=== PATIENT | male | born 1950 | race Caucasian/White ===

== ENCOUNTER 2024-07-02 22:24 | Outpatient (CLI) | payer OTHER, MEDICARE, SELFPAY ==
--- OUTSIDE RECORDS SUMMARY | 2024-07-17 00:36 | XMS_ITS | Encounter Summary ---
Author Organization [facility] Address [address] [place] [address] Care Team Providers Care Possum Trapper Name Role Phone Elsewhere, Pcp Primary Care Provider Unavailabl e Encounter Details Date Type Department Care Team (Late st Contact Info) Description 07/10/2024 Orders Only Department of Otorhinolaryngology in [place], [place] [address] [address] Kate Perez P.A.-C. [address] [address] Social History Tobacco Use Types Packs/Day Years Used Date Smoking Tobacco: Never Smokeless Tobacco: Never Alcohol Use Standard Drinks/Week Comments Not Currently 0 (1 standard drink = 0.6 oz pur e alcohol) [facility] Utilities Answer Date Recorded In the past 12 months has [facility] [employer], gas, oil, or water [employer] threatened to shut off services in your home? Yes 06/18/2024 Humiliation, Afraid, Rape, and Kick questionnair e Answer Date Recorded Within the last year, have y ou been afraid of your partner or ex-partner? No 05/29/2022 Within the last year, have y ou been humiliated or emotionally abused in other ways by your partner or ex-partner? No Within the last year, have y ou been kicked, hit, slapped, or otherwise physically hurt by your partner or ex-partner? No 05/29/2022 Within the last year, have y ou been raped or forced to have any kind of sexual activity by your partner or ex-partner? No 05/29/2022 Social Connection and Isolation Panel [NHANES] A nswer Date Recorded Frequency of Communication w ith Friends and Family Not on file 05/29/2022 How often do you get togethe r with friends or relatives? Patient declined 05/29/2022 How often do you attend chur or confucianism services? 1 to 4 times per year 05/29/2022 Do you belong to any clubs o r organizations such as protestant groups, unions, fraternal or athletic groups, or school groups? No 05/29/2022 How often do you attend meet ings of the clubs or organizations you belong to? Never 05/29/2022 Are you , , di vorced, , never , or living with a partner? 05/29/2022 AUDIT-C Answer Date Recorded Q1: How often do you have a drink containing alcohol? Monthly or less 05/29/2022 Q2: How many drinks containi ng alcohol do you have on a typical day when you are drinking? Patient does not drink Q3: How often do you have si x or more drinks on one occasion? Never 05/29/2022 Overall Financial Resource Strain (CARDIA) Answe r Date Recorded How hard is it for you to pa y for the very basics like food, housing, medical care, and heating? Somewhat hard 05/29/2022 PHQ-2 Answer Date Recorded PHQ-2 Score 2 05/31/2022 [facility] - Occupational Stress Questionnaire Answer Date Recorded Do you feel stress - tense, restless, nervous, or anxious, or unable to sleep at night because your mind is troubled all the time - these days? Only a little 05/29/2022 Exercise Vital Sign Answer Date Recorde d On average, how many days pe r week do you engage in moderate to strenuous exercise (like a brisk walk)? 3 days 06/18/2024 On average, how many minutes do you engage in exercise at this level? 30 min 06/18/2024 Hunger Vital Sign Answer Date Recorded Within the past 12 months, y ou worried that your food would run out before you got the money to buy more. Never true 06/18/20 24 Within the past 12 months, t he food you bought just didn't last and you didn't have money to get more. Never true 06/18/2024 PRAPARE - Transportation Answer Date Re corded In the past 12 months, has l ack of transportation kept you from medical appointments or from getting medications? No 06/2024 In the past 12 months, has l ack of transportation kept you from meetings, work, or from getting things needed for daily living? No 06/18/2024 Nutrition Answer Date Recorded On average, how many serving s of fruits and vegetables do you eat per day (serving size is equal to 1 cup or approximately the size of a tennis ball)? 0-2 06/18/2024 Dental Answer Date Recorded Dental: Regular Dentist Yes 05/29/20 Employment Answer Date Recorded Employment status Retired 06/18/2024 Housing Stability Answer Date Recorded What is your living situation today? I have a [facility] place to live 06/18/2024 Education Answer Date Recorded What is the highest level of school you have completed or the highest degree you have received? 12th grade 05/05/2021 Sex and Gender Information Value Date Recorded Sex Assigned at Male 08/24/2022 5:56 PM CDT Gender Identity Male 05/05/2021 8:16 PM CDT Sexual Orientation Straight 05/05/2021 8: 16 PM CDT documented as of this encounter Miscellaneous Notes * Addendum Note - Vesna Norris, L.P.N. - 07/10/2024 10:39 AM CDTAddended by: VESNA NORRIS on: 07/10/2024 01:39 PM Modules accepted: Orders documented in this encounter Plan of Treatment Not on file documented as of this encounter Visit Diagnoses Not on filedocumented in this encounter Care Teams Possum Trapper Relationship Specialty Start Date End Date Elsewhere, Pcp PCP - General Internal Medicine 05/28/22 documented as of this encounter
--- OUTSIDE RECORDS SUMMARY | 2024-07-17 00:36 | XMS_ITS | Referral Summary ---
Author Organization [facility] Address [address] [place] [address] Care Team Providers Care Boilers And Pressure Vessels Inspector Name Role Phone Elsewhere, Pcp Primary Care Provider Unavailabl e Source Comments Patient records contain information from all sites at [facility]. For routine questions regarding patient records, call [phone] during business hours, M-F 8:00 AM - 5:00 PM Central Time. Record requests for emergency care only can be directed to [phone] at any time.[facility] Encounters Date Type Department Care Team Description 07/10/2024 Orders Only Department of Otorhinolaryngology in [place], [place] [address] [place] [address] Kate Perez, P.A.-C. 06/22/2024 9:00 AM CDT Office Visit Department of Otorhinolaryngology in [place], [place] [address] [place] [phone] Kate Perez, P.A.-C. Deviation Nasal Septal (Primary Dx); Hypertrophy Nasal Turbinate; Obstruction Nasal from Last 3 Months Allergies Active Allergy Reactions Criticality Noted Date Comments Amoxicillin-Pot Clavulanate Palpitations 2019 Empagliflozin GI intolerance 11/20/2019 Losartan Itching,Diarrhea 11/18/2009 Metformin Nausea Only 06/14/2016 Metronidazole Other (see comments) 05/31/2022 Nitroimidazoles Itching 02/24/2004 Omeprazole Nausea Only 09/12/2011 Tetracycline Rash 02/24/2004 Medications Medication Sig Dispensed Refills Start Date End Date Status aspirin 81 mg tablet Take 81 mg by mouth daily. 0 Active candesartan (ATACAND) 1 mg tablet Take 32 mg by mouth daily. 0 Active ergocalciferol, vitamin D2, 50 mcg (2,000 unit) capsule Take 1,000 Int'l Units by mouth daily. 0 Active insulin glargine U-300 conc (TOUJEO MAX SOLOSTAR) 300 unit/mL (3 mL) insulin pen injection Inject 50 Units under the skin at bedtime. 0 Active Lactobacillus acidophilus 0.5 mg (100 million cell) tablet TAKE 2 TABLETS BY MOUTH EVERY DAY 0 Active psyllium husk, bulk, 100 % powder Take by mouth. 0 Active multivitamin-mine rals (ICAPS PLUS) tablet Take 1 tablet by mouth. 8 Active mupirocin (BACTROBAN) 2 % ointment Instill a pea-sized amount into each sinus irrigation and perform sinus irrigations twice daily. 0 Active miscellaneous medical supply [facility] As directed. bd auto sheild duo 0.30mm x5mm 30gx 01/24 0 Active linaCLOtide (LINZESS) 72 mcg capsule TAKE ONE CAPSULE BY MOUTH EVERY DAY FOR IBS 1 Active lancets Dispense item covered by pt ins. true metrix - Test 4 times/day. 9 Active lancets 33 gauge misc 0 Active isosorbide mononitrate (IMDUR) 30 mg 24 hr tablet TAKE ONE TABLET BY MOUTH EVERY DAY FOR CHEST PAIN 1 Active insulin aspart U-100 (NovoLOG FlexPen) 100 unit/mL (3 mL) injection INJECT 7 UNITS UNDER THE SKIN THREE TIMES A DAY TO DECREASE BLOOD SUGAR- INJECT IMMEDIATELY BEFORE MEALS 2 Active eucalyptus-pepper mint oil nasal solution Apply 2 drops to each nare twice daily. 0 Active emollient combination no.115 (Vanicream Moisturizing) lotion APPLY A THIN LAYER TO DRY SKIN EVERY DAY TO MOISTURIZE -IDEALLY APPLY WITHIN 3 MINUTES AFTER BATH OR SHOWER 0 Active clopidogreL (PLAVIX) 75 mg tablet TAKE ONE TABLET BY MOUTH EVERY DAY TO PREVENT BLOOD CLOTS 5 Active cholecalciferol (VITAMIN D3) 25 mcg (1,000 Unit) capsule Take 1,000 Units by mouth. 0 Active blood-glucose meter [facility] Dispense glucose meter, test strips and lancets covered by the patient insurance. true metrix - Test 4 times/day. 9 Active blood-glucose meter kit USE DIRECTED 0 Active blood sugar diagnostic (True Metrix Glucose Test Strip) strips TEST BLOOD SUGAR FOUR TIMES DAILY 0 Active blood glucose control high,low solution Use as directed 9 Active atorvastatin (LIPITOR) 80 mg tablet TAKE ONE-HALF TABLET BY MOUTH EVERY EVENING FOR CHOLESTEROL 0 Active alprostadiL (MUSE) 500 mcg transurethral suppository INSERT 1 SUPPOSITORY INTRAURETHRAL NEEDED FOR ERECTILE DYSFUNCTION -MAXIMUM USE OF 3 TIMES PER WEEK WITH AT LEAST 24 HOURS BETWEEN EACH USE 0 Active alcohol swabs pads, medicated USE DIRECTED 0 Active insulin regular 1 Unit/mL injection Insulin (regular) 10 units/10ml SLIDING SCALE 0 Active simethicone (MYLICON,GAS-X) 125 mg capsule Take 80 mg by mouth 4 (four) times a day as needed. 0 Active needle, disp, 30 gauge 30 gauge x 1/2 needle Extra fine.Use as directed test 4 times a day 8 Active nitroglycerin (NITROSTAT) 0.[address] 0.4 mg under the tongue. 5 Active pantoprazole (PROTONIX) 40 mg EC tablet TAKE ONE TABLET BY MOUTH EVERY DAY ONE-HALF HOUR BEFORE EATING TO DECREASE STOMACH ACID 0 Active pen needle, diabetic 29 gauge x 1/2 needle USE DIRECTED 4 TIMES DAILY 9 Active pen needle,diabetic dual safty 30 gauge x /16 needle Use with insulin once daily. 0 Active UNABLE TO FIND Arm sleeves 1 Active hydroCHLOROthiazi de (HYDRODIURIL) 25 mg tablet Take 1 tablet by mouth 3 (three) times a week. 1 Active diclofenac sodium (VOLTAREN) 1 % gel APPLY 4 GRAMS TO LEFT KNEE FOUR TIMES A DAY NEEDED FOR PAIN RELIEF -USE DOSE CARD IN BOX TO MEASURE DOSE -MAXIMUM OF 32 GRAMS PER DAY FROM ALL SITES APPLIED*FOR PAIN RELIEF 1 Active UNABLE TO FIND TAKE ONE HEAPING TABLESPOONFUL BY MOUTH EVERY DAY FOR REGULAR BOWEL MOVEMENTS -MIX IN 8 OUNCES OF JUICE OR WATER 1 Active metoprolol tartrate (LOPRESSOR) 25 mg tablet Take 12.5 mg by mouth as needed. 1 Active triamcinolone (KENALOG) 0.1 % cream Apply topically. 1 Active traZODone (DESYREL) 50 mg tablet Take 1 tablet by mouth at bedtime as needed. 2 Active sodium chloride-sodium bicarbonate (NEILMED SINUS RINSE) nasal rinse Administer into nostril(s). 1 Active semaglutide (OZEMPIC) 1 mg/dose (4 mg/3 mL) injection INJECT 1MG UNDER THE SKIN EVERY WEEK FOR DIABETES -INJECT ON THE SAME DAY EACH WEEK -REFRIGERATE 1 Active acetaminophen (TYLENOL 8 HR) 650 mg ER tablet Take 650 mg by mouth every 8 (eight) hours as needed. 2 Active camphor-eucalyptu s oiL-menthoL 4.7-1.2-2.6 % ointment Apply topically. 2 Active psyllium seed (PSYLLIUM ORAL) Take 1 tsp by mouth at bedtime as needed. 3 Active camphor-menthoL 11-11 % ointment Apply topically. 2 Active ugaldl-ijqmazcv-h mylase 3,000-9,500-15,[address] capsule Take 1 capsule by mouth daily. 2 Active loperamide (IMODIUM A-D) 2 mg tablet Take 4mg by mouth with 1st loose stool, then 2mg with each subsequent loose stool. Max 16 mg in 24 hrs 2 Active albuterol 90 mcg/actuation inhaler Inhale 1-2 puffs every 4 (four) hours as needed. 3 Active cyclobenzaprine (FLEXERIL) 10 mg tablet Take 1/2 tab twice daily as needed for pain 3 Active dicyclomine (BENTYL) 10 mg capsule Take 10 mg by mouth. 3 Active FreeStyle Javier 2 [place] misc 3 Active FreeStyle Javier 2 Sensor kit 3 Active insulin glargine-yfgn (SEMGLEE) 100 unit/mL (3 mL) injection Inject 55 Units under the skin at bedtime. 3 Active sodium chloride (OCEAN) 0.65 % nasal spray Administer into nostril(s). 3 Active atorvastatin (LIPITOR) 40 mg tablet 40 mg. 2 Active clindamycin (CLEOCIN) 150 mg capsule Take 1 capsule (150 mg total) by mouth every 6 (six) hours. 40 capsule 3 Active NaCl 0.9 % irrigation Irrigate with as directed. 4 Active ostfy-r-ohoevmxoh dase 400 unit tablet Take 1 tablet by mouth 2 (two) times a day. 2 Active apple cider vinegar 600 mg capsule Take by mouth. 4 Active hpld-sudsx-YVT-gy j-ynagpuu-rdj 100 mg-100 mcg- 100 mg-100 mg capsule Take by mouth. 3 Active diclofenac sodium (Voltaren) 1 % gel Apply topically. 4 Active famotidine (Pepcid) 20 mg tablet Take 40 mg by mouth. 4 Active hydrocortisone 1 % cream Apply to ear as needed for itching and irritation 4 Active insulin aspart U-100 (NovoLOG U-100 Insulin aspart) 100 unit/mL vial Inject under the skin. 4 Active doxycycline monohydrate (Monodox) 100 mg capsule Take 1 capsule (100 mg total) by mouth 2 (two) times a day before morning and evening meals for 10 days. 20 capsule 4 07/20/20 24 Active doxycycline monohydrate (Monodox) 100 mg capsule Take 1 capsule (100 mg total) by mouth 2 (two) times a day before morning and evening meals for 10 days. 20 capsule 4 07/10/20 24 Discontinued Active Problems Problem Noted Date Diagnosed Date Pain Generalized Abdominal 05/31/2022 Discomfort Abdominal 05/31/2022 Other Depression Recurrent 05/31/2022 Apnea Sleep Obstructive 05/31/2022 Depression Major Recurrent Mild 12/29/2021 Dysfunction Erectile 12/29/2021 Adjustment Disorder With Depressed Mood 12/29/19 22 Degeneration Disc Cervical 10/10/2021 Mixed Irritable Bowel Syndrome 05/11/2021 Pacemaker Cardiac Status Post 03/14/2021 Congestive Heart Failure 02/10/2021 Overview (05/31/2022): Feb 14, 2022 Entered By: JESSIE MCKINLEY Comment: Diastolic Dysfunction. 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 Hypercholesterolemia 09/26/2012 Gastroesophageal Reflux Disease NOS 09/26/2012 Hypertension 09/26/2012 Immunizations Name Administration Dates Next Due DTaP, Unspecified 05/25/2013 H1N1 All Forms 01/09/2010 Influenza TIV (IM) 09/11/2015,11/06/2012, 012 Influenza, Quadrivalent, Adj uvanted, Preservative Free 08/18/2021 Influenza, Seasonal, Injectable 09/11/2015,11/06,10/08/2012 Influenza, Unspecified 08/18/2021,2012,07/26/2011,2010,09/11/2010,08/11/2010,08/29/2009,1 PCV13 08/25/2018,03/24/2018 PPSV23 09/27/2020,03/20/2010 Pneumococcal, Unspecified 03/20/2010 Td (Adult), adsorbed 07/12/2010 Td, (Adult) Unspecified 07/12/2010 Tdap 05/25/2013 influenza trivalent vaccine (6 months and older)(PF) 09/08/2015 Social History Tobacco Use Types Packs/Day Years Used Date Smoking Tobacco: Never Smokeless Tobacco: Never Tobacco Cessation:Counseling Given: Not Answered Alcohol Use Standard Drinks/Week Comments Not Currently 0 (1 standard drink = 0.6 oz pur e alcohol) [facility] Utilities Answer Date Recorded In the past 12 months has e [employer], gas, oil, or water [employer] threatened to shut off services in your [...] 05/29/2022 How often do you attend chur ch or pentecostal services? 1 to 4 times per year 05/29/2022 Do you belong to any clubs o r organizations such as jewish groups, unions, fraternal or athletic groups, or [...] Answer Date Recorded PHQ-2 Score 2 05/31/2022 [facility] - Occupational Stress [...] your living situation today? I have a [facility] place to live 06/18/2024 Education Answer Date Recorded What is the highest level of school you have completed or the highest degree you have received? 12th grade 05/05/2021 Sex and Gender Information Value Date Recorded Sex Assigned at Male 08/24/2022 5:56 PM CDT Gender Identity Male 05/05/2021 8:16 PM CDT Sexual Orientation Straight 05/05/2021 8: 16 PM CDT Last Filed Vital Signs Vital Sign Reading Time Taken Comments Blood Pressure 136/76 05/31/2022 2:42 PM CDT Pulse 82 05/31/2022 2:42 PM CDT Temperature 35.9 ??C (96.7 ??F) 05/31/2022 2:42 PM CD T Respiratory Rate 20 05/31/2022 2:42 PM CDT Oxygen Saturation - - Inhaled Oxygen Concentration - - Weight 123 kg (270 lb 11.6 oz) 05/31/2022 2:42 P M CDT Height 177.8 cm (5' 10) 05/31/2022 2:42 PM CDT Body Mass Index 38.84 05/31/2022 2:42 PM CDT Plan of Treatment Not on file Medical Devices Implanted Type Area Grain Farmer Device Identifier Shelf Expiration Date Model / Serial / Lot Stent Contour 7 X 26 - Albright [id number] Implanted:Qty: 1 on 06/11/1997 Ureteral Stent [employer] Description:Device Manufactu rer - [employer]. Device Status Text - [id number]. Procedures Procedure Name Priority Date/Time Associated Diagnosis Comments OUTSIDE CT NEURO Routine 07/02/2024 9:55 AM CDT HXZZORDERS Routine 05/07/2012 10:39 AM CDT from Last 3 Months or Most Recently Relevant to Health Maintenance Results * CT Sinus WO-Outside CT Neuro (07/02/2024 9:55 AM CDT) Narrative IIMS - 07/03/2024 8:11 AM CDT This order has been created and auto-finalized to support the import of outside images. If available, original interpretation can be found on the Media Tab in Chart Review, in Document Viewer, as an image in QREADS or as an Addendum. If a re-interpretation or overread is required please follow defined workflow.?? Provider Not In System IMG CT PROCEDURES IIMS NA * HXZZORDERS (05/07/2012 10:39 AM CDT) HXHep C Ab-[place] Negative Negative POWERCHART Comment: Vqkane-bf-pbzneg ratio is <1.00. Test Performed by: [address] [id number] Drafter Civil: Romel Anaya III, M.D. Blood 05/07/2012 10:3 9 AM CDT Otto Gaston M.D. LAB HISTORICAL ORDER S POWERCHART from Last 3 Months or Most Recently Relevant to Health Maintenance Care Teams Boilers And Pressure Vessels Inspector Relationship Specialty Start Date End Date Elsewhere, Pcp PCP - General Internal Medicine 05/28/22
--- OUTSIDE RECORDS SUMMARY | 2024-07-17 00:36 | XMS_ITS ---
Author Organization [facility] Address [address] [place] [address] Care Team Providers Care Specimen Boss Name Role Phone Unavailable Unavailable Unavailable Surgery Details Not on file Complications Check Surgery Details section. Procedure Estimated Blood Loss Check Surgery Details section. Procedure Findings Check Surgery Details section. Procedure Specimens Taken Check Surgery Details section.
--- OUTSIDE RECORDS SUMMARY | 2024-07-17 00:36 | XMS_ITS | Encounter Summary ---
Author Organization [facility] Address [address] [place] [address] Care Team Providers Care Chemical Tank Worker Name Role Phone Elsewhere, Pcp Primary Care Provider Unavailabl e Reason for Visit * Reason Comments Nasal Congestion * Outpatient (Routine) - Closed Specialty Diagnoses / Procedures Referred By Contladan t Referred To Contact Otorhinolaryngology Kate Perez, P.A.-CBelén [address] [address] [facility] Region Referral ID Status Reason Start Date Expiration Date Visits Re quested Visits Authorized [id number] Closed 08/13/2023 08/12/2026 1 1 Encounter Details Date Type Department Care Team (Latest Contact Info) Description 06/22/2024 9:00 AM CDT Office Visit Department of Otorhinolaryngology in [place], [place] [address] [facility] [place] [phone] Kate Perez P.A.-C. [address] [place] [address] Deviation Nasal Septal (Primary Dx); Hypertrophy Nasal Turbinate; Obstruction Nasal Social History Tobacco Use Types Packs/Day Years Used Date Smoking Tobacco: Never Smokeless Tobacco: Never Alcohol Use Standard Drinks/Week Comments Not Currently 0 (1 standard drink = 0.6 oz pur e alcohol) [facility] Utilities Answer Date Recorded In the past 12 months has [facility] [employer], gas, oil, or water [employer] threatened to shut off services in your [...] often do you attend chur ch or scientology services? 1 to 4 times per year 05/29/2022 Do you belong to any clubs o r organizations such as anabaptist groups, unions, fraternal or athletic groups, or [...] Answer Date Recorded PHQ-2 Score 2 05/31/2022 [facility] Occupat ional Health - Occupational [...] your living situation today? I have a [facility] place to live 06/18/2024 Education Answer Date Recorded What is the highest level of school you have completed or the highest degree you have received? 12th grade 05/05/2021 Sex and Gender Information Value Date Recorded Sex Assigned at Male 08/24/2022 5:56 PM CDT Gender Identity Male 05/05/2021 8:16 PM CDT Sexual Orientation Straight 05/05/2021 8: 16 PM CDT documented as of this encounter Progress Notes * Kate Perez P.A.-C. - 06/22/2024 9:00 AM CDT SUBJECTIVE CHIEF COMPLAINT/REASON FOR VISIT Continued nasal obstruction, congestion, facial pressure HISTORY OF PRESENT ILLNESS Julius Gregory presents to the clinic today in follow up. Patient is known to me, in the past wehad discussed proceeding with nasal septoplasty and turbinate reduction due to nasal obstruction aswell as sense of chronic nasal congestion and drainage. [facility] statuspost balloon septoplasty and balloon maxillary antrostomies at outside facility in October 30, 2020. He has been scheduled in the last 2 and half years for endoscopic sinus surgery in 2021 but this was canceled due to insurance coverage. He was then planning on nasal septoplasty and turbinate reduction last fall but this was canceled due to acute illness. He utilizes NeilMed rinsing and Ponaris r egularly, this improves his nasal congestion but only for a few hours. He has a vague pressure behind and above his eyes that is always there, this waxes and wanes. Last sinus CT in July 31, 2023 showed fairly clear sinuses, no obstructive disease. The following portions of the patient's history were reviewed: allergies, current medications, problem list, family history, medical history, social history and surgical history OBJECTIVE PHYSICAL EXAMINATION External nasal exam reveals decreased tip support. Colum[place] to the left, caudal deformity to left,slight septal deviation to the right in area 2 and 3. His septal deviation is nonobstructive. He isbilateral inferior turbinate hypertrophy noted left greater than right. No polyps and no active drainage. Oral cavity is without lesions. Neck is without adenopathy. ASSESSMENT / PLAN #1 Deviation Nasal Septal #2 Hypertrophy Nasal Turbinate #3 Obstruction Nasal We discussed involved anatomy and findings. I am not convinced the any type of endoscopic sinus surgery would benefit him and improve his facial/frontal pressure. Would recommend an updated CT to further evaluate the sinuses. If sinuses are clear I would recommend continued symptomatic treatments. While we could proceed with septoplasty and turbinate reduction to slightly improve his nasal airwayI think it would only offer him minimal improvement and the risks of surgery would not outweigh thebenefits. If he ever did want to consider nasal septoplasty we would want improved diabetic controlprior to this elective surgery. He is comfortable with this plan and will be awaiting a phone call a [facility] CT is completed in [place]. Kate Perez P.A.-C. documented in this encounter Plan of Treatment Not on file documented as of this encounter Visit Diagnoses Diagnosis Deviation Nasal Septal- Primary Hypertrophy Nasal Turbinate Obstruction Nasal documented in this encounter Care Teams Chemical Tank Worker Relationship Specialty Start Date End Date Elsewhere, Pcp PCP - General Internal Medicine 05/28/22 documented as of this encounter
--- OUTSIDE RECORDS SUMMARY | 2024-07-17 00:36 | XMS_ITS | Clinical Summary ---
Author Organization [facility] Address [address] [place] [address] Care Team Providers Care Oracle Soa Consultant Name Role Phone Elsewhere, Pcp Primary Care Provider Unavailabl e Source Comments Patient records contain information from all sites at [facility]. For routine questions regarding patient records, call [phone] during business hours, M-F 8:00 AM - 5:00 PM Central Time. Record requests for emergency care only can be directed to [phone] at any time.[facility] Allergies Active Allergy Reactions Criticality Noted Date Comments Amoxicillin-Pot Clavulanate Palpitations 2019 Empagliflozin GI intolerance 11/20/2019 Losartan Itching,Diarrhea 11/18/2009 Metformin Nausea Only 06/14/2016 Metronidazole Other (see comments) 05/31/2022 Nitroimidazoles Itching 02/24/2004 Omeprazole Nausea Only 09/12/2011 Tetracycline Rash 02/24/2004 Medications Medication Sig Dispensed Refills Start Date End Date Status aspirin [address] tablet Take 81 mg by mouth daily. [...] twice daily. 0 Active miscellaneous medical supply [facility] As directed. bd auto sheild duo 0.30mm x5mm 30gx 01/24 0 Active linaCLOtide (LINZESS) 72 mcg capsule TAKE ONE CAPSULE BY MOUTH EVERY DAY FOR IBS 1 Active lancets Dispense item covered by pt ins. true metrix - Test 4 times/day. 9 Active lancets 33 gauge [facility] 0 Active isosorbide mononitrate (IMDUR) 30 mg [...] Units by mouth. 0 Active blood-glucose meter [facility] Dispense glucose meter, test strips and lancets [...] pen needle,diabetic dual safty 30 gauge x 3/16 needle Use with insulin once daily. 0 [...] 11-11 % ointment Apply topically. 2 Active kwdsen-obfjopqn-p mylase 3,000-9,500-15,[address] capsule [...] by mouth. 3 Active FreeStyle Javier 2 [place] misc 3 Active FreeStyle Javier 2 Sensor [...] irrigation Irrigate with as directed. 4 Active dgiyb-p-xnpfsaxbp dase 400 unit tablet Take 1 tablet by mouth 2 (two) times a day. 2 Active apple cider vinegar 600 mg capsule Take by mouth. 4 Active vwjv-bfxfk-PWJ-gy k-ngbzdhh-fkx 100 mg-100 mcg- 100 mg-100 mg capsule [...] Gastroesophageal Reflux Disease NOS 09/26/2012 Hypertension 09/26/2012 Encounters Date Type Department Care Team Description 07/10/2024 Orders Only Department of Otorhinolaryngology in [place], [place] [address] [place] [address] Kate Perez, P.A.-C. 06/22/2024 9:00 AM CDT Office Visit Department of Otorhinolaryngology in [place], [place] [address] [place] [id number] Kate Perez, P.A.-C. Deviation Nasal Septal (Primary Dx); Hypertrophy Nasal Turbinate; Obstruction Nasal from Last 3 Months Immunizations Name Administration Dates Next Due DTaP, [...] drink = 0.6 oz pur e alcohol) [facility] Utilities Answer Date Recorded In the past 12 months has e [employer], gas, oil, or water [employer] threatened to shut off services in your [...] often do you attend chur ch or mormon services? 1 to 4 times per year 05/29/2022 Do you belong to any clubs o r organizations such as sabianism groups, unions, fraternal or athletic groups, or [...] Answer Date Recorded PHQ-2 Score 2 05/31/2022 [facility] - Occupational [...] your living situation today? I have a [facility] place to live 06/18/2024 Education Answer [...] 05/31/2022 2:42 PM CDT Plan of Treatment Health Maintenance Due Date Last Done Comments CT Colonography 1950 Cologuard 1950 Depression Monitoring (PHQ-9) 1950 Diabetic Office Visit with F oot Exam 1950 FIT 1950 Office Visit for Blood Press ure Check / Re-check 1950 Urine Albumin 1950 Zoster Vaccines (1 of 2) 2002 Hepatitis B Vaccines (1 of 3 - Risk 3-dose series) 2012 DTaP,Tdap,and Td Vaccines (3 - Td or Tdap) 05/25/2023 05/25/2013, 05/25/2013, 07/12/2010, Additional history exists Fall Risk Screen (Annual) 11/11/2023 COVID-19 Vaccine (1 - 2022-2 4 season) 2024 Influenza Vaccine (#1) 2024 , 08/18/2021, 09/11/2015, Additional history exists Hemoglobin A1C 09/30/2024 06/30/2024, 05/0 07/2024, 09/09/2023, Additional history exists Dilated Eye Exam 02/11/2025 02/12/2024, 05/2023, 07/27/2022 Creatinine Level (Kidney Fun ction Test) 07/02/2025 07/02/2024, 06/30/2024, 05/31/2024, Additional history exists Potassium Level 07/02/2025 07/02/2024, 06/12, 05/31/2024, Additional history exists Sodium Level 07/02/2025 07/02/2024, 06/12, 05/31/2024, Additional history exists Lipid (Cholesterol) Screening 06/30/2029, 03/19/2024, 09/09/2023, Additional history exists Colonoscopy 06/08/2030 06/08/2020 Colorectal Cancer Screening 06/08/2030 Hepatitis C Screening Completed 05/07/2012 Pneumococcal vaccine (65+ years) Completed 09/27/2020, 08/25/2018, 03/24/2018, Additional history exists Medical Devices Implanted Type Area Chemist Intern Device Identifier Shelf Expiration Date Model / Serial / Lot Stent Contour 7 X 26 - Albright [id number] Implanted:Qty: 1 on 06/11/1997 Ureteral Stent Collax Description:Device Manufactu rer - Collax. Device Status Text - [id number]. Procedures Procedure [...] HXZZORDERS (05/07/2012 10:39 AM CDT) HXHep C Ab-Hubbard Negative Negative POWERCHART Comment: Dtoleb-ni-plckkk ratio is <1.00. Test Performed by: [facility] [address] Benefits Administrator: Romel Anaya III, M.D. Blood 05/07/2012 10:3 9 AM CDT Otto Gaston M.D. LAB HISTORICAL ORDER S POWERCHART from Last 3 Months or Most Recently Relevant to Health Maintenance Care Teams Oracle Soa Consultant Relationship Specialty Start Date End Date Elsewhere, Pcp PCP - General Internal Medicine 05/28/22
--- OUTSIDE RECORDS SUMMARY | 2024-07-17 00:37 | XMS_ITS | Encounter Summary ---
Author Name [facility] [place] [facility] [place] Address [address] [place] [address] Care Team Providers Care Supervisor Cutting And Boning Name Role Phone LILIAMBRITTANIE LYNN Primary Care Provider Unavail able Insurance Providers: All historical and current Section Date Range: From patient's date of to the date document was created. This section includes the names of all active insurance providers for the patient. Insurance Provider Type of Coverage Plan Name Start of Policy Coverage End of Policy Coverage Group Number Member ID Insurance Provider's Telephone Number Policy Lu's Name Patient's Relationship to Policy Lu AARP [facility] ([facility]) MEDICARE ADVANTAGE MCR ([facility]) Nov 11, 2020 [id number] [phone] SHAYYMAURICE Y PATIENT [facility] ([facility]) MEDICARE ADVANTAGE MCR ([facility]) Nov 11, 2017 [id number] SHAYY,MAURICE Y PATIENT [facility] ([facility]) MEDICARE ADVANTAGE MCR ([facility]) Nov 11, 2020 [id number] [phone] SHAYY,MAURICE Y PATIENT Selected Encounter This section includes the information on record at [place] for the Encounter. Date/Time Encounter Type Encounter Description Reason Provider Source Aug 05, 2023 10:07 PM Outpatient Encounter ADMIN PAT ACTIVTIES (MASNONCT) BHARATCELIAVincent DAMON Encounter Template Text not used by [place] Plan of Treatment: Future Appointments (+ 6 months) and Future Tests (+/- 45 days) The Plan of Treatment section includes future care activities for the [facility] [place] [facility] This section includes future appointments and future orders which are active, pending or scheduled. Future Appointments This section includes appointments that were scheduled to occur 6 months from the date of the Encounter, up to a maximum of 20 appointments. The data comes from all [place] treatment facilities. Appointment Date/Time Appointment Type Appointme nt Facility Name Aug 09, 2023 02:00 PM AMB[facility]ORY [facility]INE [facility] Aug 12, 2023 07:00 AM AMBULATORY - NONE [facility] Aug 12, 2023 02:30 PM AMBULATORY - SURGERY [facility] Aug 13, 2023 07:00 AM AMBULATORY - NONE [facility] Sep 04, 2023 10:30 AM [facility] NONE [facility] Sep 09, 2023 02:15 PM [facility] - [facility] Sep 09, 2023 02:16 PM AMBULATORY - PS[facility]CHIATRY [facility] Sep 11, 2023 01:30 PM [facility]ORY - NONE [facility] Sep 16, 2023 11:15 AM AMBUL[facility]ORY - [facility]RY [facility] Sep 17, 2023 08:30 AM [facility]RY [facility] Oct 02, 2023 09:15 AM [facility]ORY [facility] NONE [facility] Oct 11, 2023 09:00 AM [facility]ICINE [facility] Oct 15, 2023 09:30 AM [facility] Oct 17, 2023 09:30 AM AMBULATORY - REHAB [facility]ICIN [facility] Oct 21, 2023 12:15 PM AM[facility]ORY - [facility]ICINE [facility] Nov 01, 2023 11:15 AM [facility] Nov 01, 2023 11:40 AM AMB[facility]ORY - [facility]ICINE [facility] Nov 13, 2023 10:30 AM [facility]ORY - NONE [facility] Nov 18, 2023 11:00 AM AMBULATORY - PSYCHIATRY [facility] Nov 26, 2023 09:30 AM AMBULATORY - PS[facility]CHIATRY [facility] Lab Results: +/- 30 days of the encounter This section includes the Chemistry and Hematology Lab Results on record with [place] for the patient. Radiology Reports and Pathology Reports are provided separately, in subsequent sections. Lab Results This section contains the Chemistry/Hematology Results that were resulted 30 days before or 30 daysafter the date of the Encounter. Date/Time Source Result Type Result - Unit Interpretation Reference Range Comment Aug 09, 2023 02:26 PM [facility] URIC ACID Specimen Type: PLASMA No comment entered. Ordering Provider: SUGEY DURÁN Report Released Date/Time: May 27, 2023 05:07 PM Reporting Lab: [facility] [id number] Performing Lab: [facility] [id number] URIC ACID 5.9 mg/dL 3.5-7.2 Aug 09, 2023 02:26 PM [facility] SED RATE Specimen Type: BLOOD No comment entered. Ordering Provider: SUGEY DURÁN Report Released Date/Time: May 27, 2023 05:07 PM Reporting Lab: [facility] [id number] Performing Lab: [facility] [id number] SED RATE 46 mm/h H 5-15 Aug 09, 2023 02:26 PM [facility] C-REACTIVE PROTEIN Specimen Type: PLASMA No comment entered. Ordering Provider: SUGEY DURÁN Report Released Date/Time: May 27, 2023 05:07 PM Reporting Lab: [facility] [id number] Performing Lab: [facility] [phone] C-REACTIVE PROTEIN <0.30 mg/L <5.00 Aug 09, 2023 02:26 PM [facility] HEMOGLOBIN A1C Specimen Type: BLOOD Comment: Values obtained from A1C measurements can vary. For typical A1C assays, a reported value of 7.0 could actually be between 6.7 and 7.3 if measured by a reference method. A reported value of 9.0 could actually be between 8.7 and 9.3. Ref: http://www.ng sp.org/CAPdat a.asp Ordering Provider: LUNA BANKS Report Released Date/Time: Jun 17, 2023 04:21 PM Reporting Lab: [facility] [phone] Performing Lab: [facility] [id number] HEMOGLOBIN A1C 8.4 H 4.0-6.0 Aug 09, 2023 02:26 PM [facility] LIPID PANEL,NON-FASTING Specimen Type: PLASMA No comment entered. Ordering Provider: LUNA BANKS Report Released Date/Time: Jun 17, 2023 04:21 PM Reporting Lab: [facility] [phone] Performing Lab: [facility] [phone] CHOLESTEROL 148 mg/dL <199 .HDL 42 mg/dL >40 LDL CALCULATION 73 mg/dL <99 VLDL CALCULATION 33 mg/dL H <29 NON HDL CHOLESTEROL 106 mg/dL <129 TRIG(NON FASTING) 166 mg/dL H <149 Aug 09, 2023 02:26 PM [facility] COMPREHENSIVE METABOLIC PANEL+MG Specimen Type: PLASMA No comment entered. Ordering Provider: SUGEY DURÁN Report Released Date/Time: Aug 09, 2023 02:07 PM Reporting Lab: [facility] [phone] Performing Lab: [facility] [phone] CREATININE 0.7 mg/dL 0.7-1.2 UREA NITROGEN 12 mg/dL 8-26 GLUCOSE 181 mg/dL H 70-100 SODIUM 129 mmol/L L 136-145 POTASSIUM 4.0 mmol/L 3.5-5.1 CHLORIDE 94 mmol/L L 98-107 CO2 25 mmol/L 22-29 CALCIUM 9.1 mg/dL 8.4-10.2 PROTEIN,TOTAL 7.9 g/dL 6.0-8.3 ALBUMIN 4.2 g/dL 3.5-5.2 BILIRUBIN, TOTAL 0.5 mg/dL 0.2-1.2 MAGNESIUM 2.2 mg/dL 1.6-2.6 ANION GAP 10 mmol/L 5-15 ALKALINE PHOSPHATASE 88 U/L 40-150 ALT/SGPT 19 U/L <55 AST/SGOT 16 U/L <34 .CREAT EGFR(CKD-EPI) >90 >60 Social History: Smoking Status (Most current) and Tobacco Use (All prior to encounter date) This section includes the most current, and the historical, smoking and tobacco- related health factors from the [place] facility where the Encounter took place. Current Smoking Status This section includes the most current smoking, or tobacco-related health factor, from the [place] facility where the Encounter took place. Date/Time Current Smoking Status Comment Facil ity March 23, 2019 08:54 AM [place]-TOBACCO QUIT 15 YRS OR MORE [facility] Tobacco Use History This section includes a history of the smoking, or tobacco-related health factors, that were collected on or before the date of the Encounter. The data comes from the [place] facility where the Encounter took place. Date/Time Smoking Status/Tobacco Use Comment F acility March 23, 2019 08:54 AM [place]-TOBACCO QUIT 15 YRS OR MORE [facility] Mar 04, 2018 09:41 AM LIFETIME NON-TOBACCO USER [facility] Jun 17, 2017 01:07 PM LIFETIME NON-TOBACCO USER [facility] Apr 23, 2016 09:50 AM FORMER TOBACCO USER 7Y OR GREATE R [facility] Mar 06, 2016 11:12 AM INPT NO TOBACCO USE IN LAST 30 D AYS [facility] Jul 15, 2015 08:58 AM LIFETIME NON-TOBACCO USER [facility] Feb 11, 2013 10:04 AM LIFETIME NON-TOBACCO USER [facility] Nov 27, 2006 03:44 PM FORMER TOBACCO USER 7Y OR GREATE R [facility] Advance Directives: All historical and current Section Date Range: From patient's date of to the date document was created. This section includes ALL of a patient's completed or amended [place] Advance and Rescinded Directives. The entries below indicate that a directive exists for the patient, but an actual copy is not included with this document. The data comes from all [facility]. Date Advance Directives Provider Source Mar 04, 2016 CLINICAL WARNING PALMA NUNEZ [facility] Apr 25, 2010 ADVANCE DIRECTIVE RADHA STEVENSON [facility] March 21, 2005 CLINICAL WARNING KYLEE ANNI [facility] Apr 28, 2004 CLINICAL WARNING MAGI CHAUDHRY [facility] Apr 28, 2004 CLINICAL WARNING [facility] Radiology Reports: +/- 30 days of the encounter Radiology Reports For cases when an order for radiology services may have been completed prior to the date of the Encounter, the report list includes the Radiology Reports that were completed up to 30 days before dateof the Encounter. For cases when an order for radiology services may have been completed after the date of the Encounter, the report list also includes the Radiology Reports that were completed up to30 days after date of the Encounter. The data comes from all [place] treatment facilities. Date/Time Radiology Report Provider Source Jul 09, 2023 10:04 AM HIP RIGHT 2 VIEWS W/PELVIS: SELAM LUCAS [id number] -1950 M Exm Date: JUL 09, 2023@10:04 Req Phys: BRITTANIE DURÁN Loc: [facility] PACT TELEPHONE [place] RN ( Img Loc: [facility] Service: Unknown (Case [id number] COMPLETE) HIP RIGHT 2 VIEWS W/PELVIS (RAD Detailed) CPT:34188 Proc Modifiers : RIGHT, STANDING RIGHT Reason for Study: Right hip pain Clinical History: IS NOT under investigation for COVID-19 or is COVID-19 negative Hip pain x 1 month Responsible provider name and phone number to notify for critical findings if other than user placing the order and pager listed below: User placing orders pager: Brittanie Durán LAST CREATININE 0.8 (03/12/23) Report Status: Verified Date Reported: JUL 09, 2023 Date Verified: JUL 09, 2023 Dairy Farm Manager E-Sig:/ES/ROULA SALDANA MD Report: EXAM: HIP RIGHT 2 VIEWS W/PELVIS 07/09/2023 REASON FOR STUDY: Right hip pain COMPARISON: 11/17/2015 Impression: Right femoral head is well-seated within the acetabulum. There is degenerative bony ridging of the superior lateral right acetabulum. Mild joint space narrowing at this area of bony hypertrophy. Similar appearance of the left hip joint. There is no fracture. No evidence for avascular necrosis of the femoral heads. There is enthesopathy of the right greater and lesser trochanters. Small chronic ossification superior to the right greater trochanter. Degenerative sclerosis with osseous bridging of the superior bilateral sacroiliac joints. Degenerative disc changes throughout the lumbar spine. Primary Interpreting Staff: ROULA SALDANA MD, RADIOLOGIST (Dairy Farm Manager) /ROULA TAL[facility]ERT [facility] Jul 09, 2023 10:04 AM WRIST RIGHT 3 VIEW S OR MORE: SELAM LUCAS [id number] -1950 M Exm Date: JUL 09, 2023@10:04 Req Phys: BRITTANIE DURÁN Pat Loc: [facility] PACT TELEPHONE [place] RN ( Img Loc: [facility] Service: Unknown (Case [id number] COMPLETE) WRIST RIGHT 3 VIEWS OR MORE (RAD Detailed) CPT:84736 Proc Modifiers : RIGHT Reason for Study: Right wrist pain Clinical History: IS NOT under investigation for COVID-19 or is COVID-19 negative Right wrist pain x months Responsible provider name and phone number to notify for critical findings if other than user placing the order and pager listed below: User placing orders pager: LAST CREATININE 0.8 (03/12/23) Report Status: Verified Date Reported: JUL 09, 2023 Date Verified: JUL 09, 2023 Dairy Farm Manager E-Sig:/MIGDALIA/ABDULLAHI EUBANKS MD Report: EXAMINATION: WRIST RIGHT 3 VIEWS OR MORE 07/09/2023 10:04 AM INDICATION: Right wrist pain Impression: Advanced degenerative narrowing along the radial scaphoid joint space which has progressed since 12/13/2021. Possible dorsal tilting of the lunate on the lateral view and increased scapholunate angle which suggests DISI. Mild/moderate degenerative narrowing of the 1st CMC joint. Mild degenerative changes along the STT joints. Tiny ossification projected along the posterior aspect of the wrist seen on the lateral view which could represent an old triquetral fracture/injury. Vascular calcification. Primary Interpreting Staff: ABDULLAHI EUBANKS MD, RADIOLOGIST (Dairy Farm Manager) /ABDULLAHI [facility] Encounter Notes: All associated encounter notes This section contains the clinical notes associated to the Encounter. Date/Time Encounter Note(s) Provider Source Aug 07, 2023 08:08 AM ADDENDUM: LOCAL TITLE: Addendum STANDARD TITLE: ADDENDUM DATE OF NOTE: AUG 07, 2023@08:08:10 ENTRY DATE: AUG 07, 2023@08:08:11 AUTHOR: CELIA KENNY COSIGNER: URGENCY: STATUS: COMPLETED was seen in an outside ED on: 08/04/23 [place] Diagnosis: Abdominal cramping Medical records uploaded to [facility] Please review for any additional follow up needed /cali Kenny RN CEM MSN underground truck operator Rn Acute Care Signed: 08/07/2023 08:08 Receipt Acknowledged By: 08/09/2023 17:52 /migdalia/ BRITTANIE DURÁN,KEYANNA RADIOLOGY ASSISTANT [facility] 08/07/2023 15:59 /migdalia/ Colleen Walker [facility] PACT RN --- Original Document --- 08/04/23 [facility] SELF PRESENTING CARE COORD PLAN NOTE: Emergency Notification Intake Date Presenting to the Facility: Jul Method of Contact: Notified from [employer] worklist Notification ID: [id number] [facility] Referral #: [facility] Name: Hospital: [facility] Address: [address] [place] [address] City: [place] State: [place] Zip Code: [address] Phone : [facility] Point of Contact: Name: [facility] Chief complaint: ABDOMINAL PAIN, DIARRHEA - R10.9 Primary Diagnosis: Disposition Discharged Date of discharge: Jul Discharge to home /migdalia/ MANNY GOYAL SHIP FASTENER Signed: 08/05/2023 22:11 Receipt Acknowledged By: 08/06/2023 15:33 /migdalia/ Celia Kenny RN CEM MSN underground truck operator Rn Acute Care 08/06/2023 ADDENDUM STATUS: COMPLETED Records currently unavailable in [facility], this designer writer will update this EOC and upload records to [facility] when available. /cali Kenny RN CEM MSN underground truck operator Rn Acute Care Signed: 08/06/2023 15:35 08/07/2023 ADDENDUM STATUS: COMPLETED RTC placed for telephone appt for ED f/u w/designer writer. /migdalia/ Colleen Walker [facility] PACT RN Signed: 08/07/2023 16:00 CELIA KENNY [facility] Aug 04, 2023 10:07 PM NONVA NOTE: LOCAL TITLE: [facility] SELF PRESENTING CARE COORD PLAN STANDARD TITLE: NONVA NOTE DATE OF NOTE: AUG 04, 2023@22:07 ENTRY DATE: AUG 05, 2023@22:07:43 AUTHOR: MANNY GOYAL EXP COSIGNER: URGENCY: STATUS: COMPLETED [facility] SELF PRESENTING CARE COORD PLAN NOTE Has ADDENDA Emergency Notification Intake Date Presenting to the Facility: Jul Method of Contact: Notified from [employer] worklist Notification ID: [id number] [facility] Referral #: [facility] Name: Hospital: [facility] Address: [address] [place] [address] City: [place] State: [place] Zip Code: [address] Phone : [facility] Point of Contact: Name: DEPT Chief complaint: ABDOMINAL PAIN, DIARRHEA - R10.9 Primary Diagnosis: Disposition Discharged Date of discharge: Jul Discharge to home /migdalia/ MANNY GOYAL SHIP FASTENER Signed: 08/05/2023 22:11 Receipt Acknowledged By: 08/06/2023 15:33 /migdalia/ Celia Kenny RN CEM MSN underground truck operator Rn Acute Care 08/06/2023 ADDENDUM STATUS: COMPLETED Records currently unavailable in [facility], this designer writer will update this EOC and upload records to [facility] when available. /cali Kenny RN CEM MSN underground truck operator Rn Acute Care Signed: 08/06/2023 15:35 08/07/2023 ADDENDUM STATUS: COMPLETED [place] was seen in an outside ED on: 08/04/23 [place] Diagnosis: Abdominal cramping Medical records uploaded to [facility] Please review for any additional follow up needed /cali NEALA MSN underground truck operator Rn Acute Care Signed: 08/07/2023 08:08 Receipt Acknowledged By: * AWAITING SIGNATURE * BRITTANIE DURÁN 08/07/2023 15:59 /migdalia/ Colleen Walker [facility] PACT RN 08/07/2023 ADDENDUM STATUS: COMPLETED RTC placed for telephone appt for ED f/u w/designer writer. /cali Walker [facility] PACT RN Signed: 08/07/2023 16:00 MANNY GOYAL [facility]
--- OUTSIDE RECORDS SUMMARY | 2024-07-17 00:37 | XMS_ITS | Clinical Summary ---
Author Organization [facility] Address [place], [place] [address] Care Team Providers Care Audio Visual Engineer Name Role Phone Linette Leone HEAVY LINE TECHNICIAN Primary Care Provider [facility] Unavailable Unavailable Brittanie Durán NP Unavailable [phone] [place] [place] Unavailable Alyssa Sellers RN Unavailable [phone] Corie Nolen RN Unavailable [phone] Allergies Active Allergy Reactions Criticality Noted Date Comments Amoxicillin-Pot Clavulanate Palpitations 02/08/2020 Empagliflozin Dizziness 11/20/2019 Nitroimidazoles 01/06/2009 Losartan Diarrhea 11/18/2009 Losartan Potassium *Unknown - Pt Doesn't Remember 10/24/2010 Metformin Nausea Only 06/14/2016 Omeprazole Nausea Only 09/12/2011 Semaglutide Diarrhea Medium 06/09/2024 Tetracycline *Unknown 01/06/2009 Patient doesn't remember what the reaction was. He has tolerated doxycyline in the past Medications Medication Sig Dispensed Refills Start Date End Date Status clopidogrel (PLAVIX) 75 mg tabletIndications:N STEMI (non-ST elevated myocardial infarction) (HC) Take 1 tablet by mouth every morning. 90 tablet 3 11/01/20 15 Active multivitamins with minerals tablet Take 1 Tablet by mouth once daily. 12/01/19 18 Active BD INSULIN PEN NEEDLE UF 29 gauge x 1/2 USE DIRECTED 4 TIMES DAILY 99 04/28/20 19 Active Blood Glucose Control High&Low solnIndications:Typ e 2 diabetes mellitus with diabetic neuropathy, with long-term current use of insulin (HC) Use as directed 3 Bottle 3 07/23/20 19 Active Blood-Glucose Meter (ACCU-CHEK JIA PLUS METER)Indications:T ype 2 diabetes mellitus with diabetic neuropathy, with long-term current use of insulin (HC) Dispense glucose meter, test strips and lancets covered by the patient insurance. true metrix - Test 4 times/day. 1 Device 07/23/20 19 Active lancets (ACCU-CHEK SOFTCLIX LANCETS)Indications :Type 2 diabetes mellitus with diabetic neuropathy, with long-term current use of insulin (HC) Dispense item covered by pt ins. true metrix - Test 4 times/day. 400 Each 3 07/23/20 19 Active isosorbide mononitrate (IMDUR) 30 mg extended release tablet 24 Hour Take 30 mg by mouth once daily. Active B-D SINGLE USE SWABS REGULARIndications: Type 2 diabetes mellitus with diabetic neuropathy, with long-term current use of insulin (HC) USE DIRECTED 300 Each 3 10/03/20 20 Active aspirin (Aspir-81) 81 mg enteric coated tablet Take 1 Tablet (81 mg) by mouth once daily with a meal. 0 03/14/20 21 Active atorvastatin (LIPITOR) 80 mg tablet Take 80 mg by mouth once daily with evening meal. 09/08/20 20 Active triamcinolone (ARISTOCORT; KENALOG) 0.1 % creamIndications:De rmatitis Apply topically to affected area(s) 2 times daily. 80 g 08/08/20 21 Active durable medical equipment (DME)Indications:St rain of right deltoid muscle, initial encounter,Strain of right biceps, initial encounter Arm compression sleeve. 1 Each 08/18/20 21 Active hydroCHLOROthiazide (HCTZ) 25 mg tabletIndications:H TN (hypertension) Take 1 tablet by mouth three times a week (sat,sat,saturday) . 45 tablet. 09/21/20 21 Active traZODone (DESYREL) 50 mg tablet Take 1 Tablet by mouth at bedtime. 11/23/19 22 Active leg brace miscIndications:Alejandrina janessa osteoarthritis of right knee As directed. 1 Each 03/29/20 22 Active hqvrh-q-bizmyxbgeqh se (Beano) 300 unit TbDiIndications:Irr itable bowel syndrome, unspecified type Take 1 tab twice daily. 60 Tablet 04/10/20 Active nitroglycerin (NITROSTAT) 0.4 mg sublingual tabletIndications:N STEMI (non-ST elevated myocardial infarction) (HC) Place 1 Tablet (0.4 mg) under the tongue every 5 minutes if needed for Chest Pain (first choice for chest pain). 25 tablet. 08/07/20 Active acetaminophen SR (Tylenol Arthritis Pain) 650 mg Extended-Release tabletIndications:M idline low back pain, unspecified chronicity, unspecified whether sciatica present Take 1 Tablet (650 mg) by mouth every 8 hours if needed (pain). Max acetaminophen dose: 4000mg in 24 hrs. 60 Tablet 1 08/07/20 Active loperamide (IMODIUM) 2 mg tabletIndications:D iarrhea, unspecified type Take 4mg by mouth with 1st loose stool, then 2mg with each subsequent loose stool. Max 16 mg in 24 hrs 12 Tablet 09/22/20 Active insulin aspart, U-100, (NovoLOG Flexpen U-100 Insulin) 100 unit/mL (3 mL) penIndications:Type 2 diabetes mellitus with diabetic nephropathy, with long-term current use of insulin (HC) Sliding scale with meals 150-200 4 units, 201-250 6 units, 251-300 8 units, 301-350 10 units. 10 Each 5 09/27/20 22 Active fzghqz-sejybnrm-has lase (Creon) 3,000-9,500- 15,000 unit cpDRIndications:Ewing creatic insufficiency Take 1 capsule daily. 90 Capsule 1 10/05/20 22 Active durable medical equipment (DME)Indications:Pr imary osteoarthritis of both knees Knee pillow 1 Each 11/02/20 22 Active medication order composer Take 1 Capsule by mouth once daily. FISH OIL 1000MG (500MG DHA/EPA) CAP,ORAL 11/06/20 22 Active cyclobenzaprine (FLEXERIL) 10 mg tabletIndications:H ip pain, right Take 1/2 tab twice daily as needed for pain 30 Tablet 12/14/19 23 Active candesartan (ATACAND) 32 mg tabletIndications:H TN (hypertension) TAKE 1 TABLET(32 MG) BY MOUTH EVERY DAY AT BEDTIME Strength: 32 mg 90 Tablet 3 12/14/19 23 Active dicyclomine (BENTYL) 10 mg capsuleIndications: Abdominal cramping Take 1 Capsule (10 mg) by mouth four times daily before meals and at bedtime. 20 Capsule 08/04/20 Active albuterol HFA (PRO-AIR; VENTOLIN; PROVENTIL) 90 mcg/actuation inhalerIndications: Bronchitis,Acute non-recurrent pansinusitis Inhale 1-2 Puffs by mouth every 4 hours if needed for Wheezing. 1 Each 08/26/20 Active Lactobacillus acidophilus 0.5 mg (100 million cell) tab Take 2 Tablets by mouth once daily. 08/27/20 Active dilTIAZem CR (TIAZAC; TAZTIA XT) 120 mg capsuleIndications: Palpitations Take 1 Capsule (120 mg) by mouth once daily. 90 Capsule 3 09/12/20 Active metoprolol tartrate (LOPRESSOR) 25 mg tabletIndications:P alpitations Take 0.5 Tablets (12.5 mg) by mouth two times daily. 90 Tablet 3 09/12/20 Active Floq Javier 3 [place] for continuous blood glucose monitor (CGM)Indications:Ty pe 2 diabetes mellitus with diabetic nephropathy, with long-term current use of insulin (HC) To be used to read blood sugars follow college administrator directions. 1 Each 01/08/20 24 Active hydrocortisone 1 % creamIndications:Ot algia of both ears Apply to ear as needed for itching and irritation 30 g 01/27/20 24 Active famotidine (PEPCID) 40 mg tabletIndications:I rritable bowel syndrome with both constipation and diarrhea,Gastroesop hageal reflux disease with esophagitis without hemorrhage Take 1 Tablet (40 mg) by mouth at bedtime. 90 Tablet 3 02/06/20 24 Active durable medical equipment (DME)Indications:Jaci mbar disc disease Back brace 1 Each 05/05/20 24 Active psyllium powdIndications:Irr itable bowel syndrome, unspecified type Mix 1 tsp in liquid then take by mouth once daily if needed for Constipation. 849 g 2 05/21/20 24 Active diclofenac topical (VOLTAREN) 1 % gelIndications:Prim riccardo osteoarthritis involving multiple joints APPLY 4 GRAMS TO LEFT KNEE FOUR TIMES A DAY NEEDED FOR PAIN RELIEF -USE DOSE CARD IN BOX TO MEASURE DOSE -MAXIMUM OF 32GM PER DAY 100 g 5 06/01/20 24 Active insulin glargine, U-100, (LANTUS) 100 unit/mL injectionIndication s:type 2 diabetes mellitus Inject 66 units subcutaneous before bedtime. 80 mL 06/09/20 24 Active Walker - 4 wheelsIndications:P rimary osteoarthritis of both knees,Primary osteoarthritis of right hip For home use. Length of need: 99 with seat. 1 Each 06/09/20 24 Active FreeStyle Javier 3 Sensor for continuous blood glucose monitor (CGM)Indications:Ty pe 2 diabetes mellitus with diabetic nephropathy, with long-term current use of insulin (HC) To be used to read blood sugars, follow college administrator directions. 6 Each 3 06/15/20 24 Active medication order composerIndications :Type 2 diabetes mellitus with diabetic nephropathy, with long-term current use of insulin (HC) APPLE CIDER VINEGAR CAP/TAB takes 3 times per week 06/29/20 24 Active medication order composerIndications :Type 2 diabetes mellitus with diabetic nephropathy, with long-term current use of insulin (HC) PONARIS SOLN,NASAL 06/29/20 24 Active loperamide (IMODIUM) 2 mg capsuleIndications: Diarrhea, unspecified type Take 2 capsules (4mg) orally with 1st loose stool, then 1 capsule (2mg) with other loose stools. Max 16 mg in 24 hrs. 40 Capsule 07/12/20 24 Active apixaban (Eliquis) 5 mg tabletIndications:A trial flutter, unspecified type (HC) Take 1 Tablet (5 mg) by mouth two times daily. 180 Tablet 3 07/14/20 24 Active FreeStyle Javier 3 [place] for continuous blood glucose monitor (CGM)Indications:Ty pe 2 diabetes mellitus with diabetic nephropathy, with long-term current use of insulin (HC) To be used to read blood sugars follow college administrator directions. 1 Each 01/02/20 24 024 Discontinued(Du plicate therapy (E-cancel not sent)) rivaroxaban (Xarelto) 10 mg tabletIndications:p revention of thromboembolism in paroxysmal atrial fib Take 1 Tablet (10 mg) by mouth once daily with evening meal. 30 Tablet 07/03/20 24 024 Discontinued rivaroxaban (Xarelto) 10 mg tabletIndications:p revention of thromboembolism in paroxysmal atrial fib Take 2 Tablets (20 mg) by mouth once daily with evening meal. 30 Tablet 07/03/20 24 024 Discontinued(*M edication adjustment) rivaroxaban (Xarelto) 20 mg tabletIndications:p revention of thromboembolism in paroxysmal atrial fib Take 1 Tablet (20 mg) by mouth once daily with evening meal. 30 Tablet 07/03/20 24 024 Discontinued(*M ed complete/Regime n complete/Level of care change) apixaban (Eliquis) 5 mg tabletIndications:A trial flutter, unspecified type (HC) Take 1 Tablet (5 mg) by mouth two times daily. 60 Tablet 07/03/20 24 024 Discontinued(Re order (E-cancel not sent)) apixaban (Eliquis) 5 mg tabletIndications:A trial flutter, unspecified type (HC) Take 1 Tablet (5 mg) by mouth two times daily. 180 Tablet 3 07/10/20 24 024 Discontinued(Re order (E-cancel not sent)) Active Problems Patient Care Coordination No te Formatting of this note migh t be different from the original. [facility] [place] 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 Problem Noted Date Diagnosed Date Chronic obstructive pulmonar y disease, unspecified COPD type 04/23/2024 Unspecified hearing loss, unspecified ear 2023 Depression, major, single episode, moderate 08/13 Irritable bowel syndrome 11/29/2022 Pancreatic insufficiency 11/29/2022 Parkinson's disease 11/16/2022 Primary erectile dysfunction 12/29/2021 Insomnia 12/29/2021 Cervical pain 12/29/2021 Adjustment disorder with depressed mood 12/29/19 Major depressive disorder, recurrent, mild 12/29 Coronary artery disease invo lving bois forte coronary artery of bo[place]te heart with angina pectoris 12/29/2021 Degenerative disc disease, cervical 10/10/2021 Anxiety 09/23/2021 History of COVID-19 09/04/2021 Irritable bowel syndrome wit h both constipation and diarrhea 05/11/2021 S/P placement of cardiac pacemaker 03/14/2021 Palpitation 03/14/2021 Sinus bradycardia 03/09/2021 Overview: - sinus bradycardia limiting medical therapy - status post PPM 03/08/2021 Anxiety neurosis 02/16/2021 Atrial flutter 02/16/2021 Depressive disorder 02/16/2021 Overview: Aug 31, 2013 Entered By: MARCIO FALL Comment: versus schizoaffective disorder Dyspepsia 02/16/2021 History of renal calculi 02/16/2021 Overview: Sep 08, 2013 Entered By: MARCIO FALL Comment: PCP with yearly renal USOct 2012 Entered By: MARCIO FALL Comment: left mid ureteral narrowing, mild pelvicaliectasis Impulse control disorder 02/16/2021 Internal carotid artery occlusion 02/16/2021 Osteoarthritis of knee 02/16/2021 Overview: Dec 18, 2011 Entered By: EMILIA THOMPSON Comment: left sided medial compartment, right sided patellofemoral Congestive heart failure 02/10/2021 Carotid artery disease 02/10/2021 ALMA (obstructive sleep apnea) 01/19/2021 Paroxysmal atrial fibrillation 01/19/2021 Symptomatic PVCs 08/30/2020 Tubular adenoma of colon 06/08/2020 Overview: follow up colonoscopy in 3 years due to the size Arthritis of left knee 10/22/2018 Left knee pain 10/22/2018 Cerebral vascular disease 03/04/2017 Sensorineural hearing loss (SNHL), bilateral 03/2017 Flatulence symptom 02/05/2017 Exertional headache 02/05/2017 ALMA 2009, AHI 8 12/20/2016 Type 2 diabetes mellitus wit h diabetic nephropathy, with long-term current use of insulin 11/12/2016 Left ventricular diastolic dysfunction, NYHA cla ss 1 09/20/2016 Abnormality of left ventricle of heart 6 Coronary artery disease invo lving bois forte coronary artery of bo[place]te heart 04/28/2016 H/O colonoscopy 10/28/2015 Overview: Due in 5 years polyps NSTEMI (non-ST elevated myocardial infarction) 1 12/25/2014 Lateral epicondylitis of left elbow 09/15/2015 Osteoarthritis of both knees 09/14/2013 Hypercholesterolemia 09/26/2012 HTN (hypertension) 09/26/2012 GERD (gastroesophageal reflux disease) 2 Polyp of colon Resolved Problems Problem Noted Date Diagnosed Date Resolved Date Chronic alcoholism in remission 02/16/2021 05/11/2021 H/O major depression 06/03/2018 023 Paroxysmal SVT (supraventricular tachycardia) 02/06/20 17 02/08/2020 Unstable angina 12/21/2016 12/29/2021 Chronic diastolic CHF (conge stive heart failure) 12/20/2016 02/08/2020 Controlled type 2 diabetes m ellitus without complication, without long-term current use of insulin 11/06/2016 11/12/2016 Chest pain 04/28/2016 12/29/2021 Morbid obesity 03/21/2016 02/08/2020 Paroxysmal atrial tachycardi a (HC) s/p ablation March 2016 03/21/2016 02/08/2020 Overview: S/P atrial tachycardia ablation on 04/02/2016 DM (diabetes mellitus) 02/17/200911/06 Angina pectoris 02/08/2020 Encounters Date Type Department Care Team Description 07/15/2024 Telephone [facility] [address] [place] [address] Jayant Thornton MD Concerns (Reschedule CLIVE/DCCV) 07/14/2024 Refill [facility] [address] [place] [address] Jayant Thornton MD Refill Request 07/14/[address] [phone] Linette Leone NP Refill Request (Freestyle Javier 2 Sensor) 07/14/2024 Telephone [facility] [address] [place] [address] Jayant Thornton MD Ed F/u 07/12/2024 9:45 AM CDT - 07/12/2024 11:10 AM CDT Emergency [address] [address] Ricardo Arreguin MD Diarrhea, unspecified type (Primary Dx); Acute cough Discharge Disposition: Home Self Care 07/12/2024 Travel 07/10/2024 Nurse Triage [facility] [address] [phone] Shaneka Warren, RASHEED Follow Up 07/09/[address] [address] Linette Leone NP Medication Management (apixaban (Eliquis) 5 mg tablet) 07/06/2024 Telephone [facility] [address] [phone] Mirela Falk I, RASHEED Device Check 07/04/2024 Nurse Triage [facility] [address] [phone] Shaneka Warren, RASHEED HR 110 (I Triage (HR 110)) 07/03/2024 Telephone [facility] [address] [facility] [address] [place] [phone] Yodit Salmeron RN 07/03/2024 Medical Messaging [address] [phone] Linette Leone NP Test results 07/03/2024 Telephone [facility] [address] [phone] Jayant Thornton MD Atrial Fibrillation 07/02/2024 10:59 PM CDT - 07/03/2024 2:10 AM CDT Emergency [facility] [address] [place] [address] Indira Mir MD Palpitations (Primary Dx); Persistent atrial fibrillation (HC) Discharge Disposition: Home Self Care 07/02/2024 9:40 AM CDT - 07/02/2024 10:58 PM CDT Hospital Encounter [facility] [address] [place] [address] Kate Perez PA Nasal obstruction; Chronic sinusitis, unspecified location 07/02/2024 Travel 06/30/2024 1:00 PM CDT Orders Only [address] [address] [facility] 06/29/2024 10:30 AM CDT Patient Outreach [address] [address] Focused Care Management 06/29/2024 9:30 AM CDT Telemedicine [address] [phone] Linette Leone NP Diabetes (3 month Follow up); Telehealth 06/29/2024 Travel 06/09/2024 10:30 AM CDT Patient Outreach [address] [address] Focused Care Management (Depression, major, single episode, moderate/Type 2 diabetes mellitus with diabetic nephropathy, with long-term current use of insulin ) 06/09/2024 9:30 AM CDT Telemedicine [address] [address] Linette Leone NP Telehealth; Hospital F/U (ED 05/31/2024 -diarrhea) 06/09/2024 Travel 06/04/2024 11:40 AM CDT Orders Only [address] [phone] [facility] 06/04/2024 Travel 06/01/[address] [address] Linette Leone NP Medication Management (semaglutide (OZEMPIC) 2 mg/1.5 mL (0.25mg or 0.5mg doses) pen ) 05/31/2024 8:28 AM CDT - 05/31/2024 9:47 AM CDT Emergency [facility] [address] [place] [address] Nury Don MD Irritable bowel syndrome, unspecified type (Primary Dx); Elevated lipase Discharge Disposition: Home Self Care 05/31/2024 Travel 05/25/2024 9:30 AM CDT Patient Outreach [address] [phone] Focused Care Management (Chronic low back pain /Anxiety) 05/25/[address] [address] Linette Leone NP Refill Request 05/25/2024 Travel 05/21/[address] [address] Linette Leone NP Appointment 05/19/[address] [address] Linette Leone NP Medication Management (semaglutide (OZEMPIC)) 05/13/[address] [address] Linette Leone NP Form 05/05/2024 10:00 AM CDT Patient Outreach [address] [address] Focused Care Management (Depression, major, single episode, moderate (HC) 04/23/2024 /Type 2 diabetes mellitus with diabetic nephropathy, with long-term current use of insulin () 05/05/[address] [phone] Linette Leone NP Medication Management (Back brace and Open Arms form) 05/05/2024 Travel 04/23/2024 10:00 AM CDT Phone Office Visit [address] [address] Focused Care Management (Anxiety/Major depressive disorder, recurrent, mild) 04/23/2024 8:50 AM CDT Telemedicine [address] [phone] Linette Leone NP Follow Up (Lab results) 04/23/2024 Patient Outreach [address] [address] Corie Nolen RN Focused Care Management (Anxiety /Type 2 diabetes) 04/23/2024 Travel 04/22/2024 Travel from Last 3 Months Immunizations Name Administration Dates Next Due Influenza A (H1N1), Inactivated 01/09/2010 Influenza Virus, Unspecified 07/21/2013, 07/26/2011,11/11/2010,2009,08/11/2010,08/29/2009,09/01/2008 Influenza, IIV3 (Age >=3 years) 09/11/2015,11/06,10/08/2012 Influenza, Inactivated AIIV4 (Age 65+ Years) Preserv Free 08/18/2021 Pneumococcal Poly,23-Valent (Pneumovax) 09/27/2020,03/20/2010 Pneumococcal conj 13-Valent (Prevnar 13) 08/25/2018,03/24/2018 Td (Age >=7 Years) 07/12/2010 Tdap, Unspecified 05/25/2013 Family History Medical History Relation Name Comments Diabetes Sister Relation Name Status Comments Father Mother Sister Social History Tobacco Use Types Packs/Day Years Used Date Smoking Tobacco: Never Passive Smoke Exposure: Never Smokeless Tobacco: Never Tobacco Cessation:Counseling Given: Not Answered Alcohol Use Standard Drinks/Week Comments Yes 0 (1 standard drink = 0.6 oz pur e alcohol) very rarely PHQ-2 Answer Date Recorded PHQ-2 TOTAL SCORE 0 09/09/2023 Social Connections Answer Date Recorded Frequency of Communication with Friends and Fami ly Not on file 04/11/2023 Financial Resource Strain Answer Date R ecorded Difficulty of Paying Living Expenses 3 04/03/2022 Difficulty of Paying Living Expenses Not on file 04/03/2022 Food Insecurity Answer Date Recorded Worried About Running Out of Food in the Last Ye ar 1 03/05/2022 Transportation Needs Answer Date Record ed Lack of Transportation (Medical) 1 03/05/2022 Housing Stability Answer Date Recorded Unable to Pay for Housing in the Last Year 1 03/05/2022 Sex and Gender Information Value Date Recorded Sex Assigned at Not on file Gender Identity Not on file Sexual Orientation Not on file Obstetrics History Last Filed Vital Signs Vital Sign Reading Time Taken Comments Blood Pressure 133/70 07/12/2024 11:06 AM CDT Pulse 76 07/12/2024 11:06 AM CDT Temperature 36.6 ??C (97.8 ??F) 07/12/2024 9:51 AM CD T Respiratory Rate 18 07/12/2024 9:51 AM CDT Oxygen Saturation 94% 07/12/2024 9:51 AM CDT Inhaled Oxygen Concentration - - Weight 123.4 kg (272 lb) 07/12/2024 9:58 AM CDT Height 177.8 cm (5' 10) 07/12/2024 9:58 AM CDT Body Mass Index 39.03 07/12/2024 9:58 AM CDT Plan of Treatment Upcoming Encounters Date Type Department Care Team (Latest Contact Info) Description 07/17/2024 11:30 AM CDT Telemedicine [address] [phone] Linette Leone NP [address] [place] [address] 07/20/2024 11:00 AM CDT Patient Outreach [address] [address] 07/27/2024 12:45 PM CDT Appointment [facility] [address] [place] [address] 07/27/2024 1:00 PM CDT Appointment [facility] [address] [place] [address] 08/03/2024 9:30 AM CDT Office Visit [facility] [address] [place] [address] Linette Leone NP [address] [place] [address] 08/19/2024 9:45 AM CDT Hospital Encounter [facility] [address] [place] [address] Meño Clinton MD [address] [place] [address] 08/19/2024 9:45 AM CDT Anesthesia Event [facility] [address] [place] [address] Janny Norris CRNA [address] [place] [address] 08/19/2024 9:45 AM CDT - 08/19/2024 10:35 AM CDT Surgery [facility] [address] [place] [address] Meño Clinton MD [address] [place] [address] COLONOSCOPY 08/20/2024 Cardiac Device Check [facility] [phone] 08/24/2024 11:10 AM CDT Office Visit [address] [phone] Linette Leone NP [address] [place] [address] 09/10/2024 9:20 AM CDT Office Visit [address] [phone] Linette Leone, HEAVY LINE TECHNICIAN [address] [facility] [place] [address] Scheduled Procedures Name Priority Associated Diagnoses Date/Ti me COLONOSCOPY Screen for colon cancer 08/19/2024 9:45 AM CDT Health Maintenance Due Date Last Done Comments Zoster (shingles) series for age 50+ (1 of 2) 2002 Tetanus booster 05/25/2023 05/25/2013, 07/12/2010 Colonoscopy through age 75 06/08/202306/08, 03/15/2015, 02/10/2012 (Completed outside of [facility]) COVID-19 vaccine series (2022- season) 2024 Influenza for age 65+ 07/12/2024 08/18/2021 , 09/11/2015, 07/21/2013, Additional history exists Medicare Wellness for age 65+ 09/09/2024, 09/03/2022, 09/27/2020, Additional history exists Depression screening for age 12+ 09/12/2024 09/12/2023, 09/12/2023, 09/09/2023, Additional history exists BMI (ht and wt on same day) for age 18+ 01/26/2025 01/27/2024, 11/21/2023, 09/09/2023, Additional history exists Lipids for age 45-75 06/30/2029 06/30/2024, 03/19/2024, 09/09/2023, Additional history exists Tdap Completed 05/25/2013 Fecal testing non-DNA (FIT,FOBT,iFOBT) for age 45-75 Discontinued 06/08/2020, 06/07/2020 Hepatitis C screening for ag e 18-79 Completed 07/26/2020 Pneumococcal series for age 65+ Completed 09/27/2020, 08/25/2018, 03/24/2018, Additional history exists Procedures Procedure Name Priority Date/Time Associated Diagnosis Comments EXTRA TUBE BLUE Today 07/12/2024 10:21 AM CDT MAGNESIUM STAT 07/12/2024 10:21 AM CDT BASIC METABOLIC PANEL STAT 07/12/2024 10:21 AM CDT CBC W PLT NO DIFF STAT 07/12/2024 10: 21 AM CDT COVID-19 MOLECULAR Today 07/12/2024 10 :07 AM CDT INFLUENZA A/B PCR STAT 07/12/2024 10: 07 AM CDT CBC WITH AUTO DIFFERENTIAL STAT 07/02/2024 11:44 PM CDT HEPATIC FUNCTION PANEL STAT 07/02/2024 11:44 PM CDT TROPONIN T (HS) ONE TIME STAT 07/02/2024 11:44 PM CDT BASIC METABOLIC PANEL STAT 07/02/2024 11:44 PM CDT CBC WITH AUTO DIFFERENTIAL STAT 07/02/2024 11:44 PM CDT EKG 12 LEAD STAT 07/02/2024 11:[address] SINUS WO Routine 07/02/2024 9:52 AM CDT Nasal obstruction Chronic sinusitis, unspecified location LIPID PANEL W REFLEX MEASURED LDL Routine 06/30/2024 12:36 PM CDT Type 2 diabetes mellitus with diabetic nephropathy, with long-term current use of insulin (HC) COMP METABOLIC PANEL Routine 06/30/2024 12:36 PM CDT Type 2 diabetes mellitus with diabetic nephropathy, with long-term current use of insulin (HC) HEMOGLOBIN A1C Routine 06/30/2024 12:36 PM CDT Type 2 diabetes mellitus with diabetic nephropathy, with long-term current use of insulin (HC) LIPASE Routine 06/30/2024 12:36 PM CDT Elevated lipase HEPATIC FUNCTION PANEL Routine 06/30/2024 12:36 PM CDT Elevated lipase H PYLORI ANTIGEN,STOOL Routine 06/04/2024 7:45 AM CDT Stomach ache LIPASE STAT 05/31/2024 9:02 AM CDT HEPATIC FUNCTION PANEL STAT 05/31/2024 9:02 AM CDT BASIC METABOLIC PANEL STAT 05/31/2024 9:02 AM CDT CBC W PLT NO DIFF STAT 05/31/2024 9:0 2 AM CDT ANTI HCV Routine 07/26/2020 10:50 AM CDT Encounter for hepatitis C screening test for low risk patient COLONOSCOPY 06/08/2020 10:10 AM CDT OCCULT BLOOD IFOBT STOOL Today 06/07/2020 5:36 PM CDT from Last 3 Months or Most Recently Relevant to Health Maintenance Results * EXTRA TUBE BLUE (07/12/2024 10:21 AM CDT) Blood BLOOD SPECIMEN / Unknown Extra Tube / Unknown 07/12/2024 10:21 AM CDT 07/12/2024 10:32 AM CDT Doctor Unknown LABORATORY Performing Organization Address [facility]/State/[facility] Co de Phone Number [facility] [address] [place] [address] * CBC W PLT NO DIFF (07/12/2024 10:21 AM CDT) Only the most recent of2 resultswithin the time period is included. WHITE BLOOD COUNT 8.8 4.5 - 11.0 thou/cu mm 07/12/2024 10:33 AM CDT [facility] RED BLOOD COUNT 4.45 4.30 - 5.90 mil/cu mm 07/12/2024 10:33 AM CDT [facility] HEMOGLOBIN 13.8 13.5 - 17.5 g/dL 07/12/2024 10:33 AM [facility] HEMATOCRIT 40.6 37.0 - 53.0 % 07/12/2024 10:33 AM [facility] MCV 91 80 - 100 fL 07/12/2024 10:33 AM [facility] MCH 31.0 26.0 - 34.0 pg 07/12/2024 10:33 AM [facility] MCHC 34.0 32.0 - 36.0 g/dL 07/12/2024 10:33 AM [facility] RDW 12.6 11.5 - 15.5 % 07/12/2024 10:33 AM [facility] PLATELET COUNT 381 140 - 440 thou/cu mm 07/12/2024 10:33 AM [facility] MPV 9.0 6.5 - 11.0 fL 07/12/2024 10:33 AM [facility] Blood BLOOD SPECIMEN / Unknown Venipuncture / Unknown 07/12/2024 10:21 AM CDT 07/12/2024 10:30 AM CDT Ricardo Arreguin MD HEMATOL OGY [facility] [address] [place] [address] * MAGNESIUM (07/12/2024 10:21 AM CDT) MAGNESIUM 2.0 1.6 - 2.4 mg/dL 07/12/2024 10:49 AM T [facility] Blood BLOOD SPECIMEN / Unknown Venipuncture / Unknown 07/12/2024 10:21 AM CDT 07/12/2024 10:30 AM CDT Ricardo Arreguin MD LOCKER OPERATOR RY [facility] [address] [place] [address] * (ABNORMAL) BASIC METABOLIC PANEL (07/12/2024 10:21 AM T) Only the most recent of3 resultswithin the time period is included. SODIUM 130(L) 136 - 145 mmol/L 07/12/2024 10:49 AM [facility] POTASSIUM 4.8 3.5 - 5.1 mmol/L 07/12/2024 10:49 AM [facility] CHLORIDE 96(L) 98 - 107 mmol/L 07/12/2024 10:49 AM [facility] CO2,TOTAL 24 22 - 29 mmol/L 07/12/2024 10:49 AM [facility] ANION GAP 10 5 - 18 07/12/2024 10:49 AM [facility] GLUCOSE 303(H) 70 - 99 mg/dL 07/12/2024 10:49 AM [facility] CALCIUM 9.0 8.8 - 10.2 mg/dL 07/12/2024 10:49 AM [facility] BUN 15 8 - 23 mg/dL 07/12/2024 10:49 AM [facility] CREATININE 0.84 0.70 - 1.20 mg/dL 07/12/2024 10:49 AM [facility] BUN/CREAT RATIO 18 10 - 20 4 10:49 AM [facility] eGFR >90 >90 mL/min/1.7 3m2 07/12/2024 10:49 AM [facility] Comment:As of 2022, eG FR is calculated by the CKD-EPI creatinine equation without race adjustment. ??eGFR can be influenced by muscle mass, exercise, and diet. ??The reported eGFR is an estimation only and is only applicable if the renal function is stable. Blood BLOOD SPECIMEN / Unknown Venipuncture / Unknown 07/12/2024 10:21 AM CDT 07/12/2024 10:30 AM T Ricardo Arreguin MD LOCKER OPERATOR RY [facility] [address] [place] [address] * COVID-19 MOLECULAR (07/12/2024 10:07 AM CDT) Pathologist [facility] COVID 19 [place] MOLECULAR Not detected Not detected 07/12/2024 10:33 AM CDT [facility] TESTING LABORATORY [facility] 07/12/2024 10:33 AM CDT [facility] Comment:Specimen submitted t o [facility] for testing. Other SPECIMEN FROM NASOPHARYNGEAL STRUCTURE / Unknown Non-Blood / Unknown 07/12/2024 10:07 AM CDT 07/12/2024 10:12 AM CDT Ricardo Arreguin MD [facility] [address] [place] [address] * INFLUENZA A/B PCR (07/12/2024 10:07 AM CDT) [facility] INFLUENZA A PCR NOT Detected 07/12/2024 10:33 AM CDT [facility] INFLUENZA B PCR NOT Detected 07/12/2024 10:33 AM CDT [facility] Other SPECIMEN FROM NASOPHARYNGEAL STRUCTURE / Unknown Non-Blood / Unknown 07/12/2024 10:07 AM CDT 07/12/2024 10:12 AM CDT Ricardo Arreguin MD [facility] [address] [place] [address] * (ABNORMAL) TROPONIN T ONE TIME (07/02/2024 11:44 PM CDT) [facility] TROPONIN T HS 17(H) 6-15 ng/L ng/L 07/03/2024 12:10 AM CDT [facility] Blood BLOOD SPECIMEN / Unknown Venipuncture / Unknown 07/02/2024 11:44 PM CDT 07/02/2024 11:48 PM CDT [facility] LABORATORY - 07/03/2024 12:10 AM CDT hs-cTnT (Elecsys Troponin T Gen 5) concentration (s) above the sex-specific 99th percentile (16 ng/L or greater for males or 11 ng/L or greater for females) are indicative of myocardial injury. If initial hs-cTnT <=100 ng/L at presentation, a 0h/2h ABSOLUTE (ng/L) delta change (rising or falling) of >=10 ng/L suggests a significant change, whereas a 0h/2h delta change <=3 ng/L suggests no significant change. If initial hs-cTnT >100 ng/L at presentation, a 0h/2h/ RELATIVE (percent, %) delta change of 20% is suggested to distinguish patients with acute vs. chronic myocardial injury. There are multiple etiologies that can cause hs-cTnT increases above the 99th percentile (myocardial injury) other than acute myocardial infarction. Clinical context and careful clinical evaluation are critical for diagnosis and risk-stratification. The diagnosis of acute myocardial infarction requires a rising and/or falling pattern in hs-cTnT concentrations with at least one value above the sex-specific 99th percentile PLUS at least one of the following clinical criteria: ischemic symptoms, new or presumed new significant ST-T wave changes or new LBBB, development of pathological Q waves, imaging evidence of new loss of viable myocardium or new regional wall motion abnormality, or identification of intracoronary atherothrombosis or an acute angiographic culprit on coronary angiography. In appropriate low-risk patients with a non-ischemic electrocardiogram without active chest pain with a symptom onset >3-hours without recurrence, a single initial hs-cTnT<6 ng/L identifies patient with a very low risk in emergency department patient population. Indira Mir MD CHEMISTRY [facility] [address] [place] [address] * CBC WITH AUTO DIFFERENTIAL (07/02/2024 11:44 PM CDT) WHITE BLOOD COUNT 8.9 4.5 - 11.0 thou/cu mm 07/02/2024 11:52 PM [facility] RED BLOOD COUNT 4.42 4.30 - 5.90 mil/cu mm 07/02/2024 11:52 PM [facility] HEMOGLOBIN 13.8 13.5 - 17.5 g/dL 07/02/2024 11:52 PM [facility] HEMATOCRIT 40.2 37.0 - 53.0 % 07/02/2024 11:52 PM [facility] MCV 91 80 - 100 fL 07/02/2024 11:52 PM [facility] MCH 31.2 26.0 - 34.0 pg 07/02/2024 11:52 PM [facility] MCHC 34.3 32.0 - 36.0 g/dL 07/02/2024 11:52 PM [facility] RDW 12.5 11.5 - 15.5 % 07/02/2024 11:52 PM [facility] PLATELET COUNT 343 140 - 440 thou/cu mm 07/02/2024 11:52 PM [facility] MPV 8.9 6.5 - 11.0 fL 07/02/2024 11:52 PM [facility] % NEUT 70.3 % 07/02/2024 11:52 PM [facility] % LYMPH 21.4 % 07/02/2024 11:52 PM [facility] % MONO 7.1 % 07/02/2024 11:52 PM [facility] % EOS 0.6 % 07/02/2024 11:52 PM [facility] % BASO 0.6 % 07/02/2024 11:52 PM [facility] ABSOLUTE NEUTROPHILS 6.3 1.7 - 7.0 thou/cu mm 07/02/2024 11:52 PM [facility] ABSOLUTE LYMPHOCYTES 1.9 0.9 - 2.9 thou/cu mm 07/02/2024 11:52 PM [facility] ABSOLUTE MONOCYTES 0.6 <0.9 thou/cu mm 07/02/2024 11:52 PM [facility] ABSOLUTE EOSINOPHILS 0.1 <0.5 thou/cu mm 07/02/2024 11:52 PM [facility] ABSOLUTE BASOPHILS 0.1 <0.3 thou/cu mm 07/02/2024 11:52 PM [facility] Blood BLOOD SPECIMEN / Unknown Venipuncture / Unknown 07/02/2024 11:44 PM CDT 07/02/2024 11:48 PM CDT Indira Mir MD HEMATOLOGY [facility] [address] [place] [address] * HEPATIC FUNCTION PANEL (07/02/2024 11:44 PM CDT) Only the most recent of3 resultswithin the time period is included. ALBUMIN 4.1 4.0 - 4.9 g/dL 07/03/2024 12:10 AM [facility] PROTEIN,TOTAL 7.4 6.0 - 8.0 g/dL 07/03/2024 12:10 AM [facility] BILIRUBIN,TOTAL 0.4 0.0 - 1.2 mg/dL 07/03/2024 12:10 AM [facility] BILIRUBIN,DIRECT 0.2 0.0 - 0.2 mg/dL 07/03/2024 12:10 AM [facility] BILIRUBIN,INDIRE CT 0.2 0.2 - 0.8 mg/dL 07/03/2024 12:10 AM [facility] ALK PHOSPHATASE 97 40 - 129 IU/L 07/03/2024 12:10 AM [facility] ALT (SGPT) 22 10 - 50 IU/L 07/03/2024 12:10 AM [facility] AST (SGOT) 21 10 - 50 IU/L 07/03/2024 12:10 AM [facility] Blood BLOOD SPECIMEN / Unknown Venipuncture / Unknown 07/02/2024 11:44 PM CDT 07/02/2024 11:48 PM CDT Indira Mir MD CHEMISTRY Performing Organization Address City/[facility]/ZIP Co de Phone Number [facility] [address] [place] [address] * EKG 12 LEAD (07/02/2024 11:03 PM CDT) Interpretation Atrial fibrillation with rapid ventricular response Abnormal QRS-T angle, consider primary T wave abnormality Abnormal ECG When compared with ECG of 10-Mar-2021 09:41, Atrial fibrillation has replaced Electronic atrial pacemaker Minimal criteria for Anterior infarct are no longer Present BEYOND NOW Ventricular Rate 103 BPM BEYOND NOW Atrial Rate 116 BPM BEYOND NOW P-R Interval ms BEYOND NOW QRS Duration 92 ms BEYOND NOW QT 328 ms BEYOND NOW QTc 429 ms BEYOND NOW P Douglas degrees BEYOND NOW R Douglas 76 degrees BEYOND NOW T Douglas -5 degrees BEYOND NOW 07/02/2024 11:0 3 PM CDT 07/03/2024 8:03 AM CDT Indira Mir MD EKG ORD Performing Organization Address City/[facility] Co de Phone Number BEYOND NOW [place], [place] * CT SINUS WO (07/02/2024 9:52 AM CDT) Anatomical Region Laterality Modality SINUS Computed Tomogra phy 07/03/2024 8:31 AM CDT Impressions 07/03/2024 8:31 AM CDT Stable mild paranasal sinus disease involving left frontal and right maxillary sinus. No abnormal air-fluid level to suspect acute sinusitis. Rightward deviated nasal septum. Small left mastoid effusion, similar to previous CT. Please note that all CT scans at this facility use dose modulation, iterative reconstruction, and/or weight-based dosing when appropriate to reduce radiation dose to as low as reasonably achievable. Dictated by Johanna Hurt MD @ 07/03/2024 8:31:48 AM (Electronically Signed) Narrative 07/03/2024 8:31 AM CDT For Patients: ??As a result of the Cures Act, medical imaging exams and procedure reports are released immediately into your electronic medical record. ??You may view this report before your referring provider. ??If you have questions, please contact your health care provider. INDICATION: Chronic sinusitis and nasal obstruction TECHNIQUE: CT sinus without contrast. COMPARISON: CT sinus March 14, 2022 FINDINGS: Paranasal sinuses: Stable minimal to mild mucosal thickening involving left frontal sinus with opacification of frontal recess. Mucosal thickening is also identified at the right frontal recess without significant sinus disease. Mild mucosal thickening of the right maxillary sinus is similar to previous CT. Left maxillary sinus is well pneumatized with patent ostiomeatal complex. Minimal mucosal thickening is seen involving the ethmoidal air cells. Sphenoid sinuses are well pneumatized with patent sphenoethmoidal recesses. Redemonstration of rightward deviated nasal septum. No osteosclerosis of the bony sinus. No retained or inspissated hyperdense secretions to suspect fungal colonization. Bony hyperostosis/calcification along the right anterior clinoid process has been similar to multiple previous exams, which can be related to bony hyperostosis in the setting of meningioma versus nonspecific calcification. No obvious mass is identified in the included neck fat plane. Dental streak artifact limit the assessment of the floor of mouth. No mass effect at the skull base. Small left mastoid effusion is present. Procedure Note Johanna Hurt MD - 07/03/2024 For Patients: As a result of the Cures Act, medical imagingexams and procedure reports are released immediately into your electronicmedical record. You may view this report before your referring provider.If you have questions, please contact your health care provider. INDICATION: Chronic sinusitis and nasal obstruction TECHNIQUE: CT sinus without contrast. COMPARISON: CT sinus March 14, 2022 FINDINGS: Paranasal sinuses: Stable minimal to mild mucosal thickening involving left frontal sinuswith opacification of frontal recess. Mucosal thickening is alsoidentified at the right frontal recess without significant sinus disease.Mild mucosal thickening of the right maxillary sinus is similar toprevious CT. Left maxillary sinus is well pneumatized with patentostiomeatal complex. Minimal mucosal thickening is seen involving theethmoidal air cells. Sphenoid sinuses are well pneumatized with patentsphenoethmoidal recesses. Redemonstration of rightward deviated nasalseptum. No osteosclerosis of the bony sinus. No retained or inspissatedhyperdense secretions to suspect fungal colonization. Bony hyperostosis/calcification along the right anterior clinoid processhas been similar to multiple previous exams, which can be related to bonyhyperostosis in the setting of meningioma versus nonspecificcalcification. No obvious mass is identified in the included neck fat plane. Dentalstreak artifact limit the assessment of the floor of mouth. No mass effectat the skull base. Small left mastoid effusion is present. IMPRESSION: Stable mild paranasal sinus disease involving left frontal and rightmaxillary sinus. No abnormal air-fluid level to suspect acute sinusitis. Rightward deviated nasal septum. Small left mastoid effusion, similar to previous CT. Please note that all CT scans at this facility use dose modulation,iterative reconstruction, and/or weight-based dosing when appropriate toreduce radiation dose to as low as reasonably achievable. Dictated by Johanna Hurt MD @ 07/03/2024 8:31:48 AM (Electronically Signed) Kate MICHAEL CT * (ABNORMAL) LIPID PANEL W REFLEX MEASURED LDL (06/30/2024 12:36 PM T) CHOLESTEROL,TOTAL 127 100 - 199 mg/dL 06/30/2024 1:06 PM [facility] Comment: Cholesterol, Total Reference Ranges Desirable <200 mg/dL Borderline 200-239 mg/dL High >=240 mg/dL TRIGLYCERIDES 228(H) <150 mg/dL 06/30/2024 1:06 PM [facility] HDL CHOLESTEROL 39(L) >40 mg/dL 1:06 PM [facility] NON-HDL CHOLESTEROL 88 <145 mg/dl 06/30/2024 1:06 PM [facility] CHOL/HDL RATIO 3.26 <4.50 06/30/2024 1:06 PM [facility] LDL CHOLESTEROL 42 <=130 mg/dL 06/30/2024 1:06 PM [facility] VLDL CHOLESTEROL 46(H) <=30 mg/dL 06/30/2024 1:06 PM CDT [facility] PROVIDER ORDERED STATUS RANDOM 06/30/2024 1:06 PM CDT [facility] Blood BLOOD SPECIMEN / Unknown Venipuncture / Unknown 06/30/2024 12:36 PM CDT 06/30/2024 12:36 PM CDT Linette Leone NP CHEMISTRY Performing Organization Address [facility] Co de Phone Number [facility] [address] [place] [address] * LIPASE (06/30/2024 12:36 PM CDT) Only the most recent of2 resultswithin the time period is included. LIPASE 49.9 13.0 - 60.0 IU/L 06/30/2024 1:06 PM CDT [facility] Blood BLOOD SPECIMEN / Unknown Venipuncture / Unknown 06/30/2024 12:36 PM CDT 06/30/2024 12:36 PM CDT Linette Leone NP CHEMISTRY Performing Organization Address [facility] de Phone Number [facility] [address] [place] [address] * (ABNORMAL) HEMOGLOBIN A1C MONITORING (POCT) (06/30/2024 12:36 PM CDT) HEMOGLOBIN A1C MONITORING (POCT) 9.1(H) <=6.4 % 06/30/2024 12:53 PM CDT [facility] Blood BLOOD SPECIMEN / Unknown Venipuncture / Unknown 06/30/2024 12:36 PM CDT 06/30/2024 12:36 PM CDT Narrative [facility] - 06/30/2024 12:53 PM CDT ? (<=6.9%) ? Indicates good control ? (7.0% to 7.9%) ? Indicates fair control ? (>=8.0%) ? Indicates poor control ?? NOTE: ??These thresholds are guidelines and ?individual targets may vary. Falsely low levels may be seen with: Recent Transfusion, Recent Significant Blood Loss, Hemolytic Diseases, or Falsely elevated levels may be seen with: Untreated Anemias, Splenectomy ? Linette Leone NP CHEMISTRY [facility] [address] [place] [address] * (ABNORMAL) COMP METABOLIC PANEL (06/30/2024 12:36 PM CDT) SODIUM 133(L) 136 - 145 mmol/L 06/30/2024 1:06 PM [facility] POTASSIUM 4.3 3.5 - 5.1 mmol/L 06/30/2024 1:06 PM [facility] CHLORIDE 98 98 - 107 mmol/L 06/30/2024 1:06 PM [facility] CO2,TOTAL 23 22 - 29 mmol/L 06/30/2024 1:06 PM [facility] ANION GAP 12 5 - 18 06/30/2024 1:06 PM [facility] GLUCOSE 186(H) 70 - 99 mg/dL 06/30/2024 1:06 PM [facility] CALCIUM 9.3 8.8 - 10.2 mg/dL 06/30/2024 1:06 PM [facility] BUN 13 8 - 23 mg/dL 06/30/2024 1:06 PM [facility] CREATININE 0.82 0.70 - 1.20 mg/dL 06/30/2024 1:06 PM [facility] BUN/CREAT RATIO 16 10 - 20 4 1:06 PM [facility] eGFR >90 >90 mL/min/1.7 3m2 06/30/2024 1:06 PM [facility] Comment:As of 2022, eG FR is calculated by the CKD-EPI creatinine equation without race adjustment. ??eGFR can be influenced by muscle mass, exercise, and diet. ??The reported eGFR is an estimation only and is only applicable if the renal function is stable. ALBUMIN 4.0 4.0 - 4.9 g/dL 06/30/2024 1:06 PM CDT [facility] PROTEIN,TOTAL 7.4 6.0 - 8.0 g/dL 06/30/2024 1:06 PM T [facility] BILIRUBIN,TOTAL 0.4 0.0 - 1.2 mg/dL 06/30/2024 1:06 PM CDT [facility] ALK PHOSPHATASE 91 40 - 129 IU/L 06/30/2024 1:06 PM CDT [facility] ALT (SGPT) 21 10 - 50 IU/L 06/30/2024 1:06 PM CDT [facility] AST (SGOT) 19 10 - 50 IU/L 06/30/2024 1:06 PM CDT [facility] Blood BLOOD SPECIMEN / Unknown Venipuncture / Unknown 06/30/2024 12:36 PM CDT 06/30/2024 12:36 PM CDT Linette Leone NP CHEMISTRY [facility] [address] [place] [address] * H PYLORI ANTIGEN,STOOL (06/04/2024 7:45 AM CDT) H PYLORI INTERPRETATION Negative Negative 06/05/2024 1:36 PM CDT [facility] Comment:Indicates absence of H Pylori Stool antigen Stool STOOL SPECIMEN / Unknown Non-Blood / Unknown 06/04/2024 7:45 AM CDT 06/04/2024 10:06 AM CDT Narrative [facility] - 06/05/2024 1:36 PM CDT The Liaison?? [place] H Pylori SA assay has not been evaluated in a pediatric population. Linette Leone NP MICROBIOLOGY [facility] [address] [place] [address], * ANTI HCV (07/26/2020 10:50 AM CDT) HEPATITIS C ANTIBODY Non-React sivakumar Non-React sivakumar 07/26/2020 10:36 PM CDT [facility] Comment:Antibodies to HCV no t detected; does not exclude the possibility of exposure to HCV. Blood BLOOD SPECIMEN / Unknown Venipuncture / Unknown 07/26/2020 10:50 AM CDT 07/26/2020 10:50 AM CDT Linette Leone NP SEND OUTS Performing Organization Address [facility] Co de Phone Number [facility] [address] [place] [address], [place] * COLONOSCOPY (06/08/2020 10:10 AM CDT) 06/08/2020 10:1 0 AM CDT Narrative Transcriptions Christine Walter DO - 06/08/2020 11:42 PM CDT Patient Name: Julius Colt Procedure Date: 06/08/2020 Gender: Male Date of : 1950 Admit Type: Ambulatory Procedure: Colonoscopy Proceduralist: Christine Walter MD [facility] Indications/Pre-Op Diagnosis: High risk colon cancer surveillance:Personal history of colonic polyps Medications: Propofol per Anesthesia Procedure Description: The patient had risks, benefits and alternatives explained to andgave informed consent. The patient had a stable cardiopulmonary status and judged an adequate candidate for conscious sedation. The colonoscope was passed through the anus and advanced to thececum, identified by appendiceal orifice and ileocecal valve. Thecolonoscopy was performed without difficulty. The patient tolerated the procedure well. The quality of the bowel preparation was good. The ileocecal valve, appendiceal orifice, and rectum were photographed. Complications: No immediate complications. Estimated Blood Loss & Specimen: Estimated blood loss: none. Specimen collected - Yes and sent to Laboratory Findings: A 5 mm polyp was found in the transverse colon. The polyp wassessile. The polyp was removed with a hot snare. Resection and retrieval were complete. Verification of patient identification for the specimen was done. Estimated blood loss was minimal. A 10 mm polyp was found in the sigmoid colon. The polyp was semi-pedunculated. The polyp was removed with a hot snare. Resectionand retrieval were complete. Verification of patient identification forthe specimen was done. Estimated blood loss was minimal. A 3 mm polyp was found in the rectum. The polyp was sessile. Thepolyp was removed with a hot snare. Resection and retrieval were complete. Verification of patient identification for the specimen was done. Estimated blood loss was minimal. Non-bleeding internal hemorrhoids were found during retroflexion. The hemorrhoids were Grade III (internal hemorrhoids that prolapse but require manual reduction). Impressions/Post-Op Diagnosis: - One 5 mm polyp in the transverse colon, removed with a hot snare. Resected and retrieved. - One 10 mm polyp in the sigmoid colon, removed with a hot snare. Resected and retrieved. - One 3 mm polyp in the rectum, removed with a hot snare. Resectedand retrieved. - Non-bleeding internal hemorrhoids. Recommendation: - Discharge patient to home. - Patient has a contact number available for emergencies. The signsand symptoms of potential delayed complications were discussed with the patient. Return to normal activities tomorrow. Written discharge instructions were provided to the patient. - High fiber diet. - Continue present medications. - Await pathology results. - Repeat colonoscopy for surveillance. - Repeat colonoscopy in 3 - 5 years for surveillance based onpathology results. Christine aWlter MD 06/08/2020 11:42:26 PM This report has been signed electronically. Note Initiated On: 06/08/2020 10:10 AM Christine Walter DO PROCEDURE ORD * OCCULT BLOOD IFOBT STOOL (06/07/2020 5:36 PM CDT) STOOL BLOOD ,IFOBT Negative Negative 06/07/2020 6:01 PM CDT [facility] Stool STOOL SPECIMEN / Unknown Non-Blood / Unknown 06/07/2020 5:36 PM CDT 06/07/2020 5:53 PM CDT [facility] Performing Organization Address City/State/[facility] Co de Phone Number [facility] [address] [place] [address] from Last 3 Months or Most Recently Relevant to Health Maintenance Advance Directives Documents on File Type Date Recorded 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 Healthcare Directive 03/21/2021 021 * Full Code (Latest Code Status on File) Date Activated Date Inactivated Comments 03/08/2021 9:40 AM 03/11/2021 3:48 PM Question Answer Comments Code Status Discussion: Discussed * Full Code Date Activated Date Inactivated Comments 08/16/2020 3:01 PM 08/17/2020 1:25 PM Question Answer Comments Code Status Discussion: Discussed * Full Code Date Activated Date Inactivated Comments 06/08/2020 9:10 AM 06/08/2020 1:58 PM Question Answer Comments Code Status Discussion: Discussed * Full Code Date Activated Date Inactivated Comments 05/27/2018 6:06 AM 05/28/2018 12:59 PM * Full Code Date Activated Date Inactivated Comments 12/20/2016 11:31 PM 12/23/2016 2:27 PM Care Teams Audio Visual Engineer Relationship Specialty Start Date End Date Linette Leone NP [address] [place] [address] PCP - General Family Practice 02/19/13 [facility] 05/08/18 Brittanie Durán NP [address] [place] [address] 11/21/20 [facility] [address] [place] [id number] Pharmacology 02/01/22 Alyssa Sellers RN [address] [place] [address] Deputy General Counsel 09/16/23 Corie Nolen RN [address] [place] [address] Primary Care RN Care Management Registered Nurse 04/23/24
--- OUTSIDE RECORDS SUMMARY | 2024-07-17 00:37 | XMS_ITS | Continuity of Care Document ---
Author Name [facility] Organization [facility] Care Team Providers Care Waiver Analyst Name Role Phone [facility] Unavailable Unavailable Problems Combined list of problems from Department of Defense and Veterans Affairs facilities. It does not include entries that were removed or entered in error. Problem Status Onset Date Problem Type Date of Resolution Comments Source COVID-19 Active 021 Condition [facility] Coronary artery disease Active 015 Condition Feb 14, 2022 Entered By: JESSIE MCKINLEY Comment: NSTEMI, PCI w/Stent. [facility] History of polyp of colon Active 012 Condition Oct 11, 2022 Entered By: JESSIE MCKINLEY Comment: 02.10.2012 Procedure. 03.15.2015 Procedure. 06.08.2020 Procedure. 3 year(2022) surveillance recommneded. [facility] Anxiety neurosis Active Condition [facility] Atrial flutter Active Condition [place] [facility] Cerebrovascular disease Active Condition [facility] Cervical pain Active Condition [facility] Chronic low back pain Active Condition [facility] Chronic sinusitis Active Condition [facility] CITC Primary Care Active Condition Ap 2021 Entered By: JESSIE MCKINLEY Comment: [facility] Primary: Daren Leone NP, [place] [address]. [phone]. [facility] Congestive heart failure Active Condition Oct 11, 2022 Entered By: JESSIE MCKINLEY Comment: Diastolic Dysfunction. 02.16.2022 TTE: LVEF 60-65%. LAE. Mild AVS. WMA-Basal Inferior Segment. [facility] Depressive disorder (SNOMED CT 31874332) Active Condition Aug 31, 2013 Entered By: MARCIO FALL Comment: versus schizoaffective disorder [facility] Diabetes mellitus type 2 (SNOMED CT 67381539) Active Condition Jun 08, 2009 Entered By: KAKA,SHANELL S Comment: since 10-12 years [facility] Dyspepsia Active Condition [facility] Gastroesophageal reflux disease [facility] History of surgery Active Condition D 2021 Entered By: JESSIE MCKINLEY Comment: ECT's Multiple. 02.09.2013 Cholecystectomy. [facility] Hyperlipidemia (SNOMED CT 08612888) Active Condition [facility] Hypertension Active Condition [facility] Impulse control disorder Active Condition [facility] Insomnia Active Condition [facility] Irritable bowel syndrome Active Condition Oct 11, 2022 Entered By: JESSIE MCKINLEY Comment: Mixed. [facility] Kidney stone Active Condition Oct 11, 2022 Entered By: JESSIE MCKINLEY Comment: Left mid ureteral narrowing, mild pelvicaliectasis . PCP with yearly renal US [facility] Never used tobacco Active Condition [facility] Obesity Active Condition [facility] Occlusion of internal carotid artery Active Condition Oct 11, 2022 Entered By: JESSIE MCKINLEY Comment: 12.05.2021 U/S: R 50-69% occlusion. [facility] Osteoarthritis of knee (SNOMED CT 322560277) Active Condition Dec 18, 2011 Entered By: EMILIA THOMPSON Comment: left sided medial compartment, right sided patellofemoral [facility] Parkinson's disease Active Condition May 15, 2024 Entered By: MIMI RICH Comment: Sinmet/carbidopa -levodopa 1 tablet TID. 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) Inactive Condition 10/11/2022 [facility] Cataract nos Inactive Condition 07/25/2011 [facility] [place] [facility] Chronic alcoholism in remission Inactive Condition 02/14/2022 [facility] Current drinker Inactive Condition 10/11/2022 [place] [facility] RECUR DEPR DISORDER-PART REM Inactive Condition 06/10/2013 [facility] [place] [facility] RECUR DEPR DISORDER-SEVERE Inactive Condition 05/27/2006 [facility] Routine Eye/Vision Exam Inactive Condition 07/25/2011 [facility] SCHIZOAFFECTIVE DIS NOS Inactive Condition 07/25/2011 [facility] Schizoaffective-Ch ronic Inactive Condition 06/10/2013 [facility] Subsequent non-ST segment elevation myocardial infarction (SNOMED CT 366136162) Inactive Condition 02/14/2022 [facility] Diagnosis: ICD-10-CM E11.8 Type 2 diabetes mellitus with unspecified complications Active Diagnosis [facility] Diagnosis: ICD-10-CM R00.2 Palpitations Active Diagnosis [facility] Diagnosis: ICD-10-CM F33.8 Other recurrent depressive disorders Active Diagnosis [facility] Diagnosis: ICD-10-CM G47.00 Insomnia, unspecified Active Diagnosis [facility] Diagnosis: ICD-10-CM M54.50 Low back pain, unspecified Active Diagnosis [facility] Diagnosis: ICD-10-CM K58.9 Irritable bowel syndrome without diarrhea Active Diagnosis [facility] Diagnosis: ICD-10-CM W18.49XS Other slipping, tripping and stumbling w/o falling, sequela Active Diagnosis [facility] Diagnosis: ICD-10-CM J32.9 Chronic sinusitis, unspecified Active Diagnosis [facility] Diagnosis: ICD-10-CM R26.9 Unspecified abnormalities of gait and mobility Active Diagnosis [facility] Diagnosis: ICD-10-CM H61.23 Impacted cerumen, bilateral Active Diagnosis [facility] Diagnosis: ICD-10-CM F33.9 Major depressive disorder, recurrent, unspecified Active Diagnosis [facility] Diagnosis: ICD-10-CM Z71.3 Dietary counseling and surveillance Active Diagnosis [facility] Diagnosis: ICD-10-CM N52.9 Male erectile dysfunction, unspecified Active Diagnosis [facility] Diagnosis: ICD-10-CM M25.531 Pain in right wrist Active Diagnosis [facility] Diagnosis: ICD-10-CM M25.551 Pain in right hip Active Diagnosis [facility] Diagnosis: ICD-10-CM K21.9 Gastro-esophageal reflux disease without esophagitis Active Diagnosis [facility] Diagnosis: ICD-10-CM E63.9 Nutritional deficiency, unspecified Active Diagnosis [facility] Diagnosis: ICD-10-CM I10 Essential (primary) hypertension Active Diagnosis [facility] Medications Combined list of outpatient medications from Department of Defense and Veterans Affairs facilities.Medications provided include 1) outpatient medications from the last 15 months, and 2) patient-reported medications. Medication Details Route Status Patient Instructions Prescription Expires Prescription Number Last Dispense Date Ordering Provider Order Date Order Qty Source ALBUTEROL 90MCG/ACTUA T (CFC-F) INHL,ORAL,8 .5GM DOSE COUNTER ALBUTERO L 90MCG/AC TUAT (CFC-F) INHL,ORA L,8.5GM DOSE COUNTER Disconti nued INHALE 2 PUFFS BY INHALATI ON EVERY 4 HOURS NEEDED FOR SHORTNES S OF BREATH FOR SHORTNES S OF BREATH Oct 14, 2023 1 Nov 13, 2023 [id number] A Oct 14, 2023 [facility] RESPIR ATORY (INHAL ATION) DISCONT INUED 11/13/2023 [id number] 3 Ivonne NIEVESISTINE N 2022 1 [facility] ALBUTEROL 90MCG/ACTUA T (CFC-F) INHL,ORAL,8 .5GM DOSE COUNTER ALBUTERO L 90MCG/AC TUAT (CFC-F) INHL,ORA L,8.5GM DOSE COUNTER Disconti nued INHALE 2 PUFFS BY INHALATI ON EVERY 4 HOURS NEEDED FOR SHORTNES S OF BREATH FOR SHORTNES S OF BREATH Aug 26, 2023 1 Sep 25, 2023 [id number] Aug 26, 2023 [facility] RESPIR ATORY (INHAL ATION) DISCONT INUED 09/25/2023 [id number] 3 Ivonne NIEVES HRISTINE N 2022 1 [facility] ALBUTEROL 90MCG/ACTUA T (CFC-F) INHL,ORAL,8 .5GM DOSE COUNTER ALBUTERO L 90MCG/AC TUAT (CFC-F) INHL,ORA L,8.5GM DOSE COUNTER INHALE 2 PUFFS BY INHALATI ON EVERY 4 HOURS NEEDED FOR SHORTNES S OF BREATH FOR SHORTNES S OF BREATH Dec 04, 2023 1 Jan 03, 2024 [id number] B Dec 05, 2023 [facility] RESPIR ATORY (INHAL ATION) 01/03/2024 [id number] 4 Ivonne CHARLES ASEY N 2023 1 [facility] AMYLASE 15,000UNIT/ LIPASE 3,000UNIT/P ROTEASE 9,500UNIT CAP,EC AMYLASE 15,000UN IT/LIPAS E 3,000UNI T/PROTEA SE 9,500UNI T CAP,EC Active TAKE ONE CAPSULE BY MOUTH EVERY DAY Aug 09, 2023 70 Aug 09, 2024 [id number] A Jun 05, 2024 [facility] ORAL ACTIVE 08/09/2024 [id number] 4 Ivonne NIEVES HRISTINE N 2022 70 [facility] APPLE CIDER VINEGAR CAP/TAB APPLE CIDER VINEGAR CAP/TAB Non-VA TAKE BY MOUTH PRN UNKNOWN Jan 10, 2024 Non-VA Document ed by: [facility] Document ed at: [facility] ORAL ACTIVE Ivonne CHARLESY N 2023 [facility] ASPIRIN 81MG TAB,EC ASPIRIN 81MG TAB,EC Active: Susp TAKE ONE TABLET BY MOUTH EVERY DAY Jun 15, 2024 120 Jun 16, 2025 [id number] C Sep 03, 2024 [facility] ORAL SUSPEND ED 06/16/2025 [id number] 4 Ivonne FOREMAN 2023 120 [facility] ASPIRIN 81MG TAB,EC ASPIRIN 81MG TAB,EC Disconti nued TAKE ONE TABLET BY MOUTH EVERY DAY Feb 26, 2023 120 Feb 27, 2024 [id number] B Jan 13, 2024 [facility] ORAL DISCONT INUED 02/27/2024 [id number] 4 Ivonne FOREMAN 2022 120 [facility] ATORVASTATI N CA 40MG TAB ATORVAST ATIN CA 40MG TAB Active TAKE ONE TABLET BY MOUTH EVERY EVENING FOR CHOLESTE ROL Aug 09, 2023 90 Aug 09, 2024 [id number] A April 02, 2024 [facility] ORAL ACTIVE 08/09/2024 [id number] 4 Ivonne NIEVES HRISTINE N 2022 90 [facility] ATORVASTATI N CA 40MG TAB ATORVAST ATIN CA 40MG TAB Disconti nued TAKE ONE TABLET BY MOUTH EVERY EVENING FOR CHOLESTE ROL Oct 26, 2022 90 Oct 27, 2023 [id number] Jul 13, [address] [facility] ORAL DISCONT INUED 10/27/2023 [id number] Ivonne NIEVES HRISTINE N 2021 90 [facility] CANDESARTAN CILEXETIL 32MG TAB CANDESAR SOLIS CILEXETI L 32MG TAB Active: Susp TAKE ONE TABLET BY MOUTH EVERY DAY FOR BLOOD PRESSURE FOR BLOOD PRESSURE March 24, 2024 90 March 25, 2025 [id number] A Sep 14, 2024 [facility] ORAL SUSPEND ED 03/25/2025 [id number] 4 Ivonne NIEVES HRISTINE N 2023 90 [facility] CANDESARTAN CILEXETIL 32MG TAB CANDESAR SOLIS CILEXETI L 32MG TAB Disconti nued TAKE ONE TABLET BY MOUTH EVERY DAY FOR BLOOD PRESSURE FOR BLOOD PRESSURE Jan 23, 2023 90 Jan 24, 2024 [id number] Jan 08, 2024 [facility] ORAL DISCONT INUED 01/24/2024 [id number] 4 Ivonne NIEVES HRISTINE N 2022 90 [facility] CINNAMON CAP/TAB CINNAMON CAP/TAB Non-VA TAKE ONE TABLET BY MOUTH EVERY DAY Dec 24, 2012 Non-VA Document ed by: Netta EMERSON Document ed at: [facility] ORAL ACTIVE JASKARAN EMERSON [address] [facility] [place] [facility] CLOPIDOGREL BISULFATE 75MG TAB CLOPIDOG REL BISULFAT E 75MG TAB Active TAKE ONE TABLET BY MOUTH EVERY DAY TO PREVENT BLOOD CLOTS TO PREVENT BLOOD CLOTS Oct 15, 2023 90 Oct 15, 2024 [id number] Jul 03, 2024 [facility] ORAL ACTIVE 10/15/2024 [id number] 4 Ivonne NIEVES HRISTINE N 2022 90 [facility] CLOPIDOGREL BISULFATE 75MG TAB CLOPIDOG REL BISULFAT E 75MG TAB Disconti nued TAKE ONE TABLET BY MOUTH EVERY DAY TO PREVENT BLOOD CLOTS Oct 24, 2022 90 Oct 25, 2023 [id number] F Jul 13, 2023 HANNAH ANDERSON [facility] ORAL DISCONT INUED 10/25/2023 [id number] SHANIQUE ANDERSON SA 2021 90 [facility] DICLOFENAC NA 1% GEL,TOP DICLOFEN AC NA 1% GEL,TOP Active APPLY 4 GRAMS TOPICALL Y FOUR TIMES A DAY NEEDED FOR LEFT KNEE PAIN. - USE DOSE CARD IN BOX TO MEASURE DOSE. *MAX 32 GRAMS PER DAY Jun 01, 2024 100 Jun 02, 2025 [id number] Jun 03, 2024 FBISADORA RAMACHANDRAN M [facility] TOPICA L ACTIVE 06/02/2025 [id number] NATIVIDAD GRAY 2023 100 [facility] DICLOFENAC NA 1% GEL,TOP DICLOFEN AC NA 1% GEL,TOP Disconti nued APPLY 4 GRAMS TO LEFT KNEE FOUR TIMES A DAY NEEDED FOR PAIN RELIEF -USE DOSE CARD IN BOX TO MEASURE DOSE -MAXIMUM OF 32 GRAMS PER DAY FROM ALL SITES APPLIED* FOR PAIN RELIEF Aug 09, 2023 300 Aug 09, 2024 [id number] F April 07, 2024 [facility] DISCONT INUED 08/09/2024 [id number] 4 Ivonne NIEVES HRISTINE N 2022 300 [facility] DICLOFENAC NA 1% GEL,TOP DICLOFEN AC NA 1% GEL,TOP Disconti nued APPLY 4 GRAMS TO LEFT KNEE FOUR TIMES A DAY NEEDED FOR PAIN RELIEF -USE DOSE CARD IN BOX TO MEASURE DOSE -MAXIMUM OF 32 GRAMS PER DAY FROM ALL SITES APPLIED* FOR PAIN RELIEF Nov 07, 2022 300 Nov 08, 2023 [id number] E Aug 07, 2023 [facility] DISCONT INUED 11/08/2023 [id number] Ivonne NIEVES HRISTINE N 2022 300 [facility] DILTIAZEM (EQV-TIAZAC AB4) 120MG 24HR CAP DILTIAZE M (EQV-TIA MIRELLA AB4) 120MG 24HR CAP Active TAKE ONE CAPSULE BY MOUTH EVERY DAY Sep 12, 2023 90 Sep 12, 2024 [id number] Jun 21, 2024 FB-SENGU STARTING GATE DRIVER,CHARBEL [facility] ORAL ACTIVE 09/12/2024 [id number] 4 FB-SENGUP TA,CHARBEL DEEP 2022 90 [facility] DILTIAZEM (EQV-TIAZAC AB4) 120MG 24HR CAP DILTIAZE M (EQV-TIA MIRELLA AB4) 120MG 24HR CAP TAKE ONE CAPSULE BY MOUTH ONCE EVERY DAY Sep 05, 2022 90 Aug 24, 2023 [id number] Jul 13, 2023 FB-[facility]AD[facility]A [facility] ORAL 08/24/2023 [id number] 3 FB-NATIVIDAD LEONE 2021 90 [facility] DOXYCYCLINE HYCLATE 100MG TAB DOXYCYCL INE HYCLATE 100MG TAB TAKE ONE TABLET BY MOUTH TWICE A DAY March 14, 2024Apr 13, 2024 [id number] March 16, 2024 LEGASTONG T [facility] ORAL 04/13/2024 [id number] 4 RASSHANNON T 2023 20 [facility] ENSURE HP LIQUID VANILLA ENSURE HP LIQUID VANILLA Disconti nued 1 CARTON BY MOUTH EVERY DAY FOR NUTRITIO N SUPPLEME NT BETWEEN MEALS FOR NUTRITIO N SUPPLEME NT Feb 08, 2023 24 Feb 09, 2024 [id number] Apr 17, 2023 [facility] ORAL DISCONT INUED 02/09/2024 [id number] SA LALO MCLEAN 2022 24 [facility] EZETIMIBE 10MG TAB EZETIMIB E 10MG TAB Active TAKE ONE TABLET BY MOUTH EVERY DAY FOR CHOLESTE ROL FOR CHOLESTE ROL Dec 04, 2023 90 Dec 04, 2024 [id number] A Dec 05, 2023 [facility] ORAL ACTIVE 12/04/2024 [id number] 4 Ivonne CHARLESY N 2023 90 [facility] EZETIMIBE 10MG TAB EZETIMIB E 10MG TAB Disconti nued TAKE ONE TABLET BY MOUTH EVERY DAY FOR CHOLESTE ROL FOR CHOLESTE ROL Nov 06, 2022 90 Nov 07, 2023 [id number] Jun 17, 2023 [facility] ORAL DISCONT INUED 11/07/2023 [id number] 3 Ivonne NIEVESISTINE N 2021 90 [facility] FAMOTIDINE 20MG TAB FAMOTIDI NE 20MG TAB Active TAKE TWO TABLETS BY MOUTH AT BEDTIME FOR STOMACH ACID FOR STOMACH ACID Feb 15, 2024 180 Feb 15, 2025 [id number] Feb 15, 2024 [facility] ORAL ACTIVE 02/15/2025 [id number] 4 Ivonne NIEVES HRISTINE N 2023 180 [facility] FISH OIL 1000MG (500MG DHA/EPA) CAP,ORAL FISH OIL 1000MG (500MG DHA/EPA) CAP,ORAL Disconti nued TAKE TWO CAPSULES BY MOUTH TWICE A DAY FOR CHOLESTE ROL FOR CHOLESTE ROL Jun 17, 2023 400 Jun 17, 2024 [id number] Jun 18, 2023 CANDIDA BANKS [facility] ORAL DISCONT INUED 06/17/2024 [id number] 3 SARAH BANKS 2022 400 [facility] GLUCOSE SENSOR FREESTYLE DUSTIN 3 GLUCOSE SENSOR FREESTYL E DUSTIN 3 Active USE 1 SENSOR EVERY TWO WEEKS FOR DIABETES FOR DIABETES Nov 14, 2023 2 Nov 14, 2024 [id number] Jul 18, 2024 [facility] NOT APPLIC ABLE ACTIVE 11/14/2024 [id number] 4 Ivonne CHARLES ASEY N 2023 2 [facility] HYDROCHLORO THIAZIDE 25MG TAB HYDROCHL OROTHIAZ JESSIE 25MG TAB Active TAKE ONE TABLET BY MOUTH THREE TIMES A WEEK Jul 09, 2024 36 Jul 10, 2025 [id number] B Jul 09, 2024 [facility] ORAL ACTIVE 07/10/2025 [id number] 4 Ivonne CHARLESY N 2023 36 [facility] HYDROCHLORO THIAZIDE 25MG TAB HYDROCHL OROTHIAZ JESSIE 25MG TAB Disconti nued TAKE ONE TABLET BY MOUTH THREE TIMES A WEEK Jun 18, 2023 36 Jun 19, 2024 [id number] A Apr 26, 2024 [facility] ORAL DISCONT INUED 06/19/2024 [id number] 4 Ivonne NIEVES HRISTINE N 2022 36 [facility] HYDROCHLORO THIAZIDE 25MG TAB HYDROCHL OROTHIAZ JESSIE 25MG TAB Disconti nued TAKE ONE TABLET BY MOUTH THREE TIMES A WEEK Aug 23, 2022 36 Aug 24, 2023 [id number] May 22, 2023 [facility] ORAL DISCONT INUED 08/24/2023 [id number] 3 Ivonne NIEVES HRISTINE N 2021 36 [facility] HYDROCORTIS ONE 1% CREAM,TOP HYDROCOR TISONE 1% CREAM,TO P Active APPLY THIN LAYER TOPICALL Y TWICE A DAY NEEDED FOR ITCHING FOR ITCHING Jan 29, 2024 30 Jan 29, 2025 [id number] Jan 30, 2024 [facility] TOPICA L ACTIVE 01/29/2025 [id number] 4 Ivonne NIEVES HRISTINE N 2023 30 [facility] INSULIN,ASP ART,HUMAN (EQV-NOVOLO G) 100 UNIT/ML,FLE XPEN,3ML INSULIN, ASPART,H UMAN (EQV-NOV OLOG) 100 UNIT/ML, FLEXPEN, 3ML Active: On Hold INJECT 1-14 UNITS UNDER THE SKIN THREE TIMES A DAY BEFORE MEALS NEEDED FOR DIABETES *MAX 42 UNITS PER DAY* FOR DIABETES Jul 09, 2024 10 Jul 10, 2025 [id number] [facility] SUBCUT ANEOUS HOLD 07/10/2025 [id number] Ivonne CHARLES N 2023 10 [facility] INSULIN,ASP ART,HUMAN (EQV-NOVOLO G) 100 UNIT/ML,FLE XPEN,3ML INSULIN, ASPART,H UMAN (EQV-NOV OLOG) 100 UNIT/ML, FLEXPEN, 3ML Disconti nued INJECT 1-12 UNITS UNDER THE SKIN THREE TIMES A DAY BEFORE MEALS NEEDED FOR DIABETES MAX 36 UNITS PER DAY FOR DIABETES Jun 10, 2024 10 Jun 11, 2025 [id number] Jun 11, 2024 [facility] SUBCUT ANEOUS DISCONT INUED (EDIT) 06/11/2025 [id number] 4 Ivonne CHARLES N 2023 10 [facility] INSULIN,ASP ART,HUMAN (EQV-NOVOLO G) 100 UNIT/ML,FLE XPEN,3ML INSULIN, ASPART,H UMAN (EQV-NOV OLOG) 100 UNIT/ML, FLEXPEN, 3ML Disconti nued INJECT 1-10 UNITS SLIDING SCALE DIRECTED UNDER THE SKIN THREE TIMES A DAY BEFORE MEALS NEEDED FOR DIABETES FOR DIABETES Jan 10, 2024 10 Jan 10, 2025 [id number] Feb 14, 2024 [facility] SUBCUT ANEOUS DISCONT INUED (EDIT) 01/10/2025 [id number] 4 Ivonne CHARLES N 2023 10 [facility] INSULIN,ASP ART,HUMAN (EQV-NOVOLO G) 100 UNIT/ML,FLE XPEN,3ML INSULIN, ASPART,H UMAN (EQV-NOV OLOG) 100 UNIT/ML, FLEXPEN, 3ML Disconti nued INJECT 1-5 UNITS BASED ON CORRECTI ON SCALE UNDER THE SKIN THREE TIMES A DAY BEFORE MEALS NEEDED FOR BLOOD GLUCSE GREATER THAN 200MG/DL *MAX 15 UNITS PER DAY FOR DIABETES April 04, 2023 5 April 04, 2024 [id number] Dec 26, 2023 [facility] SUBCUT ANEOUS DISCONT INUED (EDIT) 04/04/2024 [id number] 4 SARAH BANKS 2022 5 [facility] INSULIN,GLA RGINE,HUMAN 100 UNIT/ML INJ,SOLOSTA R,3ML INSULIN, GLARGINE ,HUMAN 100 UNIT/ML INJ,SOLO STAR,3ML Disconti nued INJECT 60 UNITS UNDER THE SKIN AT BEDTIME FOR DIABETES FOR DIABETES Sep 05, 2023 10 Sep 05, 2024 [id number] Sep 05, 2023 [facility] SUBCUT ANEOUS DISCONT INUED 09/05/2024 [id number] Ivonne CHARLES 2022 10 [facility] INSULIN,GLA RGINE,HUMAN 100 UNIT/ML INJ,SOLOSTA R,3ML INSULIN, GLARGINE ,HUMAN 100 UNIT/ML INJ,SOLO STAR,3ML Disconti nued INJECT 55 UNITS UNDER THE SKIN AT BEDTIME FOR DIABETES FOR DIABETES Aug 09, 2023 10 Aug 09, 2024 [id number] Aug 09, 2023 [facility] SUBCUT ANEOUS DISCONT INUED (EDIT) 08/09/2024 [id number] 3 SARAH BANKS 2022 10 [facility] INSULIN,GLA RGINE-YFGN 100UNIT/ML INJ PEN,3ML INSULIN, GLARGINE -YFGN 100UNIT/ ML INJ PEN,3ML Active INJECT 66 UNITS UNDER THE SKIN AT BEDTIME Jun 09, 2024 20 Sep 07, 2024 [id number] Jul 15, [address] [facility] SUBCUT ANEOUS ACTIVE 09/07/2024 [id number] 4 ISAAC NATIVIDAD Netta 2023 20 [place] [facility] INSULIN,GLA RGINE-YFGN 100UNIT/ML INJ PEN,3ML INSULIN, GLARGINE -YFGN 100UNIT/ ML INJ PEN,3ML Disconti nued INJECT 66 UNITS UNDER THE SKIN AT BEDTIME FOR DIABETES FOR DIABETES May 12, 2024 10 May 13, 2025 [id number] Jun 13, 2024 [facility] SUBCUT ANEOUS DISCONT INUED 05/13/2025 [id number] Ivonne CHARLES 2023 10 [facility] INSULIN,GLA RGINE-YFGN 100UNIT/ML INJ PEN,3ML INSULIN, GLARGINE -YFGN 100UNIT/ ML INJ PEN,3ML Disconti nued INJECT 63 UNITS UNDER THE SKIN AT BEDTIME FOR DIABETES FOR DIABETES April 07, 2024April 08, 2025 [id number] May 13, 2024 [facility] SUBCUT ANEOUS DISCONT INUED (EDIT) 04/08/2025 [id number] Ivonne CHARLES 2023 10 [facility] INSULIN,GLA RGINE-YFGN 100UNIT/ML INJ PEN,3ML INSULIN, GLARGINE -YFGN 100UNIT/ ML INJ PEN,3ML Disconti nued INJECT 60 UNITS UNDER THE SKIN AT BEDTIME FOR DIABETES FOR DIABETES Mar 03, 2024 10 Mar 04, 2025 [id number] April 09, 2024 [facility] SUBCUT ANEOUS DISCONT INUED (EDIT) 03/04/2025 [id number] Ivonne CHARLES 2023 10 [facility] INSULIN,GLA RGINE-YFGN 100UNIT/ML INJ PEN,3ML INSULIN, GLARGINE -YFGN 100UNIT/ ML INJ PEN,3ML Disconti nued INJECT 58 UNITS UNDER THE SKIN AT BEDTIME FOR DIABETES FOR DIABETES Dec 04, 2023 10 Dec 04, 2024 [id number] Feb 18, 2024 [facility] SUBCUT ANEOUS DISCONT INUED (EDIT) 12/04/2024 [id number] 4 Ivonne CHARLES ASERohith N 2023 10 [facility] INSULIN,GLA RGINE-YFGN 100UNIT/ML INJ PEN,3ML INSULIN, GLARGINE -YFGN 100UNIT/ ML INJ PEN,3ML Disconti nued INJECT 56 UNITS UNDER THE SKIN AT BEDTIME FOR DIABETES FOR DIABETES Nov 26, 2023 10 Nov 26, 2024 [id number] Dec 26, 2023 [facility] SUBCUT ANEOUS DISCONT INUED (EDIT) 11/26/2024 [id number] 4 Ivonne CHARLES ASERohith N 2023 10 [facility] INSULIN,GLA RGINE-YFGN 100UNIT/ML INJ PEN,3ML INSULIN, GLARGINE -YFGN 100UNIT/ ML INJ PEN,3ML Disconti nued INJECT 60 UNITS UNDER THE SKIN AT BEDTIME FOR DIABETES FOR DIABETES Nov 13, 2023 10 Nov 13, 2024 [id number] Nov 14, 2023 [facility] SUBCUT ANEOUS DISCONT INUED (EDIT) 11/13/2024 [id number] 4 Ivonne CHARLES ASEY N 2023 10 [facility] ISOSORBIDE MONONITRATE 30MG TAB,SA ISOSORBI DE MONONITR ATE 30MG TAB,SA Active TAKE ONE TABLET BY MOUTH EVERY DAY FOR CHEST PAIN Aug 09, 2023 90 Aug 09, 2024 [id number] Jun 27, 2024 [facility] ORAL ACTIVE 08/09/2024 [id number] 4 Ivonne NIEVESISTINE N 2022 90 [facility] ISOSORBIDE MONONITRATE 30MG TAB,SA ISOSORBI DE MONONITR ATE 30MG TAB,SA Disconti nued TAKE ONE TABLET BY MOUTH EVERY DAY FOR CHEST PAIN Oct 24, 2022 90 Oct 25, 2023 [id number] F Jul 13, 2023 [facility] ORAL DISCONT INUED 10/25/2023 [id number] Ivonne NIEVES HRISTINE N 2021 90 [facility] LACTOBACILL US ACIDOPHILUS TAB LACTOBAC ILLUS ACIDOPHI MERARI TAB Active TAKE 2 TABLETS BY MOUTH EVERY DAY PROBIOTI C Aug 27, 2023 200 Aug 27, 2024 [id number] Jan 06, 2024 [facility] ORAL ACTIVE 08/27/2024 [id number] Ivonne NIEVES HRISTINE N 2022 200 [facility] METOPROLOL TARTRATE 25MG TAB METOPROL OL TARTRATE 25MG TAB Active: Susp TAKE ONE-HALF TABLET BY MOUTH TWICE A DAY Sep 12, 2023 90 Sep 12, 2024 [id number] Sep 03, 2024 FB[facility]ENGU STARTING GATE DRIVER,[facility] D[facility] SUSPEND ED 09/12/2024 [id number] FB-SENGUP TA,CHARBEL DEEP 2022 90 [place] [facility] METOPROLOL TARTRATE 25MG TAB METOPROL OL TARTRATE 25MG TAB Disconti nued TAKE ONE-HALF TABLET BY MOUTH TWICE A DAY Aug 09, 2023 90 Aug 09, 2024 [id number] A Nov 22, 2023 [facility] ORAL DISCONT INUED 08/09/2024 [id number] Ivonne NIEVES HRISTINE N 2023 90 [facility] METOPROLOL TARTRATE 25MG TAB METOPROL OL TARTRATE 25MG TAB Disconti nued TAKE ONE-HALF TABLET BY MOUTH TWICE A DAY Oct 18, 2022 90 Oct 19, 2023 [id number] Aug 24, 2023 FB-SENGU STARTING GATE DRIVER,[place] [facility] ORAL DISCONT INUED 10/19/2023 [id number] FB-SENGUP TA,CHARBEL DEEP 2022 90 [place] [facility] NON [facility] NOT LISTED NON [facility] MED NOT LISTED Non-VA USE EUCALYPT US/PEPPE RMINT OIL PRN Jan 15, 2022 Non-[facility] Document ed by: MARBIN FOREMAN Document ed at: [facility] ACTIVE Ivonne FOREMAN 2021 [facility] PEG-3350/EL ECTROLYTES PWDR PEG-3350 /ELECTRO LYTES PWDR TAKE ONE CONTAINE R BY MOUTH ONCE DIRECTED March 19, 2024 1 Apr 18, 2024 [id number] March 21, 2024 DEVON PHELPS [facility] ORAL 04/18/2024 [id number] [facility] 2023 1 [facility] PONARIS SOLN,NASAL PONARIS SOLN,[place] Non-VA SPRAY IN EACH NOSTRIL Jan 10, 2024 Non-VA Document ed by: NHI CHARLES Document ed at: [facility] NAS[facility] ACTIVE Ivonne CHARLES 2023 [facility] PSYLLIUM PWDR,ORAL PSYLLIUM PWDR,ORA L Active TAKE 1 TEASPOON FUL BY MOUTH EVERY DAY NEEDED FOR CONSTIPA TION *MIX IN LIQUID FOR CONSTIPA TION May 21, 2024 780 May 22, 2025 [id number] May 25, 2024 [facility] ORAL ACTIVE 05/22/2025 [id number] NATIVIDAD GRAY 2023 780 [facility] SEMAGLUTIDE 1MG/0.75ML INJ,SOLN,PE N,3ML SEMAGLUT JESSIE 1MG/0.75 ML INJ,SOLN ,PEN,3ML Disconti nued INJECT 1MG UNDER THE SKIN ONCE WEEKLY FOR DIABETES FOR DIABETES May 12, 2024May 13, 2025 [id number] May 13, 2024 [facility] SUBCUT ANEOUS DISCONT INUED BY PROVIDE R 05/13/2025 [id number] Ivonne CHARLES 2023 1 [facility] SEMAGLUTIDE 1MG/0.75ML INJ,SOLN,PE N,3ML SEMAGLUT JESSIE 1MG/0.75 ML INJ,SOLN ,PEN,3ML Disconti nued INJECT 1MG UNDER THE SKIN EVERY WEEK FOR DIABETES FOR DIABETES May 03, 2023 1 May 03, 2024 [id number] Aug 30, [address] [facility] SUBCUT ANEOUS DISCONT INUED (EDIT) 05/03/2024 [id number] 3 SAR[facility] BANKS 2022 1 [facility] [place] [facility] SEMAGLUTIDE 2MG/0.75ML INJ,SOLN,PE N,3ML SEMAGLUT JESSIE 2MG/0.75 ML INJ,SOLN ,PEN,3ML Disconti nued INJECT 2MG UNDER THE SKIN EVERY WEEK FOR DIABETES FOR DIABETES Oct 02, 2023 1 Oct 02, 2024 [id number] Feb 24, 2024 [facility] SUBCUT ANEOUS DISCONT INUED (EDIT) 10/02/2024 [id number] Ivonne CHARLES 2022 1 [facility] SODIUM CHLORIDE 0.65% SOLN,NASAL SPRAY SODIUM CHLORIDE 0.65% SOLN,ELDON AL SPRAY SPRAY 2 SPRAYS IN EACH NOSTRIL EVERY DAY NEEDED FOR CONGESTI ON FOR CONGESTI ON May 03, 2023 45 May 03, 2024 [id number] Aug 07, 2023 WICHO NIEVES E N [facility] NASAL 05/03/2024 [id number] Ivonne NIEVES HRISTINE N 2022 45 [facility] SODIUM CHLORIDE 0.9% SOLN,IRRG SODIUM CHLORIDE 0.9% SOLN,IRR G Non-VA USE SOLUTION IRRIGATI ON THREE TIMES A DAY Dec 29, 2013 Non-VA Document ed by: Vincent FALL Document ed at: [facility] IRRIGA TION ACTIVE [place]WASI FALL 2013 [facility] TRAZODONE HCL 50MG TAB TRAZODON E HCL 50MG TAB Active TAKE ONE TABLET BY MOUTH AT BEDTIME FOR SLEEP Jan 10, 2024 90 Jan 10, 2025 [id number] Jan 10, 2024 [facility] ORAL ACTIVE 01/10/2025 [id number] SA DENISEI 2023 90 [facility] Allergies, Adverse Reactions, Alerts Combined list of allergies from Department of [facility] and Veterans Affairs facilities. It does not include entries that were removed or entered in error. Substance Category Reaction Severity Reaction type Status Date Reported Comments Source AUGMENTIN Propensity to adverse reactions to drug (finding) Palpitation s active 2 [facility] EMPAGLIFLOZI N Propensity to adverse reactions to drug (finding) Dizziness active 0 [facility] LOSARTAN Propensity to adverse reactions to drug (finding) Diarrhea active 0 [facility] METFORMIN Propensity to adverse reactions to drug (finding) Nausea active 6 [facility] METRONIDAZOL E Propensity to adverse reactions to drug (finding) active 4 [facility] OMEPRAZOLE Propensity to adverse reactions to drug (finding) Nausea active 1 [facility] SEMAGLUTIDE Propensity to adverse reactions to drug (finding) Diarrhea, Fatigue MODERATE active 4 [facility] TETRACYCLINE Propensity to adverse reactions to drug (finding) active 4 [facility] Immunizations Combined list of available immunizations from the Department of [facility] and Veterans Affairs facilities. Immunization Series Date Given Administered By Site Reaction Lot Number CVX Code Drug Regional Engagement Consultant Status Comments Source INFLUENZA VACCINE, QUADRIVALENT, ADJUVANTED 2020 205 complet ed [facility] INFLUENZA, UNSPECIFIED FORMULATION 2020 88 complet ed [facility] PNEUMOCOCCAL POLYSACCHARID E PPV23 2019 33 complet ed [facility] PNEUMOCOCCAL CONJUGATE PCV 13 2017 133 complet ed [facility] PNEUMOCOCCAL CONJUGATE PCV 13 2017 133 complet ed wyeth lot [id number] exp 11/30 [facility] INFLUENZA, SEASONAL, INJECTABLE 2014 141 complet ed [facility] INFLUENZA, SEASONAL, INJECTABLE, PRESERVATIVE FREE 2014 140 complet ed [facility] INFLUENZA, UNSPECIFIED FORMULATION 2012 88 complet ed [facility] TDAP 2012 115 complet ed [employer], ([id number], (E) [facility] DTAP, UNSPECIFIED FORMULATION 2012 107 complet ed [facility] INFLUENZA, SEASONAL, INJECTABLE 2011 141 complet ed [facility] INFLUENZA, SEASONAL, INJECTABLE 2011 141 complet ed [facility] INFLUENZA, UNSPECIFIED FORMULATION 2010 88 complet ed [facility] INFLUENZA, UNSPECIFIED FORMULATION 2010 88 complet ed [facility] INFLUENZA, UNSPECIFIED FORMULATION 2009 88 complet ed per pt [facility] INFLUENZA, UNSPECIFIED FORMULATION 2009 88 complet ed [facility] TD (ADULT), 2 LF TETANUS TOXOID, PRESERVATIVE FREE, ADSORBED 2009 09 complet ed [facility] TD(ADULT) UNSPECIFIED FORMULATION 2009 139 complet ed per pt [facility] PNEUMOCOCCAL POLYSACCHARID E PPV23 2009 33 complet ed [facility] PNEUMOCOCCAL, UNSPECIFIED FORMULATION 2009 109 complet ed [id number] [facility] NOVEL INFLUENZA-H1N 1-09, ALL FORMULATIONS 2009 128 complet ed [employer] [facility] INFLUENZA, UNSPECIFIED FORMULATION 2008 88 complet ed [facility] INFLUENZA, UNSPECIFIED FORMULATION 2007 88 complet ed [facility] ([facility] Results Combined list of recent chemistry, hematology and other laboratory results from Department of Defense and Veterans Affairs, ranging from 15 months to all on record, depending upon the facility. Order Name Results Value Reference Range Date Interpretation Specimen Comments Source HEMOGLOBI N A1C HEMOGLOBIN A1C/HEMOGLO BIN.TOTAL IN BLOOD 8.4 4.0 - 6.0 02/27 H Specimen Type: BLOOD Comment: Values obtained from A1C measurement s can vary. For typical A1C assays, a reported value of 7.0 could actually be between 6.7 and 7.3 if measured by a reference method. A reported value of 9.0 could actually be between 8.7 and 9.3. Ref: [email or web address] Ordering Provider: LARRY CHARLES Report Released Date/Time: Jan 10, 2024 10:24 AM Reporting Lab: [facility] [address] Performing Lab: [facility] [address] [facility] LIPID PANEL,FAS TING CHOLESTEROL [MASS/VOLUM E] IN SERUM OR PLASMA 164 mg/dL <199 - 199 02/27 Specimen Type: PLASMA No comment entered. Ordering Provider: LARRY CHARLES Report Released Date/Time: Jan 10, 2024 10:24 AM Reporting Lab: [facility] [address] Performing Lab: [facility] [address] [facility] LIPID PANEL,FAS TING TRIGLYCERID E [MASS/VOLUM E] IN SERUM OR PLASMA 226 mg/dL <149 - 149 02/27 H Specimen Type: PLASMA No comment entered. Ordering Provider: LARRY CHARLES Report Released Date/Time: Jan 10, 2024 10:24 AM Reporting Lab: [facility] [address] Performing Lab: [facility] [address] [facility] LIPID PANEL,FAS TING CHOLESTEROL IN HDL [MASS/VOLUM E] IN SERUM OR PLASMA 39 mg/dL 40 02/27 L Specimen Type: PLASMA No comment entered. Ordering Provider: LARRY CHARLES Report Released Date/Time: Jan 10, 2024 10:24 AM Reporting Lab: [facility] [address] Performing Lab: [facility] [address] [facility] LIPID PANEL,FAS TING CHOLESTEROL IN LDL [MASS/VOLUM E] IN SERUM OR PLASMA BY CALCULATION 80 mg/dL <99 - 99 02/27 Specimen Type: PLASMA No comment entered. Ordering Provider: LARRY CHARLES Report Released Date/Time: Jan 10, 2024 10:24 AM Reporting Lab: [facility] [address] Performing Lab: [facility] [address] [facility] LIPID PANEL,FAS TING CHOLESTEROL IN VLDL [MASS/VOLUM E] IN SERUM OR PLASMA BY CALCULATION 45 mg/dL <29 - 29 02/27 H Specimen Type: PLASMA No comment entered. Ordering Provider: LARRY CHARLES Report Released Date/Time: Jan 10, 2024 10:24 AM Reporting Lab: [facility] [address] Performing Lab: [facility] [address] [facility] LIPID PANEL,FAS TING CHOLESTEROL NON HDL [MASS/VOLUM E] IN SERUM OR PLASMA 125 mg/dL <129 - 129 02/27 Specimen Type: PLASMA No comment entered. Ordering Provider: LARRY CHARLES Report Released Date/Time: Jan 10, 2024 10:24 AM Reporting Lab: [facility] [address] Performing Lab: [facility] [address] [facility] HEMOGLOBI N A1C HEMOGLOBIN A1C/HEMOGLO BIN.TOTAL IN BLOOD 8.8 4.0 - 6.0 11/01 H Specimen Type: BLOOD Comment: Values obtained from A1C measurement s can vary. For typical A1C assays, a reported value of 7.0 could actually be between 6.7 and 7.3 if measured by a reference method. A reported value of 9.0 could actually be between 8.7 and 9.3. Ref: [email or web address] Ordering Provider: LARRY CHARLES Report Released Date/Time: Oct 02, 2023 09:59 AM Reporting Lab: [facility] [address] Performing Lab: [facility] [address] [facility] C-REACTIV E PROTEIN C REACTIVE PROTEIN [MASS/VOLUM E] IN SERUM OR PLASMA BY HIGH SENSITIVITY METHOD <0.30m g/L <5.00 - 5.00 08/09 Specimen Type: PLASMA No comment entered. Ordering Provider: CARINA NIEVES Report Released Date/Time: May 27, 2023 05:07 PM Reporting Lab: [facility] [address] Performing Lab: [facility] [address] [facility] SED RATE ERYTHROCYTE SEDIMENTATI ON RATE 46 mm/h 5 - 15 08/09 H Specimen Type: BLOOD No comment entered. Ordering Provider: CARINA NIEVES Report Released Date/Time: May 27, 2023 05:07 PM Reporting Lab: [facility] [address] Performing Lab: [facility] [address] [facility] URIC ACID URATE [MASS/VOLUM E] IN SERUM OR PLASMA 5.9 mg/dL 3.5 - 7.2 08/09 Specimen Type: PLASMA No comment entered. Ordering Provider: CARINA NIEVES Report Released Date/Time: May 27, 2023 05:07 PM Reporting Lab: [facility] [address] Performing Lab: [facility] [address] [facility] HEMOGLOBI N A1C HEMOGLOBIN A1C/HEMOGLO BIN.TOTAL IN BLOOD 8.4 4.0 - 6.0 08/09 H Specimen Type: BLOOD Comment: Values obtained from A1C measurement s can vary. For typical A1C assays, a reported value of 7.0 could actually be between 6.7 and 7.3 if measured by a reference method. A reported value of 9.0 could actually be between 8.7 and 9.3. Ref: [email or web address] [email or web address] Ordering Provider: HERSON BANKS Report Released Date/Time: Jun 17, 2023 04:21 PM Reporting Lab: [facility] [address] Performing Lab: [facility] [address] [place] [facility] LIPID PANEL,NON -FASTING CHOLESTEROL [MASS/VOLUM E] IN SERUM OR PLASMA 148 mg/dL <199 - 199 08/09 Specimen Type: PLASMA No comment entered. Ordering Provider: HERSON BANKS Report Released Date/Time: Jun 17, 2023 04:21 PM Reporting Lab: [facility] [address] Performing Lab: [facility] [address] [place] [facility] LIPID PANEL,NON -FASTING CHOLESTEROL IN HDL [MASS/VOLUM E] IN SERUM OR PLASMA 42 mg/dL 40 08/09 Specimen Type: PLASMA No comment entered. Ordering Provider: HERSON BANKS Report Released Date/Time: Jun 17, 2023 04:21 PM Reporting Lab: [facility] [address] Performing Lab: [facility] [address] [place] [facility] LIPID PANEL,NON -FASTING CHOLESTEROL IN LDL [MASS/VOLUM E] IN SERUM OR PLASMA BY CALCULATION 73 mg/dL <99 - 99 08/09 Specimen Type: PLASMA No comment entered. Ordering Provider: HERSON BANKS Report Released Date/Time: Jun 17, 2023 04:21 PM Reporting Lab: [facility] [address] Performing Lab: [facility] [address] [place] [facility] LIPID PANEL,NON -FASTING CHOLESTEROL IN VLDL [MASS/VOLUM E] IN SERUM OR PLASMA BY CALCULATION 33 mg/dL <29 - 29 08/09 H Specimen Type: PLASMA No comment entered. Ordering Provider: HERSON BANKS Report Released Date/Time: Jun 17, 2023 04:21 PM Reporting Lab: [facility] [address] Performing Lab: [facility] [address] [place] [facility] LIPID PANEL,NON -FASTING CHOLESTEROL NON HDL [MASS/VOLUM E] IN SERUM OR PLASMA 106 mg/dL <129 - 129 08/09 Specimen Type: PLASMA No comment entered. Ordering Provider: HERSON BANKS Report Released Date/Time: Jun 17, 2023 04:21 PM Reporting Lab: [facility] [address] Performing Lab: [facility] [address] [place] [facility] LIPID PANEL,NON -FASTING TRIGLYCERID E [MASS/VOLUM E] IN SERUM OR PLASMA 166 mg/dL <149 - 149 08/09 H Specimen Type: PLASMA No comment entered. Ordering Provider: HERSON BANKS Report Released Date/Time: Jun 17, 2023 04:21 PM Reporting Lab: [facility] [address] Performing Lab: [facility] [address] [place] [facility] COMPREHEN SIVE METABOLIC PANEL+MG CREATININE [MASS/VOLUM E] IN SERUM OR PLASMA 0.7 mg/dL 0.7 - 1.2 08/09 Specimen Type: PLASMA No comment entered. Ordering Provider: CARINA NIEVES Report Released Date/Time: Aug 09, 2023 02:07 PM Reporting Lab: [facility] [address] Performing Lab: [facility] [address] [facility] COMPREHEN SIVE METABOLIC PANEL+MG UREA NITROGEN [MASS/VOLUM E] IN SERUM OR PLASMA 12 mg/dL 8 - 26 08/09 Specimen Type: PLASMA No comment entered. Ordering Provider: CARINA NIEVES Report Released Date/Time: Aug 09, 2023 02:07 PM Reporting Lab: [facility] [address] Performing Lab: [facility] [address] [facility] COMPREHEN SIVE METABOLIC PANEL+MG GLUCOSE [MASS/VOLUM E] IN SERUM OR PLASMA 181 mg/dL 70 - 100 08/09 H Specimen Type: PLASMA No comment entered. Ordering Provider: CARINA NIEVES Report Released Date/Time: Aug 09, 2023 02:07 PM Reporting Lab: [facility] [address] Performing Lab: [facility] [address] [facility] COMPREHEN SIVE METABOLIC PANEL+MG SODIUM [MOLES/VOLU ME] IN SERUM OR PLASMA 129 mmol/L 136 - 145 08/09 L Specimen Type: PLASMA No comment entered. Ordering Provider: CARINA NIEVES Report Released Date/Time: Aug 09, 2023 02:07 PM Reporting Lab: [facility] [address] Performing Lab: [facility] [address] [facility] COMPREHEN SIVE METABOLIC PANEL+MG POTASSIUM [MOLES/VOLU ME] IN SERUM OR PLASMA 4.0 mmol/L 3.5 - 5.1 08/09 Specimen Type: PLASMA No comment entered. Ordering Provider: CARINA NIEVES Report Released Date/Time: Aug 09, 2023 02:07 PM Reporting Lab: [facility] [address] Performing Lab: [facility] [address] [facility] COMPREHEN SIVE METABOLIC PANEL+MG CHLORIDE [MOLES/VOLU ME] IN SERUM OR PLASMA 94 mmol/L 98 - 107 08/09 L Specimen Type: PLASMA No comment entered. Ordering Provider: CARINA NIEVES Report Released Date/Time: Aug 09, 2023 02:07 PM Reporting Lab: [facility] [address] Performing Lab: [facility] [address] [facility] COMPREHEN SIVE METABOLIC PANEL+MG CARBON DIOXIDE, TOTAL [MOLES/VOLU ME] IN SERUM OR PLASMA 25 mmol/L 22 - 29 08/09 Specimen Type: PLASMA No comment entered. Ordering Provider: CARINA NIEVES Report Released Date/Time: Aug 09, 2023 02:07 PM Reporting Lab: [facility] [address] Performing Lab: [facility] [address] [facility] COMPREHEN SIVE METABOLIC PANEL+MG CALCIUM [MASS/VOLUM E] IN SERUM OR PLASMA 9.1 mg/dL 8.4 - 10.2 08/09 Specimen Type: PLASMA No comment entered. Ordering Provider: CARINA NIEVES Report Released Date/Time: Aug 09, 2023 02:07 PM Reporting Lab: [facility] [address] Performing Lab: [facility] [address] [facility] COMPREHEN SIVE METABOLIC PANEL+MG PROTEIN [MASS/VOLUM E] IN SERUM OR PLASMA 7.9 g/dL 6.0 - 8.3 08/09 Specimen Type: PLASMA No comment entered. Ordering Provider: CARINA NIEVES Report Released Date/Time: Aug 09, 2023 02:07 PM Reporting Lab: [facility] [address] Performing Lab: [facility] [address] [facility] COMPREHEN SIVE METABOLIC PANEL+MG ALBUMIN [MASS/VOLUM E] IN SERUM OR PLASMA 4.2 g/dL 3.5 - 5.2 08/09 Specimen Type: PLASMA No comment entered. Ordering Provider: CARINA NIEVES Report Released Date/Time: Aug 09, 2023 02:07 PM Reporting Lab: [facility] [address] Performing Lab: [facility] [address] [facility] COMPREHEN SIVE METABOLIC PANEL+MG BILIRUBIN.T OTAL [MASS/VOLUM E] IN SERUM OR PLASMA 0.5 mg/dL 0.2 - 1.2 08/09 Specimen Type: PLASMA No comment entered. Ordering Provider: CARINA NIEVES Report Released Date/Time: Aug 09, 2023 02:07 PM Reporting Lab: [facility] [address] Performing Lab: [facility] [address] [facility] COMPREHEN SIVE METABOLIC PANEL+MG MAGNESIUM [MASS/VOLUM E] IN SERUM OR PLASMA 2.2 mg/dL 1.6 - 2.6 08/09 Specimen Type: PLASMA No comment entered. Ordering Provider: CARINA NIEVES Report Released Date/Time: Aug 09, 2023 02:07 PM Reporting Lab: [facility] [address] Performing Lab: [facility] [address] [facility] COMPREHEN SIVE METABOLIC PANEL+MG ANION GAP IN SERUM OR PLASMA 10 mmol/L 5 - 15 08/09 Specimen Type: PLASMA No comment entered. Ordering Provider: CARINA NIEVES Report Released Date/Time: Aug 09, 2023 02:07 PM Reporting Lab: [facility] [address] Performing Lab: [facility] [address] [facility] COMPREHEN SIVE METABOLIC PANEL+MG ALKALINE PHOSPHATASE [ENZYMATIC ACTIVITY/VO LUME] IN SERUM OR PLASMA 88 U/L 40 - 150 08/09 Specimen Type: PLASMA No comment entered. Ordering Provider: CARINA NIEVES Report Released Date/Time: Aug 09, 2023 02:07 PM Reporting Lab: [facility] [address] Performing Lab: [facility] [address] [facility] COMPREHEN SIVE METABOLIC PANEL+MG ALANINE AMINOTRANSF ERASE [ENZYMATIC ACTIVITY/VO LUME] IN SERUM OR PLASMA 19 U/L <55 - 55 08/09 Specimen Type: PLASMA No comment entered. Ordering Provider: CARINA NIEVES Report Released Date/Time: Aug 09, 2023 02:07 PM Reporting Lab: [facility] [address] Performing Lab: [facility] [address] SANDY HERNANDES COMPREHEN SIVE METABOLIC PANEL+MG ASPARTATE AMINOTRANSF ERASE [ENZYMATIC ACTIVITY/VO LUME] IN SERUM OR PLASMA 16 U/L <34 - 34 08/09 Specimen Type: PLASMA No comment entered. Ordering Provider: CARINA NIEVES Report Released Date/Time: Aug 09, 2023 02:07 PM Reporting Lab: [facility] [address] Performing Lab: [facility] [address] S[facility] HERNA[facility]ES COMPREHEN SIVE METABOLIC PANEL+MG GLOMERULAR FILTRATION RATE/1.73 SQ M.PREDICTED [VOLUME RATE/AREA] IN SERUM, PLASMA OR BLOOD BY CREATININE- BASED FORMULA (CKD-EPI 2020) >90 60 08/09 Specimen Type: PLASMA No comment entered. Ordering Provider: CARINA NIEVES Report Released Date/Time: Aug 09, 2023 02:07 PM Reporting Lab: [facility] [address] Performing Lab: [facility] [address] SANDY HERNANDES HEMOGLOBI N A1C HEMOGLOBIN A1C/HEMOGLO BIN.TOTAL IN BLOOD 9.3 4.0 - 6.0 03/12 H Specimen Type: BLOOD Comment: Values obtained from A1C measurement s can vary. For typical A1C assays, a reported value of 7.0 could actually be between 6.7 and 7.3 if measured by a reference method. A reported value of 9.0 could actually be between 8.7 and 9.3. Ref: [email or web address] Ordering Provider: CARINA NIEVES Report Released Date/Time: Feb 27, 2023 03:54 PM Reporting Lab: [facility] [address] Performing Lab: [facility] [address] [facility] Vital Signs Combined list of inpatient and outpatient Vital Signs from Department of Defense and Veterans [facility], ranging from 12 months to all on record, depending upon the facility. Vital Sign Value Date Comments Source Encounters Combined list of: 1) Encounters from Department of Veterans Affairs facilities going back up to thelast 18 months. 2) Encounters from the Department of Defense facilities going back up to 280 months. Location Location Details Encounter Type Encounter Number Reason For Visit Attending Provider ADM Date DC Date Status Disposition Source [facility] Outpatient Encounter [id number] 01/15 [facility] [place] [facility] Outpatient Encounter [id number] 01/16 [facility] [place] [facility] SELF CARE MNGMENT TRAINING [id number] Diagnos is: ICD-10- CM M25.551 Pain in right hip<br/ > [facility] [place] [facility] Outpatient Encounter [id number] NINA SNOW 01/24 [place] [facility] [place] [facility] Outpatient Encounter [id number] 02/01 [facility] PRO PHONE CALL 11-20 MIN [id number] Diagnos is: ICD-10- CM I10 Essenti al (primar y) hyperte nsion<b r/> Tio STEINER 02/01 [facility] [place] [facility] Outpatient Encounter [id number] DILLAN NICHOLSON 02/04 [place] [place] [facility] PRO PHONE CALL 11-20 MIN [id number] Diagnos is: ICD-10- CM E11.8 Type 2 diabete s mellitu s with unspeci fied complic ations< br/> HARDER,KARLIE LY 02/06 [place] [facility] [place] [id number] Diagnos is: ICD-10- CM Z71.3 Dietary crisis intervention counselor ing and surveil adrián<b r/> DANA MCLEAN L 02/08 [facility] QNHP OL DIG ASSMT&MGMT 5-10 [id number] Diagnos is: ICD-10- CM E63.9 Nutriti onal deficie ncy, unspeci fied
CHRISTINA ISAAC 02/08 [place] [facility] OFFICE O/P EST MOD 30-39 MIN [id number] Diagnos is: ICD-10- CM G47.00 Insomni a, unspeci fied
HU,TERRENCE 02/11 [facility] Outpatient Encounter [id number] 02/11 [place] [facility] [place] [facility] Outpatient Encounter [id number] 02/12 [place] [facility] [place] [facility] Outpatient Encounter [id number] GAYLE WITT 02/16 [place] [facility] [place] [facility] Outpatient Encounter [id number] 02[place]20 [place] [facility] [place] [facility] Outpatient Encounter [id number] 02/27 [place] [facility] OFFICE O/P EST MOD 30-39 MIN [id number] [id number] Diagnos is: ICD-10- CM E11.8 Type 2 diabete s mellitu s with unspeci fied complic ations< br/> JAMILAAMADOANN MARIE LYNN N 02/27 [facility] PRO PHONE CALL 11-20 MIN [id number] Diagnos is: ICD-10- CM E11.8 Type 2 diabete s mellitu s with unspeci fied complic ations< br/> JESSE BANKS 03/07 [place] [facility] [place] [facility] Outpatient Encounter [id number] 03/11 [place] [facility] [place] [facility] Outpatient Encounter [id number] [id number] 03/12 [place] [facility] [place] [facility] Outpatient Encounter [id number] [id number] 03/15 [place] [facility] [place] [facility] Outpatient Encounter [id number] [id number] Wan SCOTT 03[facility]22 [place] [facility] PSYTX W PT 45 MINUTES [id number] [id number] Diagnos is: ICD-10- CM 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
TELLOSUGEY CANADA 03/26 [place] [facility] MED NUTRITION INDIV SUBSEQ [id number] [id number] Diagnos is: ICD-10- CM Z71.3 Dietary crisis intervention counselor ing and surveil adrián<b r/> Tio ANTONIO 03[facility]29 [facility] OFFICE O/P EST MOD 30-39 MIN [id number] [id number] Diagnos is: ICD-10- CM G47.00 Insomni a, unspeci fied
HU,TERRENCE 04/01 [place] [facility] PRO PHONE CALL 21-30 MIN [id number] [id number] Diagnos is: ICD-10- CM E11.8 Type 2 diabete s mellitu s with unspeci fied complic ations< br/> JESSE BANKS R 04/04 [place] [facility] [place] [facility] Outpatient Encounter [id number] [id number] 04/07 [place] [facility] [place] [facility] Outpatient Encounter [id number] [id number] 04/12 [place] [facility] Outpatient Encounter [id number] [id number] Diagnos is: ICD-10- CM J32.9 Chronic sinusit is, unspeci fied
NSUBUGAANN MARIE RISTINE N 04/23 [facility] OFF/OP EST MAY X REQ PHY/QHP [id number] [id number] Diagnos is: ICD-10- CM E11.8 Type 2 diabete s mellitu s with unspeci fied complic ations< br/> Tio STEINER M 04/23 [facility] OFF/OP EST MAY X REQ PHY/QHP 08357-6.61 [id number] 54 Diagnos is: ICD-10- CM E11.8 Type 2 diabete s mellitu s with unspeci fied complic ations< br/> Tio STEINER M 04/25 [facility] [place] [facility] Outpatient Encounter [id number] [id number] 04/28 [place] [place] [facility] PRO PHONE CALL 21-30 MIN [id number] [id number] Diagnos is: ICD-10- CM E11.8 Type 2 diabete s mellitu s with unspeci fied complic ations< br/> JESSE BANKS 05/03 [place] [facility] [place] [facility] Outpatient Encounter [id number] 05/06 [place] [facility] OFF/OP EST MAY X REQ PHY/QHP [id number] [id number] 53 Diagnos is: ICD-10- CM E11.8 Type 2 diabete s mellitu s with unspeci fied complic ations< br/> Tio STEINER 05/07 [facility] [place] [facility] MED NUTRITION INDIV SUBSEQ [id number] [id number] Diagnos is: ICD-10- CM Z71.3 Dietary crisis intervention counselor ing and surveil adrián<b r/> DANA MCLEAN 05/08 [place] [facility]AS [facility] OFFICE O/P EST LOW 20-29 MIN [id number] [id number] Diagnos is: ICD-10- CM G47.00 Insomni a, unspeci fied
HU,TERRENCE 05/20 [place] [facility] [place] [facility] OFFICE O/P EST MOD 30-39 MIN [id number] [id number] Diagnos is: ICD-10- CM K21.9 Gastro- esophag eal reflux disease without esophag itis
ELIZABETH STOUT 05/22 [place] [place] [facility] Outpatient Encounter [id number] [id number] 05/27 [place] [facility] [place] [facility] Outpatient Encounter [id number] [id number] 05/27 [place] [facility] [place] [facility] PRO PHONE CALL 11-20 MIN [id number] [id number] Diagnos is: ICD-10- CM E11.8 Type 2 diabete s mellitu s with unspeci fied complic ations< br/> JESSE BANKS 06/17 [place] [facility] [facility] [place] [facility] Outpatient Encounter [id number] [id number] 06/17 [place] [facility] PSYTX W PT 45 MINUTES [id number] [id number] Diagnos is: ICD-10- CM F33.8 Other recurre nt depress sivakumar disorde rs
SUGEY JAVED 06/18 [place] [facility] Outpatient Encounter [id number] 06/18 [place] [facility] [place] [facility] Outpatient Encounter [id number] [id number] 06/19 [place] [facility] [place] [facility] Outpatient Encounter [id number] [id number] 06/26 [place] [facility] Outpatient Encounter [id number] [id number] BAYLEE LOPEZ 06[facility]26 [facility] PRO PHONE CALL 21-30 MIN [id number] [id number] Diagnos is: ICD-10- CM M25.551 Pain in right hip<br/ > Tio STEINER M 06/27 [facility] Outpatient Encounter [id number] [id number] 07/04 [place] [facility] OFFICE O/P EST MOD 30-39 MIN [id number] [id number] Diagnos is: ICD-10- CM G47.00 Insomni a, unspeci fied
HU,TERRENCE 07/08 [place] [facility] HC PRO PHONE CALL 5-10 MIN [id number] [id number] Diagnos is: ICD-10- CM M25.531 Pain in right wrist<b r/> Tio STEINER M 07/09 [facility] MED NUTRITION INDIV SUBSEQ [id number] [id number] Diagnos is: ICD-10- CM Z71.3 Dietary crisis intervention counselor ing and surveil adrián<b r/> DANA MCLEAN 07/11 [place] [facility] Outpatient Encounter [id number] [id number] 07/16 [place] [facility] [place] [facility] Outpatient Encounter [id number] [id number] 07/23 [place] [facility] [place] [facility] Outpatient Encounter [id number] RAUL HOLLIDAY A 07/24 [place] [facility] [place] [facility] Outpatient Encounter [id number] SA DEVANG NICHOLSON R 08/05 [place] [facility] [place] [facility] Outpatient Encounter [id number] 08/07 [place] [facility] [place] [facility] Outpatient Encounter [id number] 08/08 [place] [facility] [place] [facility] Outpatient Encounter [id number] 08/09 [place] [facility] PRO PHONE CALL 11-20 MIN [id number] Diagnos is: ICD-10- CM F33.8 Other recurre nt depress sivakumar disorde rs
SUGEY JAVED 08/09 [place] [facility] Outpatient Encounter [id number] Diagnos is: ICD-10- CM E11.8 Type 2 diabete s mellitu s with unspeci fied complic ations< br/> NSUBUGA,ANN MARIE RISTINE N 08/09 [facility] [place] [facility] Outpatient Encounter [id number] 08/12 [place] [facility] [place] [facility] OFFICE O/P EST MOD 30-39 MIN [id number] [id number] Diagnos is: ICD-10- CM N52.9 Male erectil e dysfunc tion, unspeci fied
[place] 08/12 [place] [facility] [place] [facility] Outpatient Encounter [id number] [id number] RAUL HOLLIDAY A 08/13 [place] [facility] [facility] [place] [facility] Outpatient Encounter [id number] [id number] Tio STEINER 08/14 [place] [facility] [facility] [place] [facility] Outpatient Encounter [id number] [id number] 08/16 [place] [facility] [facility] [place] [facility] Outpatient Encounter [id number] [id number] DEEJAY LANCASTER 08/16 [place] [facility] [facility] [place] [facility] Outpatient Encounter [id number] [id number] 08/20 [place] [facility] [place] [facility] Outpatient Encounter [id number] [id number] 08/26 [place] [facility] [place] [facility] Outpatient Encounter [id number] [id number] 08/26 [place] [facility] [facility] [place] [facility] Outpatient Encounter [id number] [id number] FAUSTO MARTINEZ 08/28 [place] [facility] [place] [facility] Outpatient Encounter [id number] [id number] JESSE BANKS 08/28 [place] [facility] HC PRO PHONE CALL 21-30 MIN [id number] [id number] 27 Diagnos is: ICD-10- CM E11.8 Type 2 diabete s mellitu s with unspeci fied complic ations< br/> MELVIN,CA SEY N 09/04 [facility] MTMS BY PHARM ADDL 15 MIN [id number] [id number] Diagnos is: ICD-10- CM E11.8 Type 2 diabete s mellitu s with unspeci fied complic ations< br/> MELVIN,CA SEY N 09/05 [facility] [place] [facility] Outpatient Encounter [id number] [id number] 09/09 [place] [facility] [facility] MED NUTRITION INDIV SUBSEQ [id number] [id number] Diagnos is: ICD-10- CM Z71.3 Dietary crisis intervention counselor ing and surveil adrián<b r/> DIANNA IRVING K 09/11 [facility] [facility] OFFICE O/P EST MOD 30-39 MIN [id number] [id number] Diagnos is: ICD-10- CM G47.00 Insomni a, unspeci fied
HU,TERRENCE 09/16 [facility] PS[facility] W PT 45 MINUTES 96345-7.61 [id number] 20 Diagnos is: ICD-10- CM 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
SUGEY JAVED DREAD 09/17 [place] [facility] [place] [facility] Outpatient Encounter [id number] [id number] 09/17 [place] [facility] HC PRO PHONE CALL 21-30 MIN [id number] [id number] 29 Diagnos is: ICD-10- CM E11.8 Type 2 diabete s mellitu s with unspeci fied complic ations< br/> JOSE CHARLES N 10/02 [facility] [place] [facility] Outpatient Encounter [id number] [id number] 10/10 [place] [facility] HC PRO PHONE CALL 21-30 MIN 07362-8.61 [id number] 31 Diagnos is: ICD-10- CM K58.9 Irritab le bowel syndrom e without diarrhe a
Tio STEINER 10/11 [facility] OFF/OP EST MARCH X REQ PHY/QHP [id number] [id number] 32 Diagnos is: ICD-10- CM H61.23 Impacte d cerumen , bilater al
ZULAY,JOSELYN CCA R 10/15 [facility] SELF CARE MNGMENT TRAINING [id number] Diagnos is: ICD-10- CM R26.9 Unspeci fied abnorma lities of gait and mobilit y
DARIA SUTTON A 10/17 [place] [facility] Outpatient Encounter [id number] 56 Diagnos is: ICD-10- CM J32.9 Chronic sinusit is, unspeci fied
NSUBANN MARIE LYNN RISTINE N 10/21 [facility] Outpatient Encounter [id number] 10/24 [place] [facility] Outpatient Encounter [id number] SHEMAR BATES 10/28 [place] [facility] Outpatient Encounter [id number] 10/29 [place] [facility] Outpatient Encounter [id number] [id number] [facility]RA PRIDE [facility] MTMS BY PHARM ADDL 15 MIN [id number] 81 Diagnos is: ICD-10- CM E11.8 Type 2 diabete s mellitu s with unspeci fied complic ations< br/> JOSE CHARLES N 11/13 [facility] Outpatient Encounter [id number] Diagnos is: ICD-10- CM E11.8 Type 2 diabete s mellitu s with unspeci fied complic ations< br/> JUSTIN RENNER 11/14 [place] [facility] [place] [facility] Outpatient Encounter [id number] 11/14 [place] [facility] QNHP OL DIG ASSMT&MGMT 5-10 [id number] Diagnos is: ICD-10- CM E11.8 Type 2 diabete s mellitu s with unspeci fied complic ations< br/> CHRISTINA ISAAC Lev 11/15 [place] [facility] OFFICE O/P EST LOW 20 MIN [id number] [id number] Diagnos is: ICD-10- CM G47.00 Insomni a, unspeci fied
HU,TERRENCE 11/18 [facility] Outpatient Encounter [id number] [id number] 98 11/19 [facility] [place] [facility] [place] [facility] Outpatient Encounter [id number] [id number] 11/19 [place] [facility] [place] [facility] Outpatient Encounter [id number] [id number] 11/20 [place] [facility] [place] [facility] Outpatient Encounter [id number] [id number] 11/21 [place] [facility] [place] [facility] Outpatient Encounter [id number] [id number] 11/26 [place] [facility] I[facility]ne [facility] MTMS BY PHARM EST 15 MIN [id number] [id number] 82 Diagnos is: ICD-10- CM E11.8 Type 2 diabete s mellitu s with unspeci fied complic ations< br/> JOSE CHARLES SEY N 11/26 [facility] PSYTX W PT 45 MINUTES 99316-5.61 [id number] Diagnos is: ICD-10- CM F33.8 Other recurre nt depress sivakumar disorde rs
SUGEY JAVED 11/26 [facility] MTMS BY PHARM EST 15 MIN [id number] [id number] 15 Diagnos is: ICD-10- CM E11.8 Type 2 diabete s mellitu s with unspeci fied complic ations< br/> MELVIN,CA SEY N 12/04 [facility] [place] [facility] Outpatient Encounter [id number] [id number] 12/09 [place] [facility] [place] [facility] Outpatient Encounter [id number] 12/11 [place] [facility] [place] [facility] Outpatient Encounter [id number] CIERRA PRIDE DERICK M 12/11 [place] [facility] [place] [facility] Outpatient Encounter [id number] CANDIDA LAGUNAS SA M 12/13 [place] [facility] [place] [facility] SELF CARE MNGMENT TRAINING [id number] Diagnos is: ICD-10- CM W18.49X S Other slippin g, trippin g and stumbli ng w/o falling , sequela
KORABLINA, DARIA A 12/16 [place] [facility] Outpatient Encounter [id number] 16 Diagnos is: ICD-10- CM K58.9 Irritab le bowel syndrom e without diarrhe a
NSUBUGA,CH RISTINE N 12/16 [facility] MED NUTRITION INDIV SUBSEQ [id number] Diagnos is: ICD-10- CM E11.8 Type 2 diabete s mellitu s with unspeci fied complic ations< br/> DIANNA IRVING SA K 12/18 [facility] [place] [facility] Outpatient Encounter [id number] 12/27 [place] [facility] [place] [facility] Outpatient Encounter [id number] 01/02 [place] [facility] [place] [facility] Outpatient Encounter [id number] 01/02 [place] [facility] OFF/OP EST MAY X REQ PHY/QHP [id number] 43 Diagnos is: ICD-10- CM M54.50 Low back pain, unspeci fied
Tio STEINER M 01/09 [facility] MTMS BY PHARM ADDL 15 MIN [id number] [id number] 47 Diagnos is: ICD-10- CM E11.8 Type 2 diabete s mellitu s with unspeci fied complic ations< br/> JOSE CHARLES SERohith N 01/09 [facility] PSYTX W PT 45 MINUTES 04149-5.61 [id number] 82 Diagnos is: ICD-10- CM F33.8 Other recurre nt depress sivakumar disorde rs
KINGSUGEY [place] 01/20 [facility] [place] [facility] Outpatient Encounter [id number] [id number] 01/21 [place] [facility] [place] [facility] Outpatient Encounter [id number] [id number] CIERRA PRIDE 01/21 [place] [facility] [place] [facility] Outpatient Encounter 40418-5.61 [id number] 01/26 [place] [facility] [place] [facility] Outpatient Encounter [id number] [id number] 01/27 [place] [facility] [place] [facility] Outpatient Encounter [id number] [id number] 01/28 [place] [facility] [place] [facility] Outpatient Encounter [id number] [id number] FAUSTO MARTINEZ 01/30 [place] [facility] [place] [facility] Outpatient Encounter [id number] [id number] 02/05 [place] [facility] [place] [facility] Outpatient Encounter [id number] [id number] 02/05 [place] [facility] [place] [facility] Outpatient Encounter [id number] [id number] 02/06 [place] [facility] [place] [facility] Outpatient Encounter [id number] [id number] EAGLE JONES MARVEL R 02/09 [place] [facility] OFFICE O/P EST MOD 30 MIN [id number] [id number] Diagnos is: ICD-10- CM G47.00 Insomni a, unspeci fied
HU,TERRENCE 02/09 [facility] [place] [facility] Outpatient Encounter [id number] [id number] 02/11 [place] [facility] [place] [facility] Outpatient Encounter [id number] [id number] 02/12 [place] [facility] [place] [facility] Outpatient Encounter [id number] [id number] 02/13 [place] [facility] [place] [facility] Outpatient Encounter [id number] [id number] 02/25 [place] [facility] [place] [facility] Outpatient Encounter [id number] [id number] 02/25 [place] [facility] [place] [facility] Outpatient Encounter [id number] [id number] HENRY ZAMORA 02/26 [place] [facility] [place] [facility] Outpatient Encounter [id number] [id number] Judith ZHANG 02/27 [place] [facility] [place] [facility] Outpatient Encounter [id number] [id number] 03/02 [place] [facility] MTMS BY PHARM ADDL 15 MIN [id number] [id number] Diagnos is: ICD-10- CM E11.8 Type 2 diabete s mellitu s with unspeci fied complic ations< br/> JOSE CHARLES N 03/03 [facility] [place] [facility] Outpatient Encounter [id number] [id number] 03/03 [place] [facility] [place] [facility] Outpatient Encounter [id number] [id number] 03/09 [place] [facility] [place] [facility] Outpatient Encounter [id number] [id number] 03/10 [place] [facility] [place] [facility] Outpatient Encounter [id number] [id number] 03/12 [place] [facility] PSYTX W PT 45 MINUTES [id number] [id number] Diagnos is: ICD-10- CM F33.8 Other recurre nt depress sivakumar disorde rs
SUGEY JAVED DREAD 03/17 [facility] [place] [facility] Outpatient Encounter [id number] 03/23 [place] [facility] [place] [facility] Outpatient Encounter [id number] 03/23 [place] [facility] MED NUTRITION INDIV SUBSEQ [id number] Diagnos is: ICD-10- CM E11.8 Type 2 diabete s mellitu s with unspeci fied complic ations< br/> MAGI IRVING L 03/27 [facility] [place] [facility] Outpatient Encounter [id number] 04/03 [place] [facility] MTMS BY PHARM ADDL 15 MIN [id number] [id number] 19 Diagnos is: ICD-10- CM E11.8 Type 2 diabete s mellitu s with unspeci fied complic ations< br/> MELVIN,CA SEY N 04/07 [facility] [place] [facility] Outpatient Encounter [id number] 04/08 [place] [facility] [place] [facility] Outpatient Encounter [id number] [id number] 04/10 [place] [facility] [place] [facility] Outpatient Encounter [id number] 04/15 [place] [facility] [place] [facility] Outpatient Encounter [id number] [id number] 04/15 [place] [facility] [place] [facility] [place] Encounter [id number] 04/23 [place] [facility] [place] [facility] [place] Encounter [id number] 05/05 [place] [facility] [place] [facility] Out[place] Encounter [id number] 05/08 [place] [facility] MT[facility] BY PHARM EST 15 MIN [id number] Diagnos is: ICD-10- CM E11.8 Type 2 diabete s mellitu s with unspeci fied complic ations< br/> JOSE CHARLES N 05/12 [facility] [place] [facility] Out[place] Encounter [id number] 05/12 [place] [facility] Outpatient Encounter [id number] 05/15 [facility] PSYTX W PT 45 MINUTES [id number] Diagnos is: ICD-10- CM F33.8 Other recurre nt depress sivakumar disorde rs
SUGEY JAVED 05/19 [facility] [place] [facility] Out[place] Encounter [id number] 05/28 [place] [facility] OFFICE O/P EST LOW 20 MIN [id number] Diagnos is: ICD-10- CM G47.00 Insomni a, unspeci fied
TERRENCE WALKER 06/01 [facility] [place] [facility] Out[place] Encounter [id number] 06/02 [place] [facility] [place] [facility] Out[place] Encounter [id number] SA RA Rona NICHOLSON 06/02 [place] [facility] MTMS BY PHARM ADDL 15 MIN [id number] Diagnos is: ICD-10- CM E11.8 Type 2 diabete s mellitu s with unspeci fied complic ations< br/> JOSE CHARLES SEY N 06/09 [facility] [place] [facility] Out[place] Encounter [id number] 06/09 [place] [facility] [place] [facility] Out[place] Encounter [id number] 06/11 [place] [facility] PSYTX W PT 45 MINUTES [id number] Diagnos is: ICD-10- CM F33.8 Other recurre nt depress sivakumar disorde rs
SUGEY JAVED 06/30 [facility] [place] [facility] Out[place] Encounter [id number] SA DEVANG NICHOLSON R 07/04 [place] [facility] Outpatient Encounter [id number] Diagnos is: ICD-10- CM R00.2 Palpita tions<b r/> JOSELYN BISWAS CCA R 07/07 [facility] [place] [facility] Outpatient Encounter [id number] JOSELYN BISWAS CCA R 07/07 [place] [facility] [place] [facility] Out[place] Encounter [id number] 07/08 [place] [facility] MTMS BY PHARM ADDL 15 MIN [id number] Diagnos is: ICD-10- CM E11.8 Type 2 diabete s mellitu s with unspeci fied complic ations< br/> JOSE CHARLES SEY N 07/09 [facility] [place] [facility] Outpatient Encounter [id number] 07/10 [facility] [place] [facility] Outpatient Encounter [id number] ALLEN PALACIO 07/10 [facility] [place] [facility] Outpatient Encounter [id number] 07/10 [facility] [place] [facility] Outpatient Encounter [id number] SA RA Rona NICHOLSON 07/13 [facility] Social History Combined list of available smoking, tobacco, and other social history from Department of Defense and Veterans Affairs facilities. Social History Type Response Date Comment Sourc e Tobacco [facility]2020 [facility] OR MORE 03/23/2019 [facility] 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 03/04/2018 [facility] 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 06/17/2017 [facility] History of tobacco use FORMER TOBACCO US ER 7Y OR GREATER 04/23/2016 [facility] History of tobacco use INPT NO TOBACCO U SE IN LAST 30 DAYS 03/06/2016 [facility] 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 Additional future care activities may be listed in the Assessment and Plan section. Date/Time Care Activity Care Activity Detail Facili ty 08/06/2024 AMBULATORY - NONE AMBULATORY - NONE [facility] 08/12/2024 AMBULATORY - MEDICINE AMBULATORY - MEDICI NE [facility] 09/14/2024 AMBULATORY - PSYCHIATRY AMBULATORY - PSYC [facility] 09/15/2024 [facility] Advance Directives List of completed, amended, or rescinded Advance Directives on record at [facility] facilities. An actual copy of the Directive is not included. Date Advance Directive Provider Source 03/04/2016 CLINICAL WARNING PALMA NUNEZ [facility] 04/25/2010 ADVANCE DIRECTIVE RADHA [facility] 03/21/2005 CLINICAL WARNING KYLEE ANN [facility] 04/28/2004 [facility] 04[facility]28/2004 CLINICAL WARNING [facility]
--- OUTSIDE RECORDS SUMMARY | 2024-07-17 00:38 | XMS_ITS | Encounter Summary ---
Author Name [facility] [place] Organization [facility] [place] Address [address] [place] [address] Care Team Providers Care Bunghole Borer Name Role Phone JAMILARONIT WITT Primary Care Provider Unavail able Insurance Providers: [...] Name Patient's Relationship to Policy Lu AARP [facility] ([facility]) MEDICARE ADVANTAGE MCR ([facility]) Nov 11, 2020 [id number] SHAYY,MAURICE Y PATIENT [facility] ([facility]) MEDICARE ADVANTAGE MCR ([facility]) Nov 11, 2017 [id number] SHAYY,MAURICE Y PATIENT [facility] ([facility]) MEDICARE ADVANTAGE MCR ([facility]) Nov 11, 2020 [id number] SHAYYMAURICE Y PATIENT Selected Encounter This section includes the information on record at [place] for the Encounter. Date/Time Encounter Type Encounter Description Reason Provider Source Aug 09, 2023 02:00 PM Outpatient Encounter PRIMARY CARE/MEDICINE ICD-10-CM E11.8 Type 2 diabetes mellitus with unspecified complications SUGEY NIEVES Wan Encounter Template Text not used by [place] Assessments - Encounter Diagnoses This section includes the primary and secondary diagnoses documented for the Encounter. Date/Time Primary/Secondary Diagnosis Diagnosis Name Provider Source Aug 09, 2023 03:06 PM PRIMARY Type 2 diabetes mellitus with unspecified complications [facility] Aug 09, 2023 03:06 PM SECONDARY Unilateral primary osteoarthritis, left knee [facility] Plan of Treatment: Future Appointments (+ 6 months) and Future Tests (+/- 45 days) The Plan of Treatment section includes future care activities for the patient from [facility] [place] [facility] This section includes future appointments and future orders which are active, pending or scheduled. Future Appointments This section includes appointments that were scheduled to occur 6 months from the date of the Encounter, up to a maximum of 20 appointments. The data comes from all [place] treatment facilities. Appointment Date/Time Appointment Type Appointme nt Facility Name Aug 12, 2023 07:00 AM AMBULATORY - NONE [facility] Aug 12, 2023 02:30 PM AMBULATORY - SURGERY [facility] Aug 13, 2023 07:00 AM AMBULATORY - NONE [facility] Sep 04, 2023 10:30 AM [facility] NONE [facility] Sep 09, 2023 02:15 PM [facility] Sep 09, 2023 02:16 PM AMBULATORY - PS[facility]CHIATRY [facility] Sep 11, 2023 01:30 PM AMBULATORY - NONE [facility] Sep 16, 2023 11:15 AM [facility] Sep 17, 2023 08:30 AM AMBULATORY - [facility] Oct 02, 2023 09:15 AM [facility] Oct 11, 2023 09:00 AM [facility] - MEDICINE [facility] Oct 15, 2023 09:30 AM [facility] Oct 17, 2023 09:30 AM AMBULATORY - REHAB [facility] Oct 21, 2023 12:15 PM AMBULATORY - [facility]ICINE [facility] Nov 01, 2023 11:15 AM [facility] Nov 01, 2023 11:40 AM [facility] - [facility] Nov 13, 2023 10:30 AM [facility]ORY - NONE [facility] Nov 18, 2023 11:00 AM AMBULATORY - PSYCHIATRY JASKARAN PERSON [facility] Nov 26, 2023 09:30 AM AMBULATORY - [facility]RY [facility] Dec 04, 2023 01:00 PM AMBULATORY - NONE [facility] Lab Results: +/- 30 days of the encounter This section includes the Chemistry and Hematology Lab Results on record with [place] for the patient. Radiology Reports and Pathology [...] PLASMA No comment entered. Ordering Provider: SUGEY NIEVES Report Released Date/Time: May 27, 2023 05:07 PM Reporting Lab: [facility] [id number] Performing Lab: [facility] [address] URIC ACID 5.9 mg/dL 3.5-7.2 Aug 09, 2023 02:26 PM [facility] SED RATE Specimen Type: BLOOD No comment entered. Ordering Provider: SUGEY NIEVES Report Released Date/Time: May 27, 2023 05:07 PM Reporting Lab: [facility] [id number] Performing Lab: [facility] [id number] SED RATE 46 mm/h H 5-15 Aug 09, 2023 02:26 PM [facility] C-REACTIVE PROTEIN Specimen Type: PLASMA No comment entered. Ordering Provider: SUGEY NIEVES Report Released Date/Time: May 27, 2023 05:07 PM Reporting Lab: [facility] [id number] Performing Lab: [facility] [id number] C-REACTIVE PROTEIN <0.30 mg/L <5.00 Aug 09, 2023 02:26 PM [facility] HEMOGLOBIN A1C Specimen Type: BLOOD Comment: Values [...] Jun 17, 2023 04:21 PM Reporting Lab: [facility] [phone] Performing Lab: [facility] [address] HEMOGLOBIN A1C 8.4 H 4.0-6.0 Aug 09, 2023 02:26 PM [facility] LIPID PANEL,NON-FASTING Specimen Type: PLASMA No comment entered. Ordering Provider: LUNA BANKS Report Released Date/Time: Jun 17, 2023 04:21 PM Reporting Lab: [facility] [phone] Performing Lab: [facility] [phone] CHOLESTEROL 148 mg/dL <199 .HDL 42 mg/dL >40 LDL CALCULATION 73 mg/dL <99 VLDL CALCULATION 33 mg/dL H <29 NON HDL CHOLESTEROL 106 mg/dL <129 TRIG(NON FASTING) 166 mg/dL H <149 Aug 09, 2023 02:26 PM [facility] COMPREHENSIVE METABOLIC PANEL+MG Specimen Type: PLASMA No comment entered. Ordering Provider: SUEGY NIEVES Report Released Date/Time: Aug 09, 2023 02:07 PM Reporting Lab: [facility] [id number] Performing Lab: [facility] [address] CREATININE 0.7 mg/dL 0.7-1.2 UREA NITROGEN 12 [...] 16 U/L <34 .CREAT EGFR(CKD-EPI) >90 >60 Vital Signs: All taken on the encounter date This section contains inpatient and outpatient Vital Signs collected on the date of the Encounter. Date/Time Temperature Pulse Blood Pressure Respiratory Rate SP02 Pain Height Weight Body Mass Index Source Aug 09, 2023 01:53 PM 97.5 F 79 /min 126/79 mm[Hg] 20 /min 96 % 0 69 in 275 lb 41 [facility] Social History: Smoking Status (Most current) and Tobacco Use (All prior to encounter date) This section includes the most current, and the historical, smoking and tobacco- related health factors from the [place] facility where the Encounter took place. Current Smoking Status This section includes the most current smoking, or tobacco-related health factor, from the [place] facility where the Encounter took place. Date/Time Current Smoking Status Comment Darian [email or web address] Nov 07, 2022 11:00 AM VA-TOBACCO NEVER USED [facility] Tobacco Use History This section includes a history of the smoking, or tobacco-related health factors, that were collected on or before the date of the Encounter. The data comes from the [place] facility where the Encounter took place. Date/Time Smoking Status/Tobacco Use Comment F [email or web address] Dec 13, 2021 09:30 AM VA-TOBACCO NEVER USED [facility] Jan 24, 2021 11:00 AM VA-TOBACCO NEVER USED [facility] March 30, 2020 10:56 AM VA-TOBACCO NEVER USED [facility] Advance Directives: All historical and current Section Date Range: From patient's date of to the date document was created. This section includes ALL of a patient's completed or amended [place] Advance and Rescinded Directives. The entries below indicate that a directive exists for the patient, but an actual copy is not included with this document. The data comes from all [place] facilities. Date Advance Directives Provider Source Mar 04, 2016 CLINICAL WARNING [facility] Apr 25, 2010 ADVANCE DIRECTIVE RADHA STEVENSON [facility] March 21, 2005 [facility] Apr 28, 2004 CLINICAL WARNING MAGI CHAUDHRY [facility] Apr 28, 2004 CLINICAL WARNING DUNIA BLOUNT [facility] Encounter Notes: All associated encounter notes This section contains the clinical notes associated to the Encounter. Date/Time Encounter Note(s) Provider Source Aug 09, 2023 01:54 PM PRIMARY CARE NURSING NOTE: LOCAL TITLE: CBOC NURSING PROGRESS NOTE STANDARD TITLE: PRIMARY CARE NURSING NOTE DATE OF NOTE: AUG 09, 2023@13:54 ENTRY DATE: AUG 09, 2023@13:54:31 AUTHOR: ANYA LOPEZ EXP COSIGNER: URGENCY: STATUS: COMPLETED TYPE OF VISIT: Appointment Check In Type of appointment: In-person appointment REASON FOR VISIT: go over medications needed ALLERGIES: METRONIDAZOLE (Feb 24, 2004) TETRACYCLINE (Feb 24, 2004) LOSARTAN (Nov 18, 2009) OMEPRAZOLE (Sep 12, 2011) METFORMIN (Jun 14, 2016) EMPAGLIFLOZIN (Nov 20, 2019) AUGMENTIN (Feb 14, 2022) VITAL SIGNS: Blood Pressure: 126/79 (08/09/2023 13:53) Pulse: 79 (08/09/2023 13:53) Respiration: 20 (08/09/2023 13:53) Temperature: 97.5 F [36.4 C] (08/09/2023 13:53) Weight: 275 lb [124.74 kg] (08/09/2023 13:53) Height: 69 in [175.3 cm] (08/09/2023 13:53) BMI: 40.7 O2 Sat: 96% (08/09/2023 13:53) Pain: 0 (08/09/2023 13:53) PAIN SCREEN: Patient is not having significant pain that they wish to discuss with their provider today. /migdalia/ ANYA LOPEZ LPN LICENSED PRACTICAL NURSE Signed: 08/09/2023 13:55 ANYA LOPEZ CB Aug 09, 2023 11:51 AM PRIMARY CARE NOTE: LOCAL TITLE: CBOC PROGRESS NOTE-[facility] STANDARD TITLE: PRIMARY CARE NOTE DATE OF NOTE: AUG 09, 2023@11:51 ENTRY DATE: AUG 09, 2023@11:51:25 AUTHOR: RONIT NIEVES EXP COSIGNER: URGENCY: STATUS: COMPLETED [facility] PROGRESS NOTE-[facility] Has ADDENDA Today's Nurse check-in note reviewed Chief complaint: Diabetes and hypertension History of Present Illness: The patient is a 72 year old MALE with diabetes here for labs and medication refills. He has L knee and hip pain.Requests for a new L knee brace(wants duplicate of what he has). ROS is negative, pertinent positive are listed above in HPI. Allergies: METRONIDAZOLE (Feb 24, 2004) TETRACYCLINE (Feb 24, 2004) LOSARTAN (Nov 18, 2009) OMEPRAZOLE (Sep 12, 2011) METFORMIN (Jun 14, 2016) EMPAGLIFLOZIN (Nov 20, 2019) AUGMENTIN (Feb 14, 2022) Medication Reconciliation: Education Evaluations *Was medication education provided for NEW medications or CHANGES to medications? (including medication name, dose, route, reason for use, and potential side effects). No new medications or medication changes during this encounter. MEDICATION RECONCILIATION Review Done: The medication list shown below was verified for accuracy and it includes all pending medications/active medications/all medications or discontinued within the last 90 days/all remote medications and non-VA medications. If a given category (i.e. remote meds) is not shown, that means that a patient doesn't have a medication(s) in that category. Allergies listed below were also reviewed/updated for accuracy. Allergies/ADR from [facility] may not display in CPRS. Use JLV MRT5 - Allergies/ADRs FACILITY ALLERGY/ADR -------- No Remote Allergy/ADR Data available for this patient [facility] AUGMENTIN [facility] EMPAGLIFLOZIN [facility] LOSARTAN [facility] METFORMIN [facility] METRONIDAZOLE [facility] OMEPRAZOLE [facility] TETRACYCLINE Active and Recently Outpatient Medications (including Supplies): Issue Date Status Last Fill Active Outpatient Medications Refills Expiration 1) ACCU-CHEK GUIDE (GLUCOSE) TEST STRIP ACTIVE Issu:01-20-23 Qty: 100 for 30 days Sig: USE 1 STRIP Refills: 9 Last:05-21-23 THREE TIMES A DAY TO CHECK BLOOD Expr:01-21-24 SUGAR--USE WITHIN 3 MINUTES OF REMOVING FROM CONTAINER 2) ALPROSTADIL 500MCG URETHRAL SUPP Qty: HOLD Issu:11-22-22 12 for 90 days Sig: INSERT 1 Refills: 3 SUPPOSITORY INTRAURETHRAL NEEDED Expr:11-23-23 FOR ERECTILE DYSFUNCTION -MAXIMUM USE OF 3 TIMES PER WEEK WITH AT LEAST 24 HOURS BETWEEN EACH USE 3) ASPIRIN 81MG EC TAB Qty: 120 for 90 ACTIVE Issu:02-26-23 days Sig: TAKE ONE TABLET BY MOUTH Refills: 2 Last:06-18-23 EVERY DAY Expr:02-27-24 4) ATORVASTATIN CALCIUM 40MG TAB Qty: 90 ACTIVE Issu:10-26-22 for 90 days Sig: TAKE ONE TABLET BY Refills: 0 Last:07-13-23 MOUTH EVERY EVENING FOR CHOLESTEROL Expr:10-27-23 5) CANDESARTAN CILEXETIL 32MG TAB Qty: 90 ACTIVE Issu:01-23-23 for 90 days Sig: TAKE ONE TABLET BY Refills: 2 Last:06-18-23 MOUTH EVERY DAY FOR BLOOD PRESSURE Expr:01-24-24 6) CLOPIDOGREL BISULFATE 75MG TAB Qty: 90 ACTIVE Issu:10-24-22 for 90 days Sig: TAKE ONE TABLET BY Refills: 0 Last:07-13-23 MOUTH EVERY DAY TO PREVENT BLOOD CLOTS Expr:10-25-23 7) CREON 3,000UNIT EC CAP Qty: 90 for 90 ACTIVE Issu:10-02-22 days Sig: TAKE ONE CAPSULE BY MOUTH Refills: 0 Last:01-15-23 EVERY DAY Expr:10-03-23 8) DICLOFENAC NA 1% TOP GEL Qty: 300 for ACTIVE Issu:11-07-22 30 days Sig: APPLY 4 GRAMS TO LEFT Refills: 0 Last:08-07-23 KNEE FOUR TIMES A DAY NEEDED FOR Expr:11-08-23 PAIN RELIEF -USE DOSE CARD IN BOX TO MEASURE DOSE -MAXIMUM OF 32 GRAMS PER DAY FROM ALL SITES APPLIED*FOR PAIN RELIEF 9) DILTIAZEM (EQV-TIAZAC) 120MG 24HR CAP ACTIVE Issu:08-23-22 Qty: 90 for 90 days Sig: TAKE ONE Refills: 1 Last:07-13-23 CAPSULE BY MOUTH ONCE EVERY DAY Expr:08-24-23 10) EZETIMIBE 10MG TAB Qty: 90 for 90 days ACTIVE Issu:11-06-22 Sig: TAKE ONE TABLET BY MOUTH EVERY Refills: 2 Last:06-17-23 DAY FOR CHOLESTEROL Expr:11-07-23 11) FISH OIL 1000MG (500MG DHA/EPA) CAP ACTIVE Issu:06-17-23 Qty: 400 for 90 days Sig: TAKE TWO Refills: 3 Last:06-18-23 CAPSULES BY MOUTH TWICE A DAY FOR Expr:06-17-24 CHOLESTEROL 12) HYDROCHLOROTHIAZIDE 25MG TAB Qty: 36 ACTIVE Issu:06-19-23 for 84 days Sig: TAKE ONE TABLET BY Refills: 3 Last:08-04-23 MOUTH THREE TIMES A WEEK Expr:06-19-24 13) INSULIN,ASPART(EQV-NOVLG)100UN /ML FLXPEN ACTIVE Issu:04-04-23 Qty: 5 for 90 days Sig: INJECT 1-5 Refills: 3 Last:04-09-23 UNITS BASED ON CORRECTION SCALE UNDER Expr:04-04-24 THE SKIN THREE TIMES A DAY BEFORE MEALS NEEDED FOR BLOOD GLUCSE GREATER THAN 200MG/DL *MAX 15 UNITS PER DAY 14) INSULIN,GLARGINE 100 UNT/ML 3ML SOLOSTAR ACTIVE (S) Issu:08-09-23 Qty: 10 for 54 days Sig: INJECT 55 Refills: 1 Last:08-09-23 UNITS UNDER THE SKIN AT BEDTIME FOR Expr:09-29-24 DIABETES 15) ISOSORBIDE MONONITRATE 30MG SA TAB Qty: ACTIVE Issu:10-24-22 90 for 90 days Sig: TAKE ONE TABLET Refills: 0 Last:07-13-23 BY MOUTH EVERY DAY FOR CHEST PAIN Expr:10-25-23 16) METOPROLOL TARTRATE 25MG TAB Qty: 90 ACTIVE Issu:10-18-22 for 90 days Sig: TAKE ONE-HALF TABLET Refills: 0 Last:08-24-23 BY MOUTH TWICE A DAY Expr:10-19-23 17) NEEDLE,PEN 31G,8MM Qty: 200 for 50 days ACTIVE Issu:09-25-22 Sig: USE 1 NEEDLE DIRECTED *DISPOSE Refills: 5 Last:01-15-23 OF IN A HARD-PLASTIC CONTAINER WITH A Expr:09-26-23 SCREW-ON LID CONTACT GARBAGE HAULER FOR PROPER DISPOSAL 18) PSYLLIUM ORAL PWD Qty: 390 for 30 days ACTIVE Issu:01-10-23 Sig: TAKE 1 TEASPOONFUL BY MOUTH ONCE Refills: 11 Last:01-10-23 EVERY DAY IF NEEDED FOR CONSTIPATION. Expr:01-11-24 MIX IN JUICE OR WATER. 19) SEMAGLUTIDE 1MG/0.75ML INJ PEN 3ML Qty: ACTIVE Issu:05-03-23 1 for 28 days Sig: INJECT 1MG UNDER Refills: 10 Last:05-06-23 THE SKIN EVERY WEEK FOR DIABETES Expr:05-03-24 20) SODIUM CHLORIDE 0.65% SOLN NASAL SPRAY ACTIVE Issu:05-03-23 Qty: 45 for 90 days Sig: SPRAY 2 Refills: 2 Last:08-07-23 SPRAYS IN EACH NOSTRIL EVERY DAY Expr:05-03-24 NEEDED FOR CONGESTION 21) TRAZODONE HCL 50MG TAB Qty: 90 for 90 ACTIVE Issu:12-10-22 days Sig: TAKE ONE TABLET BY MOUTH AT Refills: 2 Last:12-10-22 BEDTIME FOR SLEEP Expr:12-11-23 Issue Date Status Last Fill Pending Outpatient Medications Refills Expiration 1) ATORVASTATIN CALCIUM 40MG TAB Qty: 90 PENDING Sig: TAKE ONE TABLET BY MOUTH EVERY Refills: 0 EVENING FOR CHOLESTEROL 2) BRIEF,TRANQUILITY SAMANTHA OVERNITE XL#2117 PENDING Qty: 56 Sig: USE BRIEF DIRECTED Refills: 0 3) CREON 3,000UNIT EC CAP Qty: 90 PENDING Refills: 0 4) DICLOFENAC NA 1% TOP GEL Qty: 300 Sig: PENDING APPLY 4 GRAMS TO LEFT KNEE FOUR TIMES Refills: 0 A DAY NEEDED FOR PAIN RELIEF -USE DOSE CARD IN BOX TO MEASURE DOSE -MAXIMUM OF 32 GRAMS PER DAY FROM ALL SITES APPLIED*FOR PAIN RELIEF 5) ISOSORBIDE MONONITRATE 30MG SA TAB Qty: PENDING 90 Sig: TAKE ONE TABLET BY MOUTH Refills: 0 EVERY DAY FOR CHEST PAIN 6) METOPROLOL TARTRATE 25MG TAB Qty: 90 PENDING Refills: 0 Issue Date Status Last Fill Inactive Outpatient Medications Refills Expiration 1) ATORVASTATIN CALCIUM 80MG TAB Qty: 45 DISCONTINUED Issu:10-24-22 for 90 days Sig: TAKE ONE-HALF TABLET (EDIT) Last:10-26-22 BY MOUTH EVERY EVENING FOR CHOLESTEROL Refills: 3 Expr:10-25-23 2) BRIEF,TRANQUILITY SAMANTHA OVERNITE LG#6 DISCONTINUED Issu:07-18-22 Qty: 64 for 30 days Sig: USE BRIEF Refills: 11 Last:08-03-22 DIRECTED Expr:07-19-23 3) BRIEF,TRANQUILITY SAMANTHA OVERNITE XL#2116 Issu:07-18-22 Qty: 56 for 30 days Sig: USE BRIEF Refills: 7 Last:04-17-23 DIRECTED Expr:07-19-23 4) CANDESARTAN CILEXETIL 16MG TAB Qty: 90 DISCONTINUED Issu:12-27-22 for 90 days Sig: TAKE ONE TABLET BY (EDIT) Last:12-27-22 MOUTH EVERY DAY FOR BLOOD PRESSURE Refills: 3 Expr:12-28-23 CHANGE IN TABLET STRENGTH.TAKE 1 WHOLE TABLET 5) CANDESARTAN CILEXETIL 32MG TAB Qty: 90 DISCONTINUED Issu:05-03-22 for 90 days Sig: TAKE ONE TABLET BY Refills: 0 Last:08-22-22 MOUTH AT BEDTIME Expr:05-04-23 6) DICLOFENAC NA 1% TOP GEL Qty: 300 for DISCONTINUED Issu:05-10-22 30 days Sig: APPLY 4 GRAMS TO LEFT Refills: 0 Last:10-31-22 KNEE FOUR TIMES A DAY NEEDED FOR Expr:05-11-23 PAIN RELIEF -USE DOSE CARD IN BOX TO MEASURE DOSE -MAXIMUM OF 32 GRAMS PER DAY FROM ALL SITES APPLIED*FOR PAIN RELIEF 7) HYDROCHLOROTHIAZIDE 25MG TAB Qty: 36 DISCONTINUED Issu:08-23-22 for 84 days Sig: TAKE ONE TABLET BY Refills: 0 Last:05-22-23 MOUTH THREE TIMES A WEEK Expr:08-24-23 8) HYDROCHLOROTHIAZIDE 25MG TAB Qty: 36 DISCONTINUED Issu:08-22-22 for 84 days Sig: TAKE ONE TABLET BY (EDIT) Last:09-02-22 MOUTH THREE TIMES WEEKLY Refills: 3 Expr:08-23-23 9) INSULIN,ASPART(EQV-NOVLG)100UN /ML FLXPEN DISCONTINUED Issu:03-07-23 Qty: 10 for 90 days Sig: INJECT SLIDE (EDIT) Last:03-22-23 SCALE UNDER THE SKIN DIRECTED WITH Refills: 3 Expr:03-07-24 MEALS (150-200 4 UNITS; 201-250 6 UNITS; 251-300 8 UNITS; 301-350 10 UNITS) MAX 30 UNITS PER DAY 10) INSULIN,ASPART(EQV-NOVLG)100UN /ML FLXPEN DISCONTINUED Issu:09-27-22 Qty: 10 for 90 days Sig: INJECT SLIDE Refills: 2 Last:01-01-23 SCALE UNDER THE SKIN DIRECTED WITH Expr:09-28-23 MEALS (150-200 4 UNITS; 201-250 6 UNITS; 251-300 8 UNITS; 301-350 10 UNITS) 11) INSULIN,GLARGINE 100 UNT/ML 3ML SOLOSTAR DISCONTINUED Issu:09-27-22 Qty: 10 for 50 days Sig: INJECT 60 (EDIT) Last:02-06-23 UNITS UNDER THE SKIN AT BEDTIME Refills: 0 Expr:09-28-23 12) INSULIN,GLARGINE-YFGN 100UNIT/ML PEN 3ML DISCONTINUED Issu:04-04-23 Qty: 10 for 54 days Sig: INJECT 55 Refills: 1 Last:04-04-23 UNITS UNDER THE SKIN AT BEDTIME FOR Expr:04-04-24 DIABETES 13) INSULIN,GLARGINE-YFGN 100UNIT/ML PEN 3ML DISCONTINUED Issu:03-07-23 Qty: 10 for 50 days Sig: INJECT 60 (EDIT) Last:04-09-23 UNITS UNDER THE SKIN AT BEDTIME Refills: 1 Expr:03-07-24 14) INSULIN,GLARGINE-YFGN 100UNIT/ML PEN 3ML DISCONTINUED Issu:02-28-23 Qty: 10 for 50 days Sig: INJECT 60 Refills: 1 Last:02-28-23 UNITS UNDER THE SKIN AT BEDTIME Expr:02-29-24 15) NUTRITION SUPL ENSURE HP LIQUID VANILLA DISCONTINUED Issu:02-08-23 Qty: 24 for 24 days Si CARTON BY Refills: 0 Last:04-17-23 MOUTH EVERY DAY FOR NUTRITION Expr:02-09-24 SUPPLEMENT BETWEEN MEALS 16) PANTOPRAZOLE NA 40MG EC TAB Qty: 90 for DISCONTINUED Issu:11-07-22 90 days Sig: TAKE ONE TABLET BY MOUTH Refills: 3 Last:11-07-22 EVERY DAY ONE-HALF HOUR BEFORE EATING Expr:11-08-23 TO DECREASE STOMACH ACID 17) PSYLLIUM ORAL PWD Qty: 780 for 30 days DISCONTINUED Issu:11-07-22 Sig: TAKE ONE HEAPING TABLESPOONFUL BY Refills: 11 Last:11-07-22 MOUTH EVERY DAY FOR REGULAR BOWEL Expr:11-08-23 MOVEMENTS -MIX IN 8 OUNCES OF JUICE OR WATER 18) SEMAGLUTIDE 0.25MG/0.375ML INJ PEN 3ML DISCONTINUED Issu:03-07-23 Qty: 1 for 42 days Sig: INJECT 0.25MG Refills: 11 Last:03-08-23 UNDER THE SKIN EVERY WEEK FOR 4 WEEKS, Expr:03-07-24 THEN INJECT 0.5MG EVERY WEEK FOR DIABETES 19) SEMAGLUTIDE 0.25MG/0.375ML INJ PEN 3ML DISCONTINUED Issu:03-07-23 Qty: 1 for 28 days Sig: INJECT 0.5MG (EDIT) Last:04-09-23 UNDER THE SKIN EVERY WEEK FOR DIABETES Refills: 10 Expr:03-07-24 20) SEMAGLUTIDE 0.5MG/0.375ML INJ PEN 1.5ML DISCONTINUED Issu:07-23-22 Qty: 1 for 56 days Sig: INJECT 0.25MG Refills: 3 Last:11-22-22 UNDER THE SKIN EVERY WEEK FOR DIABETES Expr:07-24-23 - DISCARD PEN 56 DAYS AFTER INITIAL USE 21) SEMAGLUTIDE 0.5MG/0.375ML INJ PEN 1.5ML DISCONTINUED Issu:07-23-22 Qty: 1 for 28 days Sig: INJECT 0.25MG Refills: 10 Last:11-22-22 UNDER THE SKIN EVERY WEEK Expr:07-24-23 22) SOTALOL HCL 80MG TAB Qty: 180 for 90 DISCONTINUED Issu:05-30-22 days Sig: TAKE ONE TABLET BY MOUTH Refills: 3 Last:05-30-22 TWICE A DAY - NEW DIRECTIONS JUNE Expr:05-31-232020 Start Date Active Non-VA Medications Refills Expiration 1) Non-VA CINNAMON 500MG TAB Si TABLET ACTIVE MOUTH EVERY DAY 2) Non-VA FISH OIL 1000MG (500MG DHA/EPA) ACTIVE CAP SiMG MOUTH EVERY DAY 3) Non-VA NON VA MED NOT LISTED ACTIVE MISCELLANEOUS Sig: EUCALYPTUS/PEPPERMINT OIL NEEDED 4) Non-VA SODIUM CHLORIDE 0.9% IRRG SOLN ACTIVE Sig: SOLUTION IRRIGATION THREE TIMES A DAY 53 Total Medications Physical Exam: Vitals: 08/09/23 13:53 T: 97.5 F (36.4 C) P: 79 R: 20 B/P: 126/79 Ht: 69.00 in (175.26 cm) Wt: 275.00 lb (124.74 kg) Body Mass Index: 41* Pulse Oximetry: 96% via ROOM AIR Pain: 0 - No pain Constitutional: Alert, in no distress & healthy appearing Cardiac: rate & rhythm normal, no murmur Pulmonary: No respiratory distress, clear bilateral breath sounds Abdominal: Normal bowel sounds, Non-tender, No hepato-splenomegaly, No abdominal mass palpated, no rebound tenderness Musculoskeletal: Gait and station normal Neurological: Alert and oriented x3 Assessment/Plan: # Left knee pain: Knee & hip pain- chronic - Recommend PT, received a self referral number - New brace per PT, declined knee braces available at the [place] # Diabetes: Due for labs, monitored by metabolic clinic [place] understands and agrees to the plan. Follow up PRN /migdalia/ RONIT NIEVES CNP NP [facility] Signed: 08/09/2023 15:07 08/10/2023 ADDENDUM STATUS: COMPLETED Back pain: Requesting for healthcare consulting manager - Consult placed /migdalia/ RONIT NIEVES CNP NP [facility] Signed: 08/10/2023 08:46 RONIT NIEVES [facility]
--- OUTSIDE RECORDS SUMMARY | 2024-07-17 00:39 | XMS_ITS | Encounter Summary ---
Author Name [facility] [place] [place] [facility] [place] [facility] [place] Address [address] [place] [address] Care Team Providers Care Junk Dealer Name Role Phone LIZBETH RONIT Primary Care Provider Unavail able Insurance Providers: [...] Name Patient's Relationship to Policy Lu AARP [facility] (WNR) MEDICARE ADVANTAGE MCR ([facility]) Nov 11, 2020 [id number] SHAYYMAURICE Y PATIENT [facility] (WNR) MEDICARE ADVANTAGE MCR ([facility]) Nov 11, 2017 [id number] SHAYYMAURICE Y PATIENT [facility] (WNR) MEDICARE ADVANTAGE MCR ([facility]) Nov 11, 2020 [id number] SHAYY,MAURICE Y PATIENT Selected Encounter This section includes the information on record at [place] for the Encounter. Date/Time Encounter Type Encounter Description Reason Provider Source Nov 14, 2023 08:03 AM Outpatient Encounter ENDOCRINOLOGY ICD-10-CM E11.8 Type 2 diabetes mellitus with unspecified complications ANN MARIE RENNER Encounter Template Text not used by [place] Assessments - Encounter Diagnoses This section includes the primary and secondary diagnoses documented for the Encounter. Date/Time Primary/Secondary Diagnosis Diagnosis Name Provider Source Nov 14, 2023 08:35 AM PRIMARY Type 2 diabetes mellitus with unspecified complications NIKI HARRIS [facility] Plan of Treatment: Future Appointments (+ 6 months) and Future Tests (+/- 45 days) The Plan of Treatment section includes future care activities for the patient from all [place] [facility]. This section includes future appointments and future orders which are active, pending or scheduled. Future Appointments This section includes appointments that were scheduled to occur 6 months from the date of the Encounter, up to a maximum of 20 appointments. The data comes from all [place] treatment facilities. Appointment Date/Time Appointment Type Appointme nt Facility Name Nov 18, 2023 11:00 AM AMBULATORY - [place]ATRY [place] [facility] Nov 26, 2023 09:30 AM [facility]BULATORY - [facility]ATRY [facility] Dec 04, 2023 01:00 PM AMB[facility]ATORY - NONE [facility] Dec 16, 2023 10:00 AM AMBULATORY - REHAB MEDICIN E [facility] Dec 16, 2023 12:15 PM AMB[facility]ATORY - [facility]ICINE [facility] Dec 18, 2023 09:00 AM AMBULATORY - NONE [facility] Dec 25, 2023 09:30 AM AMBULATORY - MEDICINE [facility] Jan 10, 2024 09:30 AM AMBULATORY - [facility]ICINE [facility] Jan 10, 2024 10:00 AM AM[facility]ATORY - NONE [facility] Jan 21, 2024 09:30 AM AMBULATORY - PS[facility]CHIATRY [facility] Feb 10, 2024 07:00 AM AMBULATORY - NONE [place] [facility] Feb 10, 2024 10:30 AM AMBULATORY - PS[facility]CHIATRY [facility] Feb 12, 2024 10:00 AM AM[place]ORY - NONE [place] [facility] Feb 28, 2024 08:40 AM [facility]ORY - [facility]ICINE [facility] Feb 28, 2024 09:00 AM [facility]ORY - NONE [facility] Mar 03, 2024 09:15 AM AMB[facility]ATORY - NONE [facility] Mar 09, 2024 01:30 PM AMBULATORY - NONE [place] [facility] March 12, 2024 11:30 AM AMBULATORY - NONE [place] [facility] March 17, 2024 10:30 AM [facility]BULATORY - PS[facility]CHIATRY [facility] March 27, 2024 01:30 PM AMBULATORY - NONE [facility] Lab Results: +/- 30 days of the encounter This section includes the Chemistry and Hematology Lab Results on record with [place] for the patient. Radiology Reports and Pathology Reports are provided separately, in subsequent sections. Lab Results This section contains the Chemistry/Hematology Results that were resulted 30 days before or 30 daysafter the date of the Encounter. Date/Time Source Result Type Result - Unit Interpretation Reference Range Comment Nov 01, 2023 09:52 AM [facility] HEMOGLOBIN A1C Specimen Type: BLOOD Comment: Values obtained from A1C measurements can vary. For typical A1C assays, a reported value of 7.0 could actually be between 6.7 and 7.3 if measured by a reference method. A reported value of 9.0 could actually be between 8.7 and 9.3. Ref: http://www.ngsp .org/CAPdata.as p Ordering Provider: NHI CHARLES Report Released Date/Time: Oct 02, 2023 09:59 AM Reporting Lab: [facility] [id number] Performing Lab: [facility] [id number] HEMOGLOBIN A1C 8.8 H 4.0-6.0 Social History: Smoking Status (Most current) and Tobacco Use (All prior to encounter date) This section includes the most current, and the historical, smoking and tobacco- related health factors from the [place] facility where the Encounter took place. Current Smoking Status This section includes the most current smoking, or tobacco-related health factor, from the [place] facility where the Encounter took place. Date/Time Current Smoking Status Comment Darian ity March 23, 2019 08:54 AM [place]-TOBAC[place] QUIT 15 YRS OR MORE [facility] Tobacco Use History This section includes a history of the smoking, or tobacco-related health factors, that were collected on or before the date of the Encounter. The data comes from the [place] facility where the Encounter took place. Date/Time Smoking Status/Tobacco Use Comment F acility March 23, 2019 08:54 AM [place]-TOBAC[place] QUIT 15 YRS OR MORE [facility] Mar 04, 2018 09:41 AM LIFETIME NON-TOBACCO USER [facility] Jun 17, 2017 01:07 PM LIFETIME NON-TOBACCO USER [facility] Apr 23, 2016 09:50 AM FORMER TOBACCO USER 7Y OR GREATE R [facility] Mar 06, 2016 11:12 AM INPT NO TOBACCO USE IN LAST 30 D AYS [facility] Jul 15, 2015 08:58 AM LIFETIME NON-TOBACCO USER [facility] Feb 11, 2013 10:04 AM LIFETIME NON-TOBACCO USER [facility] Nov 27, 2006 03:44 PM FORMER TOBACCO USER 7Y OR GREATE R [facility] Advance Directives: All historical and current Section Date Range: From patient's date of to the date document was created. This section includes ALL of a patient's completed or amended [place] Advance and Rescinded Directives. The entries below indicate that a directive exists for the patient, but an actual copy is not included with this document. The data comes from all [facility]. Date Advance Directives Provider Source Mar 04, 2016 CLINICAL WARNING PALMA NUNEZ [facility] Apr 25, 2010 ADVANCE DIRECTIVE RADHA STEVENSON [facility] March 21, 2005 CLINICAL WARNING KYLEE ANN [facility] Apr 28, 2004 CLINICAL WARNING MAGI CHAUDHRY [facility] Apr 28, 2004 [facility] Radiology Reports: +/- 30 days of the [...] the Encounter. The data comes from all [place] treatment facilities. Date/Time Radiology Report Provider Source Nov 01, 2023 09:56 AM SHOULDER RIGHT 2-3 VIEWS: SHAYYSELAM [id number] -[id number] M Exm Date: NOV 01, 2023@09:56 Req Phys: RONIT NIEVES Loc: [facility] RADIOLOGY (Req'g Loc) Img Loc: [facility] RADIOLOGY Service: Unknown (Case [id number] COMPLETE) SHOULDER RIGHT 2-3 VIEWS (RAD Detailed) CPT:61168 Reason for Study: pain, swelling Clinical History: Report Status: Verified Date Reported: NOV 01, 2023 Date Verified: NOV 01, 2023 Dietitian E-Sig:/ES/ABDULLAHI EUBANKS MD Report: EXAMINATION: SHOULDER RIGHT 2-3 VIEWS 11/01/2023 9:56 AM INDICATION: pain, swelling Impression: Slight degenerative changes of the glenohumeral joint. Moderate degenerative hypertrophy of the AC joint. Sclerosis and mild surface irregularity along the greater tuberosity. Primary Interpreting Staff: ABDULLAHI EUBANKS MD, RADIOLOGIST ([place]) /RTS ABDULLAHI EUBANKS [facility] Encounter Notes: All associated encounter notes This section contains the clinical notes associated to the Encounter. Date/Time Encounter Note(s) Provider Source Nov 14, 2023 08:03 AM DIABETOLOGY CONSULT: LOCAL TITLE: DIABETES DEVICE CONSULT STANDARD TITLE: DIABETOLOGY CONSULT DATE OF NOTE: NOV 14, 2023@08:03 ENTRY DATE: NOV 14, 2023@08:03:46 AUTHOR: NIKI HARRIS EXP COSIGNER: URGENCY: STATUS: COMPLETED Diabetes Device Consult Patient consulted to the Metabolic Service for consideration for personal Continuous Glucose Monitoring System (CGM). Per VISN 23 Pharmacy Criteria: All must be answered yes for patient to be eligible for CGM: Yes Diagnosis of Diabetes Mellitus (type 1 or type 2) and on insulin therapy. Yes Multiple Daily Injection of insulin >/= 3 per day or 2 doses mixed insulin or U500. Yes Difficulty achieving glycemic targets due to wide fluctuations in glycemic control despite continued attempts at case management. No At least one session of a diagnostic CGM (e.g. [employer] Javier PRO) Yes Treatment by [place] Endocrinology or supervisory training specialist (i.e. PACT Pharmacist) and patient has agreed to or understands requirements for in-person training (when plausible) on use of the device. Yes Assessed patient and/or caregiver is competent to use sensor and able to reliably self-manage their diabetes (ex. able to apply sensor, appropriate health literacy to manage blood glucose based on sensor readings) Yes Able to attend follow-up visits (or telehealth) with supervisory training specialist (Lodging House Keeper, PACT Pharmacist, DM educator) within initial 3 months, 6 months, and then annually thereafter for re-ordering product/supplies. Yes Adherence to appointments, insulin regimen, dietary guidelines as deemed adequate by diabetes provider. No Willing to continue to test capillary blood glucose (if required) by CGM product for calibration or other purpose. Yes Willing to submit documentation of glucose readings, insulin use, meals consumed, physical activity or other information on a scheduled basis and has IT capabilities to upload meter readings remotely (i.e. has ability to share data via aleja). (ONE or more of the following must be selected for patient to be eligible): [ ] Insulin Pump Therapy [ ] Recurrent episodes of ketoacidosis or hospitalizations for uncontrolled glucose levels. [ ] or planning [X] Basal-Bolus insulin therapy requiring blood glucose testing four times per day or more AND (National criteria marj 1.31.19) [X] Labile glucose control with ongoing frequent insulin adjustments requiring CGM data [ ] Recurring episodes of unexplained symptomatic, nocturnal or other severe functionally disabling hypoglycemia requiring assistance of others, altered mental status, loss of consciousness, seizure, confusion or difficulty rousing in the past year; blood glucose <50mg/dl [ ] Unable to routinely check blood sugar readings using standard blood glucose meter due to occupational, physical (dexterity or vision problems), or other circumstances clearly documented in the medical record. Active Outpatient Medications (including Supplies): Outpatient Medications Status 1) ACCU-CHEK GUIDE (GLUCOSE) TEST STRIP USE 1 STRIP ACTIVE THREE TIMES A DAY TO CHECK BLOOD SUGAR--USE WITHIN 3 MINUTES OF REMOVING FROM CONTAINER 2) ALPROSTADIL 500MCG URETHRAL SUPP INSERT 1 SUPPOSITORY HOLD INTRAURETHRAL NEEDED FOR ERECTILE DYSFUNCTION -MAXIMUM USE OF 3 TIMES PER WEEK WITH AT LEAST 24 HOURS BETWEEN EACH USE 3) ASPIRIN 81MG EC TAB TAKE ONE TABLET BY MOUTH EVERY ACTIVE DAY 4) ATORVASTATIN CALCIUM 40MG TAB TAKE ONE TABLET BY ACTIVE MOUTH EVERY EVENING FOR CHOLESTEROL 5) BRIEF,TRANQUILITY SAMANTHA OVERNITE XL#2117 USE BRIEF ACTIVE DIRECTED 6) CANDESARTAN CILEXETIL 32MG TAB TAKE ONE TABLET BY ACTIVE MOUTH EVERY DAY FOR BLOOD PRESSURE 7) CLOPIDOGREL BISULFATE 75MG TAB TAKE ONE TABLET BY ACTIVE MOUTH EVERY DAY TO PREVENT BLOOD CLOTS 8) CREON 3,000UNIT EC CAP TAKE ONE CAPSULE BY MOUTH ACTIVE EVERY DAY 9) DICLOFENAC NA 1% TOP GEL APPLY 4 GRAMS TO LEFT KNEE ACTIVE FOUR TIMES A DAY NEEDED FOR PAIN RELIEF -USE DOSE CARD IN BOX TO MEASURE DOSE -MAXIMUM OF 32 GRAMS PER DAY FROM ALL SITES APPLIED*FOR PAIN RELIEF 10) DILTIAZEM (EQV-TIAZAC) 120MG 24HR CAP TAKE ONE ACTIVE CAPSULE BY MOUTH EVERY DAY 11) GLOVE VINYL X-LARGE PWDR-FREE NONSTERILE USE GLOVE(S) ACTIVE DIRECTED 12) HYDROCHLOROTHIAZIDE 25MG TAB TAKE ONE TABLET BY MOUTH ACTIVE THREE TIMES A WEEK 13) INSULIN,ASPART(EQV-NOVLG)100U N/ML FLXPEN INJECT 1-5 ACTIVE (S) UNITS BASED ON CORRECTION SCALE UNDER THE SKIN THREE TIMES A DAY BEFORE MEALS NEEDED FOR BLOOD GLUCSE GREATER THAN 200MG/DL *MAX 15 UNITS PER DAY 14) INSULIN,GLARGINE-YFGN 100UNIT/ML PEN 3ML INJECT 60 ACTIVE (S) UNITS UNDER THE SKIN AT BEDTIME FOR DIABETES 15) ISOSORBIDE MONONITRATE 30MG SA TAB TAKE ONE TABLET BY ACTIVE MOUTH EVERY DAY FOR CHEST PAIN 16) LACTOBACILLUS ACIDOPHILUS TAB TAKE 2 TABLETS BY MOUTH ACTIVE EVERY DAY 17) METOPROLOL TARTRATE 25MG TAB TAKE ONE-HALF TABLET BY ACTIVE MOUTH TWICE A DAY 18) PSYLLIUM ORAL PWD TAKE 1 TEASPOONFUL BY MOUTH ONCE ACTIVE EVERY DAY IF NEEDED FOR CONSTIPATION. MIX IN JUICE OR WATER. 19) SEMAGLUTIDE 2MG/0.75ML INJ PEN 3ML INJECT 2MG UNDER ACTIVE THE SKIN EVERY WEEK FOR DIABETES 20) SODIUM CHLORIDE 0.65% SOLN NASAL SPRAY SPRAY 2 SPRAYS ACTIVE IN EACH NOSTRIL EVERY DAY NEEDED FOR CONGESTION 21) TRAZODONE HCL 50MG TAB TAKE ONE TABLET BY MOUTH AT ACTIVE BEDTIME FOR SLEEP Non-VA Medications Status 1) Non-VA CINNAMON 500MG TAB 1 TABLET MOUTH EVERY DAY ACTIVE 2) Non-VA FISH OIL 1000MG (500MG DHA/EPA) CAP 1000MG ACTIVE MOUTH EVERY DAY 3) Non-VA NON VA MED NOT LISTED MISCELLANEOUS ACTIVE EUCALYPTUS/PEPPERMINT OIL NEEDED 4) Non-VA SODIUM CHLORIDE 0.9% IRRG SOLN SOLUTION ACTIVE IRRIGATION THREE TIMES A DAY 25 Total Medications Weight: Measurement DT WEIGHT LB(KG)[BMI] 09/05/2023 10:54 269.8(122.38)[40*] 08/09/2023 13:53 275(124.74)[41*] 04/23/2023 11:12 275.1(124.78)[41*] DIABETES Labs: Collection DT Spec HGBA1C POCA1C 11/01/2023 09:52 BLOOD 8.8 H 08/09/2023 14:26 BLOOD 8.4 H 03/12/2023 10:24 BLOOD 9.3 H Collection DT Specimen Test Name Result Units Ref Range 03/12/2023 10:24 SERUM !! C-PEPTIDE 2.45 ng/mL 0.80 - 3.85 GLUCOSE 181 H (08/09/23) CREATININE 0.7 (08/09/23) EGFR RESULT 09/07/2021@10:47:20 value - >60 08/09/2023@14:26:21 value - >90 Collection DT Specimen Test Name Result Units Ref Range 03/12/2023 10:24 SERUM !! GREG-65 ANTIBODY <5 IU/mL Ref: SEE BELOW !! Indicates COMMENTS AVAILABLE...Refer to Interim Lab Report. *Approval or disapproval for diabetes technology devices is based upon review of CPRS, JLV and outside records if available. If is meeting most of the basic criteria their case will be reviewed at the Diabetes Interdisciplinary Team Conference held twice monthly. Recommendations for diabetes care and final approval will be determined at that time. ASSESSMENT: 72 year old with type 2 diabetes is referred to Diabetes Technology for consideration for personal CGM. [place] is enrolled with Nhi Charles PharmD for diabetes management. is currently using a [employer] Javier 2 prescribed from outside provider. He has transfered his diabetes care to [place] and is aware that he can pursue comanaged diabetes care while using a diabetes device. Yasir has shared [employer] reports for review. Most recent upload shows CGM active: 94%, Avg Glucose: 214, GMI: 8.4%, CoV: 25.5%. Time in Ranges: >250: 26%, >180: 48%, 70-180: 26%, <70: 0%, <54: 0%. Yasir is on Glargine with a sliding scale aspart dose for meals. He is also on Semaglutide 2mg q week. He could not tolerate Metformin or Empagliflozin. Current diabetes medication doses per PHarmD: Change - Insulin aspart sliding scale: BG <150 - 2 units BG 151-200 - 4 units BG 200-250 - 6 units BG >250 - 8 units Continue - Insulin glargine 60 units under the skin once daily at bedtime - semaglutide (Ozempic) 2 mg under the skin once weekly on Tuesdays RECOMMENDATIONS: Yasir meets criteria for personal CGM. Case reviewed with Dr. Renner, Chief of Metabolic Service Line; yasir is approved for personal CGM. /migdalia/ Niki Harris RN, [facility] Certified Diabetes Care & [place] [employer]velopment [employer] Manager Signed: 11/14/2023 08:35 Receipt Acknowledged By: 11/14/2023 08:48 /migdalia/ JUSTIN RENNER M.D. Chief, Endocrinology and Metabolism 2023 13:56 /migdalia/ JOHNY JETER RN [employer] NIKI HARRIS [facility]
--- OUTSIDE RECORDS SUMMARY | 2024-07-17 00:39 | XMS_ITS | Encounter Summary ---
Author Name [facility] Organization [facility] [place] Address [address] [place] [address] Care Team Providers Care Etl Developer Name Role Phone RONIT NIEVES Primary Care Provider Unavail able Insurance Providers: [...] Name Patient's Relationship to Policy Lu AARP [facility] ([facility]) MEDICARE ADVANTAGE MCR ([facility]) Nov 11, 2020 [id number] SHAYY,MAURICE Y PATIENT [facility] ([facility]) MEDICARE ADVANTAGE MCR ([facility]) Nov 11, 2017 [id number] SHAYY,MAURICE Y PATIENT [facility] ([facility]) MEDICARE ADVANTAGE MCR ([facility]) Nov 11, 2020 [id number] SHAYY,MAURICE Y PATIENT Selected Encounter This section includes the information on record at [place] for the Encounter. Date/Time Encounter Type Encounter Description Reason Provider Source Nov 18, 2023 11:00 AM OFFICE O/P EST LOW 20 MIN [facility] - IND ICD-10-CM G47.00 Insomnia, unspecified HU,TERRENCE IHE Encounter Template Text not used by [place] Assessments - Encounter Diagnoses This section includes the primary and secondary diagnoses documented for the Encounter. Date/Time Primary/Secondary Diagnosis Diagnosis Name Provider Source Nov 18, 2023 04:24 PM PRIMARY Insomnia, unspecified HU,TERRENCE [facility] Plan of Treatment: Future Appointments (+ 6 months) and Future Tests (+/- 45 days) The Plan of Treatment section includes future care activities for the patient from all [place] treatmentfacilities. This section includes future appointments and future orders which are active, pending or scheduled. Future Appointments This section includes appointments that were scheduled to occur 6 months from the date of the Encounter, up to a maximum of 20 appointments. The data comes from all [place] treatment facilities. Appointment Date/Time Appointment Type Appointme nt Facility Name Nov 26, 2023 09:30 AM AMBULATORY - [facility]RY [facility] Dec 04, 2023 01:00 PM AMBULATORY - NONE [facility] Dec 16, 2023 10:00 AM AMBULATORY - REHAB [facility] Dec 16, 2023 12:15 PM AMBULATORY - [facility]ICINE [facility] Dec 18, 2023 09:00 AM AMBULATORY - NONE [facility] Dec 25, 2023 09:30 AM AMBULATORY - [facility]ICINE [facility] Jan 10, 2024 09:30 AM AMBULATORY - [facility]ICINE [facility] Jan 10, 2024 10:00 AM AMBULATORY - NONE [facility] Jan 21, 2024 09:30 AM AMBULATORY - [facility]RY [facility] Feb 10, 2024 07:00 AM AMBULATORY - NONE [facility] Feb 10, 2024 10:30 AM AMBULATORY - [facility] Feb 12, 2024 10:00 [facility] Feb 28, 2024 08:40 AM AM[facility]ORY - [facility]IC[facility] Feb 28, 2024 09:00 AM AMBULATORY - NONE [facility] Mar 03, 2024 09:15 AM AMBULATORY - NONE [facility] Mar 09, 2024 01:30 PM AMBULATORY - NONE [facility] March 12, 2024 11:30 AM AMBULATORY - NONE [facility] March 17, 2024 10:30 AM AMBULATORY - [facility]IATRY [facility] March 27, 2024 01:30 PM [facility]ORY - NONE [facility] April 07, 2024 08:15 AM AMBULATORY - NONE [facility] Lab Results: +/- 30 days of the encounter This section includes the Chemistry and Hematology Lab Results on record with [place] for the patient. Radiology Reports and Pathology [...] Oct 02, 2023 09:59 AM Reporting Lab: [facility] [id number] Performing Lab: [facility] [id number] HEMOGLOBIN A1C 8.8 H 4.0-6.0 Advance Directives: All historical and current Section Date Range: From patient's date of to the date document was created. This section includes ALL of a patient's completed or amended [place] Advance and Rescinded Directives. The entries below indicate that a directive exists for the patient, but an actual copy is not included with this document. The data comes from all [place] facilities. Date Advance Directives Provider Source Mar 04, 2016 CLINICAL WARNING [facility] Apr 25, 2010 ADVANCE DIRECTIVE [facility] March 21, 2005 CLINICAL WARNING [place] [facility] Apr 28, 2004 [facility] Apr 28, 2004 CLINICAL WARNING DUN[facility] Radiology Reports: +/- 30 days of the [...] the Encounter. The data comes from all [place] treatment facilities. Date/Time Radiology Report Provider Source Nov 01, 2023 09:56 AM SHOULDER RIGHT 2-3 VIEWS: JULIUS GREGORY [id number] -[id number] M Exm Date: NOV 01, 2023@09:56 Req Phys: RONIT NIEVES Loc: [facility] (Req'g Loc) Img Loc: [facility] Service: Unknown (Case [id number] COMPLETE) SHOULDER RIGHT 2-3 VIEWS (RAD Detailed) CPT:57167 Reason for Study: pain, swelling Clinical History: Report Status: Verified Date Reported: NOV 01, 2023 Date Verified: NOV 01, 2023 Stock Mover E-Sig:/ES/ABDULLAHI EUBANKS MD Report: EXAMINATION: SHOULDER RIGHT 2-3 VIEWS 11/01/2023 9:56 AM INDICATION: pain, swelling Impression: Slight degenerative changes of the glenohumeral joint. Moderate degenerative hypertrophy of the AC joint. Sclerosis and mild surface irregularity along the greater tuberosity. Primary Interpreting Staff: ABDULLAHI EUBANKS MD, RADIOLOGIST (Stock Mover) /ABDULLAHI [facility] Encounter Notes: All associated encounter notes This section contains the clinical notes associated to the Encounter. Date/Time Encounter Note(s) Provider Source Nov 18, 2023 10:39 AM PSYCHIATRY E & M N OTE: LOCAL TITLE: MH PSYCHIATRIC EVALUATION & MANAGEMENT STANDARD TITLE: PSYCHIATRY E & M NOTE DATE OF NOTE: NOV 18, 2023@10:39 ENTRY DATE: NOV 18, 2023@10:39:20 AUTHOR: TERRENCE WALKER EXP COSIGNER: URGENCY: STATUS: COMPLETED Visit conducted by synchronous telehealth. Moville verbal consent obtained. Location/emergency number confirmed. Environment surveyed and all participants identified. Virtual conference room locked. HISTORY CHIEF COMPLAINT/REASON FOR ENCOUNTER: Pt presents for scheduled Mental health appointment. HPI: Julius Gregory is a male with a PMH as per problem list and a psychiatric history significant for unspecified insomnia disorder and alcohol use disorder in remission who presents for scheduled MH appointment. previously worked with Dr. Vela, and has been prescribed trazodone 50 mg qhs prn insomnia. Aware trazodone can be managed by PC, however prefers to follow up with a psychiatrist. Mood and sleep stable. long hx of frustration with [facility] in general. 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 Previously was very clear in stating he does not wishes to adjust or be on more MH medication, appreciate having this place to share his thoughts and feelings. Wishes he could go down to [place] to visit his daughter, but does not want to drive down by himself or take the bus. Previously reported he used to be on sertraline and an antipsychotic, dont remember the name. Reports he was taken off of his mental health medications in 2014 because he felt like his mood was actually worse when he was taking them and gaining weight. 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 Denies of anhedonia, or hopelessness or worthlessness. Denies of SI/HI/intent/Plan. Major mitigating factors includes future orientation, spirituality, family. Denies of AVH or paranoia. Enjoys staying busy, enjoys volunteering at 23 to 0. Enjoys going to the gym 4-5 times a week. Historical data November 23, 2021 Dr. Dane Hilton with depression, anxiety insomnia, and some chronic complaints about GI issues, and his cpap device phone visit per his refusal to have VVC, or to drive to the clinic for F care. He is his usual self today, with multiple complaints about having to answer questions about what he needs from the health care when he calls, states he feels offended that PCP here at [facility] allegedly told him that if he is going to follow the directives of a local civilian caregiver, that he should not bother the [place] clinic. has declined antidepressants in the psat, with concerns that he had some dysphoria with them, and only uses the trazodone periodically. He occasionally calls, insisting on talking to prescriber about his general dysphoria, but didn't connect well with therapists before, and today objects to having to talk to nurse before having sooner appts with prescriber. Reviewed with him that prescribers do not regularly provide counseling under current modes or practice, but that keeping a regular relationship with a therapist can help him have supportive discussions with them. PAST MEDICAL/FAMILY/SOCIAL HISTORY PAST MEDICAL HISTORY: Active Problems reviewed: Osteoarthritis of knee ([facility] [id number]) Diabetes mellitus type 2 ([facility] [id number]) Hyperlipidemia ([facility] [id number]) Hypertension ([facility] [id number]) Subsequent non-ST segment elevation myocPrimary erectile dysfunction ([facility] [id number]) Obesity ([facility] [id number]) Abdominal pain ([facility] [id number]) Breathing-related sleep disorder ([facility] 11Depressive disorder ([facility] 81785021) History of calculus of kidney ([facility] 36339Eamdw of colon ([facility] 29870557) Impulse control disorder ([facility] [id number]) Gastroesophageal reflux disease ([facility] [id number]) Coronary artery disease ([facility] 80507726) Dyspepsia ([facility] [id number]) Atrial flutter ([facility] [id number]) Occlusion of internal carotid artery ([facility] [id number]) Anxiety neurosis ([facility] [id number]) Chronic alcoholism in remission ([facility] [id number]) Insomnia ([facility] [id number]) Cervical pain ([facility] [id number]) [facility] Primary Care (ICD-10-CM R69.) PAST MENTAL HEALTH HISTORY: Per chart review January 02, 2022 has had many diagnoses over the past 20+ years including Major Depressive Disorder with Psychosis, Major Depressive Disorder with Catatonia, Schizoaffective Disorder, Personality Disorder, Impulse Control Disorder, Recurrent Depression, Anxiety NOS, Cocaine Abuse, and Alcohol Dependence. Past Treatment? outpatient, per chart review January 02, 2022 pph 1998. ECT reguarly between 1720-9856. participated in [facility] (Intensive Case Management) between 2003 and 2008 Hospitalizations? 1999 and 2000 Suicide Attempts? denies Medication History? Sertraline SUBSTANCE USE HISTORY: Alcohol use (past and current)? 1 beer every few months. Per chart review 1994, previously attended Use of illicit drugs (past and current)? Per chart review history of cocaine abuse Abuse of prescription drugs (past and current)? 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 Suicide Prevention group: 23 to 0 Firearms: denies REVIEW OF SYSTEMS: 12 point ROS is negative aside from pertinent psychiatric symptoms noted Medication and food allergies reviewed: METRONIDAZOLE (Feb 24, 2004) TETRACYCLINE (Feb 24, 2004) LOSARTAN (Nov 18, 2009) OMEPRAZOLE (Sep 12, 2011) METFORMIN (Jun 14, 2016) EMPAGLIFLOZIN (Nov 20, 2019) PSYCHIATRIC SPECIALTY EXAMINATION Active Outpatient Medications (including Supplies): Active Outpatient Medications Status 1) ACCU-CHEK GUIDE (GLUCOSE) TEST STRIP USE 1 STRIP ACTIVE THREE TIMES A DAY TO CHECK BLOOD SUGAR--USE WITHIN 3 MINUTES OF REMOVING FROM CONTAINER 2) ALPROSTADIL 500MCG URETHRAL SUPP INSERT 1 SUPPOSITORY ACTIVE INTRAURETHRAL NEEDED FOR ERECTILE DYSFUNCTION -MAXIMUM USE OF 3 TIMES PER WEEK WITH AT LEAST 24 HOURS BETWEEN EACH USE 3) ASPIRIN 81MG EC TAB TAKE ONE TABLET BY MOUTH EVERY ACTIVE (S) DAY 4) ATORVASTATIN CALCIUM 80MG TAB TAKE ONE-HALF TABLET BY ACTIVE MOUTH EVERY EVENING FOR CHOLESTEROL 5) BRIEF,PROTECTIVE SUPER ABS LG ATTENDS USE BRIEF ACTIVE ATTENDS BRIEF PULL-ON LARGE DIRECTED 6) CANDESARTAN CILEXETIL 32MG TAB TAKE ONE-HALF TABLET ACTIVE BY MOUTH EVERY DAY FOR BLOOD PRESSURE 7) CLOPIDOGREL BISULFATE 75MG TAB TAKE ONE TABLET BY ACTIVE MOUTH EVERY DAY TO PREVENT BLOOD CLOTS 8) DICLOFENAC NA 1% TOP GEL APPLY 4 GRAMS TO LEFT KNEE ACTIVE FOUR TIMES A DAY NEEDED FOR PAIN RELIEF -USE DOSE CARD IN BOX TO MEASURE DOSE -MAXIMUM OF 32 GRAMS PER DAY FROM ALL SITES APPLIED*FOR PAIN RELIEF 9) EMPAGLIFLOZIN 25MG TAB TAKE ONE-HALF TABLET BY MOUTH ACTIVE EVERY DAY FOR DIABETES 10) GLOVE VINYL X-LARGE PWDR-FREE NONSTERILE USE GLOVE(S) ACTIVE DIRECTED 11) HYDROCHLOROTHIAZIDE 25MG TAB TAKE ONE TABLET BY MOUTH ACTIVE THREE TIMES WEEKLY 12) INSULIN,ASPART 100UN/ML TRINY FLEXPEN 3ML INJECT 7 ACTIVE UNITS UNDER THE SKIN THREE TIMES A DAY TO DECREASE BLOOD SUGAR- INJECT IMMEDIATELY BEFORE MEALS 13) INSULIN,GLARGINE 100 UNT/ML 3ML SOLOSTAR INJECT 50 ACTIVE UNITS UNDER THE SKIN AT BEDTIME FOR DIABETES -DO NOT MIX WITH OTHER INSULINS 14) ISOSORBIDE MONONITRATE 30MG SA TAB TAKE ONE TABLET BY ACTIVE MOUTH EVERY DAY FOR CHEST PAIN 15) LACTOBACILLUS ACIDOPHILUS TAB TAKE 2 TABLETS BY MOUTH ACTIVE EVERY DAY 16) METOPROLOL TARTRATE 25MG TAB TAKE ONE-HALF TABLET BY ACTIVE MOUTH TWICE A DAY NEEDED FOR PALPITATIONS 17) NEEDLE,PEN 31G,8MM USE 1 NEEDLE DIRECTED *DISPOSE ACTIVE OF IN A HARD-PLASTIC CONTAINER WITH A SCREW-ON LID CONTACT [facility] FOR PROPER DISPOSAL 18) NITROGLYCERIN 0.4MG SL TAB DISSOLVE ONE TABLET UNDER ACTIVE THE TONGUE NEEDED FOR CHEST PAIN * MAY REPEAT EVERY 5 MINUTES--NO MORE THAN 3 TOTAL 19) PANTOPRAZOLE NA 40MG EC TAB TAKE ONE TABLET BY MOUTH ACTIVE EVERY DAY ONE-HALF HOUR BEFORE EATING TO DECREASE STOMACH ACID 20) PSYLLIUM ORAL PWD TAKE ONE HEAPING TABLESPOONFUL BY ACTIVE MOUTH EVERY DAY FOR REGULAR BOWEL MOVEMENTS -MIX IN 8 OUNCES OF JUICE OR WATER 21) SEMAGLUTIDE 1MG/0.75ML INJ PEN 3ML INJECT 1MG UNDER ACTIVE THE SKIN EVERY WEEK FOR DIABETES 22) SIMETHICONE 80MG CHEW TAB CHEW ONE TABLET BY MOUTH ACTIVE (S) EVERY DAY THESE TABLETS MUST BE CHEWED 23) SOTALOL HCL 80MG TAB TAKE ONE TABLET BY MOUTH TWICE A ACTIVE DAY - NEW DIRECTIONS JUNE 2021 24) TRAZODONE HCL 50MG TAB TAKE ONE TABLET BY MOUTH AT ACTIVE BEDTIME FOR SLEEP Active Non-VA Medications Status 1) Non-VA CINNAMON 500MG TAB 1 TABLET MOUTH EVERY DAY ACTIVE 2) Non-VA NON VA MED NOT LISTED MISCELLANEOUS ACTIVE EUCALYPTUS/PEPPERMINT OIL NEEDED 3) Non-VA SODIUM CHLORIDE 0.9% IRRG SOLN SOLUTION ACTIVE IRRIGATION THREE TIMES A DAY 27 Total Medications -- MENTAL STATUS EXAM : - APPEARANCE/DRESS: casually dressed - ATTENTION/CONCENTRATION: fair - MEMORY: grossly intact - ORIENTATION: aox 4 - BEHAVIOR: cooperative - SPEECH: nl rate, volume, latency, tone - MOTOR: wnl - MOOD: alright - AFFECT: reactive - THOUGHT PROCESSES: Linear - THOUGHT CONTENT: no SI/HI AVT hallucinations or delusional thought content - JUDGEMENT: fair - INSIGHT: fair Risk Assessment: Risk Factors: male, history of substance use disorder/remission, history of depressive disorder Protective Factors: supportive friends/Suicide Prevention group: 23 to 0, future oriented, denies history of suicide attempts, help seeking Overall assessment: currently at low risk of acute suicide MEDICAL DECISION MAKING DIAGNOSES: (Based on criteria from DSM 5) 1: History of unspecified insomnia - Problem/Condition: Established - Status: continued 2: History of alcoholism in remission/1994, previously attended AA - Problem/Condition: Established - Status: continued 3: History of unspecified depressive disorder - Problem/Condition: Established - Status: continued DATA: Labs/Test Results/Medical Records reviewed TREATMENT PLAN: -Trazodone 50 mg qhs prn insomnia -RTC 3 month per preference or sooner if indicated -f/u with medical providers regarding medical issues - understands to call clinic with any new mental health concerns or call 911 in case of emergency. MEDICATION RECONCILIATION: At this visit reviewed the relevant medication list and communicated relevant medication updates with the patient/surrogate. Discussed indication, risks, benefits, alternatives and side effect profile of medications, as well as rationale for current treatment with patient/caregivers. Counseled on importance of compliance with keeping scheduled appointments Counseled on means to schedule and/or cancel appointments Counseled on means on contacting this provider by phone [phone] , or [employer] Counseled on emergency resources available including [facility] [phone], Emergency Room, 911 Counseled on importance of compliance with regular physical activity PSYCHOTHERAPY Supportive psychotherapy focused on: problem solving, improving coping skills, stress management and psycho-education. 20 (16-37) minutes /es/ TERRENCE staff physician Signed: 11/18/2023 16:24 TERRENCE WALKER [facility]
--- OUTSIDE RECORDS SUMMARY | 2024-07-17 00:39 | XMS_ITS | Encounter Summary ---
Author Name [facility] [place] [facility] [place] Organization [facility] [place] Address [address] [place] [address] Care Team Providers Care Industrial Design Intern Name Role Phone LILIAMRONIT LYNN Primary Care Provider Unavail able Insurance [...] Name Patient's Relationship to Policy Lu AARP [facility] ([facility]) MEDICARE ADVANTAGE MCR ([facility]) Nov 11, 2020 [id number] SHAYY,MAURICE Y PATIENT [facility] ([facility]) MEDICARE ADVANTAGE MCR ([facility]) Nov 11, 2017 [id number] SHAYY,MAURICE Y PATIENT [facility] ([facility]) MEDICARE ADVANTAGE MCR ([facility]) Nov 11, 2020 [id number] SHAYY,MAURICE Y PATIENT Selected Encounter This section includes the information on record at [place] for the Encounter. Date/Time Encounter Type Encounter Description Reason Provider Source Oct 17, 2023 09:30 AM SELF CARE MNGMENT TRAINING OCCUPATIONAL THERAPY ICD-10-CM R26.9 Unspecified abnormalities of gait and mobility HERMANJAX A A [facility] Encounter Template Text not used by [place] Assessments - Encounter Diagnoses This section includes the primary and secondary diagnoses documented for the Encounter. Date/Time Primary/Secondary Diagnosis Diagnosis Name Provider Source Oct 17, 2023 04:01 PM PRIMARY Unspecified abnormalities of gait and mobility CESILIALEWISJAX A A [facility] Plan of Treatment: Future Appointments (+ 6 months) and Future Tests (+/- 45 days) The Plan of Treatment section includes future care activities for the patient from all [place] treatmentfacilities. This section includes future appointments and future orders which are active, pending or scheduled. Future Appointments This section includes appointments that were scheduled to occur 6 months from the date of the Encounter, up to a maximum of 20 appointments. The data comes from all [place] treatment facilities. Appointment Date/Time Appointment Type Appointme nt Facility Name Oct 21, 2023 12:15 PM [facility] Nov 01, 2023 11:15 AM AMBULATORY - MEDICINE [facility] Nov 01, 2023 11:40 AM [facility] Nov 13, 2023 10:30 AM AM[facility]ATORY - NONE [facility] Nov 18, 2023 11:00 AM AMBULATORY [place] [facility] Nov 26, 2023 09:30 AM AMBULATORY - [facility]IATRY [place] [facility] Dec 04, 2023 01:00 PM AMBULATORY - NONE [facility] Dec 16, 2023 10:00 AM AMBULATORY - REHAB MEDICIN E [facility] Dec 16, 2023 12:15 PM [facility]ORY - [facility]ICINE [facility] Dec 18, 2023 09:00 AM [facility] - NONE [facility] Dec 25, 2023 09:30 AM AM[facility]UL[facility]ORY - MEDICINE [facility] Jan 10, 2024 09:30 AM [facility]ORY - [facility] Jan 10, 2024 10:00 AM [facility]ORY - NONE [facility] Jan 21, 2024 09:30 AM AMBUL[facility]RY [facility] Feb 10, 2024 07:00 AM AM[place]UL[place]ORY [place]ONE [place] [facility] Feb 10, 2024 10:30 AM [facility] Feb 12, 2024 10:00 AM [place]ORY [place] [facility] Feb 28, 2024 08:40 AM AMBULATORY - MEDICINE [facility] [place] [facility] Feb 28, 2024 09:00 AM AM[facility]ORY - NONE [facility] Mar 03, 2024 09:15 AM [facility]ORY - NONE [facility] Lab Results: +/- 30 days of the encounter This section includes the Chemistry and Hematology Lab Results on record with [place] for the patient. Radiology Reports and Pathology [...] Oct 02, 2023 09:59 AM Reporting Lab: [facility] [id number] Performing Lab: [facility] [id number] HEMOGLOBIN A1C 8.8 H 4.0-6.0 Social History: Smoking Status (Most current) and Tobacco Use (All prior to encounter date) This section includes the most current, and the historical, smoking and tobacco- related health factors from the [facility] where the Encounter took place. Current Smoking Status This section includes the most current smoking, or tobacco-related health factor, from the [place] facility where the Encounter took place. Date/Time Current Smoking Status Comment Darian ity March 23, 2019 08:54 AM [place]-TOBACCO QUIT 15 YRS OR MORE [facility] Tobacco Use History This section includes a history of the smoking, or tobacco-related health factors, that were collected on or before the date of the Encounter. The data comes from the [place] facility where the Encounter took place. Date/Time Smoking Status/Tobacco Use Comment F acmaura March 23, 2019 08:54 AM [place]-TOBACCO QUIT 15 YRS OR MORE [facility] Mar 04, 2018 09:41 AM LIFETIME NON-TOBACCO USER [facility] Jun 17, 2017 01:07 PM LIFETIME NON-TOBACCO USER [facility] Apr 23, 2016 09:50 AM FORMER TOBACCO USER 7Y OR GREATE R [facility] Mar 06, 2016 11:12 AM INPT NO TOBACCO USE IN LAST 30 D AYS [facility] Jul 15, 2015 08:58 AM LIFETIME NON-TOBACCO USER [facility] Feb 11, 2013 10:04 AM LIFETIME NON-TOBACCO USER [facility] Nov 27, 2006 03:44 PM FORMER TOBACCO USER 7Y OR GREATE R [facility] Advance Directives: All historical and current Section Date Range: From patient's date of to the date document was created. This section includes ALL of a patient's completed or amended [place] Advance and Rescinded Directives. The entries below indicate that a directive exists for the patient, but an actual copy is not included with this document. The data comes from all [facility]. Date Advance Directives Provider Source Mar 04, 2016 CLINICAL WARNING PALMA NUNEZ [facility] Apr 25, 2010 ADVANCE DIRECTIVE RADHA STEVENSON [facility] March 21, 2005 CLINICAL WARNING [facility] Apr 28, 2004 CLINICAL WARNING [facility] Apr 28, 2004 [facility] Radiology Reports: +/- 30 days of [...] the Encounter. The data comes from all [place] treatment facilities. Date/Time Radiology Report Provider Source Nov 01, 2023 09:56 AM SHOULDER RIGHT 2-3 VIEWS: SELAM LUCAS [id number] -[id number] M Exm Date: NOV 01, 2023@09:56 Req Phys: RONIT NIEVES Loc: [facility] RADI[facility] (Req'g Loc) Img Loc: [facility] RAD[facility] Service: Unknown (Case [id number] COMPLETE) SHOULDER RIGHT 2-3 VIEWS (RAD Detailed) CPT:25692 Reason for Study: pain, swelling Clinical History: Report Status: Verified Date Reported: NOV 01, 2023 Date Verified: NOV 01, 2023 Interventional Radiologist E-Sig:/ES/ABDULLAHI EUBANKS MD Report: EXAMINATION: SHOULDER RIGHT 2-3 VIEWS 11/01/2023 9:56 AM INDICATION: pain, swelling Impression: Slight degenerative changes of the glenohumeral joint. Moderate degenerative hypertrophy of the AC joint. Sclerosis and mild surface irregularity along the greater tuberosity. Primary Interpreting Staff: ABDULLAHI EUBANKS MD, RADIOLOGIST (Interventional Radiologist) /RTS ABDULLAHI EUBANKS [facility] Encounter Notes: All associated encounter notes This section contains the clinical notes associated to the Encounter. Date/Time Encounter Note(s) Provider Source Oct 17, 2023 09:30 AM OCCUPATIONAL THERA PY [facility] TITLE: OCCUPATIONAL THERAPY CONSULT STANDARD TITLE: OCCUPATIONAL THERAPY CONSULT DATE OF NOTE: OCT 17, 2023@09:30 ENTRY DATE: OCT 17, 2023@09:34:49 AUTHOR: DARIA SUTTON COSIGNER: URGENCY: STATUS: COMPLETED OCCUPATIONAL THERAPY TELEHEALTH EQUIPMENT CONSULT Ordering provider: RONIT NIEVES Consult request: AE: Shower back brush, grabber Diagnosis: Unspecified Abnormalities of Gait and Mobility(ICD-10-CM R26.9) Encounter: -OT Evaluation: Low complexity (1): 15 min. -Self-care management training (1): 12 min Subjective: Those sponges don't last long...just turn brown after first use - vet about stock long-handled sponge received in the past My right shoulder can't get all the way back - vet about issues with washing his back and hygiene after toileting. Left knee pain also reported at ~4-5/10 on average. Vet also noted having a suction bar on the back wall of his tub/shower which constantly is coming off. Property management did not allow installation of a permanent grab bar by [place], nor installs it on their own. Assessment/recommendations: Vet seen via telehealth today, Oct, to discuss adaptive equipment to increase safety and independence. Vet arrives to clinic alone. Following evaluation, vet struggles with reaching and bending due to limited ROM and R shoulder pain. Recommend a rn admission, LH bendable scrub, and the Solway Wand for easier cleansing after toileting. Images of recommended AE/DME were screen shared during appt. Prosthetics number provided for vet to follow up on ordered equipment as needed. Vet is in agreement with the plan and has no questions. Encouraged vet to reach out to his property management requesting an additional grab bar to be installed in his tub/shower for fall prevention. Also reach out to this OT via Secure Messaging if additional orders for or grab bars are required. No further needs identified at this time. Identified the following barriers: -Limited ROM -Shoulder/knee pain Vet will benefit from adaptive equipment to increase safety and functional independence and was provided education on features and benefits of equipment. Vet will benefit from the following adaptive equipment: Item: rn admission Vendor: stock Item: Chelsy Lopez Bendable Scrub/Sponge Vendor: [employer] Item #[id number] Item: The Deluxe Solway Wand Vendor: [employer] Item #[id number] Education: Vet indicates readiness to learn, verbalizes understanding, agreement and satisfaction with the treatment plan. Denies further questions. P: No other OT needs at this time. D/C from telehealth OT. SHORT TERM GOAL to be met by end of session: 1. [place] will engage in an OT evaluation to improve safety and independence with use of adaptive equipment - MET CVT Documentation- Visit conducted by synchronous telehealth. [place] verbal consent obtained. Location/emergency number confirmed. Environment surveyed and all participants identified. Virtual conference room locked Confirmed the following prior to start of visit: -[place] identified by Full name and Full Social Security number/Date of . -[place] states he/she is in a safe and private environment suitable for the Telehealth encounter. -Visit conducted by telehealth into the home using: -desktop Email: [email or web address] Troubleshooting required during visit: no Others present: none Location of patient during session: [address] [place] [address] Emergency phone number (b442): [phone] Veterans Crisis Line: & press #1 or text [phone] [place] [employer] Help Desk (NTTHD): [phone] or [phone]. OCCUPATIONAL THERAPY EVALUATION COMPLEXITY Identifying and reporting the complexity level of an evaluation focuses on the first three of these factors--profile and history, assessment and determination of deficits, and clinical decision making. These three factors must be scored and defensible documentation written to support the choice of a level. (Information taken from: https://www.aota.org) PROFILE AND HISTORY (including chart view) Brief history of medical and/or therapy records relating to the presenting problem (low complexity) ASSESSMENT & PERFORMANCE DEFICITS (select all that apply): Physical: R shoulder pain, limited ROM 1-3 performance deficits (Low complexity) LEVEL OF CLINICAL DECISION MAKING Comorbidities affect occupational performance: Yes (moderate or high complexity) Modifications of tasks or assistance to enable completion of evaluation: Not necessary (Low complexity) Problem-focused assessment(s), consideration of a limited number of treatment options, presents with no comorbidities and modification of tasks or assistance is not necessary.(Low complexity) LOW COMPLEXITY Brief history of medical/or therapy records relating to the presenting problem. An assessment(s) that identifies 1-3 performance deficits that result in activity limitation and/or participating restrictions. Includes analysis of the occupational profile, analysis of date from problem- focused assessment(s), and consideration of a limited number of treatment options. Patient presents with no comorbidities that affect occupational performance. Modification of tasks or assistance with assessment(s) is not necessary to enable completion of evaluation component. /migdalia/ TONIE MORENO/Khoa OCCUPATIONAL THERAPIST Signed: 10/17/2023 16:05 DARIA SUTTON [facility]
--- OUTSIDE RECORDS SUMMARY | 2024-07-17 00:39 | XMS_ITS | Encounter Summary ---
Author Name [facility] [place] Organization [place] Address [address] [place] [address] Care Team Providers Care Gate Services Supervisor Name Role Phone JAMILARONIT WITT Primary Care [...] Name Patient's Relationship to Policy Lu AARP [facility] ([facility]) MEDICARE ADVANTAGE MCR ([facility]) Nov 11, 2020 [id number] SHAYY,MAURICE Y PATIENT [facility] ([facility]) MEDICARE ADVANTAGE MCR ([facility]) Nov 11, 2017 [id number] [phone] SHAYY,MAURICE Y PATIENT [facility] ([facility]) MEDICARE ADVANTAGE MCR ([facility]) Nov 11, 2020 [id number] SHAYYMAURICE Yee Y PATIENT Selected Encounter This section includes the information on record at [place] for the Encounter. Date/Time Encounter Type Encounter Description Reason Pro vider Source Sep 09, 2023 02:16 PM Outpatient Encounter [facility] Encounter Template Text not used by [place] Plan of Treatment: Future Appointments (+ 6 months) and Future Tests (+/- 45 days) The Plan of Treatment section includes future care activities for the patient from all [place] [facility]st. [facility]. This section includes future appointments and future orders which are active, pending or scheduled. Future Appointments This section includes appointments that were scheduled to occur 6 months from the date of the Encounter, up to a maximum of 20 appointments. The data comes from all [place] treatment facilities. Appointment Date/Time Appointment Type Appointme nt Facility Name Sep 11, 2023 01:30 PM AMBULATORY - NONE [facility] Sep 16, 2023 11:15 AM AMBULATORY [...] 09:30 AM AMBULATORY - REHAB MEDICIN E [facility] Oct 21, 2023 12:15 PM [facility] Nov 01, 2023 11:15 AM AMB[facility]ORY - [facility]IC[facility] Nov 01, 2023 11:40 AM AM[facility]ATORY - [facility]IC[facility] Nov 13, 2023 10:30 AM [facility]ATORY - NONE [facility] Nov 18, 2023 11:00 AM [facility] Nov 26, 2023 09:30 AM [facility] - [facility]RY [facility] Dec 04, 2023 01:00 PM AMBULATORY - NONE [facility] Dec 16, 2023 10:00 AM AMBULATORY - REHAB MEDICIN E [facility] Dec 16, 2023 12:15 PM AM[facility]ORY - [facility]INE [facility] Dec 18, 2023 09:00 AM AM[facility]ULATORY - NONE [facility] Dec 25, 2023 09:30 AM AM[facility]ORY - [facility]IC[facility] Jan 10, 2024 09:30 AM [facility] Jan 10, 2024 10:00 AM [facility]ATORY - NONE [facility] Social History: Smoking Status (Most current) and Tobacco Use (All prior to encounter date) This section includes the most current, and the historical, smoking and tobacco- related health factors from the [place] facility where the Encounter took place. Current Smoking Status This section includes the most current smoking, or tobacco-related health factor, from the [place] facility where the Encounter took place. Date/Time Current Smoking Status Comment Facil ity March 23, 2019 08:54 AM [place]-TOBACCO QUIT 15 YRS OR MORE [facility] Tobacco Use History This section includes a history of the smoking, or tobacco-related health factors, that were collected on or before the date of the Encounter. The data comes from the [place] facility where the Encounter took place. Date/Time Smoking Status/Tobacco Use Comment F acility March 23, 2019 08:54 AM [place]-TOBACCO QUIT 15 YRS OR MORE [facility] Mar 04, 2018 09:41 AM LIFETIME NON-TOBACCO USER [facility] Jun 17, 2017 01:07 PM LIFETIME NON-TOBACCO USER [facility] Apr 23, 2016 09:50 AM FORMER TOBACCO USER 7Y OR GREATE R [facility] Mar 06, 2016 11:12 AM INPT NO TOBACCO USE IN LAST 30 D AYS [facility] Jul 15, 2015 08:58 AM LIFETIME NON-TOBACCO USER [facility] Feb 11, 2013 10:04 AM LIFETIME NON-TOBACCO USER [facility] Nov 27, 2006 03:44 PM FORMER TOBACCO USER 7Y OR GREATE R [facility] Advance Directives: All historical and current Section Date Range: From patient's date of to the date document was created. This section includes ALL of a patient's completed or amended [place] Advance and Rescinded Directives. The entries below indicate that a directive exists for the patient, but an actual copy is not included with this document. The data comes from all [facility]. Date Advance Directives Provider Source Mar 04, 2016 CLINICAL WARNING PALMA NUNEZ [facility] Apr 25, 2010 ADVANCE DIRECTIVE RADHA STEVENSON [facility] March 21, 2005 CLINICAL WARNING KYLEE ANN [facility] Apr 28, 2004 CLINICAL WARNING MAGI CHAUDHRY [facility] Apr 28, 2004 CLINICAL WARNING DUNIA BLOUNT [facility] Encounter Notes: All associated encounter notes This section contains the clinical notes associated to the Encounter. Date/Time Encounter Note(s) Provider Source Sep 09, 2023 02:26 PM NO SHOW NOTE: LOCAL TITLE: NO SHOW NOTE STANDARD TITLE: NO SHOW NOTE DATE OF NOTE: SEP 09, 2023@14:26 ENTRY DATE: SEP 09, 2023@14:26:42 AUTHOR: TERRENCE WALKER EXP COSIGNER: URGENCY: STATUS: COMPLETED Patient did not appear for scheduled appointment. I called , reports doing okay, and forgot about appointment. Risk Assessment for previous visit: Risk Factors: male, history of substance use disorder/remission, history of depressive disorder Protective Factors: supportive friends/Suicide Prevention group: 23 to 0, future oriented, denies history of suicide attempts, help seeking Overall assessment: currently at low risk of acute suicide Plan Based on Clinician Judgment of Risk: need to be outreached to reschedule. /migdalia/ TERRENCE WALKER staff physician Signed: 09/09/2023 15:23 Receipt Acknowledged By: 09/09/2023 18:02 /migdalia/ MY BURK[facility] [facility] TERRENCE WALKER [facility]
--- OUTSIDE RECORDS SUMMARY | 2024-07-17 00:39 | XMS_ITS | Encounter Summary ---
Author Name [facility] Organization [facility] [place] Address [address] [place] [address] Care Team Providers Care Sanitarian Inspector Name Role Phone RONIT NIEVES Primary Care [...] Name Patient's Relationship to Policy Lu AARP [facility] ([facility]) MEDICARE ADVANTAGE [facility] ([facility]) Nov 11, 2020 [id number] SHAYY,MAURICE Y PATIENT [facility] ([facility]) MEDICARE ADVANTAGE MCR ([facility]) Nov 11, 2017 [id number] SHAYY,MAURICE Y PATIENT [facility] ([facility]) MEDICARE ADVANTAGE MCR ([facility]) Nov 11, 2020 [id number] SHAYY,MAURICE Y PATIENT Selected Encounter This section includes the information on record at [place] for the Encounter. Date/Time Encounter Type Encounter Description Reason Provider Source Sep 05, 2023 08:44 AM MTMS BY PHARM MALORIE 15 MIN CLINICAL PHARMACY ICD-10-CM E11.8 Type 2 diabetes mellitus with unspecified complications NHI FONTANEZ Encounter Template Text not used by [place] Assessments - Encounter Diagnoses This section includes the primary and secondary diagnoses documented for the Encounter. 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 This section includes future appointments and future orders which are active, pending or scheduled. Future Appointments This section includes appointments that were scheduled to occur 6 months from the date of the Encounter, up to a maximum of 20 appointments. The data comes from all [place] treatment facilities. Appointment Date/Time Appointment Type Appointme nt Facility Name Sep 09, 2023 02:15 PM AMBULATORY - PSYCHIATRY [facility] Sep 09, 2023 02:16 PM AMBULATORY - PSYCHIATRY [facility] Sep 11, 2023 01:30 PM AMBULATORY - NONE [facility] Sep 16, 2023 11:15 AM AMBULATORY - PS[facility]CHIATRY [facility] Sep 17, 2023 08:30 AM AMBULATORY - [facility]ATRY [facility] Oct 02, 2023 09:15 AM AMBULATORY - NONE [facility] Oct 11, 2023 09:00 AM [facility]ICINE [facility] Oct 15, 2023 09:30 AM [facility] - [facility]INE [facility] Oct 17, 2023 09:30 AM AMBULATORY - REHAB MED[facility]IN [facility] Oct 21, 2023 12:15 PM AMBULATORY - [facility]ICINE [facility] Nov 01, 2023 11:15 AM AM[facility]ORY - [facility]ICINE [facility] Nov 01, 2023 11:40 AM AM[facility]ORY - [facility]ICINE [facility] Nov 13, 2023 10:30 AM AMBULATORY - NONE [facility] Nov 18, 2023 11:00 AM AMBULATORY - PSYCHIATRY [facility] Nov 26, 2023 09:30 AM AMBULATORY - PS[facility]IATRY [facility] Dec 04, 2023 01:00 PM AM[facility]ULATORY - NONE [facility] Dec 16, 2023 10:00 AM AMBULATORY - REHAB MEDICIN [facility] Dec 16, 2023 12:15 PM AMBULATORY - [facility]ICINE [facility] Dec 18, 2023 09:00 AM AMBULATORY - NONE [facility] Dec 25, 2023 09:30 AM AM[facility]ATORY - [facility]ICINE [facility] Lab Results: +/- 30 days of the encounter This section includes the Chemistry and Hematology Lab Results on record with [place] for the patient. Radiology Reports and Pathology Reports are provided separately, in subsequent sections. Lab Results This section contains the Chemistry/Hematology Results that were resulted 30 days before or 30 daysafter the date of the Encounter. Date/Time Source Result Type Result - Unit Interpretation Reference Range Comment Aug 09, 2023 02:26 PM [facility] URIC ACID Specimen Type: PLASMA No comment entered. Ordering Provider: SUGEY NIEVES Report Released Date/Time: May 27, 2023 05:07 PM Reporting Lab: [facility] [id number] Performing Lab: [facility] [id number] URIC ACID 5.9 mg/dL 3.5-7.2 Aug 09, 2023 02:26 PM [facility] SED RATE Specimen Type: BLOOD No comment entered. Ordering Provider: SUGEY NIEVES Report Released Date/Time: May 27, 2023 05:07 PM Reporting Lab: [facility] [id number] Performing Lab: [facility] [id number] SED RATE 46 mm/h H 5-15 Aug 09, 2023 02:26 PM [facility] C-REACTIVE PROTEIN Specimen Type: PLASMA No comment entered. Ordering Provider: SUGEY NIEVES Report Released Date/Time: May 27, 2023 05:07 PM Reporting Lab: [facility] [id number] Performing Lab: [facility] [phone] C-REACTIVE PROTEIN <0.30 mg/L <5.00 Aug 09, 2023 02:26 PM [facility] HEMOGLOBIN A1C Specimen Type: BLOOD Comment: Values [...] Jun 17, 2023 04:21 PM Reporting Lab: [facility] [id number] Performing Lab: [facility] [phone] HEMOGLOBIN A1C 8.4 H 4.0-6.0 Aug 09, 2023 02:26 PM [facility] LIPID PANEL,NON-FASTING Specimen Type: PLASMA No comment entered. Ordering Provider: LUNA BANKS Report Released Date/Time: Jun 17, 2023 04:21 PM Reporting Lab: [facility] [phone] Performing Lab: [facility] [phone] CHOLESTEROL 148 mg/dL <199 .HDL 42 mg/dL >40 LDL CALCULATION 73 mg/dL <99 VLDL CALCULATION 33 mg/dL H <29 NON HDL CHOLESTEROL 106 mg/dL <129 TRIG(NON FASTING) 166 mg/dL H <149 Aug 09, 2023 02:26 PM [facility] COMPREHENSIVE METABOLIC PANEL+MG Specimen Type: PLASMA No comment entered. Ordering Provider: SUGEY NIEVES Report Released Date/Time: Aug 09, 2023 02:07 PM Reporting Lab: [facility] [phone] Performing Lab: [facility] [phone] CREATININE 0.7 mg/dL 0.7-1.2 UREA NITROGEN 12 [...] Pain Height Weight Body Mass Index Source Sep 05, 2023 10:54 AM 87 /min 117/71 mm[Hg] 97 % 269.8 lb 40 [facility] Social History: Smoking Status (Most current) and Tobacco Use (All prior to encounter date) This section includes the most current, and the historical, smoking and tobacco- related health factors from the [place] facility where the Encounter took place. Current Smoking Status This section includes the most current smoking, or tobacco-related health factor, from the [place] facility where the Encounter took place. Date/Time Current Smoking Status Comment Darian bocanegra Nov 07, 2022 11:00 AM VA-TOBACCO NEVER USED [facility] Tobacco Use History This section includes a history of the smoking, or tobacco-related health factors, that were collected on or before the date of the Encounter. The data comes from the [place] facility where the Encounter took place. Date/Time [...] ALL of a patient's completed or amended [place] Advance and Rescinded Directives. The entries below indicate that a directive exists for the patient, but an actual copy is not included with this document. The data comes from all [place] facilities. Date Advance Directives Provider Source Mar 04, 2016 CLINICAL WARNING PALMA NUNEZ [facility] Apr 25, 2010 ADVANCE DIRECTIVE RADHA STEVENSON [facility] March 21, 2005 CLINICAL WARNING KYLEE ANN S [facility] Apr 28, 2004 CLINICAL WARNING MAGI CHAUDHRY [facility] Apr 28, 2004 CLINICAL WARNING [place] Netta BUD [facility] Encounter Notes: All associated encounter notes This section contains the clinical notes associated to the Encounter. Date/Time Encounter Note(s) Provider Source Sep 05, 2023 08:44 AM PHARMACY NOTE: LOCAL TITLE: PHARMACOTHERAPY-CLINICAL PHARMACY NOTE STANDARD TITLE: PHARMACY NOTE DATE OF NOTE: SEP 05, 2023@08:44 ENTRY DATE: SEP 05, 2023@08:44:52 AUTHOR: NHI FONTANEZ EXP COSIGNER: URGENCY: STATUS: COMPLETED SHAYY,SELAM Lassiter is a 72 YO MALE followed by [facility] for medication management. Visit Type: In-Clinic Has non-VA pcp, physician underwriter managing DM, non-VA pcp aware. SUBJECTIVE: Michael was seen for follow-up on DM management to obtain CGM data. Expresses that he has been having sinus issues recently which have caused him problems with sleeping. Believes that this has caused his BGs to increase. Vet was frustrated that unable to increase semaglutide (Ozempic) due to shortages. Vet will be visiting his daughter in , so will not be able to schedule an follow-up appointment with [facility]. Baseline Weight: 275 lbs [123.60 kg], BMI 40.3 --> 02/27/23 Ermine Body Weight: 156 lbs [70.70 kg] Clinic Weight: 269.8 lbs [122.38 kg], BMI 39.93 --> 09/05/23 Weight Loss: ~5 lbs since starting semaglutide (Ozempic) BP: 117/71 HR: 87 Pulse: 97% Past DM meds: -empagliflozin - dizziness, had fall -metformin - made him really sick Lifestyle: Diet: typically just eating 2x/day -doesn't eat lunch -will eat at [employer], [email or web address], [employer], but tries to avoid fast food Meal 1: 2 egg mcmuffins with ham Meal 2: varies - chicken nuggets or toast w/ peanut butter Beverages: diet coke and water -ozempic and metamucil have caused him to not be hungry or eat a lot Exercise: goes to the gym 3x's/wk - Nustep for about 20-30 mins Labs: 03/2023 C-Peptide: 2.45 GREG-65: <5 ROS: (-) hypoglycemia symptoms - feels shaky, dizzy +/- sweating if BG is <100 - uses glucose tablets to help increase BG - notices that BG is lower in the evenings over night (-) hyperglycemia symptoms CGM - received through [facility] [employer] Report: 08/23/23-09/05/23 OneBuck[employer]ume 2 Report Summary *last 14 days from review menu Av mg/dl GMI: 8.4% Variability: 22.3% Time in Target Glucose Range(70-180 mg/dL): 25% Time above 180 mg/dL: 75% - Very High (>250 mg/dL): 23% - High (181-250 mg/dL): 52% Time below 70 mg/dL: 0% Average Number of daily scans: 6/day sensor usage: 87% OBJECTIVE: ALLERGIES/ADR: METRONIDAZOLE (Feb 24, 2004) TETRACYCLINE (Feb 24, 2004) LOSARTAN (Nov 18, 2009) OMEPRAZOLE (Sep 12, 2011) METFORMIN (Jun 14, 2016) EMPAGLIFLOZIN (Nov 20, 2019) AUGMENTIN (Feb 14, 2022) MEDICATION RECONCILIATION: Active and Recently Outpatient Medications (excluding Supplies): Active Outpatient Medications Status 1) ACCU-CHEK GUIDE (GLUCOSE) TEST STRIP USE 1 STRIP ACTIVE THREE TIMES A DAY TO CHECK BLOOD SUGAR--USE WITHIN 3 MINUTES OF REMOVING FROM CONTAINER 2) ALBUTEROL 90MCG (CFC-F) 200D ORAL INHL INHALE 2 PUFFS ACTIVE BY INHALATION EVERY 4 HOURS NEEDED FOR SHORTNESS OF BREATH 3) ALPROSTADIL 500MCG URETHRAL SUPP INSERT 1 SUPPOSITORY HOLD INTRAURETHRAL NEEDED FOR ERECTILE DYSFUNCTION -MAXIMUM USE OF 3 TIMES PER WEEK WITH AT LEAST 24 HOURS BETWEEN EACH USE 4) ASPIRIN 81MG EC TAB TAKE ONE TABLET BY MOUTH EVERY ACTIVE DAY 5) ATORVASTATIN CALCIUM 40MG TAB TAKE ONE TABLET BY ACTIVE (S) MOUTH EVERY EVENING FOR CHOLESTEROL 6) CANDESARTAN CILEXETIL 32MG TAB TAKE ONE [...] FROM ALL SITES APPLIED*FOR PAIN RELIEF 10) EZETIMIBE 10MG TAB TAKE ONE TABLET BY MOUTH EVERY DAY ACTIVE FOR CHOLESTEROL 11) HYDROCHLOROTHIAZIDE 25MG TAB TAKE ONE TABLET BY MOUTH ACTIVE THREE TIMES A WEEK 12) INSULIN,ASPART(EQV-NOVLG)100UN /ML FLXPEN INJECT 1-5 CONFIRMED UNITS BASED ON CORRECTION SCALE UNDER THE SKIN THREE TIMES A DAY BEFORE MEALS NEEDED FOR BLOOD GLUCSE GREATER THAN 200MG/DL *MAX 15 UNITS PER DAY - Injects 0-6 units a day based on BG - BG <150 injects 0 - BG 151-200 injects 4 units - BG >200 injects 6 units - This morning prior to breakfast BG was 137 vet did not inject any insulin aspart 13) INSULIN,GLARGINE 100 UNT/ML 3ML SOLOSTAR INJECT 55 CONFIRMED UNITS UNDER THE SKIN AT BEDTIME FOR DIABETES - vet has been utilizing a self-titrating sliding scale - usually will inject 55 units at bedtime, but if BGs are elevated will increase to 60 units - Injected 60 units last night - this morning BG was 137 14) ISOSORBIDE MONONITRATE 30MG SA TAB TAKE ONE TABLET BY ACTIVE (S) MOUTH EVERY DAY FOR CHEST PAIN 15) LACTOBACILLUS ACIDOPHILUS TAB TAKE 2 TABLETS BY MOUTH ACTIVE EVERY DAY 16) METOPROLOL TARTRATE 25MG TAB TAKE ONE-HALF TABLET BY ACTIVE (S) MOUTH TWICE A DAY 17) PSYLLIUM ORAL PWD TAKE 1 TEASPOONFUL BY MOUTH ONCE ACTIVE EVERY DAY IF NEEDED FOR CONSTIPATION. MIX IN JUICE OR WATER. 18) SEMAGLUTIDE 1MG/0.75ML INJ PEN 3ML INJECT 1MG UNDER CONFIRMED THE SKIN EVERY WEEK FOR DIABETES - injects 1 mg on Tuesdays 19) SODIUM CHLORIDE 0.65% SOLN NASAL SPRAY SPRAY 2 SPRAYS ACTIVE IN EACH NOSTRIL EVERY DAY NEEDED FOR CONGESTION 20) TRAZODONE HCL 50MG TAB TAKE ONE TABLET BY MOUTH AT ACTIVE BEDTIME FOR SLEEP Inactive Outpatient Medications Status 1) DILTIAZEM (EQV-TIAZAC) 120MG 24HR CAP TAKE ONE CAPSULE BY MOUTH ONCE EVERY DAY Active Non-VA Medications Status 1) Non-VA CINNAMON 500MG TAB 1 TABLET MOUTH EVERY DAY ACTIVE 2) Non-VA FISH OIL 1000MG (500MG DHA/EPA) CAP 1000MG ACTIVE MOUTH EVERY DAY 3) Non-VA NON VA MED NOT LISTED MISCELLANEOUS ACTIVE EUCALYPTUS/PEPPERMINT OIL NEEDED 4) Non-VA SODIUM CHLORIDE 0.9% IRRG SOLN SOLUTION ACTIVE IRRIGATION THREE TIMES A DAY 25 Total Medications Vitals: Temperature: 97.5 F [36.4 C] (08/09/2023 13:53) Blood Pressure: 117/71 (09/05/2023 10:54) Pulse: 87 (09/05/2023 10:54) Respiration: 20 (08/09/2023 13:53) Pain: 0 (08/09/2023 13:53) Pulse Oximetry: 97% (09/05/2023 10:54) Height: 69 in [175.3 cm] (08/09/2023 13:53) Weight: 269.8 lb [122.38 kg] (09/05/2023 10:54) BMI: 39.9 LABS: Basic Metabolic Panel SODIUM 129 L (08/09/23) POTASSIUM 4.0 (08/09/23) CREATININE 0.7 (08/09/23) UREA NITROGEN 12 (08/09/23) GLUCOSE 181 H (08/09/23) CO2 25 (08/09/23) CHLORIDE 94 L (08/09/23) EGFR (06/14) 09/07/21 @ 1047 134 CREATININE EGFR (CKD-EPI) 08/09/23 @ 1426 >90 MAGNESIUM 2.2 (08/09/23) Collection DT Specimen Test Name Result Units Ref Range 08/09/2023 14:26 PLASMA CREATININE 0.7 mg/dL 0.7 - 1.2 03/12/2023 10:24 PLASMA!! CREATININE 0.8 mg/dL 0.7 - 1.2 09/07/2021 10:47 PLASMA CREATININE 0.6 L mg/dL 0.7 - 1.2 08/09/2023 14:26 PLASMA .CREAT EGFR(CKD-E >90 Ref: >=60 03/12/2023 10:24 PLASMA!! .CREAT EGFR(CKD-E >90 Ref: >=60 09/07/2021 10:47 PLASMA ESTIMATED GFR(eGF >60 Ref: >=60 04/20/2021 09:46 PLASMA ESTIMATED GFR(eGF >60 Ref: >=60 03/30/2021 08:48 PLASMA ESTIMATED GFR(eGF >60 Ref: >=60 !! Indicates COMMENTS AVAILABLE...Refer to Interim Lab Report. CHOLESTEROL 148 (08/09/23) MEASURED LDL____ LDL CALCULATION 73 (08/09/23) HDL 42 (08/09/23) TRIGLYCERIDE____ Collection DT Spec HGBA1C POCA1C 08/09/2023 14:26 BLOOD 8.4 H 03/12/2023 10:24 BLOOD 9.3 H 03/12/2023 10:24 BLOOD 9.4 H Collection DT Specimen Test Name Result Units Ref Range 04/12/2020 10:00 URINE !! ALB/CREAT RATIO,U canc mg/g creat Ref: <=29.9 04/13/2019 16:02 URINE !! ALB/CREAT RATIO,U canc mg/g creat Ref: <= 29.9 12/03/2016 15:44 URINE !! ALB/CREAT RATIO,U canc mg/g creat 0 - 30 !! Indicates COMMENTS AVAILABLE...Refer to Interim Lab Report. SGOT 16 (08/09/23) SGPT 19 (08/09/23) TSH 0.41 (03/12/23) Collection DT Spec WBC HGB HCT PLT MCV 03/12/2023 10:24 BLOOD 8.39 14.1 43.4 377 91.9 ASSESSMENT: #DM - Goal A1c <8% (FBG 80-160, PPG <210) d/t comorbidities per VA/DoD guidelines. Most recent A1c is not at goal, but has been trending down with the titration of semaglutide (Ozempic). CGM data matches most recent A1c, with a predicted A1c of 8.4%. Vet is within goal about 25% of the time, with no hypoglycemia events. Episodes of very high BG (>250 mg/dL) was noted to happen 23% of the time. Blood sugars remain elevated throughout the entire day (6 am to 6 pm), but will decrease to goal in the evenings and overnight. Discussed with vet about recording when he injects his insulin and when he eats into his CGM to see if we need to adjust his insulin aspart. Vet has been self-titrating both insulin glargine and insulin aspart based on his readings. Does not follow a strict sliding scale. Discussed with vet about having a stricter sliding scale to determine what insulin doses we need to adjust. Future Considerations: - consider maximizing semaglutide, but 1 mg and 2 mg pens are on back order - so will need to defer for today - vet would benefit from speaking to a health plan specialist - will discuss with vet at next visit - may adjust insulin aspart at next visit if BG spikes occur after recorded meals #Lipids - Goal is treatment with at least a moderate-intensity statin d/t comorbid condition of DM per ACC/AHA guidelines. Goal LDL <70. Last lipid panel showed a slightly elevated LDL and TGs, but have decreased since previous lab. On statin + ezetimibe + fish oil. Stopped fish oil because it was tearing up his tummy. Due to lack of time will discuss w/ vet at next visit. PLAN: Increase - Insulin glargine 60 units under the skin once daily at bedtime *if vet gets a BG <70, call VA and decrease to 57 units Continue - Insulin aspart sliding scale: BG <150 - 0 units BG 151-200 - 4 units BG >200 - 6 units - semaglutide (ozempic) 1 mg under the skin once weekly on Tuesdays #Disease-Specific Med Rec: Completed today #Labs: No labs are indicated at today's visit - A1c due Oct 2023 - Educated vet on indication/risks/benefits of new/changed medication. - Education provided on therapeutic nonpharmacologic management to achieve goals. - Vet advised of recent labs. - [place] verbalized understanding to all plans discussed today. Questions were answered to vet's satisfaction. Time spent: 30 minutes RTC: 4-6 weeks - vet will not be available in [place] /m[place]/ Nhi Fontanez PharmD Revere DOMINIC Clinical Dry Color Tester Signed: 09/05/2023 11:44 NHI FONTANEZ
--- OUTSIDE RECORDS SUMMARY | 2024-07-17 00:40 | XMS_ITS | Encounter Summary ---
Author Name [facility] [place] Address [address] [place] [address] Care Team Providers Care Office Executive Name Role Phone JAMILARONIT WITT Primary Care [...] Name Patient's Relationship to Policy Lu AARP [facility] ([facility]) MEDICARE ADVANTAGE MCR ([facility]) Nov 11, 2020 [id number] [phone] SHAYYMAURICE Yee Y PATIENT [facility] ([facility]) MEDICARE ADVANTAGE MCR ([facility]) Nov 11, 2017 [id number] [phone] SHAYY,MAURICE Y PATIENT [facility] ([facility]) MEDICARE ADVANTAGE MCR ([facility]) Nov 11, 2020 [id number] [phone] SHAYY,MAURICE Y PATIENT Selected Encounter This section includes the information on record at [place] for the Encounter. Date/Time Encounter Type Encounter Description Reason Pro vider Source Nov 19, 2023 11:13 AM Outpatient Encounter CLINICAL PHARMACY IHE Encounter Template Text not used by [place] Plan of Treatment: Future Appointments (+ 6 months) and Future Tests (+/- 45 days) The Plan of Treatment section includes future care activities for the patient from [facility] [place] [facility] This section includes future appointments and future orders which are active, pending or scheduled. Future Appointments This section includes appointments that were scheduled to occur 6 months from the date of the Encounter, up to a maximum of 20 appointments. The data comes from all [place] treatment facilities. Appointment Date/Time Appointment Type Appointme nt Facility Name Nov 26, 2023 09:30 AM AMBUL[facility]ORY [facility] Dec 04, 2023 01:00 PM [facility]ORY - [facility]ONE [facility] Dec 16, 2023 10:00 AM AMBULATORY - REHAB [facility] Dec 16, 2023 12:15 PM [...] 07:00 AM [place] [facility] [facility] Feb 10, 2024 10:30 AM [facility]BUL[facility] Feb 12, 2024 10:00 AM [place]ORY [place] [facility] Feb 28, 2024 08:40 AM [facility] Feb 28, 2024 09:00 AM [facility] Mar 03, 2024 09:15 AM [facility] Mar 09, 2024 01:30 PM [place]ORY [place] [facility] March 12, 2024 11:30 AM [place]ORY [place] [facility] March 17, 2024 10:30 AM [facility] March 27, 2024 01:30 PM [facility]ORY - [facility]ONE [facility] April 07, 2024 08:15 AM [facility]ATORY - NONE [facility] Lab Results: +/- 30 days of the encounter This section includes the Chemistry and Hematology Lab Results on record with [place] for the patient. Radiology Reports and Pathology Reports are provided separately, in subsequent sections. Lab Results This section contains the Chemistry/Hematology Results that were resulted 30 days before or 30 daysafter the date of the Encounter. Date/Time Source Result Type Result - Unit Interpretation Reference Range Comment Nov 01, 2023 09:52 AM [facility] HEMOGLOBIN A1C Specimen Type: BLOOD [...] Oct 02, 2023 09:59 AM Reporting Lab: [facility] [id number] Performing Lab: [facility] [id number] HEMOGLOBIN A1C 8.8 H 4.0-6.0 Social History: Smoking Status (Most current) and Tobacco Use (All prior to encounter date) This section includes the most current, and the historical, smoking and tobacco- related health factors from the [place] facility where the Encounter took place. Current Smoking Status This section includes the most current smoking, or tobacco-related health factor, from the [place] facility where the Encounter took place. Date/Time Current Smoking Status Comment Facil ity Nov 07, 2022 11:00 AM VA-TOBACCO NEVER USED [facility] Tobacco Use History This section includes a history of the smoking, or tobacco-related health factors, that were collected on or before the date of the Encounter. The data comes from the [place] facility where the Encounter took place. Date/Time Smoking Status/Tobacco Use Comment F acility Dec 13, 2021 09:30 AM VA-TOBACCO NEVER [...] ALL of a patient's completed or amended VA Advance and Rescinded Directives. The entries below indicate that a directive exists for the patient, but an actual copy is not included with this document. The data comes from all [place] facilities. Date Advance Directives Provider Source Mar 04, 2016 CLINICAL WARNING PALMA NUNEZI S [facility] Apr 25, 2010 ADVANCE DIRECTIVE RADHA STEVENSON [facility] March 21, 2005 CLINICAL WARNING KYLEE ANNI S [facility] Apr 28, 2004 CLINICAL WARNING MAGI CHAUDHRY [facility] Apr 28, 2004 CLINICAL WARNING DUNIA BOLUNT [facility] Radiology Reports: +/- 30 days [...] the Encounter. The data comes from all [place] treatment facilities. Date/Time Radiology Report Provider Source Nov 01, 2023 09:56 AM SHOULDER RIGHT 2-3 VIEWS: SELAM LUCAS [id number] -[id number] M Exm Date: NOV 01, 2023@09:56 Req Phys: RONIT NIEVES Loc: [facility] RADIOLOGY (Req'g Loc) Img Loc: TO RADIOLOGY Service: Unknown (Case [id number] COMPLETE) SHOULDER RIGHT 2-3 VIEWS (RAD Detailed) CPT:19672 Reason for Study: pain, swelling Clinical History: Report Status: Verified Date Reported: NOV 01, 2023 Date Verified: NOV 01, 2023 Bread Molder E-Sig:/ES/ABDULLAHI EUBANKS MD Report: EXAMINATION: SHOULDER RIGHT 2-3 VIEWS 11/01/2023 9:56 AM INDICATION: pain, swelling Impression: Slight degenerative changes of the glenohumeral joint. Moderate degenerative hypertrophy of the AC joint. Sclerosis and mild surface irregularity along the greater tuberosity. Primary Interpreting Staff: ABDULLAHI EUBANKS MD, RADIOLOGIST (Bread Molder) /ABDULLAHI DAY [facility] Encounter Notes: All associated encounter notes This section contains the clinical notes associated to the Encounter. Date/Time Encounter Note(s) Provider Source Nov 19, 2023 11:13 AM REPORT OF CONTACT: LOCAL TITLE: PATIENT CONTACT NOTE - PHARMACY STANDARD TITLE: REPORT OF CONTACT DATE OF NOTE: NOV 19, 2023@11:13 ENTRY DATE: NOV 19, 2023@11:13:21 AUTHOR: NHI CHARLES EXP COSIGNER: URGENCY: STATUS: COMPLETED Patient Contact Date & Time of Contact: Nov@11:13 Type of Contact: Telephone Reason for Contact: - Returning vet's call - Called wondering if CGM, FreeStyle Javier 3, sensors were approved - Sensors were approved - Requesting Insulin glargine refill only has 1 pen left - Refilled on Nov 14, 2023 Action: - F/u at next scheduled visit /migdalia/ Nhi Charles PharmD [facility] Clinical Engraver [employer] Signed: 11/19/2023 11:15 NHI CHARLES CBDOMINIC
--- OUTSIDE RECORDS SUMMARY | 2024-07-17 00:40 | XMS_ITS | Encounter Summary ---
Author Name [facility] [place] Organization [place] Address [address] [place] [address] Care Team Providers Care Associate Account Manager Name Role Phone JAMILARONIT WITT Primary Care [...] Patient's Relationship to Policy Lu AARP [facility] ([facility]) MEDICARE ADVANTAGE MCR ([facility]) Nov 11, 2020 [id number] SHAYY,MAURICE Y PATIENT [facility] ([facility]) MEDICARE ADVANTAGE MCR ([facility]) Nov 11, 2017 [id number] SHAYY,MAURICE Y PATIENT [facility] ([facility]) MEDICARE ADVANTAGE MCR ([facility]) Nov 11, 2020 [id number] [phone] SHAYY,MAURICE Y PATIENT Selected Encounter This section includes the information on record at [place] for the Encounter. Date/Time Encounter Type Encounter Description Reason Provider Source Dec 04, 2023 01:00 PM MTMS BY PHARM PILO 15 MIN CLINICAL PHARMACY ICD-10-CM E11.8 Type 2 diabetes mellitus with unspecified complications NHI CHARLES Encounter Template Text not used by [place] Assessments - Encounter Diagnoses This section includes the primary and secondary diagnoses documented for the Encounter. 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. This section includes future appointments and future orders which are active, pending or scheduled. Future Appointments This section includes appointments that were scheduled to occur 6 months from the date of the Encounter, up to a maximum of 20 appointments. The data comes from all [place] treatment facilities. Appointment Date/Time Appointment Type Appointme nt Facility Name Dec 16, 2023 10:00 AM AMBULATORY - [facility] Dec 16, 2023 12:15 PM AMBULATORY - [facility]INE [facility] Dec 18, 2023 09:00 AM AMBULATORY - NONE [facility] Dec 25, 2023 09:30 AM [facility]ORY [facility] Jan 10, 2024 09:30 AM [facility] Jan 10, 2024 10:00 AM [facility]ATORY - [facility] Jan 21, 2024 09:30 AM [facility] Feb 10, 2024 07:00 AM [place]ORY - [place] [facility] [facility] Feb 10, 2024 10:30 AM AM[facility]ULAT[facility] Feb 12, 2024 10:00 AM [place]ORY - [place] [facility] [facility] Feb 28, 2024 08:40 AM [facility] Feb 28, 2024 09:00 AM [facility]ORY [facility] Mar 03, 2024 09:15 AM [facility]ULATORY - [facility] Mar 09, 2024 01:30 PM [place]ORY - NONE [place] [facility] [facility] March 12, 2024 11:30 AM [place] [facility] March 17, 2024 10:30 AM [facility] March 27, 2024 01:30 PM [facility]ORY - NONE [facility] April 07, 2024 08:15 AM [facility]ATORY - [facility]ONE [facility] Apr 23, 2024 08:30 AM [place]ORY - [place] [facility] May 12, 2024 08:15 AM AMBULATORY - NONE [facility] [...] this document. The data comes from all [place] facilities. Date Advance Directives Provider Source Mar 04, 2016 CLINICAL WARNING [facility] NUNEZ [facility] Apr 25, 2010 ADVANCE DIRECTIVE RADHA STEVENSON [facility] March 21, 2005 CL[facility]ICAL [facility] Apr 28, 2004 [facility] Apr 28, 2004 CLINICAL WARNING DUNIA [facility] Encounter Notes: All associated encounter notes This section contains the clinical notes associated to the Encounter. Date/Time Encounter Note(s) Provider Source Dec 04, 2023 11:24 AM PHARMACY NOTE: LOCAL TITLE: PHARMACOTHERAPY-CLINICAL PHARMACY NOTE STANDARD TITLE: PHARMACY NOTE DATE OF NOTE: DEC 04, 2023@11:24 ENTRY DATE: DEC 04, 2023@11:24:41 AUTHOR: NHI CHARLES EXP COSIGNER: URGENCY: STATUS: COMPLETED SHAYY,SELAM Lassiter is a 73 YO MALE followed by [facility] for medication management. 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 SUBJECTIVE: Vet is following-up with [facility] for DM management and CGM concerns. [employer] Javier 3 sensors is not registering on vet's device. Waited over 4 hours and it still did not pair. Has only tried 1 sensor and did not work. Requesting wrist bandage/cuff to be renewed. Baseline Weight: 275 lbs [123.60 kg], BMI 40.3 (02/27/23) [place] Body Weight: 156 lbs [70.70 kg] Clinic Weight: 269.8 lbs [122.38 kg], BMI 39.93 (09/05/23) Current Home Weight: 252 lbs Weight Loss: ~23 lbs since starting semaglutide (Ozempic) Past DM meds: -empagliflozin - dizziness, had fall -metformin - made him really sick Meds: ACEi/ARB: + Stain: + Diabetes Related Complications: Macrovascular: [+], atrial flutter, CHF, hx of CVA, CAD Microvascular: -Retinopathy [-], last exam w/ [facility] 12/18/22 -Nephropathy [-], on candesartan, didn't tolerate empa Lifestyle: Diet: typically just eating 2x/day -doesn't eat lunch -will eat at [employer], [employer], but tries to avoid fast food Meal 1: 2 egg mcmuffins with ham (6 AM) Meal 2: varies - chicken nuggets or toast w/ peanut butter Beverages: diet coke and water -ozempic and metamucil have caused him to not be hungry or eat a lot Exercise: goes to the gym 3x's/wk - Nustep for about 20-30 mins Labs: 03/2023 C-Peptide: 2.45 GREG-65: <5 ROS: (+) hypoglycemia symptoms - feels shaky, dizzy +/- sweating if BG is <100 - uses glucose tablets to help increase BG - notices that BG is lower in the evenings over night - 1 episode of hypoglycemia noted on CGM - B - around 3PM (-) hyperglycemia symptoms LibreView Report: 11/21/23-12/04/23 Freestyle Javier 2 Report Summary *last recorded on LibreView Av mg/dl GMI: 8.3% Variability: 21.3% Time in Target Glucose Range(70-180 mg/dL): 31% Time above 180 mg/dL: 69% - Very High (>250 mg/dL): 17% - High (181-250 mg/dL): 52% Time below 70 mg/dL: 0% Average Number of daily scans: 7/day sensor usage: 50% BG during visit was 175 Adherence to medications: self-manages meds, appears to be adherent OBJECTIVE: ALLERGIES/ADR: METRONIDAZOLE (Feb 24, 2004) TETRACYCLINE [...] 3 MINUTES OF REMOVING FROM CONTAINER 2) ASPIRIN 81MG EC TAB TAKE ONE TABLET BY MOUTH EVERY ACTIVE DAY 3) ATORVASTATIN CALCIUM 40MG TAB TAKE ONE TABLET BY ACTIVE MOUTH EVERY EVENING FOR CHOLESTEROL 4) CANDESARTAN CILEXETIL 32MG TAB TAKE ONE TABLET BY ACTIVE MOUTH EVERY DAY FOR BLOOD PRESSURE 5) CLOPIDOGREL BISULFATE 75MG TAB TAKE ONE TABLET BY ACTIVE (S) MOUTH EVERY DAY TO PREVENT BLOOD CLOTS 6) CREON 3,000UNIT EC CAP TAKE ONE CAPSULE BY MOUTH ACTIVE EVERY DAY 7) DICLOFENAC NA 1% TOP GEL APPLY 4 GRAMS TO LEFT KNEE ACTIVE FOUR TIMES A DAY NEEDED FOR PAIN RELIEF -USE DOSE CARD IN BOX TO MEASURE DOSE -MAXIMUM OF 32 GRAMS PER DAY FROM ALL SITES APPLIED*FOR PAIN RELIEF 8) DILTIAZEM (EQV-TIAZAC) 120MG 24HR CAP TAKE ONE ACTIVE CAPSULE BY MOUTH EVERY DAY 9) HYDROCHLOROTHIAZIDE 25MG TAB TAKE ONE TABLET BY MOUTH ACTIVE THREE TIMES A WEEK 10) INSULIN,ASPART(EQV-NOVLG)100UN /ML FLXPEN INJECT 1-5 CONFIRMED (S) UNITS BASED ON CORRECTION SCALE UNDER THE SKIN THREE TIMES A DAY BEFORE MEALS NEEDED FOR BLOOD GLUCSE GREATER THAN 200MG/DL *MAX 15 UNITS PER DAY - Injects on sliding scale 11) INSULIN,GLARGINE-YFGN 100UNIT/ML PEN 3ML INJECT 56 CONFIRMED (S) UNITS UNDER THE SKIN AT BEDTIME FOR DIABETES - Inejcts 56 units at bedtime 12) ISOSORBIDE MONONITRATE 30MG SA TAB TAKE ONE TABLET BY ACTIVE MOUTH EVERY DAY FOR CHEST PAIN 13) LACTOBACILLUS ACIDOPHILUS TAB TAKE 2 TABLETS BY MOUTH ACTIVE EVERY DAY 14) METOPROLOL TARTRATE 25MG TAB TAKE ONE-HALF TABLET BY ACTIVE MOUTH TWICE A DAY 15) PSYLLIUM ORAL PWD TAKE 1 TEASPOONFUL BY MOUTH ONCE ACTIVE EVERY DAY IF NEEDED FOR CONSTIPATION. MIX IN JUICE OR WATER. 16) SEMAGLUTIDE 2MG/0.75ML INJ PEN 3ML INJECT 2MG UNDER CONFIRMED THE SKIN EVERY WEEK FOR DIABETES - Injects 2 mg on Tuesdays 17) SODIUM CHLORIDE 0.65% SOLN NASAL SPRAY SPRAY 2 SPRAYS ACTIVE IN EACH NOSTRIL EVERY DAY NEEDED FOR CONGESTION 18) TRAZODONE HCL 50MG TAB TAKE ONE TABLET BY MOUTH AT ACTIVE BEDTIME FOR SLEEP Inactive Outpatient Medications Status 1) ALBUTEROL 90MCG (CFC-F) 200D ORAL INHL INHALE 2 PUFFS RENEW BY INHALATION EVERY 4 HOURS NEEDED FOR SHORTNESS OF BREATH 2) ALPROSTADIL 500MCG URETHRAL SUPP INSERT 1 SUPPOSITORY INTRAURETHRAL NEEDED FOR ERECTILE DYSFUNCTION -MAXIMUM USE OF 3 TIMES PER WEEK WITH AT LEAST 24 HOURS BETWEEN EACH USE 3) EZETIMIBE 10MG TAB TAKE ONE TABLET BY MOUTH EVERY DAY RENEW FOR CHOLESTEROL Active Non-VA Medications Status 1) Non-VA CINNAMON 500MG TAB 1 TABLET MOUTH EVERY DAY ACTIVE 2) Non-VA FISH OIL 1000MG (500MG DHA/EPA) CAP 1000MG ACTIVE MOUTH EVERY DAY 3) Non-VA NON VA MED NOT LISTED MISCELLANEOUS ACTIVE EUCALYPTUS/PEPPERMINT OIL NEEDED 4) Non-VA SODIUM CHLORIDE 0.9% IRRG SOLN SOLUTION ACTIVE IRRIGATION THREE TIMES A DAY - ponaris as needed (TID/week) 25 Total Medications Vitals: Temperature: 97.5 F [36.4 C] (08/09/2023 13:53) Blood Pressure: 117/71 (09/05/2023 10:54) Pulse: 87 (09/05/2023 10:54) Respiration: 20 (08/09/2023 13:53) Pain: 0 (08/09/2023 13:53) Height: 69 in [175.3 cm] [...] 10:24 PLASMA!! .CREAT EGFR(CKD-E >90 Ref: >=60 !! Indicates COMMENTS AVAILABLE...Refer to Interim Lab Report. CHOLESTEROL 148 (08/09/23) MEASURED LDL____ LDL CALCULATION 73 (08/09/23) HDL 42 (08/09/23) TRIGLYCERIDE____ Collection DT Spec HGBA1C POCA1C 11/01/2023 09:52 [...] per [place] guidelines. Most recent A1c is above goal. CGM data showed BG was elevated with a BG average of 207 mg/dL and BG being above range (>180 mg/dL) 69% of the time. Only one episode of hypoglycemia was noted, which vet believes was due to taking too much insulin aspart with lunch. Current meds include: insulin aspart, insulin glargine, and semaglutide. Discussed with vet about increasing dose of insulin glargine back up to previous dose and switching to injecting it in the morning since BG tends to be lower at night. May need to consider adjusting insulin aspart if episodes of hypoglycemia increase. PLAN: Increase/Change - Insulin glargine 58 units under the skin once daily in the morning, increase to 60 units in 3-4 days if FBG remains >200 Continue - semaglutide (Ozempic) 2 mg under the skin once weekly on Tuesdays - Insulin aspart sliding scale: BG <150 - 2 units BG 151-200 - 4 units BG 201-250 - 6 units BG >250 - 8 units *will alert RN about vet's request for a wrist cuff/bandage Discussed with vet about trying another Just Between Friendsstyle javier 3 sensor to determine if it is an issue with the sensor #Disease-Specific Med Rec: Completed today #Labs: No labs are indicated at today's visit - A1c due in January 2024 - Educated vet on indication/risks/benefits of new/changed medication. - Vet advised of recent labs. - [place] verbalized understanding to all plans discussed today. Questions were answered to vet's satisfaction. Time spent: 45 minutes RTC: 4 weeks /migdalia/ Norma Martniez DOMINIC Clinical Environmental Field Team Member Signed: 12/04/2023 14:08 NHI CHARLES DOMINIC
--- OUTSIDE RECORDS SUMMARY | 2024-07-17 00:41 | XMS_ITS | Encounter Summary ---
Author Name [facility] [place] Organization [facility] [place] [facility] [place] Address [address] [place] [address] Care Team Providers Care Assistant Associate Full Professor Name Role Phone LILIAMRONIT LYNN Primary Care [...] Name Patient's Relationship to Policy Lu AARP [facility] ([facility]) MEDICARE ADVANTAGE MCR ([facility]) Nov 11, 2020 [id number] [phone] SHAYY,MAURICE Y PATIENT [facility] ([facility]) MEDICARE ADVANTAGE MCR ([facility]) Nov 11, 2017 [id number] SHAYY,MAURICE Y PATIENT [facility] ([facility]) MEDICARE ADVANTAGE MCR ([facility]) Nov 11, 2020 [id number] SHAYYMAURICE Y PATIENT Selected Encounter This section includes the information on record at NH for the Encounter. Date/Time Encounter Type Encounter Description Reason Provider Source Dec 16, 2023 10:00 AM SELF CARE MNGMENT TRAINING OCCUPATIONAL THERAPY ICD-10-CM W18.49XS Other slipping, tripping and stumbling w/o falling, DARIA Sanchez [facility] Encounter Template Text not used by [place] Assessments - Encounter Diagnoses This section includes the primary and secondary diagnoses documented for the Encounter. Date/Time Primary/Secondary Diagnosis Diagnosis Name Provider Source Dec 16, 2023 10:27 AM PRIMARY Other slipping, tripping and stumbling w/o falling, DARIA Snachez [facility] Plan of Treatment: Future Appointments (+ 6 months) and Future Tests (+/- 45 days) The Plan of Treatment section includes future care activities for the [facility] This section includes future appointments and future orders which are active, pending or scheduled. Future Appointments This section includes appointments that were scheduled to occur 6 months from the date of the Encounter, up to a maximum of 20 appointments. The data comes from all [place] treatment facilities. Appointment Date/Time Appointment Type Appointme nt Facility Name Dec 18, 2023 09:00 AM AMBULATORY - [...] 2024 07:00 AM AM[place]ULATORY - NONE [place] [facility] Feb 10, 2024 10:30 AM [facility] Feb 12, 2024 10:00 AM AMBULATORY - NONE [place] [facility] Feb 28, 2024 08:40 AM [facility] Feb 28, 2024 09:00 AM [facility] Mar 03, 2024 09:15 AM [facility] Mar 09, 2024 01:30 PM AMBULATORY - NONE [place] [facility] March 12, 2024 11:30 AM [facility] [place] [facility] March 17, 2024 10:30 AM [facility] March 27, 2024 01:30 PM [facility] - NONE [facility] April 07, 2024 08:15 AM [facility] Apr 23, 2024 08:30 AM [facility]ONE [facility] May 12, 2024 08:15 AM [facility] May 15, 2024 01:00 PM [facility] May 19, 2024 10:30 AM [facility] Social History: Smoking Status (Most current) and Tobacco Use (All prior to encounter date) This section includes the most current, and the historical, smoking and tobacco- related health factors from the NH facility where the Encounter took place. Current Smoking Status This section includes the most current smoking, or tobacco-related health factor, from the NH facility where the Encounter took place. Date/Time Current Smoking Status Comment Facil ity March 23, 2019 08:54 AM VA-TOBACCO FORMER USER [facility] Tobacco Use History This section includes a history of the smoking, or tobacco-related health factors, that were collected on or before the date of the Encounter. The data comes from the [place] facility where the Encounter took place. Date/Time Smoking Status/Tobacco Use Comment F acility March 23, 2019 08:54 AM NH-TOBACCO QUIT 15 YRS OR MORE [facility] Mar 04, 2018 09:41 AM LIFETIME NON-TOBACCO USER [facility] Jun 17, 2017 01:07 PM LIFETIME NON-TOBACCO USER [facility] Apr 23, 2016 09:50 AM FORMER TOBACCO USER 7Y OR GREATE R [facility] Mar 06, 2016 11:12 AM INPT NO TOBACCO USE IN LAST 30 D AYS [facility] Jul 15, 2015 08:58 AM LIFETIME NON-TOBACCO USER [facility] Feb 11, 2013 10:04 AM LIFETIME NON-TOBACCO USER [facility] Nov 27, 2006 03:44 PM FORMER TOBACCO USER 7Y OR GREATE R [facility] Advance Directives: All historical and current Section Date Range: From patient's date of to the date document was created. This section includes ALL of a patient's completed or amended [place] Advance and Rescinded Directives. The entries below indicate that a directive exists for the patient, but an actual copy is not included with this document. The data comes from all [place] facilities. Date Advance Directives Provider Source Mar 04, 2016 CLINICAL WARNING [facility] Apr 25, 2010 ADVANCE DIRECTIVE [facility] March 21, 2005 CLINICAL WARNING [facility] Apr 28, 2004 CLINICAL WARNING [facility] Apr 28, 2004 CLINICAL WARNING DUNIA [facility] Encounter Notes: All associated encounter notes This section contains the clinical notes associated to the Encounter. Date/Time Encounter Note(s) Provider Source Dec 16, 2023 10:00 AM OCCUPATIONAL THERA PY CONSULT: LOCAL TITLE: OCCUPATIONAL THERAPY CONSULT STANDARD TITLE: OCCUPATIONAL THERAPY CONSULT DATE OF NOTE: DEC 16, 2023@10:00 ENTRY DATE: DEC 16, 2023@10:02:42 AUTHOR: DARIA SUTTON COSIGNER: URGENCY: STATUS: COMPLETED OCCUPATIONAL THERAPY TELEHEALTH EQUIPMENT CONSULT Ordering provider: RONIT NIEVES Consult request: AE: med alert Diagnosis: Other Slipping, Tripping and Stumbling without Falling, Sequela(ICD-10-CM W18.49XS) Encounter: -OT Evaluation: Low complexity (1): 15 min. -Self-care management training (1): 15 min Subjective: Georges shared that his Helotes device that he had for ~4 years has a broken lanyard clip, so he is forced to carry it in his pocket. Vet noted no falls in the last couple of years but added having pacemaker placed in 2020 I have left knee and lower back pain...strained a muscle at the gym recently...it looks like my sciatic nerve acts up at times too. 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 He does have a shower chair without arms in there and mentioned that it might be helpfull to have some arms to help with standig up. Assessment/recommendations: Georges seen via telehealth today, Dec, to discuss adaptive equipment to increase safety and independence. Georges arrives to clinic alone requisting a new Helotes device to replace his broken one. Following conversation discovered that georges has a pacemaker implanted and would benefit from the Helotes Wrsit instead. Education provided on primary differences and highlighted the importance of having a wrist option with pacemaker in place. Vet noted understanding. Additionally, recommend a shower chair with arms for easier tub transfers with vet is also in agreement with. No further concerns, vet is appreciative for all the help. Identified the following barriers: -Limtied mobility -Knee, back, and sciatic nerve pain -Fall risk Vet will benefit from adaptive equipment to increase safety and functional independence and was provided education on features and benefits of equipment. Vet will benefit from the following adaptive equipment: -Helotes Wrist -Homecraft Shower Chair - PH - Item #[id number] Education: Vet indicates readiness to learn, verbalizes understanding, agreement and satisfaction with the treatment plan. Denies further questions. P: No other OT needs at this time. D/C from telehealth OT. SHORT TERM GOAL to be met by end of session: 1. will engage in an OT evaluation to improve safety and independence with use of adaptive equipment - MET CVT Documentation- Visit conducted by synchronous telehealth. verbal consent obtained. Location/emergency number confirmed. Environment surveyed and all participants identified. Virtual conference room locked Confirmed the following prior to start of visit: - identified by Full name and Full Social Security number/Date of . -[place] states he/she is in a safe and private environment suitable for the Telehealth encounter. -Visit conducted by telehealth into the home using: -desktop Email: [email or web address] Troubleshooting required during visit: n/a Others present: none Location of patient during session: [address] [place] [address] Emergency phone number (c061): [phone] Veterans Crisis Line: & press #1 or text [phone] [facility] National [employer] Help Desk (NTTHD): [phone] or [phone]. OCCUPATIONAL THERAPY EVALUATION COMPLEXITY Identifying and reporting [...] PERFORMANCE DEFICITS (select all that apply): Physical: fall risk, limited mobility 1-3 performance deficits (Low complexity) LEVEL OF [...] component. /migdalia/ TONIE MORENO/Khoa OCCUPATIONAL THERAPIST Signed: 12/16/2023 10:30 DARIA SUTTON [facility]
--- OUTSIDE RECORDS SUMMARY | 2024-07-17 00:41 | XMS_ITS | Encounter Summary ---
Author Name [facility] [place] Organization [place] Address [address] [place] [address] Care Team Providers Care Water Leak Repairer Name Role Phone LILIAMRONIT LYNN Primary Care [...] Name Patient's Relationship to Policy Lu AARP [facility] ([facility]) MEDICARE ADVANTAGE MCR ([facility]) Nov 11, 2020 [id number] MAURICE LUCAS Y PATIENT [facility] ([facility]) MEDICARE ADVANTAGE MCR ([facility]) Nov 11, 2017 [id number] SHAYYMAURICE Yee Y PATIENT [facility] ([facility]) MEDICARE ADVANTAGE MCR ([facility]) Nov 11, 2020 [id number] MAURICE LUCAS Y PATIENT Selected Encounter This section includes the information on record at [place] for the Encounter. Date/Time Encounter Type Encounter Description Reason Pro vider Source Feb 06, 2024 01:50 PM Outpatient Encounter COMMUNITY CARE CONSULT [facility] Encounter Template Text not used by [place] Plan of Treatment: Future Appointments (+ 6 months) and Future Tests (+/- 45 days) The Plan of Treatment section includes future care activities for the patient from all [facility]. This section includes future appointments and future orders which are active, pending or scheduled. Future Appointments This section includes appointments that were scheduled to occur 6 months from the date of the Encounter, up to a maximum of 20 appointments. The data comes from all [place] treatment facilities. Appointment Date/Time Appointment Type Appointme nt Facility Name Feb 10, 2024 07:00 AM [place]ORY - [place] [facility] Feb 10, 2024 10:30 AM [facility] Feb 12, 2024 10:00 AM [facility] Feb 28, 2024 08:40 AM [facility] Feb 28, 2024 09:00 AM [facility] N[facility] Mar 03, 2024 09:15 AM [facility]ORY - NONE [facility] Mar 09, 2024 01:30 PM [place]BUL[place]ORY - N[place] [facility] March 12, 2024 11:30 AM [place]ORY - [place] [facility] March 17, 2024 10:30 AM [facility] March 27, 2024 01:30 PM [facility]ULATORY - NONE [facility] April 07, 2024 08:15 AM [facility]ORY - NONE [facility] Apr 23, 2024 08:30 AM [facility] May 12, 2024 08:15 AM [facility]ORY - NONE [facility] May 15, 2024 01:00 PM [facility] - [facility]IC[facility] May 19, 2024 10:30 AM [facility]BUL[facility] - [facility] Jun 01, 2024 10:30 AM AMBUL[facility] - [facility] Jun 02, 2024 03:01 PM [place]ORY - [place] [facility] Jun 09, 2024 08:15 AM [facility] - NONE [facility] Jun 30, 2024 10:30 AM [facility]BUL[facility] - [facility]RY [facility] Jul 04, 2024 09:59 AM [facility] Lab Results: +/- 30 days of the encounter This section includes the Chemistry and Hematology Lab Results on record with [place] for the patient. Radiology Reports and Pathology Reports are provided separately, in subsequent sections. Lab Results This section contains the Chemistry/Hematology Results that were resulted 30 days before or 30 daysafter the date of the Encounter. Date/Time Source Result Type Result - Unit Interpretation Reference Range Comment Feb 28, 2024 08:20 AM [facility] HEMOGLOBIN A1C Specimen Type: BLOOD Comment: Values obtained from A1C measurements can vary. For typical A1C assays, a reported value of 7.0 could actually be between 6.7 and 7.3 if measured by a reference method. A reported value of 9.0 could actually be between 8.7 and 9.3. Ref: http://www.ngs p.org/CAPdata. asp Ordering Provider: NHI CHARLES Report Released Date/Time: Jan 10, 2024 10:24 AM Reporting Lab: [facility] [id number] Performing Lab: [facility] [id number] HEMOGLOBIN A1C 8.4 H 4.0-6.0 Feb 28, 2024 08:20 AM [facility] LIPID PANEL,FASTING Specimen Type: PLASMA No comment entered. Ordering Provider: NHI CHARLES Report Released Date/Time: Jan 10, 2024 10:24 AM Reporting Lab: [facility] [id number] Performing Lab: [facility] [id number] CHOLESTEROL 164 mg/dL <199 TRIGLYCERIDE 226 mg/dL H <149 .HDL 39 mg/dL L >40 LDL CALCULATION 80 mg/dL <99 VLDL CALCULATION 45 mg/dL H <29 NON HDL CHOLESTEROL 125 mg/dL <129 Social History: Smoking Status (Most current) and Tobacco Use (All prior to encounter date) This section includes the most current, and the historical, smoking and tobacco- related health factors from the [place] facility where the Encounter took place. Current Smoking Status This section includes the most current smoking, or tobacco-related health factor, from the [place] facility where the Encounter took place. Date/Time Current Smoking Status Comment Facil ity March 23, 2019 08:54 AM VA-TOBACCO QUIT 15 YRS OR MORE [facility] Tobacco Use History This section includes a history of the smoking, or tobacco-related health factors, that were collected on or before the date of the Encounter. The data comes from the [place] facility where the Encounter took place. Date/Time Smoking Status/Tobacco Use Comment F acility March 23, 2019 08:54 AM VA-TOBACCO QUIT 15 YRS OR MORE [facility] Mar 04, 2018 09:41 AM LIFETIME NON-TOBACCO USER [facility] Jun 17, 2017 01:07 PM LIFETIME NON-TOBACCO USER [facility] Apr 23, 2016 09:50 AM FORMER TOBACCO USER 7Y OR GREATE R [facility] Mar 06, 2016 11:12 AM INPT NO TOBACCO USE IN LAST 30 D AYS [facility] Jul 15, 2015 08:58 AM LIFETIME NON-TOBACCO USER [facility] Feb 11, 2013 10:04 AM LIFETIME NON-TOBACCO USER [facility] Nov 27, 2006 03:44 PM FORMER TOBACCO USER 7Y OR GREATE R [facility] Advance Directives: All historical and current Section Date Range: From patient's date of to the date document was created. This section includes ALL of a patient's completed or amended [place] Advance and Rescinded Directives. The entries below indicate that a directive exists for the patient, but an actual copy is not included with this document. The data comes from all [facility]. Date Advance Directives Provider Source Mar 04, 2016 [facility], 2010 ADVANCE DIRECTIVE RADHA [facility] March 21, 2005 CLINICAL WARNING [facility] Apr 28, 2004 [facility] Apr 28, 2004 CL[facility]ICAL WARNING [facility] Encounter Notes: All associated encounter notes This section contains the clinical notes associated to the Encounter. Date/Time Encounter Note(s) Provider Source Feb 06, 2024 01:50 PM PHARMACY NOTE: LOCAL TITLE: PHARMACY NON [place] CARE MEDICATIONS STANDARD TITLE: PHARMACY NOTE DATE OF NOTE: FEB 06, 2024@13:50 ENTRY DATE: FEB 06, 2024@13:50:40 AUTHOR: MARLYN TERAN EXP COSIGNER: URGENCY: STATUS: COMPLETED PHARMACY NON [place] CARE MEDICATIONS Has ADDENDA [facility] RECEIVED electronic prescription(s) (eRX(s)) from NON-VA Provider: VAHE LUONG Outside (NON-VA) provider not authorized to write for prescription(s) through [place] pharmacy. Prescription request REDIRECTED via FAX to [facility] for review. eRx Reference #:[id number] eRx Prescription Information: eRx Drug: famotidine 40 mg tablet (PEPCID) eRx Qty: 90 eRx Refills: 3 eRx Days Supply: eRx Written Date: FEB 06, 2024 eRx Issue Date: Prohibit Renewals: No eRx Sig: Take 1 Tablet (40 mg) by mouth at bedtime. /migdalia/ MARLYN TERAN CLINICAL TUBE MAKER Signed: 02/06/2024 13:51 02/07/2024 ADDENDUM STATUS: COMPLETED rx received via fax for same med also forwarded to [facility] /migdalia/ JOB DAVIDSON Oracle Developer, leadership development instructor Signed: 02/07/2024 09:53 MARLYN TERAN [facility]
--- OUTSIDE RECORDS SUMMARY | 2024-07-17 00:41 | XMS_ITS | Encounter Summary ---
Author Name [facility] [place] Address [address] [place] [address] Care Team Providers Care Oil Distributor Tender Name Role Phone RONIT NIEVES Primary Care [...] Name Patient's Relationship to Policy Lu AARP [facility] ([facility]) MEDICARE ADVANTAGE MCR ([facility]) Nov 11, 2020 [id number] SHAYY,MAURICE Y PATIENT [facility] ([facility]) MEDICARE ADVANTAGE MCR ([facility]) Nov 11, 2017 [id number] [phone] SHAYY,MAURICE Y PATIENT [facility] ([facility]) MEDICARE ADVANTAGE MCR ([facility]) Nov 11, 2020 [id number] [phone] SHAYY,MAURICE Y PATIENT Selected Encounter This section includes the information on record at [place] for the Encounter. Date/Time Encounter Type Encounter Description Reason Provider Source Jan 10, 2024 10:00 AM MTMS BY PHARM MALORIE 15 MIN CLINICAL PHARMACY ICD-10-CM E11.8 Type 2 diabetes mellitus with unspecified complications NHI FONTANEZ Encounter Template Text not used by [place] Assessments - Encounter Diagnoses This section includes the primary and secondary diagnoses documented for the Encounter. 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 This section includes future appointments and future orders which are active, pending or scheduled. Future Appointments This section includes appointments that were scheduled to occur 6 months from the date of the Encounter, up to a maximum of 20 appointments. The data comes from all [place] treatment facilities. Appointment Date/Time Appointment Type Appointme nt Facility Name Jan 21, 2024 09:30 AM [facility] Feb 10, 2024 07:00 AM [facility]ONE [place] [facility] Feb 10, 2024 10:30 AM [facility] Feb 12, 2024 10:00 AM [facility] [place] [facility] Feb 28, 2024 08:40 AM [facility] Feb 28, 2024 09:00 AM [facility] Mar 03, 2024 09:15 AM [facility] Mar 09, 2024 01:30 PM [facility]ONE [facility] [facility] March 12, 2024 11:30 AM [facility] [place] [facility] March 17, 2024 10:30 AM [facility] March 27, 2024 01:30 PM [facility]ORY - NONE [facility] April 07, 2024 08:15 AM [facility] Apr 23, 2024 08:30 AM [facility]ONE [facility] [facility] May 12, 2024 08:15 AM [facility] May 15, 2024 01:00 PM [facility] May 19, 2024 10:30 AM AM[facility] Jun 01, 2024 10:30 AM AMB[facility] Jun 02, 2024 03:01 PM AM[facility]ORY - NONE [facility] Jun 09, 2024 08:15 AM [facility] Jun 30, 2024 10:30 AM AMB[facility] Social History: Smoking Status (Most current) [...] this document. The data comes from all [place] facilities. Date Advance Directives Provider Source Mar 04, 2016 CLINICAL WARNING PALMA NUNEZVA [facility] Apr 25, 2010 ADVANCE DIRECTIVE [facility] March 21, 2005 CLINICAL WARNING KYLEE ANNVA [facility] Apr 28, 2004 CLINICAL WARNING MAGI CHAUDHRYVA [facility] Apr 28, 2004 CLINICAL WARNING DUNIA [facility] Encounter Notes: All associated encounter notes This section contains the clinical notes associated to the Encounter. Date/Time Encounter Note(s) Provider Source Jan 10, 2024 12:52 PM ADDENDUM: LOCAL TITLE: Addendum STANDARD TITLE: ADDENDUM DATE OF NOTE: JAN 10, 2024@12:52:17 ENTRY DATE: JAN 10, 2024@12:52:18 AUTHOR: COLLEEN STEINER EXP COSIGNER: URGENCY: STATUS: COMPLETED Flagging LOAN UNDERWRITER for completion of vet's request. /migdalia/ Colleen Walker [facility] PACT RN Signed: 01/10/2024 12:52 Receipt Acknowledged By: 01/10/2024 13:23 /migdalia/ Payton Arias LOAN UNDERWRITER --- Original Document --- 01/10/24 PHARMACOTHERAPY-CLINICAL PHARMACY NOTE: SHAYYSELAM is a 73 YO MALE followed by PACT CPS for medication management. 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 SUBJECTIVE: Vet is following-up with PACT CPS for DM management. Expresses that he noticed increased in sleepiness and dehydration with semaglutide 2 mg, but states it manageable. Willing to continue and see if it resolves overtime. Requesting refill of trazodone since Rx has . Requesting diabetic socks and wrist cuff/bandage. Baseline Weight: 275 lbs [123.60 kg], BMI 40.3 (02/27/23) [place] Body Weight: 156 lbs [70.70 kg] Clinic [...] 2x/day -doesn't eat lunch -will eat at [employer], [employer], [employer], but tries to avoid fast food Meal [...] glucose tablets to help increase BG - CGM reports no episodes in the past 14 days - 3-4 weeks ago had one episode of low BG - during the day ~2PM (-) hyperglycemia symptoms LibreVsiOPTICA Report: 12/28/23-01/10/24 Freestyle Javier 3 Report Summary *last recorded on LibreView Av mg/dl GMI: 8.0% Variability: 23.7% Time in Target Glucose Range(70-180 mg/dL): 43% Time above 180 mg/dL: 57% - Very High (>250 mg/dL): 14% - High (181-250 mg/dL): 43% Time below 70 mg/dL: 0% Average Number of daily scans: 27/day sensor usage: 96% Trends: BG spikes after breakfast from 6AM-12PM Adherence to medications: self-manages meds, appears to [...] ACTIVE CAPSULE BY MOUTH EVERY DAY 9) EZETIMIBE 10MG TAB TAKE ONE TABLET BY MOUTH EVERY DAY ACTIVE FOR CHOLESTEROL 10) HYDROCHLOROTHIAZIDE 25MG TAB TAKE ONE TABLET BY MOUTH ACTIVE THREE TIMES A WEEK 11) INSULIN,ASPART(EQV-NOVLG)100UN /ML FLXPEN INJECT 1-5 CONFIRMED UNITS BASED ON CORRECTION SCALE UNDER THE SKIN THREE TIMES A DAY BEFORE MEALS NEEDED FOR BLOOD GLUCSE GREATER THAN 200MG/DL *MAX 15 UNITS PER DAY - Injects on sliding scale BG <150 - 2 units BG 151-200 - 4 units BG 201-250 - 6 units BG >250 - 8 units 12) INSULIN,GLARGINE-YFGN 100UNIT/ML PEN 3ML INJECT 58 CONFIRMED UNITS UNDER THE SKIN AT BEDTIME FOR DIABETES - Injects 58 units at bedtime 13) ISOSORBIDE MONONITRATE 30MG SA TAB TAKE ONE TABLET BY ACTIVE MOUTH EVERY DAY FOR CHEST PAIN 14) LACTOBACILLUS ACIDOPHILUS TAB TAKE 2 TABLETS BY MOUTH ACTIVE EVERY DAY 15) METOPROLOL TARTRATE 25MG TAB TAKE ONE-HALF TABLET BY ACTIVE MOUTH TWICE A DAY 16) PSYLLIUM ORAL PWD TAKE 1 TEASPOONFUL BY MOUTH ONCE ACTIVE EVERY DAY IF NEEDED FOR CONSTIPATION. MIX IN JUICE OR WATER. 17) SEMAGLUTIDE 2MG/0.75ML INJ PEN 3ML INJECT 2MG UNDER CONFIRMED THE SKIN EVERY WEEK FOR DIABETES - Injects 2 mg - S/E: sleepiness for 1-2 days after injecting 18) SODIUM CHLORIDE 0.65% SOLN NASAL SPRAY SPRAY 2 SPRAYS ACTIVE IN EACH NOSTRIL EVERY DAY NEEDED FOR CONGESTION Inactive Outpatient Medications Status 1) ALBUTEROL 90MCG (CFC-F) 200D ORAL INHL INHALE 2 PUFFS BY INHALATION EVERY 4 HOURS NEEDED FOR SHORTNESS OF BREATH 2) TRAZODONE HCL 50MG TAB TAKE ONE TABLET BY MOUTH AT BEDTIME FOR SLEEP Active Non-VA Medications Status 1) Non-VA CINNAMON 500MG TAB 1 TABLET MOUTH EVERY DAY ACTIVE 2) Non-VA FISH OIL 1000MG (500MG DHA/EPA) CAP 1000MG ACTIVE MOUTH EVERY DAY 3) Non-VA NON VA MED NOT LISTED MISCELLANEOUS ACTIVE EUCALYPTUS/PEPPERMINT OIL NEEDED 4) Non-VA SODIUM CHLORIDE 0.9% IRRG SOLN SOLUTION ACTIVE IRRIGATION THREE TIMES A DAY OTC: - Probiotic once daily at night - Apple Cider Vinegar PRN for upset stomach - Ponaris nasal spray 24 Total Medications Vitals: Temperature: 97.5 F [36.4 [...] was elevated with a BG average of 196 mg/dL and BG being above range (>180 mg/dL) 57% of the time. BG tends to be higher after breakfast from 6AM-12PM. Denies any episodes of hypoglycemia. Current meds include: insulin aspart, insulin glargine, and semaglutide. Discussed with vet about increasing sliding scale of insulin aspart to help cover spikes seen after each meal. PLAN: Increase - Insulin aspart sliding scale: BG <150 - 4 units BG 151-200 - 6 units BG 201-250 - 8 units BG >250 - 10 units Continue - semaglutide (Ozempic) 2 mg under the skin once weekly on Tuesdays - Insulin glargine 58 units under the skin once daily in the morning *will alert RN about vet's request for a wrist cuff/bandage and diabetic socks *will alert provider about renewal of trazodone #Disease-Specific Med Rec: Completed today #Labs: A1c - Educated vet on indication/risks/benefits of new/changed medication. - Vet advised of recent labs. - Unity verbalized understanding to all plans discussed today. Questions were answered to vet's satisfaction. Time spent: 30 minutes RTC: 4-6 weeks /migdalia/ Nhi Fontanez PharmD [facility] Clinical Assistant Head Cashier Signed: 01/10/2024 10:57 Receipt Acknowledged By: 01/10/2024 11:09 /migdalia/ TERRENCE staff physician 01/10/2024 12:51 /migdalia/ Colleen Walker [facility] PACT RN 01/10/2024 ADDENDUM STATUS: COMPLETED trazodone renewed // [facility] Signed: 01/10/2024 11:10 01/10/2024 ADDENDUM STATUS: COMPLETED Sensi Socks ordered as requested. Nurse reached out to via secure messaging to clarify what he was looking for specifically in regards to wrist wraps/bandages. Awaiting return message. /migdalia/ Payton Arias LPN Signed: 01/10/2024 13:38 COLLEEN STEINER [facility] Jan 10, 2024 08:06 AM PHARMACY NOTE: LOCAL TITLE: PHARMACOTHERAPY-CLINICAL PHARMACY NOTE STANDARD TITLE: PHARMACY NOTE DATE OF NOTE: JAN 10, 2024@08:06 ENTRY DATE: JAN 10, 2024@08:06:07 AUTHOR: NHI FONTANEZ EXP COSIGNER: URGENCY: STATUS: COMPLETED PHARMACOTHERAPY-CLINICAL PHARMACY NOTE Has ADDENDA SELAM LUCAS is a 73 YO MALE followed by PACT CPS for medication management. 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 SUBJECTIVE: Vet is following-up with PACT CPS for DM management. Expresses that he noticed increased in sleepiness and dehydration with semaglutide 2 mg, but states it manageable. Willing to continue and see if it resolves overtime. Requesting refill of trazodone since Rx has . Requesting diabetic socks and wrist cuff/bandage. Baseline Weight: 275 lbs [123.60 kg], BMI 40.3 (02/27/23) [place] Body Weight: 156 lbs [70.70 kg] Clinic [...] 2x/day -doesn't eat lunch -will eat at [employer], [employer], but tries to avoid fast food Meal [...] glucose tablets to help increase BG - CGM reports no episodes in the past 14 days - 3-4 weeks ago had one episode of low BG - during the day ~2PM (-) hyperglycemia symptoms LibreVsiOPTICA Report: 12/28/23-01/10/24 Freestyle Javier 3 Report Summary *last recorded on LibreView Av mg/dl GMI: 8.0% Variability: 23.7% Time in Target Glucose Range(70-180 mg/dL): 43% Time above 180 mg/dL: 57% - Very High (>250 mg/dL): 14% - High (181-250 mg/dL): 43% Time below 70 mg/dL: 0% Average Number of daily scans: 27/day sensor usage: 96% Trends: BG spikes after breakfast from 6AM-12PM Adherence to medications: self-manages meds, appears to [...] ACTIVE CAPSULE BY MOUTH EVERY DAY 9) EZETIMIBE 10MG TAB TAKE ONE TABLET BY MOUTH EVERY DAY ACTIVE FOR CHOLESTEROL 10) HYDROCHLOROTHIAZIDE 25MG TAB TAKE ONE TABLET BY MOUTH ACTIVE THREE TIMES A WEEK 11) INSULIN,ASPART(EQV-NOVLG)100UN /ML FLXPEN INJECT 1-5 CONFIRMED UNITS BASED ON CORRECTION SCALE UNDER THE SKIN THREE TIMES A DAY BEFORE MEALS NEEDED FOR BLOOD GLUCSE GREATER THAN 200MG/DL *MAX 15 UNITS PER DAY - Injects on sliding scale BG <150 - 2 units BG 151-200 - 4 units BG 201-250 - 6 units BG >250 - 8 units 12) INSULIN,GLARGINE-YFGN 100UNIT/ML PEN 3ML INJECT 58 CONFIRMED UNITS UNDER THE SKIN AT BEDTIME FOR DIABETES - Injects 58 units at bedtime 13) ISOSORBIDE MONONITRATE 30MG SA TAB TAKE ONE TABLET BY ACTIVE MOUTH EVERY DAY FOR CHEST PAIN 14) LACTOBACILLUS ACIDOPHILUS TAB TAKE 2 TABLETS BY MOUTH ACTIVE EVERY DAY 15) METOPROLOL TARTRATE 25MG TAB TAKE ONE-HALF TABLET BY ACTIVE MOUTH TWICE A DAY 16) PSYLLIUM ORAL PWD TAKE 1 TEASPOONFUL BY MOUTH ONCE ACTIVE EVERY DAY IF NEEDED FOR CONSTIPATION. MIX IN JUICE OR WATER. 17) SEMAGLUTIDE 2MG/0.75ML INJ PEN 3ML INJECT 2MG UNDER CONFIRMED THE SKIN EVERY WEEK FOR DIABETES - Injects 2 mg - S/E: sleepiness for 1-2 days after injecting 18) SODIUM CHLORIDE 0.65% SOLN NASAL SPRAY SPRAY 2 SPRAYS ACTIVE IN EACH NOSTRIL EVERY DAY NEEDED FOR CONGESTION Inactive Outpatient Medications Status 1) ALBUTEROL 90MCG (CFC-F) 200D ORAL INHL INHALE 2 PUFFS BY INHALATION EVERY 4 HOURS NEEDED FOR SHORTNESS OF BREATH 2) TRAZODONE HCL 50MG TAB TAKE ONE TABLET BY MOUTH AT BEDTIME FOR SLEEP Active Non-VA Medications Status 1) Non-VA CINNAMON 500MG TAB 1 TABLET MOUTH EVERY DAY ACTIVE 2) Non-VA FISH OIL 1000MG (500MG DHA/EPA) CAP 1000MG ACTIVE MOUTH EVERY DAY 3) Non-VA NON VA MED NOT LISTED MISCELLANEOUS ACTIVE EUCALYPTUS/PEPPERMINT OIL NEEDED 4) Non-VA SODIUM CHLORIDE 0.9% IRRG SOLN SOLUTION ACTIVE IRRIGATION THREE TIMES A DAY OTC: - Probiotic once daily at night - Apple Cider Vinegar PRN for upset stomach - Ponaris nasal spray 24 Total Medications Vitals: Temperature: 97.5 F [36.4 [...] was elevated with a BG average of 196 mg/dL and BG being above range (>180 mg/dL) 57% of the time. BG tends to be higher after breakfast from 6AM-12PM. Denies any episodes of hypoglycemia. Current meds include: insulin aspart, insulin glargine, and semaglutide. Discussed with vet about increasing sliding scale of insulin aspart to help cover spikes seen after each meal. PLAN: Increase - Insulin aspart sliding scale: BG <150 - 4 units BG 151-200 - 6 units BG 201-250 - 8 units BG >250 - 10 units Continue - semaglutide (Ozempic) 2 mg under the skin once weekly on Tuesdays - Insulin glargine 58 units under the skin once daily in the morning *will alert RN about vet's request for a wrist cuff/bandage and diabetic socks *will alert provider about renewal of trazodone #Disease-Specific Med Rec: Completed today #Labs: A1c - Educated vet on indication/risks/benefits of new/changed medication. - Vet advised of recent labs. - Unity verbalized understanding to all plans discussed today. Questions were answered to vet's satisfaction. Time spent: 30 minutes RTC: 4-6 weeks /migdalia/ Nhi Fontanez PharmD [facility] Clinical Assistant Head Cashier Signed: 01/10/2024 10:57 Receipt Acknowledged By: 01/10/2024 11:09 /migdalia/ TERRENCE WALKER staff physician 01/10/2024 12:51 /migdalia/ Colleen Walker [facility] PACT RN 01/10/2024 ADDENDUM STATUS: COMPLETED trazodone renewed /migdalia/ TERRENCE WALKER staff physician Signed: 01/10/2024 11:10 01/10/2024 ADDENDUM STATUS: COMPLETED Flagging LOAN UNDERWRITER for completion of vet's request. /migdalia/ Colleen Walekr [facility] PACT RN Signed: 01/10/2024 12:52 Receipt Acknowledged By: 01/10/2024 13:23 /migdalia/ Payton Arias LPN 01/10/2024 ADDENDUM STATUS: COMPLETED Sensi Socks ordered as requested. Nurse reached out to via secure messaging to clarify what he was looking for specifically in regards to wrist wraps/bandages. Awaiting return message. /migdalia/ Payton Arias LPN Signed: 01/10/2024 13:38 [facility]
--- OUTSIDE RECORDS SUMMARY | 2024-07-17 00:41 | XMS_ITS | Encounter Summary ---
Author Name [facility] [place] Address [address] [place] [address] Care Team Providers Care Online Marketing Manager Name Role Phone LILIAMRONIT LYNN Primary Care [...] Name Patient's Relationship to Policy Lu AARP [facility] ([facility]) MEDICARE ADVANTAGE MCR ([facility]) Nov 11, 2020 [id number] [phone] MAURICE LUCAS Y PATIENT [facility] ([facility]) MEDICARE ADVANTAGE MCR ([facility]) Nov 11, 2017 [id number] SHAYYMAURICE Yee Y PATIENT [facility] ([facility]) MEDICARE ADVANTAGE MCR ([facility]) Nov 11, 2020 [id number] MAURICE LUCAS Y PATIENT Selected Encounter This section includes the information on record at [place] for the Encounter. Date/Time Encounter Type Encounter Description Reason Pro vider Source Jan 27, 2024 09:35 PM Outpatient Encounter COMMUNITY CARE CONSULT IHE Encounter Template Text not used by [place] Plan of Treatment: Future Appointments (+ 6 months) and Future Tests (+/- 45 days) The Plan of Treatment section includes future care activities for the patient from [facility] [place] [facility] This section includes future appointments and [...] 2024 07:00 AM AM[facility]ATORY [place] NONE [place] [facility] Feb 10, 2024 10:30 AM AMB[facility] Feb 12, 2024 10:00 AM [facility] Feb 28, 2024 08:40 AM [facility] Feb 28, 2024 09:00 AM [facility] Mar 03, 2024 09:15 AM AMBULATORY - NONE [facility] Mar 09, 2024 01:30 PM AM[facility]ULATORY [place] N[place] [facility] March 12, 2024 11:30 AM AMBULATORY [place] NONE [place] [facility] March 17, 2024 10:30 AM AMBULATORY - [facility]RY [facility] March 27, 2024 01:30 PM AMBULATORY - NONE [facility] April 07, 2024 08:15 AM AMBULATORY - [facility]ONE [facility] Apr 23, 2024 08:30 AM [facility] May 12, 2024 08:15 AM [facility] May 15, 2024 01:00 PM AM[facility]AT[facility] - [facility] May 19, 2024 10:30 AM AMBULATORY [facility] Jun 01, 2024 10:30 AM AMBULATORY - [facility] Jun 02, 2024 03:01 PM [facility]ATORY [place] NONE [place] [facility] Jun 09, 2024 08:15 AM AM[facility]ORY - [facility]ONE [facility] Jun 30, 2024 10:30 AM AMBULATORY - [facility]RY [facility] Jul 04, 2024 09:59 AM [facility] Social History: Smoking Status (Most current) and [...] 23, 2019 08:54 AM VA-TOBACCO FORMER USER [facility] Tobacco Use History This section includes a history of the smoking, or tobacco-related health factors, that were collected on or before the date of the Encounter. The data comes from the [place] facility where the Encounter took place. Date/Time Smoking Status/Tobacco Use Comment F acility March 23, 2019 08:54 AM [place]-TOBACCO QUIT 15 YRS OR MORE [facility] Mar 04, 2018 09:41 AM LIFETIME NON-TOBACCO USER [facility] Jun 17, 2017 01:07 PM LIFETIME NON-TOBACCO USER [facility] Apr 23, 2016 09:50 AM FORMER TOBACCO USER 7Y OR GREATE R [facility] Mar 06, 2016 11:12 AM INPT NO TOBACCO USE IN LAST 30 D AYS [facility] Jul 15, 2015 08:58 AM LIFETIME NON-TOBACCO USER [facility] Feb 11, 2013 10:04 AM LIFETIME NON-TOBACCO USER [facility] Nov 27, 2006 03:44 PM FORMER TOBACCO USER 7Y OR GREATE R [facility] Advance Directives: All historical and current Section Date Range: From patient's date of to the date document was created. This section includes ALL of a patient's completed or amended [place] Advance and Rescinded Directives. The entries below indicate that a directive exists for the patient, but an actual copy is not included with this document. The data comes from all [facility]. Date Advance Directives Provider Source Mar 04, 2016 CLINICAL WARNING PALMA NUNEZ [facility] Apr 25, 2010 ADVANCE DIRECTIVE RADHA STEVENSON [facility] March 21, 2005 CLINICAL WARNING KYLEE ANNI [facility] Apr 28, 2004 CLINICAL WARNING MAGI CHAUDHRY [facility] Apr 28, 2004 CLINICAL WARNING DUNIA BLOUNT [facility] Encounter Notes: All associated encounter notes This section contains the clinical notes associated to the Encounter. Date/Time Encounter Note(s) Provider Source Jan 27, 2024 09:35 PM PHARMACY NOTE: LOCAL TITLE: PHARMACY NON VA CARE MEDICATIONS STANDARD TITLE: PHARMACY NOTE DATE OF NOTE: JAN 27, 2024@21:35 ENTRY DATE: JAN 27, 2024@21:35:54 AUTHOR: ROSEMARY KC EXP COSIGNER: URGENCY: STATUS: COMPLETED [facility] RECEIVED electronic prescription(s) (eRX(s)) from NON-[place] Provider: Linette Leone CNP [facility] Date eRX received: Jan Outside (non-VA) provider not authorized to write for prescription(s) through the [facility] pharmacy for this patient. Prescription request REDIRECTED via FAX to one of the following for review: [X] [facility] (Dual) Care eRx Prescription Information ( X 1 eRX ) Reference #: [id number] Drug: hydrocortisone 1 % topical cream Sig: Apply to ear as needed for itching and irritation Qty: 30 GM Refills: 0 Primary Dx: (ICD-10 H9203): Otalgia, bilateral /es/ ROSEMARY KC RPH [facility] OUTPATIENT PHARMACIST Signed: 01/27/2024 21:38 ROSEMARY KC [facility]
--- OUTSIDE RECORDS SUMMARY | 2024-07-17 00:42 | XMS_ITS | Encounter Summary ---
Author Name [facility] [place] Address [address] [place] [address] Care Team Providers Care Proofing Machine Operator Name Role Phone RONIT NIEVES Primary Care [...] Name Patient's Relationship to Policy Lu AARP [facility] ([facility]) MEDICARE ADVANTAGE MCR ([facility]) Nov 11, 2020 [id number] SHAYY,MAURICE Y PATIENT [facility] ([facility]) MEDICARE ADVANTAGE MCR ([facility]) Nov 11, 2017 [id number] [phone] SHAYY,MAURICE Y PATIENT [facility] ([facility]) MEDICARE ADVANTAGE MCR ([facility]) Nov 11, 2020 [id number] SHAYY,MAURICE Y PATIENT Selected Encounter This section includes the information on record at [place] for the Encounter. Date/Time Encounter Type Encounter Description Reason Provider Source Feb 10, 2024 10:30 AM OFFICE O/P EST MOD 30 [facility] - IND ICD-10-CM G47.00 Insomnia, unspecified HU,TERRENCE IHE Encounter Template Text not used by [place] Assessments - Encounter Diagnoses This section includes the primary and secondary diagnoses documented for the Encounter. Date/Time Primary/Secondary Diagnosis Diagnosis Name Provider Source Feb 10, 2024 03:49 PM PRIMARY Insomnia, unspecified [facility] Feb 10, 2024 03:49 PM SECONDARY Unspecified mood [affective] disorder HU,TERRENCE [facility] Plan of Treatment: Future Appointments (+ 6 months) and Future Tests (+/- 45 days) The Plan of Treatment section includes future care activities for the patient from all [place] [facility] This section includes future appointments and future orders which are active, pending or scheduled. Future Appointments This section includes appointments that were scheduled to occur 6 months from the date of the Encounter, up to a maximum of 20 appointments. The data comes from all [place] treatment facilities. Appointment Date/Time Appointment Type Appointme nt Facility Name Feb 12, 2024 10:00 AM AMB[facility]ATORY - NONE [place] [facility] Feb 28, 2024 08:40 AM AMBULATORY - MEDICINE [facility] Feb 28, 2024 09:00 AM AM[facility]ATORY - NONE [facility] Mar 03, 2024 09:15 AM AMBULATORY - NONE [facility] Mar 09, 2024 01:30 [facility] March 12, 2024 11:30 AM [facility] March 17, 2024 10:30 AM AMBULATORY - PSYCHIATRY [facility] March 27, 2024 01:30 PM AMBULATORY - NONE [facility] April 07, 2024 08:15 AM AMBULATORY - NONE [facility] Apr 23, 2024 08:30 AM AMB[place]ORY - NONE [place] [facility] May 12, 2024 08:15 AM AM[facility]ATORY - NONE [facility] May 15, 2024 01:00 PM AMBULATORY - MEDICINE [facility] May 19, 2024 10:30 AM AMBULATORY - PSYCHIATRY [facility] Jun 01, 2024 10:30 AM AMBULATORY - PS[facility]CHIATRY [facility] Jun 02, 2024 03:01 PM AMBULATORY - NONE [place] [facility] Jun 09, 2024 08:15 AM AMBULATORY - NONE [facility] Jun 30, 2024 10:30 AM AMBULATORY - PSYCHIATRY [facility] Jul 04, 2024 09:59 AM [facility] Jul 07, 2024 02:00 PM AMBULATORY - MEDICINE [facility] Jul 09, 2024 08:15 AM AMBULATORY - NONE [facility] Lab Results: +/- 30 days of the encounter This section includes the Chemistry and Hematology Lab Results on record with [place] for the patient. Radiology Reports and Pathology [...] Jan 10, 2024 10:24 AM Reporting Lab: [facility] [id number] Performing Lab: [facility] [id number] HEMOGLOBIN A1C 8.4 H 4.0-6.0 Feb 28, 2024 08:20 AM [facility] LIPID PANEL,FASTING Specimen Type: PLASMA No comment entered. Ordering Provider: NHI CHARLES Report Released Date/Time: Jan 10, 2024 10:24 AM Reporting Lab: [facility] [id number] Performing Lab: [facility] [id number] CHOLESTEROL 164 mg/dL <199 TRIGLYCERIDE 226 mg/dL H <149 .HDL 39 mg/dL L >40 LDL CALCULATION 80 mg/dL <99 VLDL CALCULATION 45 mg/dL H <29 NON HDL CHOLESTEROL 125 mg/dL <129 Advance Directives: All historical and current Section Date Range: From patient's date of to the date document was created. This section includes ALL of a patient's completed or amended [place] Advance and Rescinded Directives. The entries below indicate that a directive exists for the patient, but an actual copy is not included with this document. The data comes from all [place] facilities. Date Advance Directives Provider Source Mar 04, 2016 CLINICAL WARNING PALMA NUNEZI S [facility] Apr 25, 2010 ADVANCE DIRECTIVE ELVARADHA LEE Tio MURILLO [facility] March 21, 2005 CLINICAL WARNING KYLEE ANNI S [facility] Apr 28, 2004 CLINICAL WARNING MAGI CHAUDHRY [facility] Apr 28, 2004 CLINICAL WARNING BLOUNTDUNIA PIZARRO [facility] Encounter Notes: All associated encounter notes This section contains the clinical notes associated to the Encounter. Date/Time Encounter Note(s) Provider Source Feb 10, 2024 09:10 AM PSYCHIATRY E & M N OTE: LOCAL TITLE: PSYCHIATRIC EVALUATION & MANAGEMENT STANDARD TITLE: PSYCHIATRY E & M NOTE DATE OF NOTE: FEB 10, 2024@09:10 ENTRY DATE: FEB 10, 2024@09:10:38 AUTHOR: TERRENCE WALKER EXP COSIGNER: URGENCY: STATUS: COMPLETED Visit conducted by synchronous telehealth. verbal consent [...] disorder in remission who presents for scheduled appointment. Patton previously worked with Dr. Vela, and has been prescribed trazodone 50 mg qhs prn insomnia. Aware trazodone can be managed by PC, however prefers to follow up with a psychiatrist. Mood and sleep stable. Trying to decorate stepson's grave. long hx of frustration with VA in general. 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 Previously was very clear in stating he does not wishes to adjust or be on more MH medication, appreciate having this place to share his thoughts and feelings. Wishes he could go down to [place] to visit his daughter, but does not want to drive down by himself or take the bus. Previously reported he used to be on sertraline and an antipsychotic, dont remember the name. Reports he was taken off of his mental health medications in 2014 because he felt like his mood was actually worse when he was taking them and gaining weight. Share with personal lines underwriter he last had mood difficulties back in [...] he feels offended that PCP here at [facility] allegedly told him that if he is going to follow the directives of a local civilian caregiver, that he should not bother the [facility] clinic. Marv has declined antidepressants in the psat, with concerns that he had some dysphoria with them, and only uses the trazodone periodically. He occasionally calls, insisting on talking to prescriber about his general dysphoria, but didn't connect well with therapists before, and today objects to having to talk to MH nurse before having sooner appts with prescriber. Reviewed with him that prescribers do not regularly provide counseling under current modes or practice, but that keeping a regular relationship with a therapist can help him have supportive discussions with them. PAST MEDICAL/FAMILY/SOCIAL HISTORY PAST MEDICAL HISTORY: Active Problems reviewed: Osteoarthritis of knee ([facility] [id number]) Diabetes mellitus type 2 ([facility] [id number]) Hyperlipidemia ([facility] [id number]) Hypertension ([facility] [id number]) Subsequent non-ST segment elevation myocPrimary erectile dysfunction ([facility] [id number]) Obesity ([facility] [id number]) Abdominal pain ([facility] [id number]) Breathing-related sleep disorder ([facility] 11Depressive disorder ([facility] 47745696) History of calculus of kidney ([facility] 86277Adhjq of colon ([facility] 41817939) Impulse control disorder ([facility] 25881349) Gastroesophageal reflux disease ([facility] 547992422) Coronary artery disease ([facility] 56531166) Dyspepsia ([facility] 055682761) Atrial flutter ([facility] 2380884) Occlusion of internal carotid artery ([facility] [id number]) Anxiety neurosis ([facility] 817213635) Chronic alcoholism in remission ([facility] 414920655) Insomnia ([facility] 452742557) Cervical pain ([facility] 61516375) [facility] Primary Care (ICD-10-CM R69.) PAST MENTAL HEALTH HISTORY: Per chart review January 02, 2022 has had many diagnoses over the past 20+ years including Major Depressive Disorder with Psychosis, Major Depressive Disorder with Catatonia, Schizoaffective Disorder, Personality Disorder, Impulse Control Disorder, Recurrent Depression, Anxiety NOS, Cocaine Abuse, and Alcohol Dependence. Past Treatment? outpatient, per chart review January 02, 2022 pph 1999. ECT reguarly between 7477-5963. participated in [facility]IC[facility] (Intensive Case Management) between 2003 and 2008 Hospitalizations? 1999 and 2000 Suicide Attempts? denies Medication History? Sertraline SUBSTANCE USE HISTORY: Alcohol use (past and current)? 1 beer every few months. Per chart review DWI 1994, previously attended AA Use of illicit drugs (past and current)? Per chart review history of cocaine abuse Abuse of prescription drugs (past and current)? denies FAMILY AND SOCIAL HISTORY: Living situation: By himself in an apartment Marital Status: Children: Daughter/lives in [place] and son/ in 2006 Social supports: Suicide [...] CONTAINER WITH A SCREW-ON LID CONTACT GARBAGE [facility] PROP[facility] DISPOSAL 18) NITROGLYCERIN 0.4MG SL [...] Status: continued 2: History of alcoholism in remission/DWI 1994, previously attended AA - Problem/Condition: Established - [...] means on contacting this provider by phone [phone] , or [facility] Counseled on emergency resources available including [facility] Crisis Line , Emergency Room, 911 Counseled on importance of compliance with regular physical activity PSYCHOTHERAPY Supportive psychotherapy focused on: problem solving, improving coping skills, stress management and psycho-education. 20 (16-37) minutes Suicide Screen: C-SSRS Screening [place]-Suicide Severity Rating Scale (C-SSRS Screener) 1. Over the past month, have you wished you were or wished you could go to sleep and not wake up? No 2. Over the past month, have you had any actual thoughts of killing yourself? No 3. Over the past month, have you been thinking about how you might do this? Response not required due to responses to other questions. 4. Over the past month, have you had these thoughts and had some intention of acting on them? Response not required due to responses to other questions. 5. Over the past month, have you started to work out or worked out the details of how to kill yourself? Response not required due to responses to other questions. 6. If yes, at any time in the past month did you intend to carry out this plan? Response not required due to responses to other questions. 7. In your lifetime, have you ever done anything, started to do anything, or prepared to do anything to end your life (for example, collected pills, obtained a gun, gave away valuables, went to the roof but didn't jump)? No 8. If YES, was this within the past 3 months? Response not required due to responses to other questions. /migdalia/ TERRENCE WALKER staff physician Signed: 02/10/2024 15:49 TERRENCE WALKER
--- OUTSIDE RECORDS SUMMARY | 2024-07-17 00:42 | XMS_ITS | Encounter Summary ---
Author Name [facility] [place] Address [address] [place] [address] Care Team Providers Care Nurse Manager Name Role Phone LLIIAMRONIT LYNN Primary Care Provider Unavail able Insurance [...] Name Patient's Relationship to Policy Lu AARP [facility] ([facility]) MEDICARE ADVANTAGE MCR ([facility]) Nov 11, 2020 [id number] [phone] MAURICE LUCAS Y PATIENT [facility] ([facility]) MEDICARE ADVANTAGE MCR ([facility]) Nov 11, 2017 [id number] SHAYY,MAURICE Y PATIENT [facility] ([facility]) MEDICARE ADVANTAGE MCR ([facility]) Nov 11, 2020 [id number] MAURICE LUCAS Y PATIENT Selected Encounter This section includes the information on record at [place] for the Encounter. Date/Time Encounter Type Encounter Description Reason Pro vider Source April 08, 2024 04:20 PM Outpatient Encounter COMMUNITY CARE CONSULT IHE Encounter Template Text not used by VA Plan of Treatment: Future Appointments (+ 6 months) and Future Tests (+/- 45 days) The Plan of Treatment section includes future care activities for the patient from all [place] [facility] This section includes future appointments and future orders which are active, pending or scheduled. Future Appointments This section includes appointments that were scheduled to occur 6 months from the date of the Encounter, up to a maximum of 20 appointments. The data comes from all [place] treatment facilities. Appointment Date/Time Appointment Type Appointme nt Facility Name Apr 23, 2024 08:30 AM [place]ORY - NONE [place] [facility] May 12, 2024 08:15 AM AMBULATORY - NONE [facility] May 15, 2024 01:00 PM AMBULATORY - MEDICINE [facility] May 19, 2024 10:30 AM AMBULATORY - PSYCHIATRY [facility] Jun 01, 2024 10:30 AM AMBULATORY - PSYCHIATRY [facility] Jun 02, 2024 03:01 PM AM[place]ULATORY - NONE [place] [facility] Jun 09, 2024 08:15 AM AMBULATORY - NONE [facility] Jun 30, 2024 10:30 AM AMBULATORY - PSYCHIATRY [facility] Jul 04, 2024 09:59 AM AM[place]ULATORY - NONE [place] [facility] Jul 07, 2024 02:00 PM AMBULATORY - MEDICINE [facility] Jul 09, 2024 08:15 AM AMBULATORY - NONE [facility] Jul 13, 2024 11:24 AM AM[place]UL[place]ORY - NONE [place] [facility] Aug 06, 2024 08:15 AM AMBULATORY - NONE [facility] Aug 12, 2024 02:00 PM [place]ICINE [place] [facility] Sep 14, 2024 10:30 AM AMBULATORY - PSYCHIATRY [facility] Sep 15, 2024 10:30 AM AMBULATORY - PSYCHIATRY AL [...] 23, 2019 08:54 AM VA-TOBACCO FORMER USER [facility] Tobacco Use History This section includes a history of the smoking, or tobacco-related health factors, that were collected on or before the date of the Encounter. The data comes from the [place] facility where the Encounter took place. Date/Time Smoking Status/Tobacco Use Comment F acility March 23, 2019 08:54 AM [place]-TOBACCO QUIT 15 YRS OR MORE [facility] Mar 04, 2018 09:41 AM LIFETIME NON-TOBACCO USER [facility] Jun 17, 2017 01:07 PM LIFETIME NON-TOBACCO USER [facility] Apr 23, 2016 09:50 AM FORMER TOBACCO USER 7Y OR GREATE R [facility] Mar 06, 2016 11:12 AM INPT NO TOBACCO USE IN LAST 30 D AYS [facility] Jul 15, 2015 08:58 AM LIFETIME NON-TOBACCO USER [facility] Feb 11, 2013 10:04 AM LIFETIME NON-TOBACCO USER [facility] Nov 27, 2006 03:44 PM FORMER TOBACCO USER 7Y OR GREATE R [facility] Advance Directives: All historical and current Section Date Range: From patient's date of to the date document was created. This section includes ALL of a patient's completed or amended [place] Advance and Rescinded Directives. The entries below indicate that a directive exists for the patient, but an actual copy is not included with this document. The data comes from all [facility]. Date Advance Directives Provider Source Mar 04, 2016 [facility], 2010 ADVANCE DIRECTIVE RADHA STEVENSON [facility] March 21, 2005 [facility] Apr 28, 2004 [facility] Apr 28, 2004 CLINICAL WARNING DUNIA BLOUNT CHAR [facility] Radiology Reports: +/- 30 days of [...] treatment facilities. Date/Time Radiology Report Provider Source April 02, 2024 08:[address] ABDOMEN/ PELVIS: SHAYYSELAM [id number] -[id number] M Exm Date: APRIL 02, 2024@08:26 Req Phys: JAMILAAMADORONIT LYNN Young Pat Loc: [facility] XRAY GENERAL AM (Req'g Loc Img Loc: OUTSOURCE CT Service: Unknown (Case [id number] COMPLETE) NON [facility] CT ABDOMEN/PELVIS (CT Detailed) CPT:94970 Reason for Study: outside study Clinical History: outside study Report Status: Electronically Filed Date Reported: MAY 06, 2024 Report: This is an outside Imaging study and/or report imported for continuity of patient care. This Imaging study and/or report was not reviewed or verified by a [place] Radiologist. Impression: This is an outside Imaging study and/or report imported for continuity of patient care. This Imaging study and/or report was not reviewed or verified by a [place] Radiologist. Primary Diagnostic Code: VERIFIED BY: / *ELECTRONICALLY FILED* [facility] Encounter Notes: All associated encounter notes This section contains the clinical notes associated to the Encounter. Date/Time Encounter Note(s) Provider Source April 08, 2024 04:20 PM NONVA NOTE: LOCAL TITLE: COMMUNITY CARE APPOINTMENT LETTER (AUTOPRINT) STANDARD TITLE: NONVA NOTE DATE OF NOTE: APRIL 08, 2024@16:20 ENTRY DATE: APRIL 08, 2024@16:20:29 AUTHOR: ESTEFANI MOORE COSIGNER: URGENCY: STATUS: COMPLETED March SELAM LUCAS [address] [place] [address] Dear SELAM LUCAS, Your [place] provider has referred you to a provider within the community for care. Your medical care for PRIMARY CARE has been authorized with the community care provider listed below. DO NOT REPORT TO THE [facility] Provider info: An appointment has been scheduled for you on: Apr@08:30 Office name, address, phone number: [place] [address] [place] [address] Authorization number: [id number] Referral issue date: March Expiration date: Apr (subject to change based on first appointment) *Please bring this appt letter containing your authorization information to your appointment* If you are unable to keep this appointment or the appointment is no longer needed, please contact the community provider above for notification/rescheduling and then call the [facility] Office of Community Care at [phone] during the hours of 8:30AM - 3:00PM. If you need additional care/services not mentioned above or your authorization has and additional care is needed, please contact your primary care provider for a new referral. To review all care/service(s) approved under your referral, please go to the following link: [employer]) Co-Payments: If you are required to pay a VA co-payment, you will be billed by the VA for each authorized visit that you attend. However, you are NOT REQUIRED to make co-payments to a community provider. Thank you for the opportunity to serve you. Sincerely, [place] Community Care ([facility]) /migdalia/ ESTEFANI MOORE AMSA Signed: 04/08/2024 16:21 ESTEFANI MOORE [facility]
--- OUTSIDE RECORDS SUMMARY | 2024-07-17 00:42 | XMS_ITS | Encounter Summary ---
Author Name [facility] [place] Organization [facility] [place] [place] Address [address] [place] [address] Care Team Providers Care Economics Professor Name Role Phone JAMILARONIT WITT Primary Care [...] Name Patient's Relationship to Policy Lu AARP [facility] (WNR) MEDICARE ADVANTAGE MCR ([facility]) Nov 11, 2020 [id number] SHAYY,MAURICE Y PATIENT [facility] (WNR) MEDICARE ADVANTAGE MCR (R) Nov 11, 2017 [id number] SHAYY,MAURICE Y PATIENT [facility] (WN) MEDICARE ADVANTAGE MCR ([facility]) Nov 11, 2020 [id number] SHAYYMAURICE Yee Y PATIENT Selected Encounter This section includes the information on record at [place] for the Encounter. Date/Time Encounter Type Encounter Description Reason Pro vider Source April 10, 2024 11:50 AM Outpatient Encounter PRIMARY CARE/MEDICINE IHE Encounter Template Text not used by [place] Plan of Treatment: Future Appointments (+ 6 months) and Future Tests (+/- 45 days) The Plan of Treatment section includes future care activities for the patient from all [facility]. This section includes future appointments and future orders which are active, pending or scheduled. Future Appointments This section includes appointments that were scheduled to occur 6 months from the date of the Encounter, up to a maximum of 20 appointments. The data comes from all [place] treatment facilities. Appointment Date/Time Appointment Type Appointme nt Facility Name Apr 23, 2024 08:30 AM [place] [place] [facility] May 12, 2024 08:15 AM [facility]ORY [facility] NONE [facility] May 15, 2024 01:00 PM [facility] May 19, 2024 10:30 AM [facility] Jun 01, 2024 10:30 AM AMB[facility] Jun 02, 2024 03:01 PM AM[place] [place] NONE [place] [facility] Jun 09, 2024 08:15 AM [facility] Jun 30, 2024 10:30 AM [facility] Jul 04, 2024 09:59 AM AM[place]ORY [place] NONE [place] [facility] Jul 07, 2024 02:00 PM [facility] Jul 09, 2024 08:15 AM [facility] Jul 13, 2024 11:24 AM [place] [place]ONE [place] [facility] Aug 06, 2024 08:15 AM [facility] Aug 12, 2024 02:00 PM [place] [place] [facility] Sep 14, 2024 10:30 AM [facility] Sep 15, 2024 10:30 AM [facility] Social History: Smoking Status (Most current) and Tobacco Use (All prior to encounter date) This section includes the most current, and the historical, smoking and tobacco- related health factors from the [place] facility where the Encounter took place. Current Smoking Status This section includes the most current smoking, or tobacco-related health factor, from the [place] facility where the Encounter took place. Date/Time Current Smoking Status Comment Facil ity March 23, 2019 08:54 AM VA-TOBACCO QUIT 15 YRS OR MORE [facility] Tobacco Use History This section includes a history of the smoking, or tobacco-related health factors, that were collected on or before the date of the Encounter. The data comes from the [place] facility where the Encounter took place. Date/Time Smoking Status/Tobacco Use Comment F acility March 23, 2019 08:54 AM [place]-TOBACCO QUIT 15 YRS OR MORE [facility] Mar 04, 2018 09:41 AM LIFETIME NON-TOBACCO USER [facility] Jun 17, 2017 01:07 PM LIFETIME NON-TOBACCO USER [facility] Apr 23, 2016 09:50 AM FORMER TOBACCO USER 7Y OR GREATE R [facility] Mar 06, 2016 11:12 AM INPT NO TOBACCO USE IN LAST 30 D AYS [facility] Jul 15, 2015 08:58 AM LIFETIME NON-TOBACCO USER [facility] Feb 11, 2013 10:04 AM LIFETIME NON-TOBACCO USER [facility] Nov 27, 2006 03:44 PM FORMER TOBACCO USER 7Y OR GREATE R [facility] Advance Directives: All historical and current Section Date Range: From patient's date of to the date document was created. This section includes ALL of a patient's completed or amended [place] Advance and Rescinded Directives. The entries below indicate that a directive exists for the patient, but an actual copy is not included with this document. The data comes from all [facility]. Date Advance Directives Provider Source Mar 04, 2016 CLINICAL WARNING PALMA NUNEZ [facility] Apr 25, 2010 ADVANCE DIRECTIVE RADHA STEVENSON [facility] March 21, 2005 CLINICAL WARNING KYLEE ANN [facility] Apr 28, 2004 [facility]ICAL [facility]ING [facility] Apr 28, 2004 [facility] Radiology Reports: +/- 30 [...] the Encounter. The data comes from all [place] treatment facilities. Date/Time Radiology Report Provider Source April 02, 2024 08:[address] ABDOMEN/ PELVIS: SELAM GREGORY [id number] -1950 M Exm Date: APRIL 02, 2024@08:26 Req Phys: JAMILAAMADORONIT LYNN Young Pat Loc: [facility] XRAY GENERAL AM (Req'g Loc Img Loc: OUTSOURCE CT Service: Unknown (Case [id number] COMPLETE) NON [place] CT ABDOMEN/PELVIS (CT Detailed) CPT:16851 Reason for Study: outside study Clinical History: outside study Report Status: Electronically Filed Date Reported: MAY 06, 2024 Report: This is an outside Imaging study and/or report imported for continuity of patient care. This Imaging study and/or report was not reviewed or verified by a [place] Radiologist. Impression: This is an outside Imaging study and/or report imported for continuity of patient care. This Imaging study and/or report was not reviewed or verified by a [place] Radiologist. Primary Diagnostic Code: VERIFIED BY: / *ELECTRONICALLY FILED* [facility] Encounter Notes: All associated encounter notes This section contains the clinical notes associated to the Encounter. Date/Time Encounter Note(s) Provider Source Apr 13, 2024 10:40 AM ADDENDUM: LOCAL TITLE: Addendum STANDARD TITLE: ADDENDUM DATE OF NOTE: APR 13, 2024@10:40:29 ENTRY DATE: APR 13, 2024@10:40:30 AUTHOR: MARCIO PRIDE EXP COSIGNER: URGENCY: STATUS: COMPLETED Alerting clinic Pharmacist to request for return call regarding insulin. /migdalia/ Marcio Pride LPN Signed: 04/13/2024 10:40 Receipt Acknowledged By: 04/23/2024 15:34 /Norma Baltazar OC Clinical Nut Roaster Helper --- Original Document --- 04/10/24 PATIENT CONTACT NOTE: Patient contact Name of [place]: SELAM GREGORY Name/Relationship of Contact if other than [place]: Date & Time of Contact: March@11:50 Type of Contact: Telephone Reason for Contact: Mr. Gregory has questions on his insulin when to take between all three of them /migdalia/ MY [facility]T MSA MSA [facility] Signed: 04/10/2024 11:51 Receipt Acknowledged By: 04/13/2024 10:40 /es/ Marcio Pride PARADICHLOROBENZENE MACHINE OPERATOR 04/11/2024 ADDENDUM STATUS: COMPLETED Please have vet always F/U with Pharm D & non-VA pcp (Shilo Weldon; Linette Leone)about diabetes medication to avoid fragmented care /es/ RONIT NIEVES,FACILITIES LOCATOR [facility]READ [facility] [place] Signed: 04/11/2024 12:43 04/23/2024 ADDENDUM STATUS: UNSIGNED You may not VIEW this UNSIGNED Addendum. MARCIO PRIDE CB April 10, 2024 11:50 AM REPORT OF CONTACT: LOCAL TITLE: PATIENT CONTACT NOTE STANDARD TITLE: REPORT OF CONTACT DATE OF NOTE: APRIL 10, 2024@11:50 ENTRY DATE: APRIL 10, 2024@11:50:22 AUTHOR: MY BURKETT COSIGNER: URGENCY: STATUS: COMPLETED PATIENT CONTACT NOTE Has ADDENDA Patient contact Name of : SELAM GREGORY Name/Relationship of Contact if other than : Date & Time of Contact: March@11:50 Type of Contact: Telephone Reason for Contact: Mr. Gregory has questions on his insulin when to take between all three of them /migdalia/ MY BURK[facility]T MSA [facility] Signed: 04/10/2024 11:51 Receipt Acknowledged By: 04/13/2024 10:40 /cali Pride LPN 04/11/2024 ADDENDUM STATUS: COMPLETED Please have vet always F/U with Pharm D & non-VA pcp (Shilo Weldon; Linette Leone)about diabetes medication to avoid fragmented care /es/ RONIT NIEVES,KEYANNA [facility] Signed: 04/11/2024 12:43 04/13/2024 ADDENDUM STATUS: COMPLETED Alerting clinic Pharmacist to request for return call regarding insulin. /es/ Marcio Pride LPN Signed: 04/13/2024 10:40 Receipt Acknowledged By: 04/23/2024 15:34 /migdalia/ Carlos Fontanez [facility]D [facility] Clinical Nut Roaster Helper 04/23/2024 ADDENDUM STATUS: COMPLETED Patient Contact: April 23, 2024 @3:34 PM Contact Type: Telephone Reason for Contact/Action: - vet had question regarding timing of his injections with respect of semaglutide - clarified timing with vet - semaglutide has been causing constipation and fatigue - wants to continue med since he just opened a new pen - may consider decreasing dose or stopping med, but will discuss at next visit /migdalia/ Carlos Fontanez PharmD [facility] Clinical Nut Roaster Helper Signed: 04/23/2024 15:45 [facility]
--- OUTSIDE RECORDS SUMMARY | 2024-07-17 00:43 | XMS_ITS | Encounter Summary ---
Author Name Department of [place] [place] Organization [place] Address [address] [place] [address] Care Team Providers Care Can Operator Name Role Phone LILIAMRONIT LYNN Primary Care [...] Name Patient's Relationship to Policy Lu AARP [facility] ([facility]) MEDICARE ADVANTAGE MCR ([facility]) Nov 11, 2020 [id number] [phone] MAURICE LUCAS Y PATIENT [facility] ([facility]) MEDICARE ADVANTAGE MCR ([facility]) Nov 11, 2017 [id number] SHAY[address]ICE Yee [address] PATIENT [facility] ([facility]) MEDICARE ADVANTAGE MCR ([facility]) Nov 11, 2020 [id number] [phone] MAURICE LUCAS Y PATIENT Selected Encounter This section includes the information on record at [place] for the Encounter. Date/Time Encounter Type Encounter Description Reason Pro vider Source Apr 15, 2024 03:04 PM Outpatient Encounter COMMUNITY CARE CONSULT IHE Encounter Template Text not used by VA Plan of Treatment: Future Appointments (+ 6 months) and Future Tests (+/- 45 days) The Plan of Treatment section includes future care activities for the patient from all [facility]. This section includes future appointments and future orders which are active, pending or scheduled. Future Appointments This section includes appointments that were scheduled to occur 6 months from the date of the Encounter, up to a maximum of 20 appointments. The data comes from all [place] treatment facilities. Appointment Date/Time Appointment Type Appointme nt Facility Name Apr 23, 2024 08:30 AM [place] [facility] May 12, 2024 08:15 AM [facility]ORY [facility] NONE [facility] May 15, 2024 01:00 PM [facility] May 19, 2024 10:30 AM [facility] Jun 01, 2024 10:30 AM AMBULATORY - [facility] Jun 02, 2024 03:01 PM AM[place]ORY [place] [facility] Jun 09, 2024 08:15 AM AM[facility]ATORY - NONE [facility] Jun 30, 2024 10:30 AM AMBUL[facility]ORY - [facility]IATRY [facility] Jul 04, 2024 09:59 AM [place] [facility] Jul 07, 2024 02:00 PM AM[facility]ORY - MEDICINE [facility] Jul 09, 2024 08:15 AM AM[facility]ORY - NONE [facility] Jul 13, 2024 11:24 AM [place] [facility] Aug 06, 2024 08:15 AM [facility]ORY - NONE [facility] Aug 12, 2024 02:00 PM [place] [facility] Sep 14, 2024 10:30 AM AMBUL[facility] - [facility]RY [facility] Sep 15, 2024 10:30 AM AMB[facility] - [facility] Social History: Smoking Status (Most current) and Tobacco Use (All prior to encounter date) This section includes the most current, and the historical, smoking and tobacco- related health factors from the [place] facility where the Encounter took place. Current Smoking Status This section includes the most current smoking, or tobacco-related health factor, from the [place] facility where the Encounter took place. Date/Time Current Smoking Status Comment Facil ity March 23, 2019 08:54 AM VA-TOBACCO QUIT [address] [facility] Tobacco Use History This section includes a history of the smoking, or tobacco-related health factors, that were collected on or before the date of the Encounter. The data comes from the [place] facility where the Encounter took place. Date/Time Smoking Status/Tobacco Use Comment F acmaura March 23, 2019 08:54 AM [place]-TOBACCO QUIT [address] [facility] Mar 04, 2018 09:41 AM LIFETIME NON-TOBACCO USER [facility] Jun 17, 2017 01:07 PM LIFETIME NON-TOBACCO USER [facility] Apr 23, 2016 09:50 AM FORMER TOBACCO USER 7Y OR GREATE R [facility] Mar 06, 2016 11:12 AM INPT NO TOBACCO USE IN LAST [address] [facility] Jul 15, 2015 08:58 AM LIFETIME NON-TOBACCO USER [facility] Feb 11, 2013 10:04 AM LIFETIME NON-TOBACCO USER [facility] Nov 27, 2006 03:44 PM FORMER TOBACCO USER [address]Y OR GRE[address] [facility] Advance Directives: All historical and current Section Date Range: From patient's date of to the date document was created. This section includes ALL of a patient's completed or amended [place] Advance and Rescinded Directives. The entries below indicate that a directive exists for the patient, but an actual copy is not included with this document. The data comes from all [facility]. Date Advance Directives Provider Source Mar 04, 2016 CLINICAL WARNING [facility] Apr 25, 2010 ADVANCE DIRECTIVE RADHA STEVEN[facility] March 21, 2005 CLINICAL WARNING KYLEE ANN [facility] Apr 28, 2004 CLINICAL WARNING [facility] Apr 28, 2004 [facility] Radiology Reports: +/- 30 days of the [...] the Encounter. The data comes from all [place] treatment facilities. Date/Time Radiology Report Provider Source April 02, 2024 08:[address] ABDOMEN/ PELVIS: SHAYYSELAM [id number] -[id number] M Exm Date: APRIL 02, 2024@08:26 Req Phys: JAMILAAMADORONIT LYNN Young Pat Loc: [facility] XRAY GENERAL AM (Req'g Loc Img Loc: OUTSOURCE CT Service: Unknown (Case [id number] COMPLETE) NON [place] CT ABDOMEN/PELVIS (CT Detailed) CPT:04050 Reason for Study: outside study Clinical History: outside study Report Status: Electronically Filed Date Reported: MAY 06, 2024 Report: This is an outside Imaging study and/or report imported for continuity of patient care. This Imaging study and/or report was not reviewed or verified by a [place] Radiologist. Impression: This is an outside Imaging study and/or report imported for continuity of patient care. This Imaging study and/or report was not reviewed or verified by a [place] Radiologist. Primary Diagnostic Code: VERIFIED BY: / *ELECTRONICALLY FILED* [facility] Encounter Notes: All associated encounter notes This section contains the clinical notes associated to the Encounter. Date/Time Encounter Note(s) Provider Source Apr 15, 2024 03:04 PM NONVA NOTE: LOCAL TITLE: COMMUNITY CARE APPOINTMENT LETTER (AUTOPRINT) STANDARD TITLE: NONVA NOTE DATE OF NOTE: APR 15, 2024@15:04 ENTRY DATE: APR 15, 2024@15:04:45 AUTHOR: RAFAT HORVATH COSIGNER: URGENCY: STATUS: COMPLETED Apr SELAM LUCAS [address] [address] Dear SELAM LUCAS, Your VA provider has referred you to a provider within the community for care. Your medical care for PRIMARY CARE has been authorized with the community care provider listed below. DO NOT REPORT TO THE [place] MEDICAL CENTER Provider info: An appointment has been scheduled for you on: Apr@08:30 Office name, address, phone number: [facility] [address] [place] [address] Authorization number: [id number] Referral issue date: Apr Expiration date: Apr (subject to change based on first appointment) *Please bring this appt letter containing your authorization information to your appointment* If you are unable to keep this appointment or the appointment is no longer needed, please contact the community provider above for notification/rescheduling and then call the [facility] Office of Community Care at [phone] during the hours of 8:30AM - 3:00PM. If you need additional care/services not mentioned above or your authorization has and additional care is needed, please contact your primary care provider for a new referral. To review all care/service(s) approved under your referral, please go to the following link: [facility] Portal([email or web address]) Co-Payments: If you are required to pay a VA co-payment, you will be billed by the [place] for each authorized visit that you attend. However, you are NOT REQUIRED to make co-payments to a community provider. Thank you for the opportunity to serve you. Sincerely, [place] Community Care (VACC) /migdalia/ RAFAT HORVATH MSA [employer]AY DRIER OPERATOR HELPER Signed: 04/15/2024 15:06 RAFAT HORVATH [facility]
--- OUTSIDE RECORDS SUMMARY | 2024-07-17 00:43 | XMS_ITS | Encounter Summary ---
Author Name [facility] [place] Organization [place] Address [address] [place] [address] Care Team Providers Care Machinist Linotype Name Role Phone LILIAMRONIT LYNN Primary Care [...] Patient's Relationship to Policy Lu AARP [facility] ([facility]) MEDICARE ADVANTAGE MCR ([facility]) Nov 11, 2020 [id number] 99 MAURICE LUCAS Y PATIENT [facility] ([facility]) MEDICARE ADVANTAGE MCR ([facility]) Nov 11, 2017 [id number] SHAYYMAURICE Yee Y PATIENT [facility] ([facility]) MEDICARE ADVANTAGE MCR ([facility]) Nov 11, 2020 [id number] 99 MAURICE LUCAS Y PATIENT Selected Encounter This section includes the information on record at [place] for the Encounter. Date/Time Encounter Type Encounter Description Reason Pro vider Source Apr 23, 2024 12:00 PM Outpatient Encounter COMMUNITY CARE CONSULT IHE Encounter Template Text not used by VA Plan of Treatment: Future Appointments (+ 6 months) and Future Tests (+/- 45 days) The Plan of Treatment section includes future care activities for the patient from [facility] [place] [facility] This section includes future appointments and future orders which are active, pending or scheduled. Future Appointments This section includes appointments that were scheduled to occur 6 months from the date of the Encounter, up to a maximum of 20 appointments. The data comes from all [place] treatment facilities. Appointment Date/Time Appointment Type Appointme nt Facility Name May 12, 2024 08:15 AM [facility]ATORY [facility] NONE [facility] May 15, 2024 01:00 PM [facility]ORY - [facility]INE [facility] May 19, 2024 10:30 AM [facility] Jun 01, 2024 10:30 AM [facility] Jun 02, 2024 03:01 PM [place] [place] [facility] Jun 09, 2024 08:15 AM [facility] Jun 30, 2024 10:30 AM [facility] Jul 04, 2024 09:59 AM [facility] [place]ONE [place] [facility] Jul 07, 2024 02:00 PM [facility] - [facility]INE [facility] Jul 09, 2024 08:15 AM [facility]ONE [facility] Jul 13, 2024 11:24 AM [facility] [place]ONE [place] [facility] Aug 06, 2024 08:15 AM [facility]ONE [facility] Aug 12, 2024 02:00 PM [place] [facility] Sep 14, 2024 10:30 AM AMBUL[facility] - [facility]RY [facility] Sep 15, 2024 10:30 AM AMB[facility] - [facility]RY [facility] Social History: Smoking Status (Most current) and Tobacco Use (All prior to encounter date) This section includes the most current, and the historical, smoking and tobacco- related health factors from the [place] facility where the Encounter took place. Current Smoking Status This section includes the most current smoking, or tobacco-related health factor, from the [place] facility where the Encounter took place. Date/Time Current Smoking Status Comment Darian bocanegra March 23, 2019 08:54 AM VA-TOBACCO QUIT 15 YRS OR MORE [facility] Tobacco Use History This section includes a history of the smoking, or tobacco-related health factors, that were collected on or before the date of the Encounter. The data comes from the [place] facility where the Encounter took place. Date/Time Smoking Status/Tobacco Use Comment F acility March 23, 2019 08:54 AM VA-TOBACCO QUIT 15 YRS OR MORE [facility] Mar 04, 2018 09:41 AM LIFETIME NON-TOBACCO USER [facility] Jun 17, 2017 01:07 PM LIFETIME NON-TOBACCO USER [facility] Apr 23, 2016 09:50 AM FORMER TOBACCO USER 7Y OR GREATE R [facility] Mar 06, 2016 11:12 AM INPT NO TOBACCO USE IN LAST 30 D AYS [facility] Jul 15, 2015 08:58 AM LIFETIME NON-TOBACCO USER [facility] Feb 11, 2013 10:04 AM LIFETIME NON-TOBACCO USER [facility] Nov 27, 2006 03:44 PM FORMER TOBACCO USER 7Y OR GREATE R [facility] Advance Directives: All historical and current Section Date Range: From patient's date of to the date document was created. This section includes ALL of a patient's completed or amended [place] Advance and Rescinded Directives. The entries below indicate that a directive exists for the patient, but an actual copy is not included with this document. The data comes from all [facility]. Date Advance Directives Provider Source Mar 04, 2016 CLINICAL WARNING PALMA NUNEZ [facility] Apr 25, 2010 ADVANCE DIRECTIVE RADHA STEVENSON [facility] March 21, 2005 CLINICAL WARNING KYLEE ANN [facility] Apr 28, 2004 [facility]ICAL [facility]ING [facility] Apr 28, 2004 CLINICAL WARNING [facility] Radiology Reports: +/- 30 days of [...] the Encounter. The data comes from all [place] treatment facilities. Date/Time Radiology Report Provider Source April 02, 2024 08:[address] ABDOMEN/ PELVIS: SELAM LUCAS [id number] -1950 M Exm Date: APRIL 02, 2024@08:26 Req Phys: RONIT NIEVES N Pat Loc: [facility] XRAY GENERAL AM (Req'g Loc Img Loc: OUTSOURCE CT Service: Unknown (Case [id number] COMPLETE) NON [place] CT ABDOMEN/PELVIS (CT Detailed) CPT:94454 Reason for Study: outside study Clinical History: outside study Report Status: Electronically Filed Date Reported: MAY 06, 2024 Report: This is an outside Imaging study and/or report imported for continuity of patient care. This Imaging study and/or report was not reviewed or verified by a [place] Radiologist. Impression: This is an outside Imaging study and/or report imported for continuity of patient care. This Imaging study and/or report was not reviewed or verified by a [place] Radiologist. Primary Diagnostic Code: VERIFIED BY: / *ELECTRONICALLY FILED* [facility] Encounter Notes: All associated encounter notes This section contains the clinical notes associated to the Encounter. Date/Time Encounter Note(s) Provider Source Apr 23, 2024 12:00 PM NONVA CONSULT: LOCAL TITLE: COMMUNITY CARE CONSULT RESULT PRIMARY CARE STANDARD TITLE: NONVA CONSULT DATE OF NOTE: APR 23, 2024@12:00 ENTRY DATE: MAY 06, 2024@04:17:55 AUTHOR: CATARINA BARAJAS EXP COSIGNER: URGENCY: STATUS: COMPLETED COMMUNITY CARE CONSULT RESULT PRIMARY CARE Has ADDENDA VistA Imaging - Scanned Document [employer] SCANNED DOCUMENT SIGNATURE NOT REQUIRED Electronically Filed: 05/06/2024 by: CATARINA BARAJAS RN corporation pilot Long Line Teamster 05/06/2024 ADDENDUM STATUS: COMPLETED Record reviewed. No new referrals noted. Faxed Primary Care authorization to Shilo Weldon as requested by vendor at fax [phone]. /migdalia/ CATARINA BARAJAS RN corporation pilot Long Line Teamster Signed: 05/06/2024 04:20 CATARINA BARAJAS [facility] Apr 23, 2024 12:00 PM NONVA CONSULT: LOCAL TITLE: COMMUNITY CARE CONSULT RESULT PRIMARY CARE STANDARD TITLE: NONVA CONSULT DATE OF NOTE: APR 23, 2024@12:00 ENTRY DATE: MAY 28, 2024@03:17:33 AUTHOR: CATARINA BARAJAS EXP COSIGNER: URGENCY: STATUS: COMPLETED VistA Imaging - Scanned Document [facility] requesting back brace Visit record dated 04/23/24 SCANNED DOCUMENT SIGNATURE NOT REQUIRED Electronically Filed: 05/28/2024 by: CATARINA BARAJAS RN corporation pilot Long Line Teamster CATARINA BARAJAS [facility]
--- OUTSIDE RECORDS SUMMARY | 2024-07-17 00:43 | XMS_ITS | Encounter Summary ---
Author Name [place] Organization [place] Address [address] [place] [address] Care Team Providers Care Bellman Captain Name Role Phone LILIAMRONTI LYNN Primary Care Provider Unavail able Insurance [...] Relationship to Policy Lu AARP [facility] ([facility] MEDICARE ADVANTAGE MCR ([facility] Nov 11, 2020 [id number] MAURICE LUCAS Y PATIENT [facility] ([facility] MEDICARE ADVANTAGE MCR ([facility] Nov 11, 2017 [id number] [phone] SHAYYMAURICE Yee Y PATIENT [facility] ([facility] MEDICARE ADVANTAGE MCR ([facility] Nov 11, 2020 [id number] 99 MAURICE LUCAS Y PATIENT Selected Encounter This section includes the information on record at [place] for the Encounter. Date/Time Encounter Type Encounter Description Reason Pro vider Source May 08, 2024 09:05 AM Outpatient Encounter COMMUNITY CARE CONSULT IHE Encounter Template Text not used by VA Plan of Treatment: Future Appointments (+ 6 months) and Future Tests (+/- 45 days) The Plan of Treatment section includes future care activities for the patient from all [place] [facility]. This section includes future appointments and future orders which are active, pending or scheduled. Future Appointments This section includes appointments that were scheduled to occur 6 months from the date of the Encounter, up to a maximum of 20 appointments. The data comes from all [place] treatment facilities. Appointment Date/Time Appointment Type Appointme [...] 2024 03:01 PM AM[place]ORY - NONE [place] [facility] Jun 09, 2024 08:15 AM [facility]ONE [facility] Jun 30, 2024 10:30 AM [facility] Jul 04, 2024 09:59 AM AM[facility]ORY - NONE [place] [facility] Jul 07, 2024 02:00 PM [facility]ORY - [facility]ICINE [facility] Jul 09, 2024 08:15 AM [facility]ORY - NONE [facility] Jul 13, 2024 11:24 AM AM[place]ORY - NONE [place] [facility] Aug 06, 2024 08:15 AM [facility] - NONE [facility] Aug 12, 2024 02:00 PM [facility] [place] [facility] Sep 14, 2024 10:30 AM AMBUL[facility] - [facility]RY [facility] Sep 15, 2024 10:30 AM AMBUL[facility]RY [facility] Social History: Smoking Status (Most current) and Tobacco Use (All prior to encounter date) This section includes the most current, and the historical, smoking and tobacco- related health factors from the [place] facility where the Encounter took place. Current Smoking Status This section includes the most current smoking, or tobacco-related health factor, from the [place] facility where the Encounter took place. Date/Time Current Smoking Status Comment Darian bocanegra March 23, 2019 08:54 AM VA-TOBACCO QUIT 15 YRS OR MORE [facility] Tobacco Use History This section includes a history of the smoking, or tobacco-related health factors, that were collected on or before the date of the Encounter. The data comes from the [place] facility where the Encounter took place. Date/Time [...] ALL of a patient's completed or amended [place] Advance and Rescinded Directives. The entries below indicate that a directive exists for the patient, but an actual copy is not included with this document. The data comes from all [place] facilities. Date Advance Directives Provider Source Mar 04, 2016 CLINICAL WARNING PALMA NUNEZ [facility] Apr 25, 2010 ADVANCE DIRECTIVE RADHA STEVENSON [facility] March 21, 2005 CLINICAL WARNING KYLEE ANN [facility] Apr 28, 2004 [facility] Apr 28, 2004 [facility] Encounter Notes: All associated encounter notes This section contains the clinical notes associated to the Encounter. Date/Time Encounter Note(s) Provider Source May 08, 2024 09:05 AM PHARMACY NOTE: LOCAL TITLE: PHARMACY NON [place] CARE MEDICATIONS STANDARD TITLE: PHARMACY NOTE DATE OF NOTE: MAY 08, 2024@09:05 ENTRY DATE: MAY 08, 2024@09:05:05 AUTHOR: ISABEL CUEVAS EXP COSIGNER: URGENCY: STATUS: COMPLETED The [facility] Outpatient [facility]acy RECEIVED electronic prescription(s) faxed from a NON-VA Provider: Regarding Patient: SELAM LUCAS Date of : Nov Regarding PRESCRIPTION(s) written on for: Medication:BACK BRACE The NON-VA provider is unauthorized to write prescription(s) through the [facility] pharmacy. Prescription request REDIRECTED via FAX to NIKKY MAHONEY /migdalia/ ISABEL CUEVAS FOUNDRY SUPERINTENDANT Signed: 05/08/2024 09:05 ISABEL CUEVAS [facility]
--- OUTSIDE RECORDS SUMMARY | 2024-07-17 00:43 | XMS_ITS | Encounter Summary ---
Author Name [place] Organization [place] Address [address] [place] [address] Care Team Providers Care Mutual Fund Sales Agent Name Role Phone LILIAMRONIT LYNN Primary Care [...] Name Patient's Relationship to Policy Lu AARP [facility] ([facility]) MEDICARE ADVANTAGE MCR ([facility]) Nov 11, 2020 [id number] 99 MAURICE LUCAS Y PATIENT [facility] ([facility]) MEDICARE ADVANTAGE MCR ([facility]) Nov 11, 2017 [id number] 17 SHAYYMAURICE Yee Y PATIENT [facility] ([facility]) MEDICARE ADVANTAGE MCR ([facility]) Nov 11, 2020 [id number] 99 MAURICE LUCAS Y PATIENT Selected Encounter This section includes the information on record at [place] for the Encounter. Date/Time Encounter Type Encounter Description Reason Pro vider Source Apr 15, 2024 03:27 PM Outpatient Encounter COMMUNITY CARE CONSULT IHE Encounter Template Text not used by VA Plan of Treatment: Future Appointments (+ 6 months) and Future Tests (+/- 45 days) The Plan of Treatment section includes future care activities for the patient from all [place] [facility]. This section includes future appointments and future orders which are active, pending or scheduled. Future Appointments This section includes appointments that were scheduled to occur 6 months from the date of the Encounter, up to a maximum of 20 appointments. The data comes from all [place] treatment facilities. Appointment Date/Time Appointment Type Appointme nt Facility Name Apr 23, 2024 08:30 AM AM[place]ORY - NONE [place] [facility] May 12, 2024 08:15 AM [facility]ORY - NONE [facility] May 15, 2024 01:00 PM [facility] May 19, 2024 10:30 AM [facility] Jun 01, 2024 10:30 AM AMBULAT[facility] Jun 02, 2024 03:01 PM AM[place]ORY - NONE [place] [facility] Jun 09, 2024 08:15 AM [facility] - [facility] Jun 30, 2024 10:30 AM AMBUL[facility] Jul 04, 2024 09:59 AM AMBULATORY - NONE [place] [facility] Jul 07, 2024 02:00 PM [facility] - [facility]IC[facility] Jul 09, 2024 08:15 AM [facility]ORY - NONE [facility] Jul 13, 2024 11:24 AM AM[place]ORY - NONE [place] [facility] Aug 06, 2024 08:15 AM [facility] - N[facility] Aug 12, 2024 02:00 PM [place] [facility] Sep 14, 2024 10:30 AM AMBUL[facility]RY [facility] Sep 15, 2024 10:30 AM [facility] Social History: Smoking Status (Most current) and Tobacco Use (All prior to encounter date) This section includes the most current, and the historical, smoking and tobacco- related health factors from the [place] facility where the Encounter took place. Current Smoking Status This section includes the most current smoking, or tobacco-related health factor, from the [place] facility where the Encounter took place. Date/Time Current Smoking Status Comment Facil ity March 23, 2019 08:54 AM VA-TOBACCO QUIT 15 YRS OR MORE [facility] Tobacco Use History This section includes a history of the smoking, or tobacco-related health factors, that were collected on or before the date of the Encounter. The data comes from the [place] facility where the Encounter took place. Date/Time Smoking Status/Tobacco Use Comment F acmaura March 23, 2019 08:54 AM AL-TOBACCO QUIT 15 YRS OR MORE [facility] Mar 04, 2018 09:41 AM LIFETIME NON-TOBACCO USER [facility] Jun 17, 2017 01:07 PM LIFETIME NON-TOBACCO USER [facility] Apr 23, 2016 09:50 AM FORMER TOBACCO USER 7Y OR GREATE R [facility] Mar 06, 2016 11:12 AM INPT NO TOBACCO USE IN LAST 30 D AYS [facility] Jul 15, 2015 08:58 AM LIFETIME NON-TOBACCO USER [facility] Feb 11, 2013 10:04 AM LIFETIME NON-TOBACCO USER [facility] Nov 27, 2006 03:44 PM FORMER TOBACCO USER 7Y OR GREATE R [facility] Advance Directives: All historical and current Section Date Range: From patient's date of to the date document was created. This section includes ALL of a patient's completed or amended [place] Advance and Rescinded Directives. The entries below indicate that a directive exists for the patient, but an actual copy is not included with this document. The data comes from all [facility]. Date Advance Directives Provider Source Mar 04, 2016 CLINICAL WARNING PALMA NUNEZ [facility] Apr 25, 2010 ADVANCE DIRECTIVE RADHA STEVENSON [facility] March 21, 2005 CLINICAL WARNING KYLEE NAN [facility] Apr 28, 2004 [facility] Apr 28, 2004 [facility] Radiology Reports: +/- 30 days of the [...] the Encounter. The data comes from all [place] treatment facilities. Date/Time Radiology Report Provider Source April 02, 2024 08:[address] ABDOMEN/ PELVIS: SELAM LUACS [id number] -1950 M Exm Date: APRIL 02, 2024@08:26 Req Phys: LILIAMLEAHRONIT Pat Loc: [facility] XRAY GENERAL AM (Req'g Loc Img Loc: OUTSOURCE CT Service: Unknown (Case [id number] COMPLETE) NON [place] CT ABDOMEN/PELVIS (CT Detailed) CPT:29638 Reason for Study: outside study Clinical History: outside study Report Status: Electronically Filed Date Reported: MAY 06, 2024 Report: This is an outside Imaging study and/or report imported for continuity of patient care. This Imaging study and/or report was not reviewed or verified by a [place] Radiologist. Impression: This is an outside Imaging study and/or report imported for continuity of patient care. This Imaging study and/or report was not reviewed or verified by a [place] Radiologist. Primary Diagnostic Code: VERIFIED BY: / *ELECTRONICALLY FILED* [facility] Encounter Notes: All associated encounter notes This section contains the clinical notes associated to the Encounter. Date/Time Encounter Note(s) Provider Source Apr 15, 2024 03:27 PM NONVA NOTE: LOCAL TITLE: COMMUNITY CARE-CARE COORDINATION PLAN NOTE STANDARD TITLE: NONVA NOTE DATE OF NOTE: APR 15, 2024@15:27 ENTRY DATE: APR 15, 2024@15:27:26 AUTHOR: CATARINA BARAJAS EXP COSIGNER: URGENCY: STATUS: COMPLETED Pt calling today asking if it's ok if he has video apts with his [facility] PCP. Informed him that video and phone apts are authorized in addition to face to face apts. He is appreciative. /migdalia/ CATARINA BARAJAS RN sieve repairer [employer] Acupuncturist Signed: 04/15/2024 15:30 CATARINA BARAJAS [facility]
--- OUTSIDE RECORDS SUMMARY | 2024-07-17 00:44 | XMS_ITS | Encounter Summary ---
Author Name Department [place] Organization [place] Address [address] [place] [address] Care Team Providers Care Communications Project Manager Name Role Phone LILIAMRONIT LYNN Primary [...] Name Patient's Relationship to Policy Lu AARP [facility] ([facility]) MEDICARE ADVANTAGE MCR ([facility]) Nov 11, 2020 [id number] MAURICE LUCAS Y PATIENT [facility] ([facility]) MEDICARE ADVANTAGE MCR ([facility]) Nov 11, 2017 [id number] [phone] SHAYYMAURICE Yee Y PATIENT [facility] ([facility]) MEDICARE ADVANTAGE MCR ([facility]) Nov 11, 2020 [id number] MAURICE LUCAS Y PATIENT Selected Encounter This section includes the information on record at [place] for the Encounter. Date/Time Encounter Type Encounter Description Reason Pro vider Source May 05, 2024 12:00 PM Outpatient Encounter COMMUNITY CARE CONSULT IHE Encounter Template Text not used by VA Plan of Treatment: Future Appointments (+ 6 months) and Future Tests (+/- 45 days) The Plan of Treatment section includes future care activities for the patient from all [place] [facility]. This section includes future appointments and future orders which are active, pending or scheduled. Future Appointments This section includes appointments that were scheduled to occur 6 months from the date of the Encounter, up to a maximum of 20 appointments. The data comes from all [place] treatment facilities. Appointment Date/Time Appointment Type Appointme [...] 03:01 PM [facility] [place]ONE [place] [facility] Jun 09, 2024 08:15 AM [facility] Jun 30, 2024 10:30 AM [facility] Jul 04, 2024 09:59 AM [place] [place] [facility] Jul 07, 2024 02:00 PM [facility] Jul 09, 2024 08:15 AM [facility]ONE [facility] Jul 13, 2024 11:24 AM [place] [place] NONE [place] [facility] Aug 06, 2024 08:15 AM [facility] NONE [facility] Aug 12, 2024 02:00 PM [place] [facility] Sep 14, 2024 10:30 AM AMBULATORY - [facility]IATRY [facility] Sep 15, 2024 10:30 AM AMBULATORY - [facility]CHIATRY [facility] Social History: Smoking Status (Most current) and Tobacco Use (All prior to encounter date) This section includes the most current, and the historical, smoking and tobacco- related health factors from the [place] facility where the Encounter took place. Current Smoking Status This section includes the most current smoking, or tobacco-related health factor, from the [place] facility where the Encounter took place. Date/Time Current Smoking Status Comment Darian bocanegra March 23, 2019 08:54 AM VA-TOBACCO QUIT 15 YRS OR MORE [facility] Tobacco Use History This section includes a history of the smoking, or tobacco-related health factors, that were collected on or before the date of the Encounter. The data comes from the [place] facility where the Encounter took place. Date/Time Smoking Status/Tobacco Use Comment F acility March 23, 2019 08:54 AM VA-TOBACCO QUIT 15 YRS OR MORE [facility] Mar 04, 2018 09:41 AM LIFETIME NON-TOBACCO USER [facility] Jun 17, 2017 01:07 PM LIFETIME NON-TOBACCO USER [facility] Apr 23, 2016 09:50 AM FORMER TOBACCO USER 7Y OR GREATE R [facility] Mar 06, 2016 11:12 AM INPT NO TOBACCO USE IN LAST 30 D AYS [facility] Jul 15, 2015 08:58 AM LIFETIME NON-TOBACCO USER [facility] Feb 11, 2013 10:04 AM LIFETIME NON-TOBACCO USER [facility] Nov 27, 2006 03:44 PM FORMER TOBACCO USER 7Y OR GREATE R [facility] Advance Directives: All historical and current Section Date Range: From patient's date of to the date document was created. This section includes ALL of a patient's completed or amended [place] Advance and Rescinded Directives. The entries below indicate that a directive exists for the patient, but an actual copy is not included with this document. The data comes from all [place] facilities. Date Advance Directives Provider Source Mar 04, 2016 CLINICAL WARNING PALMA NUNEZSHARP [facility] Apr 25, 2010 ADVANCE DIRECTIVE RADHA STEVENSON [facility] March 21, 2005 [facility] Apr 28, 2004 CLINICAL WARNING MAGI CHAUDHRYSHARP [facility] Apr 28, 2004 CLINICAL WARNING DUNIA [facility] Encounter Notes: All associated encounter notes This section contains the clinical notes associated to the Encounter. Date/Time Encounter Note(s) Provider Source May 05, 2024 12:00 PM NONVA CONSULT: LOCAL TITLE: COMMUNITY CARE CONSULT RESULT PRIMARY CARE STANDARD TITLE: NONVA CONSULT DATE OF NOTE: MAY 05, 2024@12:00 ENTRY DATE: MAY 12, 2024@03:57:24 AUTHOR: CATARINA BARAJAS COSIGNER: URGENCY: STATUS: COMPLETED VistA Imaging - Scanned Document AllASSET4 [employer] RX for augmentin and back brace SCANNED DOCUMENT SIGNATURE NOT REQUIRED Electronically Filed: 05/12/2024 by: CATARINA BARAJAS RN retread operator C++ Quant Developer CATARINA BARAJAS [facility]
--- OUTSIDE RECORDS SUMMARY | 2024-07-17 00:46 | XMS_ITS | Encounter Summary ---
Author Name [place] Address [address] [place] [address] Care Team Providers Care Treating Machine Operator Name Role Phone RONIT NIEVES [...] Name Patient's Relationship to Policy Lu AARP [facility] ([facility]) MEDICARE ADVANTAGE MCR ([facility]) Nov 11, 2020 [id number] [phone] SHAYY,MAURICE Y PATIENT [facility] ([facility]) MEDICARE ADVANTAGE MCR ([facility]) Nov 11, 2017 [id number] SHAYY,MAURICE Y PATIENT [facility] ([facility]) MEDICARE ADVANTAGE MCR ([facility]) Nov 11, 2020 [id number] [phone] SHAYYMAURICE Y PATIENT Selected Encounter This section includes the information on record at [place] for the Encounter. Date/Time Encounter Type Encounter Description Reason Pro vider Source May 15, 2024 01:00 PM Outpatient Encounter PRIMARY CARE/MEDICINE IHE Encounter Template Text not used by [place] Plan of Treatment: Future Appointments (+ 6 months) and Future Tests (+/- 45 days) The Plan of Treatment section includes future care activities for the patient from all [place] [facility]. This section includes future appointments and future orders which are active, pending or scheduled. Future Appointments This section includes appointments that were scheduled to occur 6 months from the date of the Encounter, up to a maximum of 20 appointments. The data comes from all [place] treatment facilities. Appointment Date/Time Appointment Type Appointme nt Facility Name May 19, 2024 10:30 AM [facility] Jun 01, 2024 10:30 AM [facility] Jun 02, 2024 03:01 PM [facility]ONE [facility] Jun 09, 2024 08:15 AM [facility]ONE [facility] Jun 30, 2024 10:30 AM [facility]RY [facility] Jul 04, 2024 09:59 AM [place] [place] [facility] Jul 07, 2024 02:00 PM [facility] - [facility]IC[facility] Jul 09, 2024 08:15 AM [facility] NONE [facility] Jul 13, 2024 11:24 AM [place] [place] [facility] Aug 06, 2024 08:15 AM [facility] N[facility] Aug 12, 2024 02:00 PM [facility] [place] [facility] Sep 14, 2024 10:30 AM AMBUL[facility]ATRY [facility] Sep 15, 2024 10:30 AM [facility] Social History: Smoking Status (Most current) and Tobacco Use (All prior to encounter date) This section includes the most current, and the historical, smoking and tobacco- related health factors from the [place] facility where the Encounter took place. Current Smoking Status This section includes the most current smoking, or tobacco-related health factor, from the [place] facility where the Encounter took place. Date/Time Current Smoking Status Comment Facil ity Nov 07, 2022 11:00 AM VA-TOBACCO NEVER USED [facility] Tobacco Use History This section includes a history of the smoking, or tobacco-related health factors, that were collected on or before the date of the Encounter. The data comes from the [place] facility where the Encounter took place. Date/Time Smoking Status/Tobacco Use Comment F acility Dec 13, 2021 09:30 AM VA-TOBACCO NEVER USED [facility] Jan 24, 2021 11:00 AM CO-TOBACCO NEVER USED [facility] March 30, 2020 10:56 AM VA-TOBACCO NEVER USED [facility] Advance Directives: All historical and current Section Date Range: From patient's date of to the date document was created. This section includes ALL of a patient's completed or amended [place] Advance and Rescinded Directives. The entries below indicate that a directive exists for the patient, but an actual copy is not included with this document. The data comes from all [place] facilities. Date Advance Directives Provider Source Mar 04, 2016 [facility] Apr 25, 2010 ADVANCE DIRECTIVE RADHA STEEVNSON [facility] March 21, 2005 CLINICAL WARNING [facility] Apr 28, 2004 CLINICAL WARNING [facility] Apr 28, 2004 CLINICAL WARNING DUNIA BLOUNT [facility]
--- OUTSIDE RECORDS SUMMARY | 2024-07-17 00:46 | XMS_ITS | Encounter Summary ---
Author Name [place] Address [address] [place] [address] Care Team Providers Care Raw Shellfish Preparer Name Role Phone JAMILARONIT WITT Primary Care [...] [facility] ([facility]) MEDICARE ADVANTAGE MCR ([facility]) Nov 11, 2020 [id number] SHAYYMAURICE Yee Y PATIENT [facility] ([facility]) MEDICARE ADVANTAGE MCR ([facility]) Nov 11, 2017 [id number] [phone] SHAYY,MAURICE Y PATIENT [facility] (WN) MEDICARE ADVANTAGE MCR ([facility]) Nov 11, 2020 [id number] SHAYYMAURICE Yee Y PATIENT Selected Encounter This section includes the information on record at [place] for the Encounter. Date/Time Encounter Type Encounter Description Reason Pro vider Source May 12, 2024 10:45 AM Outpatient Encounter TELEPHONE/REHAB AND SUPPORT IHE Encounter Template Text not used by VA Plan of Treatment: Future Appointments (+ 6 months) and Future Tests (+/- 45 days) The Plan of Treatment section includes future care activities for the patient from all [place] [facility]. This section includes future appointments and future orders which are active, pending or scheduled. Future Appointments This section includes appointments that were scheduled to occur 6 months from the date of the Encounter, up to a maximum of 20 appointments. The data comes from all [place] treatment facilities. Appointment Date/Time Appointment Type Appointme nt Facility Name May 15, 2024 01:00 PM [facility] May 19, 2024 10:30 AM [facility]IATRY [facility] Jun 01, 2024 10:30 AM [facility] Jun 02, 2024 03:01 PM AMBULATORY - NONE [facility] Jun 09, 2024 08:15 AM [facility] - NONE [facility] Jun 30, 2024 10:30 AM AMBULAT[facility] - [facility]IATRY [facility] Jul 04, 2024 09:59 AM [place] [facility] Jul 07, 2024 02:00 PM [facility] - [facility]ICINE [facility] Jul 09, 2024 08:15 AM [facility]ORY - NONE [facility] Jul 13, 2024 11:24 AM [facility] Aug 06, 2024 08:15 AM [facility] - N[facility] Aug 12, 2024 02:00 PM [facility] Sep 14, 2024 10:30 AM [...] place. Date/Time Current Smoking Status Comment Darian ittrish March 23, 2019 08:54 AM VA-TOBACCO FORMER USER [facility] Tobacco Use History This section includes a history of the smoking, or tobacco-related health factors, that were collected on or before the date of the Encounter. The data comes from the [place] facility where the Encounter took place. Date/Time Smoking Status/Tobacco Use Comment F acility March 23, 2019 08:54 AM VA-TOBACCO QUIT 15 YRS OR MORE [facility] Mar 04, 2018 09:41 AM LIFETIME NON-TOBACCO USER [facility] Jun 17, 2017 01:07 PM LIFETIME NON-TOBACCO USER [facility] Apr 23, 2016 09:50 AM FORMER TOBACCO USER 7Y OR GREATE R [facility] Mar 06, 2016 11:12 AM INPT NO TOBACCO USE IN LAST 30 D AYS [facility] Jul 15, 2015 08:58 AM LIFETIME NON-TOBACCO USER [facility] Feb 11, 2013 10:04 AM LIFETIME NON-TOBACCO USER [facility] Nov 27, 2006 03:44 PM FORMER TOBACCO USER 7Y OR GREATE R [facility] Advance Directives: All historical and current Section Date Range: From patient's date of to the date document was created. This section includes ALL of a patient's completed or amended [place] Advance and Rescinded Directives. The entries below indicate that a directive exists for the patient, but an actual copy is not included with this document. The data comes from all [facility]. Date Advance Directives Provider Source Mar 04, 2016 [facility] Apr 25, 2010 ADVANCE DIRECTIVE RADHA STEVENSON [facility] March 21, 2005 CLINICAL WARNING [facility] Apr 28, 2004 CLINICAL WARNING MAGI [facility]AUD[facility]OLI [facility] Apr 28, 2004 CLINICAL WARNING DUNIA [facility]OUNT [facility] Encounter Notes: All associated encounter notes This section contains the clinical notes associated to the Encounter. Date/Time Encounter Note(s) Provider Source May 12, 2024 10:45 AM REPORT OF CONTACT: LOCAL TITLE: PATIENT CONTACT NOTE STANDARD TITLE: REPORT OF CONTACT DATE OF NOTE: MAY 12, 2024@10:45 ENTRY DATE: MAY 12, 2024@10:45:53 AUTHOR: CHEN JACK COSIGNER: URGENCY: STATUS: COMPLETED Patient contact Name of [place]: SELAM LUCAS Name/Relationship of Contact if other than : Date & Time of Contact: May@10:46 Type of Contact: Other Reason for Contact: OT notified of outreach. He states he was previously provided adaptive equipment by OT in Dec which had been helpful for his function but believes it was accidently thrown away by his LEARNING DESIGNER. Called Vet today and offered to replace items it had been meeting needs, or to facilitate consult to schedule appt to eval for new/different options and Vet identified that tools had been meeting needs but just needed replacement. Based on report of use of AE and continued functional needs and given <1 year since issuance consult placed to reissue AE. /es/ CHEN JACK MA, OTR/L, BCPR OCCUPATIONAL THERAPIST Signed: 05/12/2024 15:37 CHEN JACK [facility]
--- OUTSIDE RECORDS SUMMARY | 2024-07-17 00:46 | XMS_ITS | Encounter Summary ---
Author Name [place] Address [address] [place] [address] Care Team Providers Care Auto Design Detailer Name Role Phone LILIAMRONIT LYNN Primary Care [...] Name Patient's Relationship to Policy Lu AARP [facility] ([facility]) MEDICARE ADVANTAGE MCR ([facility]) Nov 11, 2020 [id number] SHAYYJITENDRA Y PATIENT [facility] (WNR) MEDICARE ADVANTAGE MCR ([facility]) Nov 11, 2017 [id number] SHAYY,JITENDRA Y PATIENT [facility] (WNR) MEDICARE ADVANTAGE MCR ([facility]) Nov 11, 2020 [id number] SHAYY,JITENDRA Y PATIENT Selected Encounter This section includes the information on record at [place] for the Encounter. Date/Time Encounter Type Encounter Description Reason Provider Source May 19, 2024 10:30 AM PSYTX W PT 45 MINUTES [facility] - IND ICD-10-CM F33.8 Other recurrent depressive disorders REUBEN JAVED Wan Encounter Template Text not used by [place] Assessments - Encounter Diagnoses This section includes the primary and secondary diagnoses documented for the Encounter. Date/Time Primary/Secondary Diagnosis Diagnosis Name Provider Source May 19, 2024 01:57 PM PRIMARY Other recurrent depressive disorders REUBEN JAVED [facility] Plan of Treatment: Future Appointments (+ 6 months) and Future Tests (+/- 45 days) The Plan of Treatment section includes future care activities for the patient from all [place] [facility]. This section includes future appointments and future orders which are active, pending or scheduled. Future Appointments This section includes appointments that were scheduled to occur 6 months from the date of the Encounter, up to a maximum of 20 appointments. The data comes from all [place] treatment facilities. Appointment Date/Time Appointment Type Appointme nt Facility Name Jun 01, 2024 10:30 AM AMBULATORY - PS[facility]CHIATRY [facility] Jun 02, 2024 03:01 PM [place] N[place] [facility] Jun 09, 2024 08:15 AM AMBULATORY - NONE [facility] Jun 30, 2024 10:30 AM AMBULATORY - PSYCHIATRY [facility] Jul 04, 2024 09:59 AM [place] - N[place] [facility] Jul 07, 2024 02:00 PM [facility] - [facility]IC[facility] Jul 09, 2024 08:15 AM AMBULATORY - NONE [facility] Jul 13, 2024 11:24 AM [place] - [place] [facility] Aug 06, 2024 08:15 AM AMBULATORY - NONE [facility] Aug 12, 2024 02:00 PM [place] [facility] Sep 14, 2024 10:30 AM AMBULATORY - PS[facility]CHIATRY [facility] Sep 15, 2024 10:30 AM AMBULATORY - PSYCHIATRY [facility] Advance Directives: All historical and current [...] Mar 04, 2016 CLINICAL WARNING PALMA NUNEZ [facility] Apr 25, 2010 ADVANCE DIRECTIVE RADHA STEVENSON [facility] March 21, 2005 CLINICAL WARNING KYLEE ANN [facility] Apr 28, 2004 CLINICAL WARNING MAGI CHAUDHRY [facility] Apr 28, 2004 CLINICAL WARNING DUNIA BLOUNT [facility] Encounter Notes: All associated encounter notes This section contains the clinical notes associated to the Encounter. Date/Time Encounter Note(s) Provider Source May 19, 2024 10:30 AM MENTAL HEALTH NOTE : LOCAL TITLE: MH PROGRESS NOTE STANDARD TITLE: MENTAL HEALTH NOTE DATE OF NOTE: MAY 19, 2024@10:30 ENTRY DATE: MAY 19, 2024@13:52:51 AUTHOR: REUBEN JAVED COSIGNER: URGENCY: STATUS: COMPLETED INFORMED CONSENT: Patient and provider reviewed confidentiality and privacy, as well as limitations to privacy. We reviewed purpose of this meeting and patient rights. Visit conducted by synchronous telehealth. At the beginning of the session, [place] verbal consent was obtained. Location/emergency number confirmed. Environment surveyed and all participants identified. Virtual conference room locked. Undersigned typewriter assembler answered any questions patient had about using this technology for individual therapy and [place] indicated acceptance and understanding of steps to protect confidentiality and limitations as reasonable. consented to meet for the purpose of therapy. S:Jitendra Gregory is a 73 year-old, , [place] [place] who was seen via VVC to home for psychotherapy using ACT and DE. Reports he was contacted by Patient advocate who indicates he is eligible for PCP in Community and facilitated this. Manson now able to be seen (again) by Linette lewis [employer] [facility] [place] and with whom he has a good relationship. described in detail a visit by his daughter and granddaughter over May 14 hol. Notes he gained weight during their visit. Continues to go to gym 3 x a week. States daughter wants him to [place] near her but he is ambivalent due to the heat there. He is considering going there for a visit. 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 Denies any needs or major concerns today. Mental Status: Session/visit location: home Presentation: casually dressed and poorly groomed Orientation/cognition/memory: cognition sufficient for conversation, not formally assessed. Oriented to self, place, time Motor: Normal Mood:not too bad pretty good Affect: congruent with conversation topics Speech/Communication: Speech was normal in rate, rhythm, and tone Thought Process: Clear, logical, and goal-directed Thought Content: No evidence of A/V hallucinations, flight of ideas, loose associations, or delusions. Suicidality: Manson denied current SI, plan, and intent. Homicidally: denied HI, plan, or intent. Judgment: Good Insight: Good rare ETOH consumption, dislikes taste RISK ASSESSMENT: Known suicide risks: recent loss, history of depression, history of SPMI, history of psychiatric hospitalization, family hx of suicide (bio father, possibly son), age, gender, ethnicity. Possible suicide protective factors: denies SI, states can't do suicide due to father dying by suicide, connection to adult daughter in [place], reports sobriety, help seeking Determination of Risk: Acute Risk - Low (No SI, plan, intent, or preparatory behaviors) Chronic Risk - Moderate Other safety issues: Denied self-injurious behaviors Diagnoses: Depressive disorder ([facility] [id number]) - Other recurrent depressive disorders (ICD- 10-CM F33.8) (Primary) Procedures: 38-52 minutes P: FU on June 30 at 10:30 a.m. by VVC to home Manson has my contact info, the clinic info and the [facility]. [place] PLAN: January 21, 2024 (due again 2024) /migdalia/ REUBEN JAVED, PHD, STAFF PSYCHOLOGIST Signed: 05/19/2024 13:57 REUBEN JAVED [facility]
--- OUTSIDE RECORDS SUMMARY | 2024-07-17 00:47 | XMS_ITS | Encounter Summary ---
Author Name [facility] [place] Address [address] [place] [address] Care Team Providers Care Java Swing Developer Name Role Phone LILIAMRONIT LYNN Primary Care [...] to Policy Lu AARP [facility] ([facility]) MEDICARE ADVANTAGE MCR ([facility]) Nov 11, 2020 [id number] MAURICE LUCAS Y PATIENT [facility] ([facility]) MEDICARE ADVANTAGE MCR ([facility]) Nov 11, 2017 [id number] [phone] SHAYYMAURICE Yee Y PATIENT [facility] ([facility]) MEDICARE ADVANTAGE MCR ([facility]) Nov 11, 2020 [id number] MAURICE LUCAS Y PATIENT Selected Encounter This section includes the information on record at [place] for the Encounter. Date/Time Encounter Type Encounter Description Reason Pro vider Source Jun 02, 2024 08:52 AM Outpatient Encounter COMMUNITY CARE CONSULT IHE Encounter Template Text not used by VA Plan of Treatment: Future Appointments (+ 6 months) and Future Tests (+/- 45 days) The Plan of Treatment section includes future care activities for the patient from all [place] [facility] [place] This section includes future appointments and future orders which are active, pending or scheduled. Future Appointments This section includes appointments that were scheduled to occur 6 months from the date of the Encounter, up to a maximum of 20 appointments. The data comes from all [place] treatment facilities. Appointment Date/Time Appointment Type Appointme nt Facility Name Jun 09, 2024 08:15 AM [facility]ORY [facility] NONE [facility] Jun 30, 2024 10:30 AM AMB[facility] - [facility]IATRY [facility] Jul 04, 2024 09:59 AM [facility] Jul 07, 2024 02:00 PM [facility] - MEDICINE [facility] Jul 09, 2024 08:15 AM AMBULATORY - NONE [facility] Jul 13, 2024 11:24 AM AM[facility]ORY - NONE [place] [facility] Aug 06, 2024 08:15 AM AMB[facility]ATORY - NONE [facility] Aug 12, 2024 02:00 PM AM[place] [place]IC[place] [facility] Sep 14, 2024 10:30 AM AMB[facility] - [facility]RY [facility] Sep 15, 2024 10:30 AM [facility] Social History: Smoking Status (Most current) and Tobacco Use (All prior to encounter date) This section includes the most current, and the historical, smoking and tobacco- related health factors from the [place] facility where the Encounter took place. Current Smoking Status This section includes the most current smoking, or tobacco-related health factor, from the [place] facility where the Encounter took place. Date/Time Current Smoking Status Comment Darian ity March 23, 2019 08:54 AM [place]-TOBACCO QUIT 15 YRS OR MORE [facility] Tobacco Use History This section includes a history of the smoking, or tobacco-related health factors, that were collected on or before the date of the Encounter. The data comes from the [place] facility where the Encounter took place. Date/Time Smoking Status/Tobacco Use Comment F acmaura March 23, 2019 08:54 AM [place]-TOBACCO QUIT 15 YRS OR MORE [facility] Mar 04, 2018 09:41 AM LIFETIME NON-TOBACCO USER [facility] Jun 17, 2017 01:07 PM LIFETIME NON-TOBACCO USER [facility] Apr 23, 2016 09:50 AM FORMER TOBACCO USER 7Y OR GREATE R [facility] Mar 06, 2016 11:12 AM INPT NO TOBACCO USE IN LAST 30 D AYS [facility] Jul 15, 2015 08:58 AM LIFETIME NON-TOBACCO USER [facility] Feb 11, 2013 10:04 AM LIFETIME NON-TOBACCO USER [facility] Nov 27, 2006 03:44 PM FORMER TOBACCO USER 7Y OR GREATE R [facility] Advance Directives: All historical and current Section Date Range: From patient's date of to the date document was created. This section includes ALL of a patient's completed or amended [place] Advance and Rescinded Directives. The entries below indicate that a directive exists for the patient, but an actual copy is not included with this document. The data comes from all [place] facilities. Date Advance Directives Provider Source Mar 04, 2016 CLINICAL WARNING PALMA NUNEZ [facility] Apr 25, 2010 ADVANCE DIRECTIVE RADHA STEVENSON [facility] March 21, 2005 CLINICAL WARNING KYLEE ANN [facility] Apr 28, 2004 [facility] Apr 28, 2004 [facility] Encounter Notes: All associated encounter notes This section contains the clinical notes associated to the Encounter. Date/Time Encounter Note(s) Provider Source Jun 02, 2024 08:52 AM NONVA NOTE: LOCAL TITLE: COMMUNITY CARE-CARE COORDINATION PLAN NOTE STANDARD TITLE: NONVA NOTE DATE OF NOTE: JUN 02, 2024@08:52 ENTRY DATE: JUN 02, 2024@08:52:30 AUTHOR: CATARINA BARAJAS EXP COSIGNER: URGENCY: STATUS: COMPLETED Pt calling to state that he has mild pancratitis that he doesn't feel well as he is going to put off his hearing test till he feels better. He will contact caption writer when he feels better and will place consult at that time. /migdalia/ CATARINA BARAJAS RN department chairperson Networking Technician Signed: 06/02/2024 08:54 CATARINA BARAJAS [facility]
--- OUTSIDE RECORDS SUMMARY | 2024-07-17 00:47 | XMS_ITS | Encounter Summary ---
Author Name [facility] [place] Organization [place] Address [address] [place] [address] Care Team Providers Care Subpoena Server Name Role Phone LILIAMRONIT LYNN Primary Care [...] Name Patient's Relationship to Policy Lu AARP [facility] ([facility]) MEDICARE ADVANTAGE MCR ([facility]) Nov 11, 2020 [id number] MAURICE LUCAS Y PATIENT [facility] ([facility]) MEDICARE ADVANTAGE MCR ([facility]) Nov 11, 2017 [id number] [phone] SHAYYMAURICE Yee Y PATIENT [facility] ([facility]) MEDICARE ADVANTAGE MCR ([facility]) Nov 11, 2020 [id number] 99 MAURICE LUCAS Y PATIENT Selected Encounter This section includes the information on record at [place] for the Encounter. Date/Time Encounter Type Encounter Description Reason Pro vider Source May 28, 2024 03:18 AM Outpatient Encounter COMMUNITY CARE CONSULT IHE Encounter Template Text not used by VA Plan of Treatment: Future Appointments (+ 6 months) and Future Tests (+/- 45 days) The Plan of Treatment section includes future care activities for the patient [facility] [place] [facility] This section includes future appointments [...] 2024 03:01 PM AMBULATORY - NONE [place] [facility] Jun 09, 2024 08:15 AM [facility]ORY [facility] NONE [facility] Jun 30, 2024 10:30 AM [facility] Jul 04, 2024 09:59 AM AMBULATORY - NONE [place] [facility] Jul 07, 2024 02:00 PM [...] and tobacco- related health factors from the [place] facility where the Encounter took place. Current Smoking Status This section includes the most current smoking, or tobacco-related health factor, from the [place] facility where the Encounter took place. Date/Time Current Smoking Status Comment Darian bocanegra March 23, 2019 08:54 AM [place]-TOBACCO QUIT 15 YRS OR MORE [facility] Tobacco Use History This section includes a history of the smoking, or tobacco-related health factors, that were collected on or before the date of the Encounter. The data comes from the [place] facility where the Encounter took place. Date/Time Smoking Status/Tobacco Use Comment F nadine March 23, 2019 08:54 AM [place]-TOBACCO QUIT 15 YRS OR MORE [facility] Mar 04, 2018 09:41 AM LIFETIME NON-TOBACCO USER [facility] Jun 17, 2017 01:07 PM LIFETIME NON-TOBACCO USER [facility] Apr 23, 2016 09:50 AM FORMER TOBACCO USER 7Y OR GREATE R [facility] Mar 06, 2016 11:12 AM INPT NO TOBACCO USE IN LAST 30 D AYS [facility] Jul 15, 2015 08:58 AM LIFETIME NON-TOBACCO USER [facility] Feb 11, 2013 10:04 AM LIFETIME NON-TOBACCO USER [facility] Nov 27, 2006 03:44 PM FORMER TOBACCO USER 7Y OR GREATE R [facility] Advance Directives: All historical and current [...] Mar 04, 2016 CLINICAL WARNING PALMA NUNEZI [facility] Apr 25, 2010 ADVANCE DIRECTIVE RADHA STEVENSON [facility] March 21, 2005 CLINICAL WARNING [place]E [place] [facility] Apr 28, 2004 CLINICAL WARNING MAGI [place]AUDHRY [place] [facility] Apr 28, 2004 CL[facility]ICAL [facility] Encounter Notes: All associated encounter notes This section contains the clinical notes associated to the Encounter. Date/Time Encounter Note(s) Provider Source May 28, 2024 08:15 AM ADDENDUM: LOCAL TITLE: Addendum STANDARD TITLE: ADDENDUM DATE OF NOTE: MAY 28, 2024@08:15:26 ENTRY DATE: MAY 28, 2024@08:15:27 AUTHOR: TRAV MAYO EXP COSIGNER: URGENCY: STATUS: COMPLETED Record Reviewed. PROSTHETICS REQUEST - BRACE-SPINE/KNEE/FOOT/ANKL E OUTPT Reason for Request: Other Intervertebral Disc Degeneration, Lumbar Region (ICD- 10-CM M51.36) Brace Outpatient Deliver/Mail directly to patient [place] Form Fit brace Size-XXL Quantity-1 (Describe EQUIPMENT, PROSTHETIC APPLIANCE or REPAIR above LINE) HAS TRAINING ON EQUIPMENT BEEN PROVIDED? Yes /migdalia/ TRAV MAYO NP NURSE PRACTITIONER, PRIMARY CARE Signed: 05/28/2024 08:16 Receipt Acknowledged By: 05/28/2024 08:20 /migdalia/ CATARINA BARAJAS RN RN Community Reflesher --- Original Document --- 05/28/24 COMMUNITY CARE-REQUEST FOR SERVICE NOTE: DME/records received from [facility] PCP requesting back brace to replace back brace pt had been using for degenerative disc disease-lumbar. [place] Form Fit brace Size-XXL Quantity-1 ICD M51.36-degenerative disc disease-Lumbar Uploaded to [employer] dated 04/23/24. Alerting Trav Mayo NP to please review and place appropriate consult if indicated. Thank you! /cali BARAJAS RN freezer person Reflesher Signed: 05/28/2024 03:21 Receipt Acknowledged By: 05/28/2024 08:15 /migdalia/ TRAV MAYO NP NURSE PRACTITIONER, PRIMARY CARE TRAV MAYO [facility] May 28, 2024 03:18 AM NONVA NOTE: LOCAL TITLE: COMMUNITY CARE-REQUEST FOR SERVICE NOTE STANDARD TITLE: NONVA NOTE DATE OF NOTE: MAY 28, 2024@03:18 ENTRY DATE: MAY 28, 2024@03:18:28 AUTHOR: CATARINA BARAJAS COSIGNER: URGENCY: STATUS: COMPLETED COMMUNITY CARE-REQUEST FOR SERVICE NOTE Has ADDENDA DME/records received from [facility] PCP requesting back brace to replace back brace pt had been using for degenerative disc disease-lumbar. [place] Form Fit brace Size-XXL Quantity-1 ICD M51.36-degenerative disc disease-Lumbar Uploaded to [facility] dated 04/23/24. Alerting Trav Mayo NP to please review and place appropriate consult if indicated. Thank you! /migdalia/ CATARINA BARAJAS RN freezer person Reflesher Signed: 05/28/2024 03:21 Receipt Acknowledged By: 05/28/2024 08:15 /migdalia/ TRAV MAYO NP NURSE PRACTITIONER, PRIMARY CARE 05/28/2024 ADDENDUM STATUS: COMPLETED Record Reviewed. PROSTHETICS REQUEST - BRACE-SPINE/KNEE/FOOT/ANKL E OUTPT Reason for Request: Other Intervertebral Disc Degeneration, Lumbar Region (ICD- 10-CM M51.36) Brace Outpatient Deliver/Mail directly to patient [place] Form Fit brace Size-XXL Quantity-1 (Describe EQUIPMENT, PROSTHETIC APPLIANCE or REPAIR above LINE) HAS TRAINING ON EQUIPMENT BEEN PROVIDED? Yes /migdalia/ TRAV MAYO NP NURSE PRACTITIONER, PRIMARY CARE Signed: 05/28/2024 08:16 Receipt Acknowledged By: * AWAITING SIGNATURE * CATARINA BARAJAS [facility]
--- OUTSIDE RECORDS SUMMARY | 2024-07-17 00:47 | XMS_ITS | Encounter Summary ---
Author Name [place] Organization [place] Address [address] [place] [address] Care Team Providers Care Hotel Recreational Facilities Manager Name Role Phone RONIT NIEVES Primary Care [...] Name Patient's Relationship to Policy Lu AARP [facility] ([facility]) MEDICARE ADVANTAGE MCR ([facility]) Nov 11, 2020 [id number] SHAYY,MAURICE Y PATIENT [facility] ([facility]) MEDICARE ADVANTAGE MCR ([facility]) Nov 11, 2017 [id number] [phone] SHAYY,MAURICE Y PATIENT [facility] ([facility]) MEDICARE ADVANTAGE MCR ([facility]) Nov 11, 2020 [id number] SHAYY,MAURICE Y PATIENT Selected Encounter This section includes the information on record at [place] for the Encounter. Date/Time Encounter Type Encounter Description Reason Provider Source Jun 01, 2024 10:30 AM OFFICE O/P EST LOW [facility] - IND ICD-10-CM G47.00 Insomnia, unspecified HU,TERRENCE IHE Encounter Template Text not used by [place] Assessments - Encounter Diagnoses This section includes the primary and secondary diagnoses documented for the Encounter. Date/Time Primary/Secondary Diagnosis Diagnosis Name Provider Source Jun 02, 2024 09:03 AM PRIMARY Insomnia, unspecified [facility],TERRENCE [facility] Plan of Treatment: Future Appointments (+ 6 months) and Future Tests (+/- 45 days) The Plan of Treatment section includes future care activities for the patient from all [place] [facility]. This section includes future appointments and future orders which are active, pending or scheduled. Future Appointments This section includes appointments that were scheduled to occur 6 months from the date of the Encounter, up to a maximum of 20 appointments. The data comes from all [place] treatment facilities. Appointment Date/Time Appointment Type Appointme nt Facility Name Jun 02, 2024 03:01 PM [facility] Jun 09, 2024 08:15 AM AMB[facility]ATORY - NONE [facility] Jun 30, 2024 10:30 AM [facility]ATORY [facility]ATRY [facility] Jul 04, 2024 09:59 AM [facility] Jul 07, 2024 02:00 PM AMBULATORY - MEDICINE [facility] Jul 09, 2024 08:15 AM AMBULATORY - NONE [facility] Jul 13, 2024 11:24 AM [facility] Aug 06, 2024 08:15 AM AMBULATORY - NONE [facility] Aug 12, 2024 02:00 PM [place]ORY - [place]ICINE [place] [facility] Sep 14, 2024 10:30 AM AMBULATORY - PS[facility]CHIATRY [facility] Sep 15, 2024 10:30 AM AMBULATORY - [facility]ATRY [facility] Advance Directives: All historical and current [...] Mar 04, 2016 CLINICAL WARNING PALMA NUNEZ [facility] Apr 25, 2010 ADVANCE DIRECTIVE RADHA STEVENSON [facility] March 21, 2005 CLINICAL WARNING KYLEE ANNI [facility] Apr 28, 2004 CLINICAL WARNING MAGI CHAUDHRY [facility] Apr 28, 2004 CLINICAL WARNING DUNIA BLOUNT [facility] Encounter Notes: All associated encounter notes This section contains the clinical notes associated to the Encounter. Date/Time Encounter Note(s) Provider Source Jun 01, 2024 09:06 AM PSYCHIATRY E & M N OTE: LOCAL TITLE: PSYCHIATRIC EVALUATION & MANAGEMENT STANDARD TITLE: PSYCHIATRY E & M NOTE DATE OF NOTE: JUN 01, 2024@09:06 ENTRY DATE: JUN 01, 2024@09:06:13 AUTHOR: TERRENCE WALKER COSIGNER: URGENCY: STATUS: COMPLETED Visit conducted by synchronous telehealth. [place] verbal consent obtained. Location/emergency number confirmed. Environment surveyed and all participants identified. Virtual conference room locked. HISTORY CHIEF COMPLAINT/REASON FOR ENCOUNTER: Pt presents for scheduled Mental health appointment. HPI: Julius Gregory is a male with a PMH as per problem list and a psychiatric history significant for unspecified insomnia disorder and alcohol use disorder in remission who presents for scheduled appointment. previously worked with Dr. Vela, and has been prescribed trazodone 50 mg qhs prn insomnia. Aware trazodone can be managed by PC, however prefers to follow up with a psychiatrist. Mood and sleep stable. Glad granddaughter and daughter came to visit over May 14 weekend. long hx of frustration with [facility] in general. 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 Previously was very clear in stating he does not wishes to adjust or be on more MH medication, appreciate having this place to share his thoughts and feelings. Wishes he could go down to [place] to visit his daughter, but does not want to drive down by himself or take the bus. Previously reported he used to be on sertraline and an antipsychotic, dont remember the name. Reports he was taken off of his mental health medications in 2015 because he felt like his mood was actually worse when he was taking them and gaining weight. Share with appeals writer he last had mood difficulties back in [...] he feels offended that PCP here at [facility] allegedly told him that if he is going to follow the directives of a local civilian caregiver, that he should not bother the [place] clinic. [place] has declined antidepressants in the psat, with [...] HISTORY: Active Problems reviewed: Osteoarthritis of knee ([facility] [id number]) Diabetes mellitus type 2 ([facility] [id number]) Hyperlipidemia ([facility] [id number]) Hypertension ([facility] [id number]) Subsequent non-ST segment elevation myocPrimary erectile dysfunction ([facility] [id number]) Obesity ([facility] [id number]) Abdominal pain ([facility] 64713614) Breathing-related sleep disorder ([facility] 11Depressive disorder ([facility] [id number]) History of calculus of kidney ([facility] [id number] of colon ([facility] [id number]) Impulse control disorder ([facility] 28411286) Gastroesophageal reflux disease ([facility] [id number]) Coronary artery disease ([facility] [id number]) Dyspepsia ([facility] 081894637) Atrial flutter ([facility] 4941188) Occlusion of internal carotid artery ([facility] [id number]) Anxiety neurosis ([facility] [id number]) Chronic alcoholism in remission ([facility] [id number]) Insomnia ([facility] [id number]) Cervical pain ([facility] [id number]) [facility] Primary Care (ICD-10-CM R69.) PAST MENTAL HEALTH [...] 02, 2022 pph 1999. ECT reguarly between [id number]. participated in MHICM (Intensive Case Management) between 2003 and 2008 Hospitalizations? 2000 and 2001 Suicide Attempts? denies Medication History? Sertraline SUBSTANCE [...] an apartment Marital Status: Children: Daughter/lives in [place] and son/ in 2006 Social supports: Suicide [...] CONTAINER WITH A SCREW-ON LID CONTACT [facility]POS[facility] 18) NITROGLYCERIN 0.4MG [...] -f/u with medical providers regarding medical issues -[place] understands to call clinic with any new [...] means on contacting this provider by phone [phone] , or [employer] Vet Counseled on emergency resources available including [facility] Crisis Line [phone], Emergency Room, 911 Counseled on importance of compliance with regular physical activity PSYCHOTHERAPY Supportive psychotherapy focused on: problem solving, improving coping skills, stress management and psycho-education. 20 (16-37) minutes /migdalia/ TERRENCE WALKER staff physician Signed: 06/02/2024 09:04 TERRENCE WALKER DOMINIC
--- OUTSIDE RECORDS SUMMARY | 2024-07-17 00:48 | XMS_ITS | Encounter Summary ---
Author Name [place] Address [address] [place] [address] Care Team Providers Care Gis Engineer Name Role Phone LILIAMRONIT LYNN Primary Care [...] Name Patient's Relationship to Policy Lu AARP [facility] ([facility]) MEDICARE ADVANTAGE MCR ([facility]) Nov 11, 2020 [id number] SHAYYMAURICE Y PATIENT [facility] ([facility]) MEDICARE ADVANTAGE MCR ([facility]) Nov 11, 2017 [id number] SHAYY,MAURICE Y PATIENT [facility] ([facility]) MEDICARE ADVANTAGE MCR ([facility]) Nov 11, 2020 [id number] SHAYY,MAURICE Y PATIENT Selected Encounter This section includes the information on record at [place] for the Encounter. Date/Time Encounter Type Encounter Description Reason Provider Source Jun 02, 2024 03:01 PM Outpatient Encounter ADMIN PAT ACTIVTIES (MASNONCT) BHARATJHONVincent Rea Wan Encounter Template Text not used by [place] Plan of Treatment: Future Appointments (+ 6 months) and Future Tests (+/- 45 days) The Plan of Treatment section includes future care activities for the patient from all [place] [facility] This section includes future appointments and future orders which are active, pending or scheduled. Future Appointments This section includes appointments that were scheduled to occur 6 months from the date of the Encounter, up to a maximum of 20 appointments. The data comes from all [place] treatment facilities. Appointment Date/Time Appointment Type Appointme nt Facility Name Jun 09, 2024 08:15 AM AMBULATORY - NONE [facility] Jun 30, 2024 10:30 AM AMBULATORY - PSYCHIATRY [facility] Jul 04, 2024 09:59 AM AM[place]ORY - NONE [place] [facility] Jul 07, 2024 02:00 PM AMB[facility]ATORY - [facility]ICINE [facility] Jul 09, 2024 08:15 AM AMBULATORY - NONE [facility] Jul 13, 2024 11:24 AM AM[facility]ULATORY - NONE [place] [facility] Aug 06, 2024 08:15 AM AMBULATORY - NONE [facility] Aug 12, 2024 02:00 PM AM[place]UL[place]ORY [place]ICINE [place] [facility] Sep 14, 2024 10:30 AM AMBULATORY - PS[facility]CHIATRY [facility] Sep 15, 2024 10:30 AM AMBULATORY - PSYCHIATRY [facility] Social History: Smoking Status (Most current) and Tobacco Use (All prior to encounter date) This section includes the most current, and the historical, smoking and tobacco- related health factors from the [place] facility where the Encounter took place. Current Smoking Status This section includes the most current smoking, or tobacco-related health factor, from the [place] facility where the Encounter took place. Date/Time Current Smoking Status Comment Darian ittrish March 23, 2019 08:54 AM [place]-TOBACCO QUIT 15 YRS OR MORE [facility] Tobacco Use History This section includes a history of the smoking, or tobacco-related health factors, that were collected on or before the date of the Encounter. The data comes from the [place] facility where the Encounter took place. Date/Time Smoking Status/Tobacco Use Comment Chuyita acmaura March 23, 2019 08:54 AM [place]-TOBACCO QUIT 15 YRS OR MORE [facility] Mar 04, 2018 09:41 AM LIFETIME NON-TOBACCO USER [facility] Jun 17, 2017 01:07 PM LIFETIME NON-TOBACCO USER [facility] Apr 23, 2016 09:50 AM FORMER TOBACCO USER 7Y OR GREATE R [facility] Mar 06, 2016 11:12 AM INPT NO TOBACCO USE IN LAST 30 D AYS [facility] Jul 15, 2015 08:58 AM LIFETIME NON-TOBACCO USER [facility] Feb 11, 2013 10:04 AM LIFETIME NON-TOBACCO USER [facility] Nov 27, 2006 03:44 PM FORMER TOBACCO USER 7Y OR GREATE R [facility] Advance Directives: All historical and current Section Date Range: From patient's date of to the date document was created. This section includes ALL of a patient's completed or amended [place] Advance and Rescinded Directives. The entries below indicate that a directive exists for the patient, but an actual copy is not included with this document. The data comes from all [place] facilities. Date Advance Directives Provider Source Mar 04, 2016 [facility] Apr 25, 2010 ADVANCE DIRECTIVE RADHA STEVENSON [facility] March 21, 2005 CLINICAL WARNING [place]YLEE [place] [facility] Apr 28, 2004 CLINICAL WARNING MAGI CHAUDHRY [place] [facility] Apr 28, 2004 [facility] Encounter Notes: All associated encounter notes This section contains the clinical notes associated to the Encounter. Date/Time Encounter Note(s) Provider Source Jun 04, 2024 11:06 AM ADDENDUM: LOCAL TITLE: Addendum STANDARD TITLE: ADDENDUM DATE OF NOTE: JUN 04, 2024@11:06 ENTRY DATE: JUN 04, 2024@11:06:02 AUTHOR: COLLEEN STEINER EXP COSIGNER: URGENCY: STATUS: COMPLETED Vet has [facility]ITC PCP appt scheduled 06/09/24. Flagging [facility]ITC RN as MICHAEL. /migdalia/ Colleen Walker [facility] PACT RN Signed: 06/04/2024 11:06 Receipt Acknowledged By: 06/04/2024 11:57 /migdalia/ CATARINA BARAJAS RN automotive manager Poultry Grader ====== --- Original Document --- 05/31/24 [facility] CARE-ROSS SELF PRESENTING CARE COORD PLAN NOTE: Emergency Notification Intake Date Presenting to the Facility: May Method of Contact: Notified from ECR worklist Notification ID: [id number] [facility] Referral #: [facility] Name: Hospital: [facility] Address: City: [place] State: [place] Zip Code: Phone : [facility] Facility Point of Contact: Name: DEPT Chief complaint: (K58.9) Irritable bowel syndrome, unspecified type (primary encounter diagnosis) (R74.8) Elevated lipase Primary Diagnosis: Disposition Unknown at time of intake note entry /migdalia/ [facility] PATCHER Signed: 06/02/2024 15:03 Receipt Acknowledged By: 06/03/2024 07:40 /es/ Celia Kenny RN CEM MSN automotive manager Poultry Grader 05/31/2024 ADDENDUM STATUS: COMPLETED VistA Imaging Scanned Document - Addendum. ED record 05.31.24 [facility] SCANNED DOCUMENT SIGNATURE NOT REQUIRED Electronically Filed: 06/03/2024 by: JEREMIAH VALLE MSA 06/03/2024 ADDENDUM STATUS: COMPLETED [place] was seen in a Community ED. Records uploaded to chart. Please review and follow up as appropriate /migdalia/ JEREMIAH VALLE MSA Signed: 06/03/2024 10:22 Receipt Acknowledged By: * AWAITING SIGNATURE * RONIT NIEVES 06/04/2024 11:05 /es/ Colleen Walker [facility] PACT COLLEEN CARLIN [facility] Jun 03, 2024 10:22 AM ADDENDUM: LOCAL TITLE: Addendum STANDARD TITLE: ADDENDUM DATE OF NOTE: JUN 03, 2024@10:22:44 ENTRY DATE: JUN 03, 2024@10:22:45 AUTHOR: JANICE,LYNDZEY A EXP COSIGNER: URGENCY: STATUS: COMPLETED [place] was seen in a Community ED. Records uploaded to chart. Please review and follow up as appropriate /migdalia/ JEREMIAH VALLE MSA Signed: 06/03/2024 10:22 Receipt Acknowledged By: 06/06/2024 11:51 /es/ RONIT NIEVES,KEYANNA HIDALGO [facility] 06/04/2024 11:05 /es/ Colleen Walker [facility] PACT RN ====== --- Original Document --- 05/31/24 COMMUNITY CARE-ROSS SELF PRESENTING CARE COORD PLAN NOTE: Emergency Notification Intake Date Presenting to the Facility: May Method of Contact: Notified from ECR worklist Notification ID: [id number] [facility] Referral #: [facility] Name: Hospital: [facility] Address: City: [place] State: [place] Zip Code: Phone : Community Facility Point of Contact: Name: [facility] Chief complaint: (K58.9) Irritable bowel syndrome, unspecified type (primary encounter diagnosis) (R74.8) Elevated lipase Primary Diagnosis: Disposition Unknown at time of intake note entry /migdalia/ [facility] PATCHER Signed: 06/02/2024 15:03 Receipt Acknowledged By: 06/03/2024 07:40 /es/ Celia Kenny RN CEM MSN automotive manager Poultry Grader 05/31/2024 ADDENDUM STATUS: COMPLETED VistA Imaging Scanned Document - Addendum. ED record 05.31.24 [facility] SCANNED DOCUMENT SIGNATURE NOT REQUIRED Electronically Filed: 06/03/2024 by: JEREMIAH VALLE MSA 06/04/2024 ADDENDUM STATUS: COMPLETED Vet has CITC PCP appt scheduled 06/09/24. Flagging CITC RN as FYI. /migdalia/ Colleen Walker [facility] PACT RN Signed: 06/04/2024 11:06 Receipt Acknowledged By: 06/04/2024 11:57 /es/ CATARINA BARAJAS, RN automotive manager Poultry Grader JEREMIAH CAMACHO [facility] May 31, 2024 03:02 PM NONVA NOTE: LOCAL TITLE: COMMUNITY CARE-ROSS SELF PRESENTING CARE COORD PLAN STANDARD TITLE: NONVA NOTE DATE OF NOTE: MAY 31, 2024@15:02 ENTRY DATE: JUN 02, 2024@15:02:38 AUTHOR: KERON MEYER COSIGNER: URGENCY: STATUS: COMPLETED COMMUNITY CARE-ROSS SELF PRESENTING CARE COORD PLAN NOTE Has ADDENDA Emergency Notification Intake Date Presenting to the Facility: May Method of Contact: Notified from cloud.IQ worklist Notification ID: [id number] [facility] Referral #: [facility] Name: Hospital: [facility] Address: City: [place] State: [place] Zip Code: Phone : [facility] Facility Point of Contact: Name: [facility] Chief complaint: (K58.9) Irritable bowel syndrome, unspecified type (primary encounter diagnosis) (R74.8) Elevated lipase Primary Diagnosis: Disposition Unknown at time of intake note entry /migdalia/ [facility] PATCHER Signed: 06/02/2024 15:03 Receipt Acknowledged By: 06/03/2024 07:40 /es/ Celia Kenny RN CEM MSN automotive manager Poultry Grader 05/31/2024 ADDENDUM STATUS: COMPLETED VistA Imaging Scanned Document - Addendum. ED record 05.31.24 [facility] SCANNED DOCUMENT SIGNATURE NOT REQUIRED Electronically Filed: 06/03/2024 by: JEREMIAH VALLE MSA 06/03/2024 ADDENDUM STATUS: COMPLETED [place] was seen in a Community ED. Records uploaded to chart. Please review and follow up as appropriate /migdalia/ JEREMIAH VALLE MSA Signed: 06/03/2024 10:22 Receipt Acknowledged By: * AWAITING SIGNATURE * RONIT NIEVES 06/04/2024 11:05 /migdalia/ Colleen Walker [facility] PACT RN 06/04/2024 ADDENDUM STATUS: COMPLETED Vet has [facility]ITC PCP appt scheduled 06/09/24. Flagging CITC RN as FYWilliam. /migdalia/ Colleen Walker [facility] PACT RN Signed: 06/04/2024 11:06 Receipt Acknowledged By: * AWAITING SIGNATURE * CATARINA BARAJAS ZACHARY J [facility]
--- OUTSIDE RECORDS SUMMARY | 2024-07-17 00:49 | XMS_ITS | Encounter Summary ---
Author Name [place] Address [address] [place] [address] Care Team Providers Care Parts Finisher Name Role Phone LILIAMRONIT LYNN Primary Care [...] Name Patient's Relationship to Policy Lu AARP [facility] ([facility]) MEDICARE ADVANTAGE MCR ([facility]) Nov 11, 2020 [id number] SHAYY,JITENDRA Y PATIENT [facility] ([facility]) MEDICARE ADVANTAGE MCR ([facility]) Nov 11, 2017 [id number] SHAYY,JITENDRA Y PATIENT [facility] ([facility]) MEDICARE ADVANTAGE MCR ([facility]) Nov 11, 2020 [id number] SHAYY,JITENDRA Y PATIENT Selected Encounter This section includes the information on record at [place] for the Encounter. Date/Time Encounter Type Encounter Description Reason Provider Source Jun 30, 2024 10:30 AM PSYTX W PT 45 MINUTES MENTAL [facility] - IND ICD-10-CM F33.8 Other recurrent depressive disorders REUBEN JAVED E Encounter Template Text not used by [place] Assessments - Encounter Diagnoses This section includes the primary and secondary diagnoses documented for the Encounter. Date/Time Primary/Secondary Diagnosis Diagnosis Name Provider Source Jul 01, 2024 09:59 AM PRIMARY Other recurrent depressive disorders REUBEN JAVED [facility] Plan of Treatment: Future Appointments (+ 6 months) and Future Tests (+/- 45 days) The Plan of Treatment section includes future care activities for the patient from all [place] [facility]. This section includes future appointments and future orders which are active, pending or scheduled. Future Appointments This section includes appointments that were scheduled to occur 6 months from the date of the Encounter, up to a maximum of 20 appointments. The data comes from all [place] treatment facilities. Appointment Date/Time Appointment Type Appointme nt Facility Name Jul 04, 2024 09:59 AM [facility] Jul 07, 2024 02:00 PM AMBULATORY - [facility]ICINE [facility] Jul 09, 2024 08:15 AM AMBULATORY - NONE [facility] Jul 13, 2024 11:24 AM [facility] [place] [facility] Aug 06, 2024 08:15 AM AMBULATORY - NONE [facility] Aug 12, 2024 02:00 PM AMBUL[facility]ORY - [facility]ICINE [facility] [facility] Sep 14, 2024 10:30 AM AMBULATORY - PSYCHIATRY [facility] Sep 15, 2024 10:30 AM AMBULATORY - PSYCHIATRY [facility] Advance Directives: All historical and current Section Date Range: From patient's date of to the date document was created. This section includes ALL of a patient's completed or amended [place] Advance and Rescinded Directives. The entries below indicate that a directive exists for the patient, but an actual copy is not included with this document. The data comes from all [place] facilities. Date Advance Directives Provider Source Mar 04, 2016 CLINICAL WARNING PALMA NUNEZ [facility] Apr 25, 2010 ADVANCE DIRECTIVE RADHA STEVENSON [facility] March 21, 2005 CLINICAL WARNING KYLEE ANN [facility] Apr 28, 2004 CLINICAL WARNING MAGI CHAUDHRY [facility] Apr 28, 2004 CLINICAL WARNING [place]IA PARED[facility] Encounter Notes: All associated encounter notes This section contains the clinical notes associated to the Encounter. Date/Time Encounter Note(s) Provider Source Jun 30, 2024 10:30 AM MENTAL HEALTH NOTE : LOCAL TITLE: MH PROGRESS NOTE STANDARD TITLE: MENTAL HEALTH NOTE DATE OF NOTE: JUN 30, 2024@10:30 ENTRY DATE: JUL 01, 2024@09:55:30 AUTHOR: REUBEN JAVED COSIGNER: URGENCY: STATUS: COMPLETED INFORMED CONSENT: Patient and provider reviewed confidentiality and privacy, as well as limitations to privacy. We reviewed purpose of this meeting and patient rights. Visit conducted by synchronous telehealth. At the beginning of the session, verbal consent was obtained. Location/emergency number confirmed. Environment surveyed and all participants identified. Virtual conference room locked. Undersigned editorial writer answered any questions patient had about using this technology for individual therapy and [place] indicated acceptance and understanding of steps to protect confidentiality and limitations as reasonable. consented to meet for the purpose of therapy. S:Jitendra Gregory is a 73 year-old, , [place] who was seen via VVC to home for psychotherapy using ACT and VT. [place] stable, doing reasonably well. Getting PC in [place] which he much appreciates. Discussed plan for tx. states this keeps me sane, also acknowledges that no one comes to see him and that he is lonely. Discussed his efforts to connect with others in community. Discussed vague/tentative plan to go visit daughter in [place] and eventually move there. Reviewed [facility] clinics near her home, showed him VA webpage with hosptial finder all clinics are 24 [place] 32 miles from [place]. Discussed reducing freq of visits due to stability Mental Status: Session/visit location: home Presentation: casually [...] of ideas, loose associations, or delusions. Suicidality: denied current SI, plan, and intent. Homicidally: [place] denied HI, plan, or intent. Judgment: Good Insight: Good rare ETOH consumption, dislikes taste RISK ASSESSMENT: Known suicide risks: recent loss, history of depression, history of SPMI, history of psychiatric hospitalization, family hx of suicide (bio father, possibly son), age, gender, ethnicity. Possible suicide protective factors: denies SI, states can't do suicide due to father dying by suicide, connection to adult daughter in [place], reports sobriety, help seeking Determination of Risk: Acute Risk - Low (No SI, plan, intent, or preparatory behaviors) Chronic Risk - Moderate Other safety issues: Denied self-injurious behaviors Diagnoses: Depressive disorder ([facility] [id number]) - Other recurrent depressive disorders (ICD- 10-CM F33.8) (Primary) Procedures: 38-52 minutes P: FU on Sep 15 at 10:30 am by VVC to home [place] has my contact info, the clinic info and the VCL. MH TX PLAN: January 21, 2024 (due again 2024) /migdalia/ REUBEN JAVED STAFF PSYCHOLOGIST Signed: 07/01/2024 09:59 REUBEN JAVED [facility]
--- OUTSIDE RECORDS SUMMARY | 2024-07-17 00:49 | XMS_ITS | Encounter Summary ---
Author Name [place] Address [address] [place] [address] Care Team Providers Care Bulb Sorter Name Role Phone LILIAMRONIT LYNN Primary Care [...] Name Patient's Relationship to Policy Lu AARP [facility] ([facility]) MEDICARE ADVANTAGE MCR ([facility]) Nov 11, 2020 [id number] MAURICE LUCAS Y PATIENT [facility] ([facility]) MEDICARE ADVANTAGE MCR ([facility]) Nov 11, 2017 [id number] SHAYYMAURICE Yee Y PATIENT [facility] ([facility]) MEDICARE ADVANTAGE MCR ([facility]) Nov 11, 2020 [id number] MAURICE LUCAS Y PATIENT Selected Encounter This section includes the information on record at [place] for the Encounter. Date/Time Encounter Type Encounter Description Reason Pro vider Source Jun 11, 2024 01:58 PM Outpatient Encounter COMMUNITY CARE CONSULT IHE Encounter Template Text not used by [place] Plan of Treatment: Future Appointments (+ 6 months) and Future Tests (+/- 45 days) The Plan of Treatment section includes future care activities for the patient from all [place] [facility]. This section includes future appointments and future orders which are active, pending or scheduled. Future Appointments This section includes appointments that were scheduled to occur 6 months from the date of the Encounter, up to a maximum of 20 appointments. The data comes from all [place] treatment facilities. Appointment Date/Time Appointment Type Appointme nt Facility Name Jun 30, 2024 10:30 AM AMBULATORY - PSYCHIATRY [facility] Jul 04, 2024 09:59 [facility] Jul 07, 2024 02:00 PM [facility] - [facility]IC[facility] Jul 09, 2024 08:15 AM AMBULATORY - NONE [facility] Jul 13, 2024 11:24 AM AM[place]UL[place]ORY - NONE [place] [facility] Aug 06, 2024 08:15 AM AMBULATORY - NONE [facility] Aug 12, 2024 02:00 PM AM[facility]ULATORY - MEDICINE [facility] Sep 14, 2024 10:30 AM AMBULATORY - PSYCHIATRY [facility] Sep 15, 2024 10:30 AM AMBULATORY - PSYCHIATRY [facility] Social History: Smoking Status (Most current) and Tobacco Use (All prior to encounter date) This section includes the most current, and the historical, smoking and tobacco- related health factors from the [place] facility where the Encounter took place. Current Smoking Status This section includes the most current smoking, or tobacco-related health factor, from the [place] facility where the Encounter took place. Date/Time Current Smoking Status Comment Darian bocanegra March 23, 2019 08:54 AM VA-TOBACCO QUIT 15 YRS OR MORE [facility] Tobacco Use History This section includes a history of the smoking, or tobacco-related health factors, that were collected on or before the date of the Encounter. The data comes from the [place] facility where the Encounter took place. Date/Time Smoking Status/Tobacco Use Comment Chuyita mccoy March 23, 2019 08:54 AM VA-TOBACCO QUIT 15 YRS OR MORE [facility] Mar 04, 2018 09:41 AM LIFETIME NON-TOBACCO USER [facility] Jun 17, 2017 01:07 PM LIFETIME NON-TOBACCO USER [facility] Apr 23, 2016 09:50 AM FORMER TOBACCO USER 7Y OR GREATE R [facility] Mar 06, 2016 11:12 AM INPT NO TOBACCO USE IN LAST 30 D AYS [facility] Jul 15, 2015 08:58 AM LIFETIME NON-TOBACCO USER [facility] Feb 11, 2013 10:04 AM LIFETIME NON-TOBACCO USER [facility] Nov 27, 2006 03:44 PM FORMER TOBACCO USER 7Y OR GREATE R [facility] Advance Directives: All historical and current Section Date Range: From patient's date of to the date document was created. This section includes ALL of a patient's completed or amended [place] Advance and Rescinded Directives. The entries below indicate that a directive exists for the patient, but an actual copy is not included with this document. The data comes from all [place] facilities. Date Advance Directives Provider Source Mar 04, 2016 CLINICAL [facility] Apr 25, 2010 ADVANCE DIRECTIVE RADHA STEVENSON [facility] March 21, 2005 CLINICAL WARNING KYLEE ANN [facility] Apr 28, 2004 CLINICAL WARNING [facility] Apr 28, [address] Encounter Notes: All associated encounter notes This section contains the clinical notes associated to the Encounter. Date/Time Encounter Note(s) Provider Source Jun 11, 2024 01:58 PM NONVA NOTE: LOCAL TITLE: COMMUNITY CARE-CARE COORDINATION PLAN NOTE STANDARD TITLE: NONVA NOTE DATE OF NOTE: JUN 11, 2024@13:58 ENTRY DATE: JUN 11, 2024@13:58:04 AUTHOR: CATARINA BARAJAS EXP COSIGNER: URGENCY: STATUS: COMPLETED Pt calling to state that he is thinking of moving to [place] to live closer to his daughter. He's wondering what CBOC is close to [place], [place]. This wirter informed him I don't have access to that information, but informed him he will need to Contact [facility] to esbalish Primary Care and they would be able to set up up properly with either VA PCP or CC PCP. He will inform news writer if/when he moves. /migdalia/ CATARINA BARAJAS RN dairy farm manager Subgrade Tester Signed: 06/11/2024 14:00 CATARINA BARAJAS [facility]
--- OUTSIDE RECORDS SUMMARY | 2024-07-17 00:49 | XMS_ITS | Encounter Summary ---
Author Name [facility] [place] Organization [place] Address [address] [place] [address] Care Team Providers Care Used Building Materials Yard Worker Name Role Phone LILIAMRONIT LYNN Primary Care [...] Name Patient's Relationship to Policy Lu AARP [facility] ([facility]) MEDICARE ADVANTAGE MCR ([facility]) Nov 11, 2020 [id number] SHAYYMAURICE Y PATIENT [facility] ([facility]) MEDICARE ADVANTAGE MCR ([facility]) Nov 11, 2017 [id number] [phone] SHAYY,MAURICE Y PATIENT [facility] ([facility]) MEDICARE ADVANTAGE MCR ([facility]) Nov 11, 2020 [id number] [phone] SHAYY,MAURICE Y PATIENT Selected Encounter This section includes the information on record at [place] for the Encounter. Date/Time Encounter Type Encounter Description Reason Provider Source Jul 04, 2024 09:59 AM Outpatient Encounter ADMIN PAT ACTIVTIES (MASNONCT) CELIA KENNY JOELWan Encounter Template Text not used by [place] Plan of Treatment: Future Appointments (+ 6 months) and Future Tests (+/- 45 days) The Plan of Treatment section includes future care activities for the patient from all [place] [facility]. This section includes future appointments and future orders which are active, pending or scheduled. Future Appointments This section includes appointments that were scheduled to occur 6 months from the date of the Encounter, up to a maximum of 20 appointments. The data comes from all [place] treatment facilities. Appointment Date/Time Appointment Type Appointme nt Facility Name Jul 07, 2024 02:00 PM [facility]ORY [facility]INE [facility] Jul 09, 2024 08:15 AM AMBULATORY - NONE [facility] Jul 13, 2024 11:24 AM AMBUL[facility]ORY - NONE [place] [facility] Aug 06, 2024 08:15 AM AM[facility]ATORY - NONE [facility] Aug 12, 2024 02:00 PM AMBULATORY - MEDICINE [facility] Sep 14, 2024 10:30 AM [facility]IATRY [facility] Sep 15, 2024 10:30 AM AMBULATORY - [facility]AT[facility] Social History: Smoking Status (Most current) and [...] Darian bocanegra March 23, 2019 08:54 AM [place]-TOBACCO QUIT 15 YRS OR MORE [facility] Tobacco Use History This section includes a history of the smoking, or tobacco-related health factors, that were collected on or before the date of the Encounter. The data comes from the [place] facility where the Encounter took place. Date/Time Smoking Status/Tobacco Use Comment Chuyita mccoy March 23, 2019 08:54 AM [place]-TOBACCO QUIT 15 YRS [place] MORE [place] [...] Source Mar 04, 2016 [facility]ICAL [facility]ING [facility] Apr 25, 2010 ADVANCE DIRECTIVE RADHA STEVENSON [facility] March 21, 2005 CLINICAL WARNING [facility] Apr 28, 2004 CLINICAL WARNING MAGI CHAUDHRY [facility] Apr 28, 2004 CLINICAL WARNING [facility] Encounter Notes: All associated encounter notes This section contains the clinical notes associated to the Encounter. Date/Time Encounter Note(s) Provider Source Jul 06, 2024 12:55 PM ADDENDUM: LOCAL TITLE: Addendum STANDARD TITLE: ADDENDUM DATE OF NOTE: JUL 06, 2024@12:55:50 ENTRY DATE: JUL 06, 2024@12:55:51 AUTHOR: JESSE HOLCOMB EXP COSIGNER: URGENCY: STATUS: COMPLETED RTC placed for RN f/uBelén /migdalia/ Jesse Holcomb RN Nurse [facility] Signed: 07/06/2024 12:56 Receipt Acknowledged By: 07/06/2024 17:47 /migdalia/ DARCIE CARBONE [facility] --- Original Document --- 07/02/24 COMMUNITY CARE-ROSS SELF PRESENTING CARE COORD PLAN NOTE: Emergency Notification Intake Date Presenting to the Facility: Jun Method of Contact: Notified from ECR worklist Notification ID: [id number] [facility] Referral #: [facility] Hospital Name: Hospital: [facility] Address: City: [place] State: [place] Zip Code: Phone : Community Facility Point of Contact: Name: H[facility]A DEPT Chief complaint: PALPITATIONS Primary Diagnosis: Disposition Unknown at time of intake note entry /migdalia/ GENARO DAVIS APICULTURE TEACHER Signed: 07/04/2024 10:01 Receipt Acknowledged By: 07/06/2024 09:12 /es/ Celia Kenny RN CEM MSN equine pharmacology technician Sexual Assault Social Worker 07/06/2024 ADDENDUM STATUS: COMPLETED Notification acknowledged by RN, medical and clinical information not reviewed. /migdalia/ Celia Kenny RN CEM MSN equine pharmacology technician Sexual Assault Social Worker Signed: 07/06/2024 09:13 07/02/2024 ADDENDUM STATUS: COMPLETED Vist[facility] Imaging Scanned Document - Addendum. ED record 07.02.24 [facility] SCANNED DOCUMENT SIGNATURE NOT REQUIRED Electronically Filed: 07/06/2024 by: JEREMIAH VALLE MSA 07/06/2024 ADDENDUM STATUS: COMPLETED was seen in a Community ED. Records uploaded to chart. Please review and follow up as appropriate. /migdalia/ JEREMIAH VALLE MSA Signed: 07/06/2024 12:27 Receipt Acknowledged By: 07/06/2024 12:55 /es/ Jesse Holcomb RN Nurse [facility] 07/06/2024 12:33 /migdalia/ SUGEY FUNES MD STAFF PHYSICIAN JESSE HOLCOMB [facility] Jul 06, 2024 12:27 PM ADDENDUM: LOCAL TITLE: Addendum STANDARD TITLE: ADDENDUM DATE OF NOTE: JUL 06, 2024@12:27:27 ENTRY DATE: JUL 06, 2024@12:27:27 AUTHOR: JEREMIAH CAMACHO COSIGNER: URGENCY: STATUS: COMPLETED [place] was seen in a Community ED. Records uploaded to chart. Please review and follow up as appropriate. /migdalia/ JEREMIAH VALLE MSA Signed: 07/06/2024 12:27 Receipt Acknowledged By: 07/06/2024 12:55 /es/ Jesse Holcomb RN Nurse [facility] 07/06/2024 12:33 /es/ SUGEY FUNES MD STAFF PHYSICIAN --- Original Document --- 07/02/24 COMMUNITY CARE-ROSS SELF PRESENTING CARE COORD PLAN NOTE: Emergency Notification Intake Date Presenting to the Facility: Jun Method of Contact: Notified from IntelePeer worklist Notification ID: [id number] [facility] Referral #: [facility] Hospital Name: Hospital: [facility] Address: City: [place] State: [place] Zip Code: Phone : [facility] Facility Point of Contact: Name: [facility]ODA BOSS Chief complaint: PALPITATIONS Primary Diagnosis: Disposition Unknown at time of intake note entry /migdalia/ GENARO DAVIS APICULTURE TEACHER Signed: 07/04/2024 10:01 Receipt Acknowledged By: 07/06/2024 09:12 /es/ Celia Kenny RN CEM MSN equine pharmacology technician Sexual Assault Social Worker 07/06/2024 ADDENDUM STATUS: COMPLETED Notification acknowledged by RN, medical and clinical information not reviewed. /migdalia/ Celia Kenny RN CEM MSN equine pharmacology technician Sexual Assault Social Worker Signed: 07/06/2024 09:13 07/02/2024 ADDENDUM STATUS: COMPLETED VistA Imaging Scanned Document - Addendum. ED record 07.02.24 Shilo Poinsett SCANNED DOCUMENT SIGNATURE NOT REQUIRED Electronically Filed: 07/06/2024 by: JEREMIAH YANEZ MSA [facility] Jul 02, 2024 09:59 AM NONVA NOTE: LOCAL TITLE: COMMUNITY CARE-ROSS SELF PRESENTING CARE COORD PLAN STANDARD TITLE: NONVA NOTE DATE OF NOTE: JUL 02, 2024@09:59 ENTRY DATE: JUL 04, 2024@10:00:02 AUTHOR: GENARO DAVIS EXP COSIGNER: URGENCY: STATUS: COMPLETED COMMUNITY CARE-ROSS SELF PRESENTING CARE COORD PLAN NOTE Has ADDENDA Emergency Notification Intake Date Presenting to the Facility: Jun Method of Contact: Notified from ECR worklist Notification ID: [id number] [facility] Referral #: Community Hospital Name: Hospital: [facility] Address: City: [place] State: [place] Zip Code: Phone : Community Facility Point of Contact: Name: [facility] DEPT Chief complaint: PALPITATIONS Primary Diagnosis: Disposition Unknown at time of intake note entry /migdalia/ GENARO DAVIS APICULTURE TEACHER Signed: 07/04/2024 10:01 Receipt Acknowledged By: 07/06/2024 09:12 /migdalia/ Celia Kenny RN CEM MSN equine pharmacology technician Sexual Assault Social Worker 07/06/2024 ADDENDUM STATUS: COMPLETED Notification acknowledged by RN, medical and clinical information not reviewed. /migdalia/ Celia Kenny RN CEM MSN equine pharmacology technician Sexual Assault Social Worker Signed: 07/06/2024 09:13 07/02/2024 ADDENDUM STATUS: COMPLETED VistA Imaging Scanned Document - Addendum. ED record 07.02.24 Shilo Crabtreeibault SCANNED DOCUMENT SIGNATURE NOT REQUIRED Electronically Filed: 07/06/2024 by: JEREMIAH VALLE MSA 07/06/2024 ADDENDUM STATUS: COMPLETED [place] was seen in a Community ED. Records uploaded to chart. Please review and follow up as appropriate. /migdalia/ JEREMIAH VALLE MSA Signed: 07/06/2024 12:27 Receipt Acknowledged By: 07/06/2024 12:55 /migdalia/ Jesse Holcomb, RN Nurse [facility] 07/06/2024 12:33 /migdalia/ SUGEY FUNES MD STAFF PHYSICIAN 07/06/2024 ADDENDUM STATUS: COMPLETED RTC placed for RN f/u. /migdalia/ Jesse Holcomb, RN Nurse [facility] Signed: 07/06/2024 12:56 GENARO DAVIS [facility]
--- OUTSIDE RECORDS SUMMARY | 2024-07-17 00:49 | XMS_ITS | Encounter Summary ---
Author Name Department [place] Organization [place] Address [address] [place] [address] Care Team Providers Care High Reach Operator Name Role Phone RONIT NIEVES Primary [...] Name Patient's Relationship to Policy Lu AARP [facility] ([facility]) MEDICARE ADVANTAGE MCR ([facility]) Nov 11, 2020 [id number] [phone] SHAYY,MAURICE Y PATIENT [facility] ([facility]) MEDICARE ADVANTAGE MCR ([facility]) Nov 11, 2017 [id number] [phone] SHAYY,MAURICE Y PATIENT [facility] ([facility]) MEDICARE ADVANTAGE MCR ([facility]) Nov 11, 2020 [id number] [phone] SHAYY,MAURICE Y PATIENT Selected Encounter This section includes the information on record at [place] for the Encounter. Date/Time Encounter Type Encounter Description Reason Provider Source Jun 09, 2024 08:15 AM MTMS BY OSIRIS ESPANA 15 MIN TELEPHONE PRIMARY CARE ICD-10-CM E11.8 Type 2 diabetes mellitus with unspecified complications [facility] Encounter Template Text not used by [place] Assessments - Encounter Diagnoses This section includes the primary and secondary diagnoses documented for the Encounter. 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 This section includes future appointments and future orders which are active, pending or scheduled. Future Appointments This section includes appointments that were scheduled to occur 6 months from the date of the Encounter, up to a maximum of 20 appointments. The data comes from all [place] treatment facilities. Appointment Date/Time Appointment Type Appointme nt Facility Name Jun 30, 2024 10:30 AM AMBULATORY - PSYCHIATRY [facility] Jul 04, 2024 09:59 AM AMBULATORY - NONE [place] [facility] Jul 07, 2024 02:00 PM AMBULATORY - MEDICINE [facility] Jul 09, 2024 08:15 AM AMBULATORY - NONE [facility] C Joselito [facility] Jul 13, 2024 11:24 AM AMBULATORY - NONE [place] [facility] Aug 06, 2024 08:15 AM AMBULATORY - NONE [facility] Aug 12, 2024 02:00 PM AMBULATORY - MEDICINE [facility] Sep 14, 2024 10:30 AM AMBULATORY - PSYCHIATRY [facility] Sep 15, 2024 10:30 AM AMBULATORY - PSYCHIATRY [facility] Social History: Smoking Status (Most current) and Tobacco Use (All prior to encounter date) This section includes the most current, and the historical, smoking and tobacco- related health factors from the [place] facility where the Encounter took place. Current Smoking Status This section includes the most current smoking, or tobacco-related health factor, from the [place] facility where the Encounter took place. Date/Time Current Smoking Status Comment Facil ity Nov 07, 2022 11:00 AM [place]-TOBACCO NEVER USED [facility] Tobacco Use History This section includes a history of the smoking, or tobacco-related health factors, that were collected on or before the date of the Encounter. The data comes from the [place] facility where the Encounter took place. Date/Time Smoking Status/Tobacco Use Comment Chuyita mccoy Dec 13, 2021 09:30 AM [place]-TOBACCO NEVER [...] ALL of a patient's completed or amended [place] Advance and Rescinded Directives. The entries below indicate that a directive exists for the patient, but an actual copy is not included with this document. The data comes from all [place] facilities. Date Advance Directives Provider Source Mar 04, 2016 CLINICAL WARNING PALMA NUNEZ [facility] Apr 25, 2010 ADVANCE DIRECTIVE RADHA STEVENSON [facility] March 21, 2005 CLINICAL WARNING [facility]E [facility] Apr 28, 2004 [facility] Apr 28, 2004 [facility] Encounter Notes: All associated encounter notes This section contains the clinical notes associated to the Encounter. Date/Time Encounter Note(s) Provider Source Jun 09, 2024 08:01 AM PHARMACY NOTE: LOCAL TITLE: PHARMACOTHERAPY-CLINICAL PHARMACY NOTE STANDARD TITLE: PHARMACY NOTE DATE OF NOTE: JUN 09, 2024@08:01 ENTRY DATE: JUN 09, 2024@08:02:09 AUTHOR: [facility] CHARLES EXP COSIGNER: URGENCY: STATUS: COMPLETED SHAYYJULIUS is a 73 YO MALE followed by [facility] for medication management. Visit Type: telephone *Has non-VA pcp (Shilo Weldon to [facility]), consumer loan underwriter managing DM, non- [place] pcp aware. SUBJECTIVE: Vet is following-up with [facility] for DM management. Recently, went to ED on 05/31/24 due to diarrhea. Provider mentioned a mild increase in lipase, but did not meet criteria for pancreatitis. Semaglutide was stopped due to concerns of GI side effects that have been ongoing. ED provider held medication. Since holding med, vet reports feeling much better. Has an appt with non-VA PCP today at 9:30AM to discuss post ED discharge and will have another appt in June to review DM management. Baseline Weight: 275 lbs [123.60 kg], BMI 40.3 (02/27/23) [place] Body Weight: 156 lbs [70.70 kg] Clinic Weight: 269.8 lbs [122.38 kg], BMI 39.93 (09/05/23) Current Home Weight: 252 lbs Weight Loss: ~23 lbs since starting semaglutide (Ozempic) Past DM meds: -empagliflozin - dizziness, had fall -metformin - made him really sick -semaglutide - GI side effects, mild increase in lipase -rosiglitazone Meds: ACEi/ARB: + Stain: + Diabetes Related Complications: Macrovascular: [+], atrial flutter, CHF, hx of CVA, CAD Microvascular: -Retinopathy [-], last exam w/ [facility] 12/18/22 -Nephropathy [-], on candesartan, didn't tolerate empa Lifestyle: Diet: typically just eating 2x/day -doesn't eat lunch -will eat at [employer], [employer], but tries to avoid fast food Meal 1 (6 AM): 2 egg mcmuffins with ham today: bowl of oatmeal with cinnamon Meal 2 (5-6 PM): varies - chicken nuggets or toast w/ peanut butter hamburger (at home) yesterday: had [employer] Beverages: diet coke and water Snacks: cookies (rarely) Exercise: goes to the gym 3x's/wk - Nustep for about 20-30 mins Labs: 03/2023 C-Peptide: 2.45 GREG-65: <5 ROS: (-) hypoglycemia symptoms - feels shaky, dizzy +/- sweating if BG is <100 - uses glucose tablets to help increase BG (-) hyperglycemia symptoms Name: Julius Gregory Date of : 1950 Report Period: 05/27/2024 - 06/09/2024 (14 days) Generated: 06/09/2024 % Time CGM Active: 96% Glucose Statistics and Targets Average Glucose: 208 mg/dL Glucose Management Indicator (GMI): 8.3% Glucose Variability (%CV): 25.5% Target Range: 70 - 180 mg/dL Time in Ranges Very High: >250 mg/dL --- 22% High: 181 - 250 mg/dL --- 44% Target Range: 70 - 180 mg/dL --- 34% Low: 54 - 69 mg/dL --- 0% Very Low: <54 mg/dL --- 0% Trends: BG highest BG readings after each of his meals Previous LibreView Report Period: 04/29/2024 - 05/12/2024 (14 days) Generated: 05/12/2024 % Time CGM Active: 95% Glucose Statistics and Targets Average Glucose: 222 mg/dL Glucose Management Indicator (GMI): 8.6% Glucose Variability (%CV): 25.2% Target Range: 70 - 180 mg/dL Time in Ranges Very High: >250 mg/dL --- 28% High: 181 - 250 mg/dL --- 50% Target Range: 70 - 180 mg/dL --- 22% Low: 54 - 69 mg/dL --- 0% Very Low: <54 mg/dL --- 0% Labs ([facility]) *JL Date Lab Result 03/19 Cholesterol 162 mg/dL TG 286 mg/dL HDL 43 mg/dL LDL 62 mg/dL A1c 8.7% OBJECTIVE: ALLERGIES/ADR: METRONIDAZOLE (Feb 24, 2004) TETRACYCLINE [...] 3 MINUTES OF REMOVING FROM CONTAINER 2) ATORVASTATIN CALCIUM 40MG TAB TAKE ONE TABLET BY ACTIVE MOUTH EVERY EVENING FOR CHOLESTEROL 3) CANDESARTAN CILEXETIL 32MG TAB TAKE ONE TABLET BY ACTIVE MOUTH EVERY DAY FOR BLOOD PRESSURE 4) CLOPIDOGREL BISULFATE 75MG TAB TAKE ONE TABLET BY ACTIVE MOUTH EVERY DAY TO PREVENT BLOOD CLOTS 5) CREON 3,000UNIT EC CAP TAKE ONE CAPSULE BY MOUTH ACTIVE EVERY DAY 6) DICLOFENAC NA 1% TOP GEL APPLY 4 GRAMS TOPICALLY FOUR ACTIVE TIMES A DAY NEEDED FOR LEFT KNEE PAIN. - USE DOSE CARD IN BOX TO MEASURE DOSE. *MAX 32 GRAMS PER DAY 7) DILTIAZEM (EQV-TIAZAC) 120MG 24HR CAP TAKE ONE ACTIVE CAPSULE BY MOUTH EVERY DAY 8) EZETIMIBE 10MG TAB TAKE ONE TABLET BY MOUTH EVERY DAY ACTIVE FOR CHOLESTEROL 9) FAMOTIDINE 20MG TAB TAKE TWO TABLETS BY MOUTH AT ACTIVE BEDTIME FOR STOMACH ACID 10) HYDROCHLOROTHIAZIDE 25MG TAB TAKE ONE TABLET BY MOUTH ACTIVE THREE TIMES A WEEK 11) HYDROCORTISONE 1% CREAM APPLY THIN LAYER TOPICALLY ACTIVE TWICE A DAY NEEDED FOR ITCHING 12) INSULIN,ASPART(EQV-NOVLG)100UN /ML FLXPEN INJECT 1-10 CONFIRMED UNITS SLIDING SCALE DIRECTED UNDER THE SKIN THREE TIMES A DAY BEFORE MEALS NEEDED FOR DIABETES - Injects on a sliding scale 13) INSULIN,GLARGINE-YFGN 100UNIT/ML PEN 3ML INJECT 66 CONFIRMED UNITS UNDER THE SKIN AT BEDTIME FOR DIABETES - Injects 66 units at bedtime 14) ISOSORBIDE MONONITRATE 30MG SA TAB TAKE ONE TABLET BY ACTIVE MOUTH EVERY DAY FOR CHEST PAIN 15) LACTOBACILLUS ACIDOPHILUS TAB TAKE 2 TABLETS BY MOUTH ACTIVE EVERY DAY 16) METOPROLOL TARTRATE 25MG TAB TAKE ONE-HALF TABLET BY ACTIVE MOUTH TWICE A DAY 17) PSYLLIUM ORAL PWD TAKE 1 TEASPOONFUL BY MOUTH EVERY ACTIVE DAY NEEDED FOR CONSTIPATION *MIX IN LIQUID 18) SEMAGLUTIDE 1MG/0.75ML INJ PEN 3ML INJECT 1MG UNDER D/C THE SKIN ONCE WEEKLY FOR DIABETES - Stopped taking due to GI side effects 19) TRAZODONE HCL 50MG TAB TAKE ONE TABLET BY MOUTH AT ACTIVE BEDTIME FOR SLEEP Active Non-VA Medications Status 1) Non-VA APPLE CIDER VINEGAR CAP/TAB MOUTH ACTIVE 2) Non-VA CINNAMON 500MG TAB 1 TABLET MOUTH EVERY DAY ACTIVE 3) Non-VA NON VA MED NOT LISTED MISCELLANEOUS ACTIVE EUCALYPTUS/PEPPERMINT OIL NEEDED 4) Non-VA PONARIS SOLN,NASAL EACH NOSTRIL ACTIVE 5) Non-VA SODIUM CHLORIDE 0.9% IRRG SOLN SOLUTION ACTIVE IRRIGATION THREE TIMES A DAY 24 Total Medications Vitals: Temperature: 97.5 F [...] (08/09/23) CHLORIDE 94 L (08/09/23) EGFR (06/14) 09/07/2021@1047 134 CREATININE EGFR (CKD-EPI) 08/09/2023@1426 >90 MAGNESIUM 2.2 (08/09/23) Collection DT Specimen [...] COMMENTS AVAILABLE...Refer to Interim Lab Report. CHOLESTEROL 164 (02/28/24) MEASURED LDL____ LDL CALCULATION 80 (02/28/24) HDL 39 L (02/28/24) TRIGLYCERIDE 226 H (02/28/24) Collection DT Spec HGBA1C POCA1C 02/28/2024 08:20 BLOOD 8.4 H 11/01/2023 09:52 BLOOD 8.8 H 08/09/2023 14:26 BLOOD 8.4 H Collection DT Specimen Test Name Result Units Ref Range 04/12/2020 10:00 URINE !! ALB/CREAT RATIO,U canc mg/g creat Ref: <=29.9 04/13/2019 16:02 URINE !! ALB/CREAT RATIO,U canc mg/g creat Ref: <= 29.9 12/03/2016 15:44 URINE !! ALB/CREAT RATIO,U canc mg/g creat 0 - 30 !! Indicates COMMENTS AVAILABLE...Refer to Interim Lab Report. SGOT 16 (08/09/23) SGPT 19 (08/09/23) TSH ____ No data available ASSESSMENT: #DM - Goal A1c <8% (FBG 80-160, PPG <210) d/t comorbidities per VA/DoD guidelines. Most recent A1c increased and remains above goal at 8.7% ([facility]). CGM data showed BG was elevated with a BG average of 208 mg/dL and GMI of 8.3%. BG was above range (>180 mg/dL) 66% of the time and within target range (70-180 mg/dL) 34%. BG tends to be highest after each of his meals. Current meds include: insulin aspart, insulin glargine, and semaglutide. Due to GI concerns with semaglutide discontinued medication. Could consider increasing sliding scale of insulin aspart due to elevated BG readings after each meal. PLAN: Discontinue: - semaglutide (Ozempic) 1 mg under the skin once weekly on Tuesdays Increase: - Insulin aspart sliding scale: BG <150 - 6 units BG 151-200 - 8 units BG 201-250 - 10 units BG >250 - 12 units Continue: - Insulin glargine 66 units under the skin once daily in the morning Patient Education - Discussed lifestyle modifications through diet and exercise -Exercise: Instruct participants to have regular exercise adapted to complications and co-morbidities. Optimal is 30-60 minutes of walking a day. -Reduce intake carbohydrates (potato, bread, and pasta) -Decrease consumption of sugar #Disease-Specific Med Rec: Completed today #Labs: A1c, lipase (getting drawn at [facility]) - Educated vet on indication/risks/benefits of new/changed medication. - Education provided on therapeutic nonpharmacologic management to achieve goals. - Vet advised of recent labs. - Cortez verbalized understanding to all plans discussed today. Questions were answered to vet's satisfaction. Time spent: 28 minutes RTC: July 09 @ 8:15AM /migdalia/ Norma Martinez DOMINIC Clinical Photo Printer Signed: 06/09/2024 08:53 [facility] DOMINIC
--- OUTSIDE RECORDS SUMMARY | 2024-07-17 00:49 | XMS_ITS | Encounter Summary ---
Author Name Department of [place] Organization [place] Address [address] [place] [address] Care Team Providers Care Vendor Management Consultant Name Role Phone LILIAMRONIT LYNN Primary Care [...] Relationship to Policy Lu AARP [facility] (WNR) MEDICARE [facility] (WNR) Nov 11, 2020 [id number] SHAYYMAURICE Yee Y PATIENT [facility] (WNR) MEDICARE ADVANTAGE MCR (WNR) Nov 11, 2017 [id number] [phone] [address] PAT[address] [facility] (WNR) MEDICARE ADVANTAGE MCR (WNR) Nov 11, 2020 [id number] SHAYYMAURICE Yee Y PATIENT Selected Encounter This section includes the information on record at [place] for the Encounter. Date/Time Encounter Type Encounter Description Reason Pro vider Source Jun 09, 2024 08:55 AM Outpatient Encounter EVENT (HISTORICAL) IHE Encounter Template Text not used by VA Plan of Treatment: Future Appointments (+ 6 months) and Future Tests (+/- 45 days) The Plan of Treatment section includes future care activities for the patient from all [place] [facility]. This section includes future appointments and future orders which are active, pending or scheduled. Future Appointments This section includes appointments that were scheduled to occur 6 months from the date of the Encounter, up to a maximum of 20 appointments. The data comes from all [place] treatment facilities. Appointment Date/Time Appointment Type Appointme nt Facility Name Jun 30, 2024 10:30 AM AMBULATORY - PSYCHIATRY [facility] Jul 04, 2024 09:59 AM [facility] Jul 07, 2024 02:00 PM AMBULATORY - MEDICINE [facility] Jul 09, 2024 08:15 AM AMBULATORY - NONE [facility] Jul 13, 2024 11:24 AM AMBULATORY - NONE [place] [facility] Aug 06, 2024 08:15 AM AMBULATORY - NONE [facility] Aug 12, 2024 02:00 PM AMBULATORY - MEDICINE [place] [facility] Sep 14, 2024 10:30 AM AMBULATORY - PSYCHIATRY [facility] Sep 15, 2024 10:30 AM AMBULATORY - PSYCHIATRY [facility] Social History: Smoking Status (Most current) and Tobacco Use (All prior to encounter date) This section includes the most current, and the historical, smoking and tobacco- related health factors from the [place] facility where the Encounter took place. Current Smoking Status This section includes the most current smoking, or tobacco-related health factor, from the [place] facility where the Encounter took place. Date/Time Current Smoking Status Comment Darian bocanegra March 23, 2019 08:54 AM VA-TOBACCO QUIT 15 YRS OR MORE [facility] Tobacco Use History This section includes a history of the smoking, or tobacco-related health factors, that were collected on or before the date of the Encounter. The data comes from the [place] facility where the Encounter took place. Date/Time Smoking Status/Tobacco Use Comment Chuyita mccoy March 23, 2019 08:54 AM VA-TOBACCO QUIT 15 YRS OR MORE [facility] Mar 04, 2018 09:41 AM LIFETIME NON-TOBACCO USER [facility] Jun 17, 2017 01:07 PM LIFETIME NON-TOBACCO USER [facility] Apr 23, 2016 09:50 AM FORMER TOBACCO USER 7Y OR GREATE R [facility] Mar 06, 2016 11:12 AM INPT NO TOBACCO USE IN LAST 30 D AYS [facility] Jul 15, 2015 08:58 AM LIFETIME NON-TOBACCO USER [facility] Feb 11, 2013 10:04 AM LIFETIME NON-TOBACCO USER [facility] Nov 27, 2006 03:44 PM FORMER TOBACCO USER 7Y OR GREATE R [facility] Advance Directives: All historical and current Section Date Range: From patient's date of to the date document was created. This section includes ALL of a patient's completed or amended [place] Advance and Rescinded Directives. The entries below indicate that a directive exists for the patient, but an actual copy is not included with this document. The data comes from all [place] facilities. Date Advance Directives Provider Source Mar 04, 2016 CLINICAL WARNING [place]MA NUNEZ [place] [facility] Apr 25, 2010 ADVANCE DIRECTIVE RADHA STEVENSON [facility] March 21, 2005 CLINICAL WARNING KYLEE ANN [facility] Apr 28, 2004 CLINICAL WARNING MAGI [facility] Apr 28, 2004 CLINICAL WARNING [facility] Encounter Notes: All associated encounter notes This section contains the clinical notes associated to the Encounter. Date/Time Encounter Note(s) Provider Source Jun 09, 2024 08:55 AM ALLERGY & IMMUNOLO GY ADVERSE EVENT NOTE: LOCAL TITLE: Adverse React/Allergy STANDARD TITLE: ALLERGY & IMMUNOLOGY ADVERSE EVENT NOTE DATE OF NOTE: JUN 09, 2024@08:55:07 ENTRY DATE: JUN 09, 2024@08:55:07 AUTHOR: NHI FONTANEZ EXP COSIGNER: URGENCY: STATUS: COMPLETED This patient has had the following reactions signed-off on Jun 09, 2024@08:55:07. SEMAGLUTIDE Author's comments: mild elevation in lipase /migdalia/ Nhi Fontanez PharmD [facility] Clinical Global Commodity Manager Signed: 06/09/2024 08:55 NHI FONTANEZ [facility]
--- OUTSIDE RECORDS SUMMARY | 2024-07-17 00:50 | XMS_ITS | Encounter Summary ---
Author Name [place] Address [address] [place] [address] Care Team Providers Care Senior Budget Analyst Name Role Phone RONIT NIEVES Primary Care [...] Relationship to Policy Lu AARP [facility] (WNR) MEDICARE ADVANTAGE MCR ([facility]) Nov 11, 2020 [id number] SHAYYMAURICE Yee Y PATIENT [facility] (WNR) MEDICARE ADVANTAGE MCR ([facility]) Nov 11, 2017 [id number] SHAYYMAURICE Y PATIENT [facility] ([facility]) MEDICARE ADVANTAGE MCR ([facility]) Nov 11, 2020 [id number] [phone] SHAYYMAURICE Y PATIENT Selected Encounter This section includes the information on record at [place] for the Encounter. Date/Time Encounter Type Encounter Description Reason Pro vider Source IHE Encounter Template Text not used by VA Advance Directives: All historical and current Section Date Range: From patient's date of to the date document was created. This section includes ALL of a patient's completed or amended [place] Advance and Rescinded Directives. The entries below indicate that a directive exists for the patient, but an actual copy is not included with this document. The data comes from all [place] facilities. Date Advance Directives Provider Source Mar 04, 2016 CLINICAL WARNING PALMA NUNEZ [facility] Apr 25, 2010 ADVANCE DIRECTIVE RADHA STEVENSON [facility] March 21, 2005 CLINICAL WARNING KYLEE ANN [facility] Apr 28, 2004 [facility] Apr 28, 2004 [facility]
--- OUTSIDE RECORDS SUMMARY | 2024-07-17 00:50 | XMS_ITS | Encounter Summary ---
Author Name Department of [place] Organization Department [place] Address [address] [place] [address] Care Team Providers Care Clinical Resource Coordinator Name Role Phone LILIAMRONIT LYNN Primary Care [...] Relationship to Policy Lu AARP [facility] ([facility]) MEDICARE ADVANTAGE MCR ([facility]) Nov 11, 2020 [id number] [phone] MAURICE LUCAS Y PATIENT [facility] ([facility]) MEDICARE ADVANTAGE MCR ([facility]) Nov 11, 2017 [id number] SHAYYMAURICE Yee Y PATIENT [facility] ([facility]) MEDICARE ADVANTAGE MCR ([facility]) Nov 11, 2020 [id number] MAURICE LUCAS Y PATIENT Selected Encounter This section includes the information on record at [place] for the Encounter. Date/Time Encounter Type Encounter Description Reason Pro vider Source Jul 08, 2024 02:26 PM Outpatient Encounter COMMUNITY CARE CONSULT IHE Encounter Template Text not used by [place] Plan of Treatment: Future Appointments (+ 6 months) and Future Tests (+/- 45 days) The Plan of Treatment section includes future care activities for the patient from all [place] [facility]. This section includes future appointments and future orders which are active, pending or scheduled. Future Appointments This section includes appointments that were scheduled to occur 6 months from the date of the Encounter, up to a maximum of 20 appointments. The data comes from all [place] treatment facilities. Appointment Date/Time Appointment Type Appointme nt Facility Name Jul 09, 2024 08:15 AM AMBULATORY - NONE [facility] Jul 13, 2024 11:24 AM AMBULATORY - NONE [place] [facility] Aug 06, 2024 08:15 AM AMBULATORY - NONE [facility] Aug 12, 2024 02:00 PM AMBULATORY - MEDICINE MICHELEYoung JORDAN [facility] Sep 14, 2024 10:30 AM AMBULATORY - PSYCHIATRY [facility] Sep 15, 2024 10:30 AM AMBULATORY - PSYCHIATRY [facility] Social History: Smoking Status (Most current) and Tobacco Use (All prior to encounter date) This section includes the most current, and the historical, smoking and tobacco- related health factors from the [place] facility where the Encounter took place. Current Smoking Status This section includes the most current smoking, or tobacco-related health factor, from the [place] facility where the Encounter took place. Date/Time Current Smoking Status Comment Darian ity March 23, 2019 08:54 AM VA-TOBACCO QUIT 15 YRS OR MORE [facility] Tobacco Use History This section includes a history of the smoking, or tobacco-related health factors, that were collected on or before the date of the Encounter. The data comes from the [place] facility where the Encounter took place. Date/Time Smoking Status/Tobacco Use Comment F acmaura March 23, 2019 08:54 AM VA-TOBACCO QUIT 15 YRS OR MORE [facility] Mar 04, 2018 09:41 AM LIFETIME NON-TOBACCO USER [facility] Jun 17, 2017 01:07 PM LIFETIME NON-TOBACCO USER [facility] Apr 23, 2016 09:50 AM FORMER TOBACCO USER 7Y OR GREATE R [facility] Mar 06, 2016 11:12 AM INPT NO TOBACCO USE IN LAST 30 D AYS [facility] Jul 15, 2015 08:58 AM LIFETIME NON-TOBACCO USER [facility] Feb 11, 2013 10:04 AM LIFETIME NON-TOBACCO USER [facility] Nov 27, 2006 03:44 PM FORMER TOBACCO USER 7Y OR GREATE R [facility] Advance Directives: All historical and current Section Date Range: From patient's date of to the date document was created. This section includes ALL of a patient's completed or amended [place] Advance and Rescinded Directives. The entries below indicate that a directive exists for the patient, but an actual copy is not included with this document. The data comes from all [place] facilities. Date Advance Directives Provider Source Mar 04, 2016 CLINICAL WARNING [place] NUNEZ [place] [facility] Apr 25, 2010 ADVANCE DIRECTIVE ELVARADHA LEE [place] [facility] March 21, 2005 CLINICAL WARNING MARISSAKYLEE [place] [facility] Apr 28, 2004 CLINICAL WARNING ANDERSONJAMESON DAVISI [place] [facility] Apr 28, 2004 CLINICAL WARNING MINEDUNIA M [facility] Encounter Notes: All associated encounter notes This section contains the clinical notes associated to the Encounter. Date/Time Encounter Note(s) Provider Source Jul 08, 2024 02:26 PM NONVA NOTE: LOCAL TITLE: COMMUNITY CARE-CARE COORDINATION PLAN NOTE STANDARD TITLE: NONVA NOTE DATE OF NOTE: JUL 08, 2024@14:26 ENTRY DATE: JUL 08, 2024@14:26:51 AUTHOR: CATARINA BARAJAS EXP COSIGNER: URGENCY: STATUS: COMPLETED COMMUNITY CARE-CARE COORDINATION PLAN NOTE Has ADDENDA Pt calling to state he was called by LCP for f/u visit after his ER visit and he doesn't know why he needs this. He has f/u with [facility] PCP 07/20/23 for RN visit and 08/03/24 with [facility] PCP. Informed him that CPRS banner has not been updated properly and that he may follow with [facility] PCP only. This song writer alerted RUIZ Munoz to please correct CPRS banner. Pt also uses his private insurance for all specialty care in the community and not VA CC. Alerting Jessi Holcomb RN to above and to please cancel f/u on 07/15/24 as pt will follow with [facility] PCP instead. Thank you!! /migdalia/ CATARINA BARAJAS RN video production specialist Wrapper Stitcher Signed: 07/08/2024 14:30 Receipt Acknowledged By: 07/09/2024 08:44 /es/ Jessi Holcomb, RN Nurse [facility] 07/08/2024 ADDENDUM STATUS: COMPLETED [place] called [facility] and cancelled his appointment July 15 to transfer his care to [place], however, the has primary care with Non-VA physician and does not want primary care at [place]. /es/ [facility] Signed: 07/08/2024 15:29 CATARINA BARAJAS [facility]
--- OUTSIDE RECORDS SUMMARY | 2024-07-17 00:50 | XMS_ITS | Encounter Summary ---
Author Name Department [place] Organization Department [place] Address [address] [place] [address] Care Team Providers Care Inspector Floor Sub Assembly Name Role Phone LILIAMRONIT LYNN Primary Care [...] Patient's Relationship to Policy Lu AARP [facility] ([facility]) MEDICARE ADVANTAGE MCR ([facility]) Nov 11, 2020 [id number] MAURICE LUCAS Y PATIENT [facility] ([facility]) MEDICARE ADVANTAGE MCR ([facility]) Nov 11, 2017 [id number] [phone] SHAYYMAURICE Yee Y PATIENT [facility] ([facility]) MEDICARE ADVANTAGE MCR ([facility]) Nov 11, 2020 [id number] [phone] MAURICE LUCAS Y PATIENT Selected Encounter This section includes the information on record at [place] for the Encounter. Date/Time Encounter Type Encounter Description Reason Provider Source Jul 07, 2024 02:00 PM Outpatient Encounter TELEPHONE PRIMARY CARE JESSE BISWAS Encounter Template Text not used by [place] Plan of Treatment: Future Appointments (+ 6 months) and Future Tests (+/- 45 days) The Plan of Treatment section includes future care activities for the patient from all [place] [facility] This section includes future appointments [...] 11:24 AM AMBULATORY - NONE [place] [facility] Aug 06, 2024 08:15 AM AMBULATORY - NONE [facility] Aug 12, 2024 02:00 PM AMBULATORY - MEDICINE MINYoung SHANNONPAULA [facility] Sep 14, 2024 10:30 AM [...] AM VA-TOBACCO QUIT 15 YRS OR MORE [facility] Tobacco Use History This section includes a history of the smoking, or tobacco-related health factors, that were collected on or before the date of the Encounter. The data comes from the [place] facility where the Encounter took place. Date/Time Smoking Status/Tobacco Use Comment F acmaura March 23, 2019 08:54 AM VA-TOBACCO QUIT 15 YRS OR MORE [facility] Mar 04, 2018 09:41 AM LIFETIME NON-TOBACCO USER [facility] Jun 17, 2017 01:07 PM LIFETIME NON-TOBACCO USER [facility] Apr 23, 2016 09:50 AM FORMER TOBACCO USER 7Y OR GREATE R [facility] Mar 06, 2016 11:12 AM INPT NO TOBACCO USE IN LAST 30 D AYS [facility] Jul 15, 2015 08:58 AM LIFETIME NON-TOBACCO USER [facility] Feb 11, 2013 10:04 AM LIFETIME NON-TOBACCO USER [facility] Nov 27, 2006 03:44 PM FORMER TOBACCO USER 7Y OR GREATE R [facility] Advance Directives: All historical and current Section [...] Source Mar 04, 2016 [facility] Apr 25, 2010 ADVANCE DIRECTIVE RADHA STEVENSON [facility] March 21, 2005 [facility] Apr 28, 2004 CLINICAL WARNING MAGI CHAUDHRYI [facility] Apr 28, 2004 CLINICAL WARNING DUNIA [facility]
--- OUTSIDE RECORDS SUMMARY | 2024-07-17 00:51 | XMS_ITS | Encounter Summary ---
Author Name Department [place] Organization [place] Address [address] [place] [address] Care Team Providers Care Principal Solutions Architect Name Role Phone LILIAMRONIT LYNN Primary Care [...] Lu AARP [facility] ([facility]) MEDICARE ADVANTAGE MCR ([facility]) Nov 11, 2020 [id number] [phone] MAURICE LUCAS Y PATIENT [facility] ([facility]) MEDICARE ADVANTAGE MCR ([facility]) Nov 11, 2017 [id number] [phone] SHAYYMAURICE Yee Y PATIENT [facility] ([facility]) MEDICARE ADVANTAGE MCR ([facility]) Nov 11, 2020 [id number] MAURICE LUCAS Y PATIENT Selected Encounter This section includes the information on record at [place] for the Encounter. Date/Time Encounter Type Encounter Description Reason Pro vider Source Jul 10, 2024 03:03 PM Outpatient Encounter COMMUNITY CARE CONSULT IHE Encounter Template Text not used by [place] Plan of Treatment: Future Appointments (+ 6 months) and Future Tests (+/- 45 days) The Plan of Treatment section includes future care activities for the patient from all [place] [facility]. This section includes future appointments and future orders which are active, pending or scheduled. Future Appointments This section includes appointments that were scheduled to occur 6 months from the date of the Encounter, up to a maximum of 20 appointments. The data comes from all [place] treatment facilities. Appointment Date/Time Appointment Type Appointme nt Facility Name Jul 13, 2024 11:24 AM AMBULATORY - NONE STEPHANIE MURILLO [facility] Aug 06, 2024 08:15 AM AMBULATORY - NONE [facility] Aug 12, 2024 02:00 PM AMBULATORY - MEDICINE CHRIS ALEXXCHAR [facility] Sep 14, 2024 10:30 AM AMBULATORY - PSYCHIATRY [facility] Sep 15, 2024 10:30 AM AMBULATORY [...] Facil ity March 23, 2019 08:54 AM [place]-TOBACCO QUIT 15 YRS OR MORE [facility] Tobacco Use History This section includes a history of the smoking, or tobacco-related health factors, that were collected on or before the date of the Encounter. The data comes from the [place] facility where the Encounter took place. Date/Time Smoking Status/Tobacco Use Comment F acility March 23, 2019 08:54 AM VA-TOBACCO QUIT 15 YRS OR MORE [facility] Mar 04, 2018 09:41 AM LIFETIME NON-TOBACCO USER [facility] Jun 17, 2017 01:07 PM LIFETIME NON-TOBACCO USER [facility] Apr 23, 2016 09:50 AM FORMER TOBACCO USER 7Y OR GREATE R [facility] Mar 06, 2016 11:12 AM INPT NO TOBACCO USE IN LAST 30 D AYS [facility] Jul 15, 2015 08:58 AM LIFETIME NON-TOBACCO USER [facility] Feb 11, 2013 10:04 AM LIFETIME NON-TOBACCO USER [facility] Nov 27, 2006 03:44 PM FORMER TOBACCO USER 7Y OR GREATE R [facility] Advance Directives: All historical [...] Mar 04, 2016 CLINICAL WARNING PALMA NUNEZI [facility] Apr 25, 2010 ADVANCE DIRECTIVE ELVARADHA LEE Tio KRISTELBISMARK MURILLO [facility] March 21, 2005 CLINICAL WARNING [facility] Apr 28, 2004 CLINICAL WARNING ANDERSONMAGI DAVISI [facility] Apr 28, 2004 CLINICAL WARNING MINEDUNIA M [facility] Encounter Notes: All associated encounter notes This section contains the clinical notes associated to the Encounter. Date/Time Encounter Note(s) Provider Source Jul 10, 2024 03:03 PM PHARMACY NOTE: LOCAL TITLE: PHARMACY NON [place] CARE MEDICATIONS STANDARD TITLE: PHARMACY NOTE DATE OF NOTE: JUL 10, 2024@15:03 ENTRY DATE: JUL 10, 2024@15:03:55 AUTHOR: JACEY CUEVAS EXP COSIGNER: URGENCY: STATUS: COMPLETED [facility] [place] [facility] received the following electronic prescription(s): [id number]. [id number] apixaban 5 mg tablet eRx Qty: 180 eRx # of Refills: 3 eRx Days Supply: SIG: Take 1 Tablet (5 mg) by mouth two times daily. Date received: 07/10/24 [facility] The outside (NON-VA) provider is not authorized to write for prescription(s) through community care at this [place] pharmacy at this time. This patient does not have [facility] cardiology approved Prescription rejected back to ordering provider with request for patient's [facility] approved primary care provdier to order. /migdalia/ JACEY CUEVAS PharmD Signed: 07/10/2024 15:06 JACEY CUEVAS [facility]
--- OUTSIDE RECORDS SUMMARY | 2024-07-17 00:51 | XMS_ITS | Encounter Summary ---
Author Name [place] Organization [place] Address [address] [place] [address] Care Team Providers Care Hazmat Cdl Driver Name Role Phone LILIAMRONIT LYNN Primary Care [...] Name Patient's Relationship to Policy Lu AARP [facility] ([facility]) MEDICARE ADVANTAGE MCR ([facility]) Nov 11, 2020 [id number] [phone] MAURICE LUCAS Y PATIENT [facility] ([facility]) MEDICARE ADVANTAGE MCR ([facility]) Nov 11, 2017 [id number] SHAYYMAURICE Yee Y PATIENT [place] ([facility]) MEDICARE ADVANTAGE MCR ([facility]) Nov 11, 2020 [id number] [phone] MAURICE LUCAS Y PATIENT Selected Encounter This section includes the information on record at [place] for the Encounter. Date/Time Encounter Type Encounter Description Reason Pro vider Source Jul 10, 2024 11:02 AM Outpatient Encounter COMMUNITY CARE CONSULT IHE Encounter Template Text not used by [place] Plan of Treatment: Future Appointments (+ 6 months) and Future Tests (+/- 45 days) The Plan of Treatment section includes future care activities for the patient from [facility] [place] [facility] This section includes future [...] 11:24 AM AMBULATORY - NONE STEPHANIE MURILLO [facility] Aug 06, 2024 08:15 AM AMBULATORY - NONE [facility] Aug 12, 2024 02:00 PM AMBULATORY - MEDICINE CHRIS ALEXXCHAR [facility] Sep 14, 2024 10:30 [...] Facil ity March 23, 2019 08:54 AM [place]-TOBACCO QUIT 15 YRS OR MORE [facility] [...] Provider Source Mar 04, 2016 CLINICAL WARNING ENRIQUEPALMA Ivonne [facility] Apr 25, 2010 ADVANCE DIRECTIVE ELVARADHA LEETrinity [facility] March 21, 2005 CLINICAL [facility]ING [facility] Apr 28, 2004 CLINICAL [facility]I [facility] Apr 28, 2004 CLINICAL WARNING [facility] [facility] Encounter Notes: All associated encounter notes This section contains the clinical notes associated to the Encounter. Date/Time Encounter Note(s) Provider Source Jul 10, 2024 11:02 AM PHARMACY NOTE: LOCAL TITLE: PHARMACY NON VA CARE MEDICATIONS STANDARD TITLE: PHARMACY NOTE DATE OF NOTE: JUL 10, 2024@11:02 ENTRY DATE: JUL 10, 2024@11:02:49 AUTHOR: GIOVANNI PALACIO EXP COSIGNER: URGENCY: STATUS: COMPLETED PHARMACY NON VA CARE MEDICATIONS Has ADDENDA VA outpatient pharmacy has received a prescription or request for a renewal of a prescription written by a non-VA provider. 's Community Care consult covering this prescription has . Declo/VA pharmacy requests renewal of community care consult. Please review and enter Community Care consult renewal if appropriate. Community Care consult service line requested: ENT Previous VA consult number: CONSULT WAS CANCELLED Thank you. [place] [facility] Community Care [phone] /migdalia/ GIOVANNI PALACIO PharmD, BCGP, [facility] Outpatient Clinic Pharmacist Signed: 07/10/2024 11:03 Receipt Acknowledged By: 07/10/2024 11:26 /migdalia/ CATARINA BARAJAS RN supervisor beater room Can Pusher 07/10/2024 ADDENDUM STATUS: COMPLETED Spoke with pt. He will contact his [facility] PCP regarding ordering his doxycycline monohydrate 100 mg capsule (Monodox). He states he will do so. /es/ CATARINA HIGHLEY, RN supervisor beater room Can Pusher Signed: 07/10/2024 11:22 GIOVANNI PALACIO [facility]
--- OUTSIDE RECORDS SUMMARY | 2024-07-17 00:51 | XMS_ITS | Encounter Summary ---
Author Name [facility] [place] Address [address] [place] [address] Care Team Providers Care Tornado Chaser Name Role Phone LILIAMRONIT LYNN Primary Care [...] Name Patient's Relationship to Policy Lu AARP [facility] ([place]) MEDICARE [facility] ([facility]) Nov 11, 2020 [id number] SHAYYMAURICE Yee Y PATIENT [facility] ([facility]) MEDICARE ADVANTAGE MCR ([facility]) Nov 11, 2017 [id number] SHAYYMAURICE Yee Y PATIENT [facility] ([facility]) MEDICARE ADVANTAGE MCR ([facility]) Nov 11, 2020 [id number] [id number] MAURICE LUCAS Y PATIENT Selected Encounter This section includes the information on record at [place] for the Encounter. Date/Time Encounter Type Encounter Description Reason Provider Source Jul 10, 2024 11:08 AM Outpatient Encounter EVENT (HISTORICAL) GIOVANNI PALACIO Encounter Template Text not used by [place] Plan of Treatment: Future Appointments (+ 6 months) and Future Tests (+/- 45 days) The Plan of Treatment section includes future care activities for the patient from all [place] [facility] This section includes future appointments and future orders which are active, pending or scheduled. Future Appointments This section includes appointments that were scheduled to occur 6 months from the date of the Encounter, up to a maximum of 20 appointments. The data comes from all [place] treatment facilities. Appointment Date/Time Appointment Type Appointme nt Facility Name Jul 13, 2024 11:24 AM AMBULATORY - NONE STEPHANIE MURILLO [facility] Aug 06, 2024 08:15 AM AMBULATORY - NONE [facility] Aug 12, 2024 02:00 PM AMBULATORY - MEDICINE CHRIS ALEXXCHAR [facility] Sep 14, 2024 10:30 AM AMBULATORY - PSYCHIATRY AL [facility]DRA ROM[facility] Sep 15, 2024 10:30 AM AMBULATORY - PSYCHIATRY AL [facility] HE[facility]ER [facility] Social History: Smoking Status (Most current) and Tobacco Use (All prior to encounter date) This section includes the most current, and the historical, smoking and tobacco- related health factors from the [place] facility where the Encounter took place. Current Smoking Status This section includes the most current smoking, or tobacco-related health factor, from the [place] facility where the Encounter took place. Date/Time Current Smoking Status Comment Facil ity March 23, 2019 08:54 AM [place]-TOBACCO QUIT 15 YRS OR MORE [facility] Tobacco Use History This section includes a history of the smoking, or tobacco-related health factors, that were collected on or before the date of the Encounter. The data comes from the [place] facility where the Encounter took place. Date/Time Smoking Status/Tobacco Use Comment F acility March 23, 2019 08:54 AM [place]-TOBACCO QUIT 15 YRS OR MORE [facility] Mar 04, 2018 09:41 AM LIFETIME NON-TOBACCO USER [facility] Jun 17, 2017 01:07 PM LIFETIME NON-TOBACCO USER [facility] Apr 23, 2016 09:50 AM FORMER TOBACCO USER 7Y OR GREATE R [facility] Mar 06, 2016 11:12 AM INPT NO TOBACCO USE IN LAST 30 D AYS [facility] Jul 15, 2015 08:58 AM LIFETIME NON-TOBACCO USER [facility] Feb 11, 2013 10:04 AM LIFETIME NON-TOBACCO USER [facility] Nov 27, 2006 03:44 PM FORMER TOBACCO USER 7Y OR GREATE R [facility] Advance Directives: All historical and current Section Date Range: From patient's date of to the date document was created. This section includes ALL of a patient's completed or amended [place] Advance and Rescinded Directives. The entries below indicate that a directive exists for the patient, but an actual copy is not included with this document. The data comes from all [place] facilities. Date Advance Directives Provider Source Mar 04, 2016 CLINICAL WARNING ENRIQUEPALMA Ivonne RICHARDI S [facility] Apr 25, 2010 ADVANCE DIRECTIVE ELVARADHA LEEBISMARK MURILLO [facility] March 21, 2005 CLINICAL WARNING [place]LEE [place] [facility] Apr 28, 2004 CLINICAL WARNING ANDERSONMAGI DAVISAPOLI S [facility] Apr 28, 2004 CLINICAL WARNING [facility] [facility] Encounter Notes: All associated encounter notes This section contains the clinical notes associated to the Encounter. Date/Time Encounter Note(s) Provider Source Jul 10, 2024 11:08 AM PHARMACY NOTE: LOCAL TITLE: ERX RX CHANGE REQUEST NOTE STANDARD TITLE: PHARMACY NOTE DATE OF NOTE: JUL 10, 2024@11:08:17 ENTRY DATE: JUL 10, 2024@11:08:17 AUTHOR: GIOVANNI PALACIO EXP COSIGNER: URGENCY: STATUS: COMPLETED SUBJECT: doxycycline:DOXYCYCLINE eRx Patient: SELAM LUCAS eRx Reference #: [id number] eRx HT: 177.8(cm)(05/31/2022) eRx WT: 122.92(kg)(05/31/2022) RXCHANGEREQUEST Change Request Type: Therapeutic Interchange/Substitution Change Request Reason Text: Pharmacy is unable to supply medication as prescribed however, alternative options may exist. Please approve an option below or Cancel Rx and send a replacement. REQUEST TO CHANGE MONOHYDRATE TO HYCLATE FORMULATION MEDI CATION PRESCRIBED eRx Patient Primary Telephone: [phone] eRx Patient: SELAM LUCAS : 54 eRx Provider Primary Telephone: [phone] eRx Provider: CELIA KRISHNAMURTHY PDERITO#: eRx Drug: doxycycline monohydrate 100 mg capsule (Monodox) eRx Qty: 20 eRx Refills: 0 eRx Days Supply: eRx Written Date: JUL 10, 2024 eRx Issue Date: eRx Sig: Take 1 capsule (100 mg total) by mouth 2 (two) times a day before morning and evening meals for 10 days. eRx Provider Notes/Comments: ME DICATION REQUESTED 1 Drug: DOXYCYCLINE HYCLATE 100MG TAB Substitutions: YES Note: Qty: 20 Refills: 0 Days Supply: 10 Quantity Unit Of Measure: TABLET DOSING UNIT Sig: TAKE ONE TABLET BY MOUTH TWICE DAILY FOR 10 DAY RXCHAN GE REQUEST INFORMATION Requested By: GIOVANNI PALACIO Request Date/Time: JUL 10, 2024@11:08:17 RxChange Request Comments: Comments By: Comments Date/Time: M ESSAGE HISTORY Request Reference #: [id number] New eRx Reference #: [id number] Response eRx Reference #: Provider's feedback pending. /migdalia/ GIOVANNI PALACIO PharmD, BCGP, [facility] Outpatient Clinic Pharmacist Signed: 07/10/2024 11:08 GIOVANNI PALACIO [facility]
--- OUTSIDE RECORDS SUMMARY | 2024-07-17 00:51 | XMS_ITS | Encounter Summary ---
Author Name [facility] [place] Organization [place] Address [address] [place] [address] Care Team Providers Care Supervisor Bridges And Buildings Name Role Phone RONIT NIEVES Primary Care [...] Name Patient's Relationship to Policy Lu AARP [facility] ([facility]) MEDICARE ADVANTAGE MCR ([facility]) Nov 11, 2020 [id number] SHAYY,MAURICE Y PATIENT [facility] ([facility]) MEDICARE ADVANTAGE MCR ([facility]) Nov 11, 2017 [id number] [phone] SHAYY,MAURICE Y PATIENT [facility] ([facility]) MEDICARE ADVANTAGE MCR ([facility]) Nov 11, 2020 [id number] [phone] SHAYY,MAURICE Y PATIENT Selected Encounter This section includes the information on record at [place] for the Encounter. Date/Time Encounter Type Encounter Description Reason Provider Source Jul 07, 2024 02:00 PM Outpatient Encounter TELEPHONE PRIMARY CARE ICD-10-CM R00.2 Palpitations JESSE BISWAS IHE Encounter Template Text not used by [place] Assessments - Encounter Diagnoses This section includes the primary and secondary diagnoses documented for the Encounter. Date/Time Primary/Secondary Diagnosis Diagnosis Name Provider Source Jul 07, 2024 02:00 PM PRIMARY Palpitations JESSE BISWAS [facility] Plan of Treatment: Future Appointments (+ 6 months) and Future Tests (+/- 45 days) The Plan of Treatment section includes future care activities for the patient from all [place] [facility]. This section includes future appointments and future orders which are active, pending or scheduled. Future Appointments This section includes appointments that were scheduled to occur 6 months from the date of the Encounter, up to a maximum of 20 appointments. The data comes from all [place] treatment facilities. Appointment Date/Time Appointment Type Appointme nt Facility Name Jul 09, 2024 08:15 AM AMBULATORY - NONE [facility] Jul 13, 2024 11:24 AM AMBULATORY - NONE [place] [facility] Aug 06, 2024 08:15 AM AMBULATORY - NONE [facility] Aug 12, 2024 02:00 PM AMBULATORY - MEDICINE MIN[place] ORTEGA [facility] Sep 14, 2024 10:30 AM AMBULATORY - PSYCHIATRY [facility]IN[facility] Sep 15, 2024 10:30 AM AMBULATORY - PSYCHIATRY [facility] Social History: Smoking Status (Most current) and Tobacco Use (All prior to encounter date) This section includes the most current, and the historical, smoking and tobacco- related health factors from the [place] facility where the Encounter took place. Current Smoking Status This section includes the most current smoking, or tobacco-related health factor, from the [place] facility where the Encounter took place. Date/Time Current Smoking Status Comment Facil ity Nov 07, 2022 11:00 AM VA-TOBACCO NEVER USED [facility] Tobacco Use History This section includes a history of the smoking, or tobacco-related health factors, that were collected on or before the date of the Encounter. The data comes from the [place] facility where the Encounter took place. Date/Time Smoking Status/Tobacco Use Comment F acility Dec 13, 2021 09:30 AM VA-TOBACCO NEVER USED [facility] Jan 24, 2021 11:00 AM VA-TOBACCO NEVER USED SANDY HERNANDES March 30, 2020 10:56 AM VA-TOBACCO NEVER USED [facility] Advance Directives: All historical and current Section Date Range: From patient's date of to the date document was created. This section includes ALL of a patient's completed or amended [place] Advance and Rescinded Directives. The entries below indicate that a directive exists for the patient, but an actual copy is not included with this document. The data comes from all [place] facilities. Date Advance Directives Provider Source Mar 04, 2016 CLINICAL WARNING PALMA NUNEZ [place] [facility] Apr 25, 2010 ADVANCE DIRECTIVE RADHA STEVENSONO LIS [facility] March 21, 2005 CLINICAL WARNING KYLEE ANN [place] [facility] Apr 28, 2004 CLINICAL WARNING MAGI CHAUDHRYAPOLI S [facility] Apr 28, 2004 CLINICAL WARNING [place] PIZARRO OLCHAR [facility] Encounter Notes: All associated encounter notes This section contains the clinical notes associated to the Encounter. Date/Time Encounter Note(s) Provider Source Jul 07, 2024 02:26 PM PRIMARY CARE NOTE: LOCAL TITLE: POST DISCHARGE CONTACT STANDARD TITLE: PRIMARY CARE NOTE DATE OF NOTE: JUL 07, 2024@14:26 ENTRY DATE: JUL 07, 2024@14:27:18 AUTHOR: JESSE BISWAS EXP COSIGNER: URGENCY: STATUS: COMPLETED Location of Discharge: Emergency Department/Urgent Care Contact attempt: 1st [place] identified by the following: Full Name Date of Contact made through telephone call Reason for hospitalization/Emergency Department/Urgent Care visit: Palpitations /Caregiver states condition has improved. Symptoms to monitor for health maintenance: Ongoing palpitation episodes Confirmed the below changes to medications, equipment or supplies: START - rivaroxaban Medications, equipment or supplies were obtained/purchased. 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 Future Appointments: Informed, discussed and confirmed next scheduled appointments Education Provided: Length of time spent: 10 minutes /migdalia/ Jesse Biswas, RN Nurse [facility] Signed: 07/07/2024 15:19 [facility]
--- OUTSIDE RECORDS SUMMARY | 2024-07-17 00:51 | XMS_ITS | Encounter Summary ---
Author Name [facility] [place] Organization [place] Address [address] [place] [address] Care Team Providers Care Acting Professor Name Role Phone RONIT NIEVES Primary Care [...] Name Patient's Relationship to Policy Lu AARP [facility] ([facility]) MEDICARE ADVANTAGE MCR ([facility]) Nov 11, 2020 [id number] SHAYY,MAURICE Y PATIENT [facility] [email or web address] ([facility]) MEDICARE ADVANTAGE MCR ([facility]) Nov 11, 2017 [id number] SHAYY,MAURICE Y PATIENT [facility] ([facility]) MEDICARE ADVANTAGE MCR ([facility]) Nov 11, 2020 [id number] SHAYY,MAURICE Y PATIENT Selected Encounter This section includes the information on record at [place] for the Encounter. Date/Time Encounter Type Encounter Description Reason Provider Source Jul 09, 2024 08:15 AM MTMS BY PHARM MALORIE 15 MIN TELEPHONE PRIMARY CARE ICD-10-CM E11.8 Type 2 diabetes mellitus with unspecified complications NHI CHARLES Wan Encounter Template Text not used by [place] Assessments - Encounter Diagnoses This section includes the primary and secondary diagnoses documented for the Encounter. 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 This section includes future appointments [...] 2024 11:24 AM AMBULATORY - NONE [facility] Aug 06, 2024 08:15 AM AMBULATORY - NONE [facility] CORTEZ [facility] Aug 12, 2024 02:00 PM [facility] Sep 14, 2024 10:30 AM AMBULATORY - PSYCHIATRY [facility] SAUNDRA ROMERO [facility] Sep 15, 2024 10:30 AM AMBULATORY - PSYCHIATRY AL SAUNDRA HEATHER [facility] Social History: Smoking Status (Most current) [...] Date/Time Current Smoking Status Comment Darian ity Nov 07, 2022 11:00 AM IN-TOBACCO NEVER USED [facility] WALKER [facility] Tobacco Use History This section includes a [...] Mar 04, 2016 CLINICAL WARNING ENRIQUEPALMA Ivonne [facility] Apr 25, 2010 ADVANCE DIRECTIVE RAD[facility] March 21, 2005 CLINICAL WARNING MARISSASERGEYYoung [facility] Apr 28, 2004 CLINICAL WARNING MAGI CHAUDHRY [facility] Apr 28, 2004 CLINICAL WARNING DUNIA BLOUNT [facility] Encounter Notes: All associated encounter notes This section contains the clinical notes associated to the Encounter. Date/Time Encounter Note(s) Provider Source Jul 09, 2024 07:48 AM PHARMACY NOTE: LOCAL TITLE: PHARMACOTHERAPY-CLINICAL PHARMACY NOTE STANDARD TITLE: PHARMACY NOTE DATE OF NOTE: JUL 09, 2024@07:48 ENTRY DATE: JUL 09, 2024@07:48:51 AUTHOR: NHI CHARLES EXP COSIGNER: URGENCY: STATUS: COMPLETED SHAYYJULIUS is a 73 YO MALE followed by [facility] for medication management. Visit Type: telephone *Has non-VA pcp (Shilo Leone), underwriter managing DM, non- VA pcp aware. SUBJECTIVE: Vet is following-up with [facility] for DM management. Recently went to the ED due to palpitations. Upon discharge vet was started on xarelto and switched to eliquis by PCP. Will be having a cardioversion done within the next month, not scheduled yet. Baseline Weight: 275 lbs [123.60 kg], BMI 40.3 (02/27/23) [place] [facility] Weight: 156 lbs [70.70 kg] Clinic Weight: 269.8 lbs [122.38 kg], BMI 39.93 (09/05/23) Current Home Weight: 252 lbs Weight Loss: ~23 lbs Lifestyle: Diet: typically just eating 2x/day -doesn't eat lunch -will eat at [employer], [employer], [employer], but tries to avoid fast food Meal 1 (6 AM): 2 egg mcmuffins with ham today: bowl of oatmeal with cinnamon Meal 2 (5-6 PM): varies - chicken nuggets or toast w/ peanut butter hamburger (at home), minute-rice - gets meals from [employer] Beverages: diet coke and water Snacks: cookies (rarely) Exercise: goes to the gym 3x's/wk - Nustep for about 20-30 mins #DM Labs: 03/2023 C-Peptide: 2.45 GREG-65: <5 ROS: (-) hypoglycemia symptoms - feels shaky, dizzy +/- sweating if BG is <100 - uses glucose tablets to help increase BG (-) hyperglycemia symptoms Past DM meds: -empagliflozin - dizziness, had fall -metformin - made him really sick -semaglutide - GI side effects, mild increase in lipase (decreased since stopping) -rosiglitazone Meds: ACEi/ARB: + Stain: + Diabetes Related Complications: Macrovascular: [+], atrial flutter, CHF, hx of CVA, CAD Microvascular: -Retinopathy [-], last exam w/ [facility] 12/18/22 -Nephropathy [-], on candesartan, didn't tolerate empa CGM - FreeStyle Javier 3 Name: Julius Gregory Date of : 1950 Report Period: 06/26/2024 - 07/09/2024 (14 days) Generated: 07/09/2024 % Time CGM Active: 95% Glucose Statistics and Targets Average Glucose: 191 mg/dL Glucose Management Indicator (GMI): 7.9% Glucose Variability (%CV): 33.1% Target Range: 70 - 180 mg/dL Time in Ranges Very High: >250 mg/dL --- 18% High: 181 - 250 mg/dL --- 36% Target Range: 70 - 180 mg/dL --- 46% Low: 54 - 69 mg/dL --- 0% Very Low: <54 mg/dL --- 0% - highest BGs were noted on July 02 after vet ate 2 [employer] roast beef sandwiches - spikes in BGs are noted after each meal - past few days his appetite has decreased due to GI concerns and BGs have not spiked as much Previous LibreView Report Period: 05/27/2024 - 06/09/2024 (14 days) [...] Low: <54 mg/dL --- 0% Labs ([facility]) *JLV Date Lab Result 03/19 Cholesterol 162 mg/dL TG 286 mg/dL HDL 43 mg/dL LDL 62 mg/dL A1c 8.7% 06/30 A1c 9.1% eGFR >90 mL/min/1.73m2 Lipase 49.9 Adherence to Medications: no concerns OBJECTIVE: ALLERGIES/ADR: METRONIDAZOLE (Feb 24, 2004) TETRACYCLINE (Feb 24, 2004) LOSARTAN (Nov 18, 2009) OMEPRAZOLE (Sep 12, 2011) METFORMIN (Jun 14, 2016) EMPAGLIFLOZIN (Nov 20, 2019) AUGMENTIN (Feb 14, 2022) SEMAGLUTIDE (Jun 09, 2024) MEDICATION RECONCILIATION: Active and Recently Outpatient Medications (excluding Supplies): Active Outpatient Medications Status 1) ACCU-CHEK GUIDE (GLUCOSE) TEST STRIP USE 1 STRIP ACTIVE THREE TIMES A DAY TO CHECK BLOOD SUGAR--USE WITHIN 3 MINUTES OF REMOVING FROM CONTAINER 2) ASPIRIN 81MG EC TAB TAKE ONE TABLET BY MOUTH EVERY ACTIVE (S) DAY 3) ATORVASTATIN CALCIUM 40MG TAB TAKE ONE TABLET BY ACTIVE MOUTH EVERY EVENING FOR CHOLESTEROL 4) CANDESARTAN CILEXETIL 32MG TAB TAKE ONE TABLET BY ACTIVE (S) MOUTH EVERY DAY FOR BLOOD PRESSURE 5) [...] MEASURE DOSE. *MAX 32 GRAMS PER DAY 8) DILTIAZEM (EQV-TIAZAC) 120MG 24HR CAP TAKE ONE ACTIVE CAPSULE BY MOUTH EVERY DAY 9) EZETIMIBE 10MG TAB TAKE ONE TABLET BY MOUTH EVERY DAY ACTIVE FOR CHOLESTEROL 10) FAMOTIDINE 20MG TAB TAKE TWO TABLETS BY MOUTH AT ACTIVE BEDTIME FOR STOMACH ACID 11) HYDROCORTISONE 1% CREAM APPLY THIN LAYER TOPICALLY ACTIVE TWICE A DAY NEEDED FOR ITCHING 12) INSULIN,ASPART(EQV-NOVLG)100UN /ML FLXPEN INJECT 1-12 CONFIRMED UNITS UNDER THE SKIN THREE TIMES A DAY BEFORE MEALS NEEDED FOR DIABETES MAX 36 UNITS PER DAY - Injects prior to each meal BG <150 - 6 units BG 151-200 - 8 units BG 201-250 - 10 units BG >250 - 12 units 13) INSULIN,GLARGINE-YFGN 100UNIT/ML PEN 3ML INJECT 66 CONFIRMED UNITS UNDER THE SKIN AT BEDTIME - Injects 66 units at bedtime 14) [...] NEEDED FOR CONSTIPATION *MIX IN LIQUID 18) TRAZODONE HCL 50MG TAB TAKE ONE TABLET BY MOUTH AT ACTIVE BEDTIME FOR SLEEP Inactive Outpatient Medications Status 1) HYDROCHLOROTHIAZIDE 25MG TAB TAKE ONE TABLET BY MOUTH RENEWED THREE TIMES A WEEK Active Non-VA Medications Status 1) Non-VA APPLE [...] A1c increased and remains above goal at 9.1% ([facility]). CGM data showed BG was below goal with a BG average of 191 mg/dL and GMI of 7.9%. BG was above range (>180 mg/dL) 54% of the time and within target range (70-180 mg/dL) 46%. Current meds include: insulin aspart, and insulin glargine. Could consider increasing insulin aspart due to elevated BGs after each meal. PLAN: Continue: - Insulin glargine 66 units under the skin once daily in the morning Increase: *change once GI concerns have subsided - Insulin aspart sliding scale: BG <150 - 8 units BG 151-200 - 10 units BG 201-250 - 12 units BG >250 - 14 units #Disease-Specific Med Rec: Completed today #Labs: No labs are indicated at today's visit - Educated vet on indication/risks/benefits of new/changed medication. - Education provided on therapeutic nonpharmacologic management to achieve goals. - Vet advised of recent labs. - verbalized understanding to all plans discussed today. Questions were answered to vet's satisfaction. Time spent: 18 minutes RTC: Aug 06 @815AM /es/ Norma Martinez Clinical General Office Clerk Signed: 07/09/2024 08:49 NHI CHARLES
--- OUTSIDE RECORDS SUMMARY | 2024-07-17 00:52 | XMS_ITS | Encounter Summary ---
Author Name Department of Vetera Affairs ([place]) Organization Department of Vetera Affairs [place]) Address [address] [place] [address] Care Team Providers Care Grapple Crew Leader Name Role Phone LILIAMRONIT LYNN Primary Care [...] Name Patient's Relationship to Policy Lu AARP [facility] ([facility]) MEDICARE ADVANTAGE MCR ([facility]) Nov 11, 2020 [id number] SHAYYMAURICE Y PATIENT [facility] ([facility]) MEDICARE ADVANTAGE MCR ([facility]) Nov 11, 2017 [id number] SHAYY,MAURICE Y PATIENT [facility] ([facility]) MEDICARE ADVANTAGE MCR ([facility]) Nov 11, 2020 [id number] SHAYY,MAURICE Y PATIENT Selected Encounter This section includes the information on record at [place] for the Encounter. Date/Time Encounter Type Encounter Description Reason Provider Source Jul 13, 2024 11:24 AM Outpatient Encounter ADMIN PAT ACTIVTIES (MASNONCT) CELIA KENNY Encounter Template Text not used by MD Plan of Treatment: Future Appointments (+ 6 months) and Future Tests (+/- 45 days) The Plan of Treatment section includes future care activities for the patient from all [facility]. This section includes future appointments and future orders which are active, pending or scheduled. Future Appointments This section includes appointments that were scheduled to occur 6 months from the date of the Encounter, up to a maximum of 20 appointments. The data comes from all MD treatment facilities. Appointment Date/Time Appointment Type Appointme nt Facility Name Aug 06, 2024 08:15 AM AMBULATORY - NONE [facility] Aug 12, 2024 02:00 PM AMBULATORY - MEDICINE CHRIS ORTEGA [facility] Sep 14, 2024 10:30 AM AMBULATORY - PSYCHIATRY HANNAH ROMERO [facility] Sep 15, 2024 10:30 AM AMBULATORY - PSYCHIATRY AL SAUNDRA ROMERO [facility] Social History: Smoking Status (Most current) and Tobacco Use (All prior to encounter date) This section includes the most current, and the historical, smoking and tobacco- related health factors from the MD facility where the Encounter took place. Current Smoking Status This section includes the most current smoking, or tobacco-related health factor, from the MD facility where the Encounter took place. Date/Time Current Smoking Status Comment Facil ity March 23, 2019 08:54 AM MD-TOBACCO QUIT 15 YRS OR MORE [facility] Tobacco Use History This section includes a history of the smoking, or tobacco-related health factors, that were collected on or before the date of the Encounter. The data comes from the MD facility where the Encounter took place. Date/Time [...] ALL of a patient's completed or amended MD Advance and Rescinded Directives. The entries below indicate that a directive exists for the patient, but an actual copy is not included with this document. The data comes from all MD facilities. Date Advance Directives Provider Source Mar 04, 2016 CLINICAL WARNING PALMA NUNEZ RICHARDI [facility] Apr 25, 2010 ADVANCE DIRECTIVE RADHA STEVENSON [facility] March 21, 2005 CLINICAL WARNING MARISSAKYLEE MINNELUCASI S [facility] Apr 28, 2004 CLINICAL WARNING MAGI CHAUDHRY RICHARDWilliam [facility] Apr 28, 2004 CLINICAL [facility] Encounter Notes: All associated encounter notes This section contains the clinical notes associated to the Encounter. Date/Time Encounter Note(s) Provider Source Jul 14, 2024 11:41 AM ADDENDUM: LOCAL TITLE: Addendum STANDARD TITLE: ADDENDUM DATE OF NOTE: JUL 14, 2024@11:41:02 ENTRY DATE: JUL 14, 2024@11:41:03 AUTHOR: JEREMIAH CAMACHO EXP COSIGNER: URGENCY: STATUS: COMPLETED Records uploaded via [employer] for review /migdalia/ JEREMIAH CAMACHO ADVANCED MSA Signed: 07/14/2024 11:41 Receipt Acknowledged By: 07/14/2024 12:01 /es/ Sidra Patterson Ceramic Artist Community Recruiting Manager for KEN Malgorzata [place] === --- Original Document --- 07/12/24 [facility] PRESENTING CARE COORD PLAN NOTE: Emergency Notification Intake Date Presenting to the Facility: Jul Method of Contact: Notified from ECR worklist Notification ID: [id number] [facility] Referral [facility]: [facility] Name: Hospital: [facility] Address: City: [place] State: [place] Zip Code: Phone : [facility] Point of Contact: Name: [facility] Chief complaint: (R19.7) Diarrhea, unspecified type (primary encounter diagnosis) (R05.1) Acute cough Primary Diagnosis: Disposition Unknown at time of intake note entry /migdalia/ KERON MEYER HEALTH BLUEPRINTER Signed: 07/13/2024 11:25 Receipt Acknowledged By: 07/14/2024 09:11 /es/ Celia Kenny RN CEM MSN steel layer Recruiting Manager 07/14/2024 ADDENDUM STATUS: COMPLETED Notification acknowledged by RN, medical and clinical information not reviewed. /migdalia/ Celia Kenny RN CEM MSN steel layer Recruiting Manager Signed: 07/14/2024 09:12 07/12/2024 ADDENDUM STATUS: COMPLETED [facility] Scanned Document - Addendum. ED record 9..24 [facility] SCANNED DOCUMENT SIGNATURE NOT REQUIRED Electronically Filed: 07/14/2024 by: JEREMIAH CAMACHO [facility] JEREMIAH CAMACHO [facility] Jul 12, 2024 11:24 AM NONVA NOTE: LOCAL TITLE: COMMUNITY CARE-ROSS SELF PRESENTING CARE COORD PLAN STANDARD TITLE: NONVA NOTE DATE OF NOTE: JUL 12, 2024@11:24 ENTRY DATE: JUL 13, 2024@11:24:32 AUTHOR: KERON MEYER EXP COSIGNER: URGENCY: STATUS: COMPLETED COMMUNITY CARE-ROSS SELF PRESENTING CARE COORD PLAN NOTE Has ADDENDA Emergency Notification Intake Date Presenting to the Facility: Jul Method of Contact: Notified from ECR worklist Notification ID: [id number] [facility] Referral #: [facility] Name: Hospital: [facility] Address: City: [place] State: [place] Zip Code: Phone : [facility] Point of Contact: Name: [facility] Chief complaint: (R19.7) Diarrhea, unspecified type (primary encounter diagnosis) (R05.1) Acute cough Primary Diagnosis: Disposition Unknown at time of intake note entry /migdalia/ KERON MEYER [facility] BLUEPRINTER Signed: 07/13/2024 11:25 Receipt Acknowledged By: 07/14/2024 09:11 /es/ Celia Kenny RN CEM MSN steel layer Recruiting Manager 07/14/2024 ADDENDUM STATUS: COMPLETED Notification acknowledged by RN, medical and clinical information not reviewed. /es/ Celia Kenny RN CEM MSN steel layer Recruiting Manager Signed: 07/14/2024 09:12 07/12/2024 ADDENDUM STATUS: COMPLETED [facility]ist[facility] Scanned Document - Addendum. ED record 9.1.24 Shilo [place] SCANNED DOCUMENT SIGNATURE NOT REQUIRED Electronically Filed: 07/14/2024 by: JEREMIAH VALLE MSA 07/14/2024 ADDENDUM STATUS: COMPLETED Records uploaded via [employer] for review /migdalia/ JEREMIAH VALLE MSA Signed: 07/14/2024 11:41 Receipt Acknowledged By: 07/14/2024 12:01 /es/ Sidra Patterson Ceramic Artist Community Recruiting Manager for KEN PENNINGTON 07/16/2024 ADDENDUM STATUS: COMPLETED Informed RASHEED Ayers regarding episode of care. /es/ AMBERLY Montiel Ceramic Artist Community Recruiting Manager Signed: 07/16/2024 12:57 KERON MEYER [facility]
--- OUTSIDE RECORDS SUMMARY | 2024-07-17 00:53 | XMS_ITS | Continuity of Care Document ---
Author Organization [facility] Address [address] [address] [place] [address] Phone Care Team Providers Care Settlement Processor Name Role Phone Koby Blakely MD, Gilson Alas Unavailjose e Allergies, Adverse Reactions, Alerts Substance Reaction Status Criticality metronidazole Active No Information tetracycline Active No Information WARNIN allergy(ies) could not be collected because the type is not supported. Please contact the source practice for further details. Medications Medication Instructions Dosage Effective Dates (start - stop) Status Comments Linzess 290 mcg capsule take 1 capsule b y oral route every day on an empty stomach at least 30 minutes before 1st meal of the day 290 MCG - Active Eliquis 5 mg tablet take 1 tablet by oral route 2 times every day 5 MG - Active hydrochlorothiazide 25 mg tablet take as directed - Active metoprolol tartrate 25 mg tablet take 0.5tablet by oral route 1 times every day as needed - Active metoprolol succinate ER 50 mg tablet,extended release 24 hr take as directed 1.5mg tablets - Active Tylenol Arthritis Pain 650 mg tablet,extended release take 2 tablet by oral route every day as needed swallowing whole with water. Do not break, crush, dissolve and/or chew. 1300 MG - Active Lipitor 80 mg tablet take 1 tablet by oral route every day 80 MG - Active Atacand 16 mg tablet take 1.5 tablet by oral route every day 24 MG - Active Saline Nasal 0.65 % spray aerosol as needed - Active Plavix 75 mg tablet take 1 tablet by oral route every day 75 MG - Active cyclobenzaprine 10 mg tablet take 1 tablet by oral route every day as needed 10 MG - Active hydrocortisone 1 % topical cream with perineal applicator apply by topical route 2- 4 times every day a thin layer to the affected area(s) as needed 0.00 - Active Imodium A-D 2 mg tablet take 1 tablet by oral route after 1st loose stool and 1 tablet (2 mg) after each next bowel movement; do not exceed 16 mg in 24hrs 2 MG - Active Lantus Solostar U-100 Insulin 100 unit/mL (3 mL) subcutaneous pen inject by subcutaneous route as per insulin protocol 0.00 - Active Novolog Flexpen U-100 Insulin aspart 100 unit/mL (3 mL) subcutaneous inject by subcutaneous route per prescriber's instructions. Insulin dosing requires individualization. 0.00 - Active Nitrostat 0.[address] 1 tablet by sublingual route every 5 minutes as needed for chest pain. Do not exceed 3 doses in 15 minutes. 0.4 MG - Active Protonix 40 mg tablet,delayed release take 1 tablet by oral route every day take 1 tab 30 mins prior to breakfast and dinner 40 MG - Active Triple Antibiotic-Pain Relief 3.5 mg-500 unit-10,000 unit/gram ointmnt as needed - Active Procedures Procedure Date Established Level 4 or 25-39 min 2019 Offic/outpt E&m New Mod Sever 0 Routine Serum Collection Gg; Iga, Igd, Igg, Igm, Ea Sed Rate, Erythrocyte; Auto Hepatic Function Panel Advance Directives Directive Yes / No Effective Date File Name No Information Encounters Encounter Description Practice Location Reason(s) For Visit Diagnoses Date Provider Providers Copied on Encounter [facility] MARYANNE MICHAEL [address] [address], [place], [id number], [place] tel:[phone] [facility] No Information 2 Koby Riggins. [address] [facility] [facility] [address], [place], [place], [id number], [place]. tel:[phone] [facility], [address] [address], [place], [place], [id number], [place] tel:[phone] [facility] No Information 2 Erlin Douglas. [address] [facility] [facility] [address], [place], [address], [place]. tel:[phone] [facility], [address] [address], [place], [id number], [place] tel:[phone] [facility] No Information 1 Erlin Douglas. [address] [facility] [facility] [address], [place], [id number], [place]. tel:[phone] [facility], [address] [address], [place], [place], [address], [place] tel:[phone] [facility] Diarrhea, unspecified typeBloating 1 Erlin Douglas. [address] [facility] [facility] [address], [place], [id number], [place]. tel:[phone] [facility], [address] [address], [place], [address], [place] tel:[phone] [facility] Abdominal discomfort Sep-3 0- 0 Nena Phan. [address] [facility] [facility] [address], [place], [address], [place]. tel:[phone] [facility], [address] [address], [place], [address], [place] tel:[phone] [facility] Abdominal discomfort Sep-2 0 Erlin Douglas. [address] [facility] [facility] [address], [place], [address], [place]. tel:[phone] [facility], [address] [address], [place], [address], [place] tel:[phone] [facility] No Information Sep-2 -202 0 Erlin Douglas. [address] [facility] [facility] [address], [place], [place], [id number], [place]. tel:[phone] Established Level 4 or 25-39 min [facility], [address] [address], [place], [place], [id number], [place] tel:[phone] [facility] Comment (chief complaint) Irregular bowel habitsBloating 0 Erlin Douglas. [address] [facility] [address], [place], [place], [address], [place]. tel:[phone] Referring Provider: Referral Self, USE FOR SELF REFERRALS. Offic/outpt E&m New Mod Sever [facility], [address] [address], [place], [place], [address], [place] tel:[phone] [facility] GI Symptoms or Concerns (chief complaint) DyspepsiaBloat ingDiarrhea, unspecified typeDietary counseling and surveillance 0 Juan Vaughn. [address] [facility] [address], [place], [address], [place]. tel:[phone] Referring Provider: Linette Leone CNP M, [address] [place], [address]. tel:[phone] [facility], [address] [address], [place], [place], [address], tel:[phone] No Information 0 No Information Referring Provider: Linette Leone CNP M, [address] [place], [address]. tel:[phone] Family History Family Member Type Diagnosis Age At Onset Mother Problem (finding) malignant neop lasm of uterus (Cause Of ) Daughter Problem (finding) Alive and well Sister Problem (finding) malignant neoplasm of l iver Immunizations Vaccine Date Status Comments influenza, seasonal vaccine, quadrivalent, adjuvanted, .5mL dose, preservative free administered Note: [facility] bi-di rectional interface ; Source: Other Registry Pneumovax administered Note: [facility] bi-d irectional interface ; Source: Other Registry Prevnar 13 administered Note: [facility] bi-d irectional interface ; Source: Other Registry diphtheria, tetanus toxoids and acellular pertussis vaccine, unspecified formulation administered Note: [facility] bi-di rectional interface ; Source: Other Registry tetanus and diphtheria toxoi ds, adsorbed, preservative free, for adult use (2 Lf of tetanus toxoid and 2 Lf of diphtheria toxoid) administered Note: [facility] bi-direct ional interface ; Source: Other Registry Pneumovax administered Note: [facility] bi-d irectional interface ; Source: Other Registry Payers Payer name Insurance type Covered libertarian ID Authoriza tion(s) No Information Social History Type Description Quantity Date Captured Comments Alcohol Use Details Unknown Caffeine Use Details Unknown Tobacco Use Status No Information Smoking Status No Information Sex Male Chief Complaint And Reason For Visit No Information Reason For Referral Reason For Referral No Information Plan Of Treatment Date Type Action Status Goal Lifestyle education regardin g diet completed Referral Ordered: Pancreatic Elastase, Fecal Appointment date/timeframe: 06/12/2021 ordered Referral Ordered: Breath Test Glucose Appointment date/timeframe: 08/26/2020 ordered Referral Ordered: CT Abdomen And Pelvis WITH Contrast Appointment date/timeframe: 08/24/2020 ordered History Of Present Illness Encounter Date Complaint History Of Prese nt Illness Comment I had the pleasu re of having a virtual consultation with Mr. Julius Gregory due to the COVID-19 pandemic.Mr. Gregory consented to a virtual consultation, we were alone on the line together, we spoke for approximately 20 minutes and I spent an additional 10 minutes reviewing his medical record and coordinating care. The level of clinical decision making was moderate to high.CHIEF COMPLAINTBloating and irregular bowel habits.As you recall, Julius is a 69-year-old gentleman with multiple medical problems including hypertension, GERD, CAD with stents, atrial fibrillation currently undergoing ablation therapy, morbid obesity, and obstructive sleep apnea, as well as chronic diastolic heart failure and diabetes, who presents in followup for irregular bowel habits and bloating.He met with my partner, Dr. Martinez, in December 2019, noting that he had had GI symptoms for at least 5 to 7 years. He describes bloating and intermittent diarrhea and constipation. He says most days GI Symptoms or Concerns Julius Ye pp is a 69-year-old male who is a known case of hypertension, gastroesophageal reflux disease, prior NSTEMI back in 2015, morbid obesity, obstructive sleep apnea, chronic diastolic CHF, type 2 diabetes mellitus who comes in for initial evaluation of GI symptoms sent in by his primary provider, Linette Leone CNP.Julius states that ever since his gallbladder surgery back a couple of years ago, he has had issues with abdominal bloating and discomfort and intermittent diarrhea. He has dealt with this for the past few years, but over the past few months, these symptoms have become worse. He describes worsening dyspeptic symptoms including significant abdominal bloating and excessive gassiness as well as a gurgling sensation in his abdomen associated with loose stools 2 to 3 times at day.He was actually seen by his primary provider for this, and scheduled for a colonoscopy close to his place of residence in [place], [place]. This was actually scheduled for ye Functional Status Date Functional Assessmen t No Information Instructions Date Instruction Additional Infor twyla 1. Start fiber daily for 2 weeks.2. If this is not enough, then add MiraLax for another 2 weeks.3. If still not better, he will update me and we can try Linzess.Thank you so much for involving me in the care of Mr. Gregory. Related to Irregular bowel habits 1. He should start o [id number] Pepcid complete once a day to help with his dyspeptic symptoms.2. We will send him a prescription for anti-nausea medication (Zofran) this is to help him to get through his bowel prep for his colonoscopy. He can take 1 tablet before starting the bowel prep and another 8 hours later.3. Since he prefers getting his colonoscopy in [place], he will contact his manager drug and reschedule his colonoscopy over there.4. He will contact his handle rounder operator regarding possibly going off the potassium supplementation.5. He will stop by the lab for blood (liver function tests, comprehensive metabolic panel) as well as stool testing (for C. diff, and giardia as well as H. pylori). We will also set him up for blood tests for celiac sprue.6. For the next couple of weeks, he should also avoid all milk and dairy products in order to assess with lactose intolerance as playing a role in his symptoms. If he notices an improvement, he can certainly use [id number] Lactaid tablets with any dairy containing meals.7. He will call or email with any questions or concerns and will follow up with his primary provider as scheduled. Related to Dyspepsia Lifestyle education regarding di et Related to Dietary counseling and surveillance Assessments Type Assessment Date No Information Patient Care Teams Name Effective Dates (start - stop) Status Members No Information
== END 2024-07-02 22:25 | disposition home or self-care (01) ==
LOC: AMB 07-17 00:33
PROVIDERS: PCP Nurse Practitioner Family; Visit Provider Family Medicine
DX: I49.9 Cardiac arrhythmia, unspecified (principal)
CPT/HCPCS: A0425; A0427